=== PATIENT | male | born 1955 | race Caucasian/White ===

== ENCOUNTER 2021-09-26 14:22 | Emergency (ER) | payer OTHER, MEDICARE ==
[2021-09-26 15:21] VITALS: PULSE 70; RESP 18; TEMP 98
[2021-09-26] MEDS ORDERED: KETOROLAC 15 MG/ML 1 ML VIAL IM STA (16:38)
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
[2021-09-26] MEDS ORDERED: CYCLOBENZAPRINE 10MG STARTER 3 TAB BTL PO STA (18:39)
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
[2021-09-26 19:22] VITALS: BP 128/70
== END 2021-09-26 19:24 | disposition home or self-care (01) ==
LOC: EC 14:22
DX: S16.1XXA Strain of muscle, fascia and tendon at neck level, initial encounter (principal); E11.9 Type 2 diabetes mellitus without complications; I10 Essential (primary) hypertension; F17.200 Nicotine dependence, unspecified, uncomplicated; V49.49XA Driver injured in collision with other motor vehicles in traffic accident, initial encounter; Y92.410 Unspecified street and highway as the place of occurrence of the external cause
CPT/HCPCS: 99284; 96372; 72125; 70450; J1885

== ENCOUNTER 2021-11-07 07:42 | Inpatient (IN) | payer MEDICARE ==
--- NOTE | 2021-11-07 08:13 | ED ---
General Adult HPI - General Chief complaint: Shortness of Breath Stated complaint: JOE Time Seen by Provider: 11/07/21 07:45 Source: patient Mode of arrival: ambulatory Limitations: no limitations - History of Present Illness Initial comments: Dictation was produced using [employer] dictation software. please excuse any grammatical, word or spelling errors. Chief Complaint: 66-year-old male with past medical history of hypertension and diabetes presents to the emergency department for 2 days of shortness of breath. History of Present Illness: 66-year-old male presents to the emergency department for shortness of breath 2 days. Patient has history of hypertension and diabetes. Patient states that he is here today for evaluation of shortness of breath. He states he was sleeping but all of a sudden he felt dizzy. States that a short of breath. Denies any chest pain. He has been having nonproductive cough. Symptoms feel like it's worse when he is lying flat. No lower extremity swelling. Denies any constitutional symptoms. No obvious contacts with anybody with COVID-19 or URI symptoms. The ROS documented in this emergency department record has been reviewed and confirmed by me. Those systems with pertinent positive or negative responses have been documented in the HPI. All other systems are other negative and/or noncontributory. PHYSICAL EXAM: General Impression: Alert and oriented x3, not in acute distress HEENT: Normocephalic atraumatic, extra-ocular movements intact, pupils equal and reactive to light bilaterally, mucous membranes moist. Cardiovascular: Heart regular rate and rhythm Chest: Able to complete full sentences, no retractions, no tachypnea Abdomen: abdomen soft, non-tender, non-distended, no organomegaly, diffuse rhonchi to the posterior mariee Musculoskeletal: Pulses present and equal in all extremities, no peripheral edema Motor: no focal deficits noted Neurological: CN II-XII grossly intact, no focal motor or sensory deficits noted Skin: Intact with no visualized rashes Psych: Normal affect and mood ED course: 66-year-old male presents to the emergency department for shortness of breath. He also states that he has associated dizziness. Vital signs upon arrival are within acceptable limits. Laboratory evaluation obtained. CBC is unremarkable. Coag panel is negative. Metabolic panel is unremarkable. Troponin is elevated 0.047. Brain natruretic peptide is 5170. Color test is negative. X-ray shows findings of heart failure. Clinical presentation consistent with new onset heart failure. Patient is stable at the bedside upon reevaluation at 9:30 AM. Patient given 40 mg of IV Lasix. Patient be admitted to [facility] physician group with consultation to cardiology. Patient given an aspirin for elevated troponin. Is not having any active ACS-type symptoms at the moment. He is well-appearing at bedside and denies any chest pain or active shortness of breath. EKG interpretation: Ventricular rate 95, normal sinus rhythm,. Interval 84, QRS 108, QTc 500. No HI prolongation, no QTC prolongation, no ST or T-wave changes noted. No old EKG for comparison. Overall, this EKG is unremarkable - Related Data Previous Rx's Medication Instructions Recorded Cyclobenzaprine [Flexeril] 10 mg PO TID PRN #15 tab 09/26/21 Ibuprofen [Motrin] 600 mg PO Q8HR PRN #30 tab 09/26/21 Allergies Allergy/AdvReac Type Severity Reaction Status Date / Time No Known Allergies Allergy Verified 11/07/21 07:51 Review of Systems ROS Statement: Those systems with pertinent positive or pertinent negative responses have been documented in the HPI. ROS Other: All systems not noted in ROS Statement are negative. Past Medical History Past Medical History: Diabetes Mellitus, Hypertension History of Any Multi-Drug Resistant Organisms: None Reported Past Surgical History: No Surgical Hx Reported Past Psychological History: No Psychological Hx Reported Smoking Status: Current every day smoker Past Alcohol Use History: None Reported Past Drug Use History: None Reported General Exam Limitations: no limitations Course Vital Signs 11/07/21 11/07/21 11/07/21 07:46 08:14 08:20 Pulse Rate 103 H 97 Respiratory 18 24 24 Rate Blood Pressure 117/81 123/80 O2 Sat by Pulse 96 95 Oximetry 11/07/21 09:00 Pulse Rate 93 Respiratory 20 Rate Blood Pressure 103/82 O2 Sat by Pulse 96 Oximetry Medical Decision Making - Lab Data Result diagrams: 11/07/21 08:13 11/07/21 08:13 Lab Results 11/07/21 11/07/21 11/07/21 Range/Units 08:13 08:13 08:13 WBC 9.5 (3.8-10.6) k/uL RBC 4.41 (4.30-5.90) m/uL Hgb 14.5 (13.0-17.5) gm/dL Hct 45.1 (39.0-53.0) % MCV 102.2 H (80.0-100.0) fL MCH 32.9 (25.0-35.0) pg MCHC 32.2 (31.0-37.0) g/dL RDW 13.7 (11.5-15.5) % Plt Count 241 (150-450) k/uL MPV 8.7 Neutrophils % 69 % Lymphocytes % 19 % Monocytes % 7 % Eosinophils % 3 % Basophils % 1 % Neutrophils # 6.5 (1.3-7.7) k/uL Lymphocytes # 1.8 (1.0-4.8) k/uL Monocytes # 0.6 (0-1.0) k/uL Eosinophils # 0.3 (0-0.7) k/uL Basophils # 0.1 (0-0.2) k/uL Hypochromasia Slight Macrocytosis Slight PT 12.5 H (9.0-12.0) sec INR 1.2 H (<1.2) APTT 26.4 (22.0-30.0) sec Sodium (137-145) mmol/L Potassium (3.5-5.1) mmol/L Chloride (98-107) mmol/L Carbon Dioxide (22-30) mmol/L Anion Gap mmol/L BUN (9-20) mg/dL Creatinine (0.66-1.25) mg/dL Est GFR (CKD-EPI)AfAm (>60 ml/min/1.73 sqM) Est GFR (CKD-EPI)NonAf (>60 ml/min/1.73 sqM) Glucose (74-99) mg/dL Calcium (8.4-10.2) mg/dL Troponin I (0.000-0.034) ng/mL NT-Pro-B Natriuret Pep pg/mL Coronavirus (PCR) Not Detected (Not Detectd) 11/07/21 11/07/21 11/07/21 Range/Units 08:13 08:13 08:13 WBC (3.8-10.6) k/uL RBC (4.30-5.90) m/uL Hgb (13.0-17.5) gm/dL Hct (39.0-53.0) % MCV (80.0-100.0) fL MCH (25.0-35.0) pg MCHC (31.0-37.0) g/dL RDW (11.5-15.5) % Plt Count (150-450) k/uL MPV Neutrophils % % Lymphocytes % % Monocytes % % Eosinophils % % Basophils % % Neutrophils # (1.3-7.7) k/uL Lymphocytes # (1.0-4.8) k/uL Monocytes # (0-1.0) k/uL Eosinophils # (0-0.7) k/uL Basophils # (0-0.2) k/uL Hypochromasia Macrocytosis PT (9.0-12.0) sec INR (<1.2) APTT (22.0-30.0) sec Sodium 137 (137-145) mmol/L Potassium 4.6 (3.5-5.1) mmol/L Chloride 106 (98-107) mmol/L Carbon Dioxide 27 (22-30) mmol/L Anion Gap 4 mmol/L BUN 18 (9-20) mg/dL Creatinine 1.02 (0.66-1.25) mg/dL Est GFR (CKD-EPI)AfAm 90 (>60 ml/min/1.73 sqM) Est GFR (CKD-EPI)NonAf 78 (>60 ml/min/1.73 sqM) Glucose 123 H (74-99) mg/dL Calcium 9.1 (8.4-10.2) mg/dL Troponin I 0.047 H* (0.000-0.034) ng/mL NT-Pro-B Natriuret Pep 5170 pg/mL Coronavirus (PCR) (Not Detectd) Disposition Clinical Impression: Congestive heart failure Disposition: ADMITTED IP TO THIS HOSP Condition: Fair Referrals: None,Stated [Primary Care Provider] - 1-2 days
--- NOTE | 2021-11-07 08:34 | XR ---
EXAMINATION TYPE: XR chest 1V portable DATE OF EXAM: 11/07/2021 COMPARISON: None HISTORY: Shortness of breath TECHNIQUE: Single frontal view of the chest is obtained. FINDINGS: There is mild cardiomegaly and mild pulmonary vascular congestion and probable small bilat eral pleural effusions. There is no pneumothorax. The osseous structures are intact. IMPRESSION: Findings most consistent with mild to moderate CHF. Clinical correlation and short-term follow-up to resolution is recommended.
[2021-11-07 08:42] LABS: Calcium 9.1 mg/dL (8.4-10.2); Potassium 4.6 mmol/L (3.5-5.1)
[2021-11-07 08:46] LABS: Basophils # (A) 0.1 k/uL (0-0.2); Basophils % (A) 1 %; Eosinophils # (A) 0.3 k/uL (0-0.7); Eosinophils % (A) 3 %; HCT 45.1 % (39.0-53.0); HGB 14.5 gm/dL (13.0-17.5); Hypochromasia Slight; Lymphocytes # (A) 1.8 k/uL (1.0-4.8); Lymphocytes % (A) 19 %; MCH 32.9 pg (25.0-35.0); MCHC 32.2 g/dL (31.0-37.0); MCV 102.2 fL (80.0-100.0); Macrocytosis Slight; Mean Platelet Volume 8.7; Monocytes # (A) 0.6 k/uL (0-1.0); Monocytes % (A) 7 %; Neutrophils # (A) 6.5 k/uL (1.3-7.7); Neutrophils % (A) 69 %; Platelet Count 241 k/uL (150-450); RBC 4.41 m/uL (4.30-5.90); RDW 13.7 % (11.5-15.5); WBC 9.5 k/uL (3.8-10.6)
[2021-11-07 08:48] LABS: INR 1.2 (<1.2); Partial Thromboplastin Time 26.4 sec (22.0-30.0); Prothrombin Time 12.5 sec (9.0-12.0)
[2021-11-07] MEDS ORDERED: FUROSEMIDE 10 MG/ML 4 ML VIAL IV STA (09:00)
[2021-11-07] MEDS ORDERED: ASPIRIN 325 MG TAB PO STA (09:17)
[2021-11-07] MEDS ORDERED: IPRATROPIUM-ALBUTEROL 3 ML NEB INHALATION PRN (10:51)
--- NOTE | 2021-11-07 10:56 | P.HPIM ---
History of Present Illness H&P Date: 11/07/21 Chief Complaint: shortness of breath Patient is a 66-year-old male with a past medical history of diabetes mellitus, hypertension, hyperlipidemia, GERD and tobacco abuse who presents to the ED with shortness of breath 2 days. Patient states that he feels more short of breath when he sleeps. He states that last night he could not sleep at all because of the shortness of breath. Patient states that at baseline he can walk without any issues however now he can only walk short distances before he gets short of breath. Patient denies any swelling in his lower extremities. Patient states that he has an occasional cough with white frothy sputum. In the ED patient [facility] st x-ray findings were consistent with congestive heart failure. He was given 1 dose of IV Lasix after which the patient urinated and states that he is feeling slightly better. Patient denies any shortness of breath, fever chills nausea vomiting. Review of Systems 10 ROS reviewed and are negative except as noted in HPI Past Medical History Past Medical History: Diabetes Mellitus, Hypertension History of Any Multi-Drug Resistant Organisms: None Reported Past Surgical History: No Surgical Hx Reported Past Psychological History: No Psychological Hx Reported Smoking Status: Current every day smoker Past Alcohol Use History: None Reported Past Drug Use History: None Reported Medications and Allergies Home Medications Medication Instructions Recorded Confirmed Type Aspirin EC [Ecotrin Low Dose] 81 mg PO DAILY 11/07/21 11/07/21 History Atorvastatin [Lipitor] 10 mg PO DAILY 11/07/21 11/07/21 History Lisinopril [Prinivil] 10 mg PO DAILY 11/07/21 11/07/21 History Omeprazole 40 mg PO DAILY 11/07/21 11/07/21 History Pioglitazone [Actos] 30 mg PO DAILY 11/07/21 11/07/21 History metFORMIN HCL [Glucophage] 1,000 mg PO BID PRN 11/07/21 11/07/21 History Allergies Allergy/AdvReac Type Severity Reaction Status Date / Time No Known Allergies Allergy Verified 11/07/21 09:37 Physical Exam Osteopathic Statement: *. No significant issues noted on an osteopathic structural exam other than those noted in the History and Physical/Consult. Vitals: Vital Signs Temp Pulse Resp BP Pulse Ox 11/07/21 10:25 97.1 F L 92 20 117/80 95 11/07/21 09:00 93 20 103/82 96 11/07/21 08:20 97 24 123/80 95 11/07/21 08:14 24 11/07/21 07:46 103 H 18 117/81 96 Intake and Output 11/06/21 11/07/21 11/07/21 22:59 06:59 14:59 Output Total 1080 Balance -1080 Output: Urine 1080 Other: Weight 74.843 kg General: [Alert and oriented, well nourished, no acute distress]. Eye: [PERRL, EOMI, normal conjunctiva]. HENT: [Normocephalic, clear tympanic membranes, normal hearing, moist oral mucosa, no scleral icterus, no sinus tenderness]. Neck: [Supple, non-tender, no carotid bruits, no JVD, no lymphadenopathy]. Lungs: [Diffuse wheezing bilaterally and crackles in the bilateral lower lungs, non-labored respiration]. Heart: [Normal rate, regular rhythm, no murmur, gallop or edema]. Abdomen: [Soft, non-tender, non-distended, normal bowel sounds, no masses]. Musculoskeletal: [Normal range of motion and strength, no tenderness or swelling]. Skin: [Skin is warm, dry and pink, no rashes or lesions]. Neurologic: [Awake, alert, and oriented X3, CN II-XII intact]. Psychiatric: [Cooperative, appropriate mood and affect]. Results CBC & Chem 7: 11/07/21 08:13 11/07/21 08:13 Labs: Abnormal Lab Results - Last 24 Hours (Table) 11/07/21 11/07/21 11/07/21 Range/Units 08:13 08:13 08:13 MCV 102.2 H (80.0-100.0) fL PT 12.5 H (9.0-12.0) sec INR 1.2 H (<1.2) Glucose 123 H (74-99) mg/dL Troponin I (0.000-0.034) ng/mL 11/07/21 Range/Units 08:13 MCV (80.0-100.0) fL PT (9.0-12.0) sec INR (<1.2) Glucose (74-99) mg/dL Troponin I 0.047 H* (0.000-0.034) ng/mL Assessment and Plan Assessment: #Shortness of breath multifactorial secondary to COPD and likely acute heart cindy lure -Patient chest x-ray findings consistent with CHF and patient also complains of orthopnea and PND -BNP elevated -We'll start patient on IV Lasix 40 mg twice a day -Check echocardiogram -Consult cardiology -Daily weight, strict I's and O's #COPD exacerbation -Patient does not have an official diagnosis but due to his long-standing history of tobacco abuse he likely has underlying COPD -We'll start patient on IV steroids, breathing treatments and azithromycin -We'll need to discharge patient on inhalers #Non-SC elevated troponins likely due to heart failure -patient denies any chest pain and EKG without ischemic changes so unlikely ACS -trend troponins #Hypertension -Resume home meds #Diabetes mellitus -Hold metformin, resume actos -Sliding-scale insulin #Tobacco abuse -patient counseled on smoking cessation -nicotine patch #GERD: PPI CODE STATUS:full code DVT prophylaxis: Subcu heparin Discussed with: Patient, ER, rn Anticipated length of stay > than [address]: home A total of 50 minutes was spent on the care of this complex patient more than 50% of the time was spent in counseling and care coordination.
[2021-11-07 11:29] LABS: Glucose,Whole Blood 95 mg/dL (75-99)
[2021-11-07] MEDS: IPRATROPIUM-ALBUTEROL 3 ML NEB INHALATION SCH ×3 (12:02→20:41)
[2021-11-07] MEDS: methylPREDNISolone SOD SUCCI 40 MG/ML 1 ML VIAL IV SCH ×2 (12:41→21:18)
[2021-11-07] MEDS: AZITHROMYCIN 500 MG TAB PO SCH (12:41)
[2021-11-07] MEDS: NICOTINE 21MG/24HR PATCH TRANSDERM SCH (12:42)
[2021-11-07] MEDS: INSULIN ASPART (NovoLOG) 100 UNIT/ML VIAL SQ SCH ×3 (12:42→21:18)
[2021-11-07 16:21] LABS: Glucose,Whole Blood 155 mg/dL (75-99)
[2021-11-07 20:12] LABS: Glucose,Whole Blood 139 mg/dL (75-99)
[2021-11-08 05:57] LABS: Glucose,Whole Blood 164 mg/dL (75-99)
[2021-11-08] MEDS: INSULIN ASPART (NovoLOG) 100 UNIT/ML VIAL SQ SCH ×4 (06:25→21:16)
[2021-11-08] MEDS: PANTOPRAZOLE 40 MG TABLET PO SCH (06:28)
[2021-11-08] MEDS: IPRATROPIUM-ALBUTEROL 3 ML NEB INHALATION SCH ×4 (07:27→20:28)
--- NOTE | 2021-11-08 08:20 | P.CRDCN ---
History of Present Illness Consult date: 11/08/21 Requesting physician: Marnie Wayne Consult reason: congestive heart failure History of present illness: History of Presenting Illness: Patient is a very pleasant 66-year-old male with a past medical history of hypertension, hyperlipidemia, diabetes mellitus, previous cardiac valve repair, and nicotine dependence. He presented to the emergency department for chief complaint of shortness of breath 2 days. Patient reports he recently moved to [place] from [place] a couple months ago after the passing of his and has not established a primary care provider or appeals assistant in this area. He reports progressively worsening shortness of breath, cough, and chest pain with exertion over the past couple days accompanied by orthopnea. The emergency department, patient was seen and fully evaluated. He was found to have elevated troponins of 0.047, 0.041, and 0.038. ProBNP 5170. Chest x-ray consistent with mild to moderate CHF. EKG showing normal sinus rhythm at 95 bpm with a prolonged QT/QTC of 398/500 ms. Hemoglobin A1c elevated at 6.2% . Patient admitted under internal medicine team and we have been consulted to evaluate for congestive heart failure. Patient seen and evaluated at the bedside. He denies history of previously known congestive heart failure or cardiac complaints. He reports he did have a valve repaired years ago, but was unable to provide any fu rther information at this time. Patient reports he recently moved to [place] from [place] a couple months ago after the passing of his and has not established a primary care provider or appeals assistant in this area. He reports currently his chest pain and shortness of breath has resolved, but states increases with with exertion or with attempts at lying down. Patient denies any episodes of dizziness/lightheadedness, palpitations, swelling in his extremities, or experiencing any numbness/tingling/weakness of his extremities. Review of systems: Pertinent positives and negatives as discussed in HPI, a complete review of systems was perfo with suturesrmed and all other systems are negative. Physical exam: Vital signs reviewed and stable. General: Nontoxic, no distress and appears stated age. Derm: Skin warm and dry, normal coloration for ethnicity. Head: Atraumatic, normocephalic and symmetric. Eyes: EOMs intact, no lid lag, and anicteric sclera Mouth: no lip lesions, mucus membranes moist Cardiovascular: regular rate and rhythm with normal S1S2, significant systolic murmur right and left border, positive posterior tibial pulses bilaterally, and cap refill < 2 seconds. No lower extremity edema. Positive for JVD Lungs: Respirations even, regular, and unlabored on room air. Lungs diminished with no noted rhonchi, rales, or wheezing, and no accessory muscle usage. Abdominal: soft, nontender to palpation, no guarding, no appreciable organomegaly Ext: ROM intact. No gross muscle atrophy, no edema, no contractures Neuro: Speech clear, face symmetrical and CN II-XII grossly intact with no noted focal neuro deficits Psych: Alert and oriented to person, place, time, and situation. Appropriate and pleasant affect. Assessment and Plan of Care: Congestive heart failure, unclear etiology pending echocardiogram results Elevated troponin, flat likely type II NSTEMI secondary to CHF Hypertension Hyperlipidemia Telemetry monitoring Echocardiogram to be completed Lasix 40 mg IVP twice daily Close monitoring of I's and O's Daily weights Continue daily medication regimen with aspirin, atorvastatin, and lisinopril. Further recommendations pending patient's clinical course Thank you for allowing us to participate in the care of this pleasant patient. Do not hesitate to contact us with questions. Nurse practitioner note has been reviewed by physician. Signing provider agrees with the documented findings, assessment, and plan of care.. Past Medical History Past Medical History: Diabetes Mellitus, Hypertension History of Any Multi-Drug Resistant Organisms: None Reported Past Surgical History: Orthopedic Surgery Additional Past Surgical History / Comment(s): left knee replacement, removal of partial fingers 3rd and 5th digits on left hand Past Anesthesia/Blood Transfusion Reactions: No Reported Reaction Past Psychological History: No Psychological Hx Reported Smoking Status: Current every day smoker Past Alcohol Use History: None Reported Past Drug Use History: None Reported - Past Family History Mother Family Medical History: Cancer Father Family Medical History: Cancer Medications and Allergies Home Medications Medication Instructions Recorded Confirmed Type Aspirin EC [Ecotrin Low Dose] 81 mg PO DAILY 11/07/21 11/07/21 History Atorvastatin [Lipitor] 10 mg PO DAILY 11/07/21 11/07/21 History Lisinopril [Prinivil] 10 mg PO DAILY 11/07/21 11/07/21 History Omeprazole 40 mg PO DAILY 11/07/21 11/07/21 History Pioglitazone [Actos] 30 mg PO DAILY 11/07/21 11/07/21 History metFORMIN HCL [Glucophage] 1,000 mg PO BID PRN 11/07/21 11/07/21 History Allergies Allergy/AdvReac Type Severity Reaction Status Date / Time No Known Allergies Allergy Verified 11/07/21 09:37 Physical Exam Vitals: Vital Signs Temp Pulse Pulse Resp BP BP Pulse Ox 11/08/21 04:00 92 18 100/66 94 L 11/08/21 00:00 85 16 98/59 93 L 11/07/21 20:57 94 11/07/21 20:43 92 11/07/21 20:00 95 16 110/72 96 11/07/21 17:10 97.8 F 107 H 18 109/69 94 L 11/07/21 16:25 96 11/07/21 16:15 95 11/07/21 12:11 92 11/07/21 12:02 80 11/07/21 11:00 97.8 F 85 20 119/70 96 11/07/21 10:25 97.1 F L 92 20 117/80 95 11/07/21 09:00 93 20 103/82 96 11/07/21 08:20 97 24 123/80 95 Intake and Output 11/07/21 11/08/21 11/08/21 22:59 06:59 14:59 Intake Total 240 Output Total 1200 1600 Balance -960 -1600 Intake: Oral 240 Output: Urine 1200 1600 Other: Voiding Method Toilet Toilet # Voids 1 2 Weight 69.8 kg Results 11/08/21 08:30 11/08/21 08:30 Cardiac Enzymes 11/07/21 11/07/21 11/07/21 Range/Units 08:13 10:40 14:32 Troponin I 0.047 H* 0.041 H* 0.038 H* (0.000-0.034) ng/mL Coagulation 11/07/21 Range/Units 08:13 PT 12.5 H (9.0-12.0) sec APTT 26.4 (22.0-30.0) sec CBC 11/07/21 Range/Units 08:13 WBC 9.5 (3.8-10.6) k/uL RBC 4.41 (4.30-5.90) m/uL Hgb 14.5 (13.0-17.5) gm/dL Hct 45.1 (39.0-53.0) % Plt Count 241 (150-450) k/uL Comprehensive Metabolic Panel 11/07/21 Range/Units 08:13 Sodium 137 (137-145) mmol/L Potassium 4.6 (3.5-5.1) mmol/L Chloride 106 (98-107) mmol/L Carbon Dioxide 27 (22-30) mmol/L BUN 18 (9-20) mg/dL Creatinine 1.02 (0.66-1.25) mg/dL Glucose 123 H (74-99) mg/dL Calcium 9.1 (8.4-10.2) mg/dL Current Medications Generic Name Dose Route Start Last Admin Trade Name Freq PRN Reason Stop Dose Admin Albuterol/Ipratropium 3 ml 11/07/21 12:00 11/08/21 07:27 Ipratropium-Albuterol 3 Ml Neb INHALATION Not Given RT-QID TIFFANY Albuterol/Ipratropium 3 ml 11/07/21 10:51 Ipratropium-Albuterol 3 Ml Neb INHALATION RT-Q6H PRN Shortness Of Breath Or Wheezing Aspirin 81 mg 11/08/21 09:00 Aspirin 81 Mg PO DAILY [facility] Atorvastatin Calcium 10 mg 11/08/21 09:00 Atorvastatin 10 Mg Tab PO DAILY [facility] Azithromycin 500 mg 11/07/21 11:15 11/07/21 12:41 Azithromycin 500 Mg Tab PO 500 mg DAILY TIFFANY Administration Insulin Aspart 0 unit 11/07/21 12:30 11/08/21 06:25 Insulin Aspart (Novolog) 100 Unit/Ml Vial SQ 1 unit ACHS [facility] Administration Protocol Lisinopril 10 mg 11/08/21 09:00 Lisinopril 10 Mg Tab PO DAILY [facility] Methylprednisolone Sodium Succinate 40 mg 11/07/21 11:15 11/07/21 21:18 Methylprednisolone Sod Succi 40 Mg/Ml 1 Ml Vial IV 40 mg Q12HR TIFFANY Administration Nicotine 1 patch 11/07/21 11:15 11/07/21 12:42 Nicotine 21mg/24hr Patch TRANSDERM 1 patch DAILY [facility] Administration Pantoprazole Sodium 40 mg 11/08/21 07:30 11/08/21 06:28 Pantoprazole 40 Mg Tablet PO 40 mg [id number] [facility] Administration Pioglitazone HCl 30 mg 11/08/21 09:00 Pioglitazone 30 Mg Tab PO DAILY TIFFANY Intake and Output 11/07/21 11/08/21 11/08/21 22:59 06:59 14:59 Intake Total 240 Output Total 1200 1600 Balance -960 -1600 Intake: Oral 240 Output: Urine 1200 1600 Other: Voiding Method Toilet Toilet # Voids 1 2 Weight 69.8 kg 11/07/21 08:13 11/07/21 08:13
[2021-11-08] MEDS: AZITHROMYCIN 500 MG TAB PO SCH (08:54)
[2021-11-08] MEDS: ASPIRIN 81 MG PO SCH (08:55)
[2021-11-08] MEDS: NICOTINE 21MG/24HR PATCH TRANSDERM SCH (08:55)
[2021-11-08] MEDS: PIOGLITAZONE 30 MG TAB PO SCH (08:55)
[2021-11-08] MEDS: lisinopriL 10 MG TAB PO SCH (08:55)
[2021-11-08] MEDS: methylPREDNISolone SOD SUCCI 40 MG/ML 1 ML VIAL IV SCH ×2 (08:55→21:16)
[2021-11-08] MEDS ORDERED: ATORVASTATIN 10 MG TAB PO SCH (09:00)
[2021-11-08 09:11] LABS: Basophils % (A) 0 %; Eosinophils % (A) 0 %; HCT 45.5 % (39.0-53.0); HGB 14.3 gm/dL (13.0-17.5); Hypochromasia Slight; Lymphocytes # (A) 1.2 k/uL (1.0-4.8); Lymphocytes % (A) 14 %; MCH 32.1 pg (25.0-35.0); MCHC 31.4 g/dL (31.0-37.0); MCV 102.4 fL (80.0-100.0); Macrocytosis Slight; Mean Platelet Volume 8.8; Monocytes # (A) 0.7 k/uL (0-1.0); Monocytes % (A) 8 %; Neutrophils # (A) 6.5 k/uL (1.3-7.7); Neutrophils % (A) 77 %; Platelet Count 225 k/uL (150-450); RBC 4.45 m/uL (4.30-5.90); RDW 13.2 % (11.5-15.5); WBC 8.4 k/uL (3.8-10.6)
[2021-11-08 09:21] LABS: African American GFR (CKD) >90 (>60 ml/min/1.73 sqM); Anion Gap 8 mmol/L; Blood Urea Nitrogen 15 mg/dL (9-20); Calcium 9.2 mg/dL (8.4-10.2); Carbon Dioxide 27 mmol/L (22-30); Chloride 101 mmol/L (98-107); Glucose 174 mg/dL (74-99); Magnesium 1.9 mg/dL (1.6-2.3); Non-African American GFR(CKD) >90 (>60 ml/min/1.73 sqM); Potassium 4.5 mmol/L (3.5-5.1); Sodium 136 mmol/L (137-145)
--- NOTE | 2021-11-08 12:13 | P.PN ---
Subjective Progress Note Date: 11/08/20 Principal diagnosis: CC: SOB Patient states that he is feeling much better today. He states that her shortness of breath has significantly improved since admission. Patient was sitting in the chair when I went to see him and he was in no acute distress. 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 Psych - Calm and cooperative - Labs CBC & Chem 7: 11/08/21 08:30 11/08/21 08:30 Labs: Abnormal Lab Results - Last 24 Hours (Table) 11/07/21 11/07/21 11/07/21 Range/Units 14:32 14:32 16:17 MCV (80.0-100.0) fL Sodium (137-145) mmol/L Glucose (74-99) mg/dL POC Glucose (mg/dL) 155 H (75-99) mg/dL Hemoglobin A1c 6.2 H (0.0-6.0) % Troponin I 0.038 H* (0.000-0.034) ng/mL 11/07/21 11/08/21 11/08/21 Range/Units 20:08 05:28 08:30 MCV 102.4 H (80.0-100.0) fL Sodium (137-145) mmol/L Glucose (74-99) mg/dL POC Glucose (mg/dL) 139 H 164 H (75-99) mg/dL Hemoglobin A1c (0.0-6.0) % Troponin I (0.000-0.034) ng/mL 11/08/21 Range/Units 08:30 MCV (80.0-100.0) fL Sodium 136 L (137-145) mmol/L Glucose 174 H (74-99) mg/dL POC Glucose (mg/dL) (75-99) mg/dL Hemoglobin A1c (0.0-6.0) % Troponin I (0.000-0.034) ng/mL Assessment and Plan Assessment: #Shortness of breath multifactorial secondary to underlying COPD and likely acute heart failure -Patient chest x-ray findings consistent with CHF and patient also complains of orthopnea and PND -BNP elevated -We'll start patient on IV Lasix 40 mg twice a day -Echocardiogram pending -Consult cardiology -Daily weight, strict I's and O's #COPD exacerbation -Patient does not have an official diagnosis but due to his long-standing history of tobacco abuse he likely has underlying COPD -We'll start patient on IV steroids, breathing treatments and azithromycin -We'll need to discharge patient on inhalers #Non-NE elevated troponins likely due to heart failure -patient denies any chest pain and EKG without ischemic changes so unlikely ACS -Troponins are flat #Hypertension -Resume home meds #Diabetes mellitus -Hold metformin, resume actos -Sliding-scale insulin #Tobacco abuse -patient counseled on smoking cessation -nicotine patch #GERD: PPI CODE STATUS:full code DVT prophylaxis: Subcu heparin Discussed with: Patient, ER, rn Anticipated length of stay > than [address]: home A total of 50 minutes was spent on the care of this complex patient more than 50% of the time was spent in counseling and care coordination.
[2021-11-08 12:17] LABS: Glucose,Whole Blood 108 mg/dL (75-99)
--- NOTE | 2021-11-08 13:51 | ECHOF ---
Referral Reason:shortness of breath, elevated troponin MEASUREMENTS -------- HEIGHT: 172.7 cm WEIGHT: 74.8 kg BP: 119/70 RVIDd: 4.2 cm (< 3.3) IVSd: 1.1 cm (0.6 - 1.1) LVIDd: 6.1 cm (3.9 - 5.3) LVPWd: 1.2 cm (0.6 - 1.1) IVSs: 1.6 cm LVIDs: 5.5 cm LVPWs: 1.5 cm LAESV Index (A-L): 52.59 ml/m Ao Diam: 2.8 cm (2.0 - 3.7) AV Cusp: 1.4 cm (1.5 - 2.6) MV EXCURSION: 14.414 mm (> 18.000) MV EF SLOPE: 73 mm/s (70 - 150) EPSS: 2.2 cm AV maxP.43 mmHg AV meanP.65 mmHg AR PHT: 367 ms RAP: 5.00 mmHg RVSP: 50.61 mmHg FINDINGS -------- Sinus rhythm. This was a technically adequate study. The left ventricle is mildly dilated. There is borderline concentric left ventricular hypertrophy. There is severe global hypokinesis of LV . Overall left ventricular systolic function is severely impaired with, an EF between 20 - 25 %. The diastolic filling pattern indicates impaired relaxatio n {E/E'}. The right ventricle is moderately enlarged. LA is severely dilated >40 ml/m2 The right atrial size is normal. Interatrial and interventricular septum intact. There is mild aortic regurgitation. There is severe aortic stenosis present. The maximum velocity across the aortic valve is 4.01m/s. Peak/mean gradient across the Aortic Valve is 64.43mmHg / 39.6 5mmHg. Moderate mitral regurgitation is present. Moderate tricuspid regurgitation present. There is moderate to severe pulmonary hypertension. The right ventricular systolic pressure, as measured by Doppler, is 50.61mmHg. There is no pulmonic regurgitation present. The aortic root size is normal. IVC Not well visulized. There is no pericardial effusion. Large Pleural Effusion. CONCLUSIONS -------- 1. The left ventricle is mildly dilated. 2. There is borderline concentric left ventricular hypertrophy. 3. There is severe global hypokinesis of LV . 4. Overall left ventricular systolic function is severely impaired with, an EF between 20 - 25 %. 5. The diastolic filling pattern indicates impaired relaxation {E/E'}.. 6. The right ventricle is moderately enlarged. 7. LA is severely dilated >40 ml/m2 8. There is mild aortic regurgitation. 9. There is severe aortic stenosis present. 10. The maximum velocity across the aortic valve is 4.01m/s. 11. Peak/mean gradient across the Aortic Valve is 64.43mmHg / 39.65mmHg. 12. Moderate mitral regurgitation is present. 13. Moderate tricuspid regurgitation present. 14. There is moderate to severe pulmonary hypertension. 15. The right ventricular systolic pressure, as measured by Doppler, is 50.61mmHg. THEATRICAL AGENT: Wendi Lopez RDCS
[2021-11-08 16:45] LABS: Glucose,Whole Blood 112 mg/dL (75-99)
[2021-11-08 20:51] LABS: Glucose,Whole Blood 186 mg/dL (75-99)
[2021-11-08] MEDS: FUROSEMIDE 10 MG/ML 4 ML VIAL IV SCH (21:16)
[2021-11-09] MEDS: PANTOPRAZOLE 40 MG TABLET PO SCH (05:29)
[2021-11-09 06:28] LABS: Glucose,Whole Blood 153 mg/dL (75-99)
[2021-11-09] MEDS: INSULIN ASPART (NovoLOG) 100 UNIT/ML VIAL SQ SCH ×4 (06:35→21:19)
[2021-11-09 08:26] LABS: African American GFR (CKD) >90 (>60 ml/min/1.73 sqM); Anion Gap 6 mmol/L; Blood Urea Nitrogen 20 mg/dL (9-20); Calcium 9.4 mg/dL (8.4-10.2); Carbon Dioxide 31 mmol/L (22-30); Chloride 98 mmol/L (98-107); Glucose 178 mg/dL (74-99); Magnesium 2.1 mg/dL (1.6-2.3); Non-African American GFR(CKD) 84 (>60 ml/min/1.73 sqM); Potassium 4.8 mmol/L (3.5-5.1); Sodium 135 mmol/L (137-145)
[2021-11-09] MEDS: IPRATROPIUM-ALBUTEROL 3 ML NEB INHALATION SCH ×4 (08:36→19:55)
[2021-11-09] MEDS: METOPROLOL TARTRATE 12.5 MG TAB PO SCH ×2 (08:55→20:09)
[2021-11-09] MEDS: ATORVASTATIN 40 MG TAB PO SCH (08:55)
[2021-11-09] MEDS: FUROSEMIDE 10 MG/ML 4 ML VIAL IV SCH ×2 (08:56→20:09)
[2021-11-09] MEDS: PIOGLITAZONE 30 MG TAB PO SCH (08:56)
[2021-11-09] MEDS: methylPREDNISolone SOD SUCCI 40 MG/ML 1 ML VIAL IV SCH ×2 (08:56→20:08)
[2021-11-09] MEDS: AZITHROMYCIN 500 MG TAB PO SCH (08:56)
[2021-11-09] MEDS: ASPIRIN 81 MG PO SCH (08:56)
[2021-11-09] MEDS: NICOTINE 21MG/24HR PATCH TRANSDERM SCH (08:56)
--- NOTE | 2021-11-09 10:25 | P.PN ---
Subjective Progress Note Date: 11/09/21 Principal diagnosis: CC: SOB Patient is a 66-year-old male with a past medical history of diabetes, hyperlipidemia, hypertension and tobacco abuse who presented to the ED with cody rtness of breath, orthopnea and PND. Patient had an echocardiogram done that showed EF of 20-25% and severe aortic stenosis. Patient has been on IV Lasix and his symptoms have improved significantly since admission. Cardiology is following the patient. Today patient was sitting comfortably in his chair and denied any acute complaints. I discussed the echocardiogram findings with the patient. 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 Psych - Calm and cooperative - Labs CBC & Chem 7: 11/08/21 08:30 11/09/21 07:35 Labs: Abnormal Lab Results - Last 24 Hours (Table) 11/08/21 11/08/21 11/08/21 Range/Units 12:01 16:43 20:28 Sodium (137-145) mmol/L Carbon Dioxide (22-30) mmol/L Glucose (74-99) mg/dL POC Glucose (mg/dL) 108 H 112 H 186 H (75-99) mg/dL 11/09/21 11/09/21 Range/Units 05:50 07:35 Sodium 135 L (137-145) mmol/L Carbon Dioxide 31 H (22-30) mmol/L Glucose 178 H (74-99) mg/dL POC Glucose (mg/dL) 153 H (75-99) mg/dL Assessment and Plan Assessment: #Acute systolic heart failure #Severe aortic stenosis -Echocardiogram showed EF of 20-25% and severe aortic stenosis -Resume IV Lasix 40 mg twice a day -Patient already on lisinopril and metoprolol -Cardiology started the patient on spironolactone -Awaiting for further recommendations from cardiology regarding ischemic workup and lifeVest -Daily weight, strict I's and O's #COPD exacerbation -Patient does not have an official diagnosis but due to his long-standing history of tobacco abuse he likely has underlying COPD -We'll start patient on IV steroids, breathing treatments and azithromycin -We'll need to discharge patient on inhalers #Non-LA elevated troponins likely due to heart failure -patient denies any chest pain and EKG without ischemic changes so unlikely ACS -Troponins are flat #Hypertension -Resume home meds #Diabetes mellitus -Hold metformin, resume actos -Sliding-scale insulin #Tobacco abuse -patient counseled on smoking cessation -nicotine patch #GERD: PPI CODE STATUS:full code DVT prophylaxis: Subcu heparin Discussed with: Patient, ER, rn Anticipated length of stay > than 2 midnights, awaiting for cardiology to clear patient for discharge Anticipated discharge place: home A total of 50 minutes was spent on the care of this complex patient more than 50% of the time was spent in counseling and care coordination.
[2021-11-09 11:57] LABS: Glucose,Whole Blood 96 mg/dL (75-99)
[2021-11-09] MEDS: SPIRONOLACTONE 25 MG TAB PO SCH (12:15)
[2021-11-09 12:20] VITALS: BMI 22.5
[2021-11-09] MEDS: lisinopriL 10 MG TAB PO SCH (12:26)
--- NOTE | 2021-11-09 15:06 | P.PN ---
Subjective Progress Note Date: 11/09/21 HISTORY OF PRESENT ILLNESS: Patient is a very pleasant 66-year-old male with a past medical history of hypertension, hyperlipidemia, diabetes mellitus, previous cardiac valve repair, and nicotine dependence. He presented to the emergency department for chief complaint of shortness of breath 2 days. 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 He reports progressively worsening shortness of breath, cough, and chest pain with exertion over the past couple days accompanied by orthopnea. The emergency department, patient was seen and fully evaluated. He was found to have elevated troponins of 0.047, 0.041, and 0.038. ProBNP 5170. Chest x-ray consistent with mild to moderate CHF. EKG showing normal sinus rhythm at 95 bpm with a prolonged QT/QTC of 398/500 ms. Hemoglobin A1c elevated at 6.2% . Patient admitted under internal medicine team and we have been consulted to evaluate for congestive heart failure. Patient seen and evaluated at the bedside. He denies history of previously known congestive heart failure or cardiac complaints. He reports he did have a valve repaired years ago, but was unable to provide any further information at this time. 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 He reports currently his chest pain and shortness of breath has resolved, but states increases with with exertion or with attempts at lying down. Patient denies any episodes of dizziness/lightheadedness, palpitations, swelling in his extremities, or experiencing any numbness/tingling/weakness of his extremities. 11/09/2021 Patient examined at the bedside. Patient denies chest pain or pressure. Reports improvement in his SOB. He remains on IV Lasix. Fluid balance over the last 24 hours is -1980 mL. Creatinine stable at 0.96. Echocardiogram completed revealed ejection fraction 20-25%, mild aortic regurgitation, severe aortic stenosis, moderate mitral regurgitation, and moderate tricuspid regurgitation with moderate to severe pulmonary hypertension PHYSICAL EXAM: VITAL SIGNS: Reviewed. GENERAL: Well-developed in no acute distress. NECK: Supple. No JVD or thyromegaly LUNGS: Respirations even and unlabored. Lungs diminished with crackles and wheezing noted to right lung base. HEART: Regular rate and rhythm. S1 and S2 heard. Systolic murmur noted. EXTREMITIES: Normal range of motion. No clubbing or cyanosis. Peripheral pulses intact. No lower extremity edema ASSESSMENT: Acute systolic congestive heart failure Cardiomyopathy, unclear etiology Aortic stenosis Hypertension Hyperlipidemia History of valve repair, exact details unknown PLAN: Continue current cardiac medications Continue IV lasix Monitor kidney function NPO at midnight Patient likely needs aortic valve replacement. Patient will require CRISTIAN and left and right heart cath. Possibly tomorrow depending on patient condition. Further recommendations pending patient course Nurse practitioner note has been reviewed by physician. Signing provider agrees with the documented findings, assessment, and plan of care. Objective - Vital Signs Vital signs: Vital Signs Temp 97.5 F L 11/09/21 11:35 Pulse 88 11/09/21 12:01 Resp 16 11/09/21 11:35 BP 90/58 11/09/21 11:35 Pulse Ox 94 L 11/09/21 11:35 Intake & Output 11/08/21 11/09/21 11/09/21 18:59 06:59 18:59 Intake Total 1020 500 600 Output Total 1300 2200 Balance -280 -1700 600 Weight 67.3 kg 67.3 kg Intake: Oral 1020 500 600 Output: Urine 1300 2200 Other: Voiding Method Toilet Toilet Toilet - Labs CBC & Chem 7: 11/08/21 08:30 11/09/21 07:35 Labs: Abnormal Lab Results - Last 24 Hours (Table) 11/08/21 11/08/21 11/09/21 Range/Units 16:43 20:28 05:50 Sodium (137-145) mmol/L Carbon Dioxide (22-30) mmol/L Glucose (74-99) mg/dL POC Glucose (mg/dL) 112 H 186 H 153 H (75-99) mg/dL 11/09/21 Range/Units 07:35 Sodium 135 L (137-145) mmol/L Carbon Dioxide 31 H (22-30) mmol/L Glucose 178 H (74-99) mg/dL POC Glucose (mg/dL) (75-99) mg/dL
[2021-11-09 16:44] LABS: Glucose,Whole Blood 185 mg/dL (75-99)
[2021-11-09 20:43] LABS: Glucose,Whole Blood 120 mg/dL (75-99)
[2021-11-10 06:12] LABS: Glucose,Whole Blood 125 mg/dL (75-99)
[2021-11-10] MEDS: INSULIN ASPART (NovoLOG) 100 UNIT/ML VIAL SQ SCH ×4 (06:15→20:23)
[2021-11-10] MEDS: PANTOPRAZOLE 40 MG TABLET PO SCH (06:27)
[2021-11-10 08:15] LABS: HCT 48.8 % (39.0-53.0); HGB 15.3 gm/dL (13.0-17.5); MCHC 31.3 g/dL (31.0-37.0); MCV 102.1 fL (80.0-100.0); Macrocytosis Slight; Mean Platelet Volume 8.8; Platelet Count 247 k/uL (150-450); RBC 4.78 m/uL (4.30-5.90); RDW 13.3 % (11.5-15.5); WBC 8.9 k/uL (3.8-10.6)
[2021-11-10 08:23] LABS: African American GFR (CKD) >90 (>60 ml/min/1.73 sqM); Anion Gap 9 mmol/L; Blood Urea Nitrogen 25 mg/dL (9-20); Calcium 9.6 mg/dL (8.4-10.2); Carbon Dioxide 31 mmol/L (22-30); Chloride 95 mmol/L (98-107); Glucose 200 mg/dL (74-99); Magnesium 2.2 mg/dL (1.6-2.3); Non-African American GFR(CKD) 83 (>60 ml/min/1.73 sqM); Sodium 135 mmol/L (137-145)
[2021-11-10] MEDS: ASPIRIN 81 MG PO SCH (08:43)
[2021-11-10] MEDS: lisinopriL 10 MG TAB PO SCH (08:43)
[2021-11-10] MEDS: NICOTINE 21MG/24HR PATCH TRANSDERM SCH (08:43)
[2021-11-10] MEDS: SPIRONOLACTONE 25 MG TAB PO SCH (08:43)
[2021-11-10] MEDS: FUROSEMIDE 10 MG/ML 4 ML VIAL IV SCH (08:43)
[2021-11-10] MEDS: ATORVASTATIN 40 MG TAB PO SCH (08:43)
[2021-11-10] MEDS: methylPREDNISolone SOD SUCCI 40 MG/ML 1 ML VIAL IV SCH ×2 (08:43→20:35)
[2021-11-10] MEDS: METOPROLOL TARTRATE 12.5 MG TAB PO SCH ×2 (08:43→20:35)
[2021-11-10] MEDS: AZITHROMYCIN 500 MG TAB PO SCH (08:43)
[2021-11-10] MEDS ORDERED: FUROSEMIDE 40 MG TAB PO SCH (09:00)
[2021-11-10] MEDS: IPRATROPIUM-ALBUTEROL 3 ML NEB INHALATION SCH ×5 (09:03→20:12)
[2021-11-10] MEDS ORDERED: ALPRAZolam 0.5 MG TAB PO PRN (09:08)
[2021-11-10] MEDS ORDERED: NITROGLYCERIN SL TABS 0.4 MG TAB SUBLINGUAL PRN (09:08)
[2021-11-10] MEDS ORDERED: ALPRAZolam 0.25 MG TAB PO PRN (09:08)
--- NOTE | 2021-11-10 10:39 | P.PN ---
Subjective Progress Note Date: 11/10/21 HISTORY OF PRESENT ILLNESS: Patient is a very pleasant 66-year-old male with a past medical history of hypertension, hyperlipidemia, diabetes mellitus, previous cardiac valve repair, and nicotine dependence. He presented to the emergency department for chief complaint of shortness of breath 2 days. Patient reports he recently moved to [place] from [place] a couple months ago after the passing of his and has not established a primary care provider or retirement actuary in this area. He reports progressively worsening shortness of breath, cough, and chest pain with exertion over the past couple days accompanied by orthopnea. The emergency department, patient was seen and fully evaluated. He was found to have elevated troponins of 0.047, 0.041, and 0.038. ProBNP 5170. Chest x-ray consistent with mild to moderate CHF. EKG showing normal sinus rhythm at 95 bpm with a prolonged QT/QTC of 398/500 ms. Hemoglobin A1c elevated at 6.2% . Patient admitted under internal medicine team and we have been consulted to evaluate for congestive heart failure. Patient seen and evaluated at the bedside. He denies history of previously known congestive heart failure or cardiac complaints. He reports he did have a valve repaired years ago, but was unable to provide any further information at this time. Patient reports he recently moved to [place] from [place] a couple months ago after the passing of his and has not established a primary care provider or retirement actuary in this area. He reports currently his chest pain and shortness of breath has resolved, but states increases with with exertion or with attempts at lying down. Patient denies any episodes of dizziness/lightheadedness, palpitations, swelling in his extremities, or experiencing any numbness/tingling/weakness of his extremities. 11/09/2021 Patient examined at the bedside. Patient denies chest pain or pressure. Reports improvement in his SOB. He remains on IV Lasix. Fluid balance over the last 24 hours is -1980 mL. Creatinine stable at 0.96. Echocardiogram completed revealed ejection fraction 20-25%, mild aortic regurgitation, severe aortic stenosis, moderate mitral regurgitation, and moderate tricuspid regurgitation with moderate to severe pulmonary hypertension 11/10/2021 Patient examined this morning. He is sitting up in the chair. Patient denies leora st pain or pressure. He reports improvement in his SOB. He states he was able to lay flat in bed without SOB. He remains on IV lasix. Fluid balance over the last 24 hours is -1500 mL. Patient's kidney function remained stable. Creatinine 0.97. BUN 25. Potassium today 5.0. PHYSICAL EXAM: VITAL SIGNS: Reviewed. GENERAL: Well-developed in no acute distress. NECK: Supple. No JVD or thyromegaly LUNGS: Respirations even and unlabored. Lungs diminished bilaterally. HEART: Regular rate and rhythm. S1 and S2 heard. Systolic murmur noted. EXTREMITIES: Normal range of motion. No clubbing or cyanosis. Peripheral pulses intact. No lower extremity edema ASSESSMENT: Acute systolic congestive heart failure Cardiomyopathy, unclear etiology Aortic stenosis Hypertension Hyperlipidemia History of valve repair, exact details unknown PLAN: Continue current cardiac medications Discontinue IV Lasix Begin oral Lasix 40 mg daily Repeat potassium level tomorrow as patient's potassium is on the higher side today. If patient continues to have hyperkalemia, will discontinue Aldactone NPO at midnight Patient to undergo right and left heart cath tomorrow with Dr. Ayala Further recommendations pending patient course Nurse practitioner note has been reviewed by physician. Signing provider agrees with the documented findings, assessment, and plan of care. Objective - Vital Signs Vital signs: Vital Signs Temp 97.5 F L 11/10/21 08:05 Pulse 95 11/10/21 08:05 Resp 18 11/10/21 08:05 BP 102/57 11/10/21 08:05 Pulse Ox 96 11/10/21 08:05 Intake & Output 11/09/21 11/10/21 11/10/21 18:59 06:59 18:59 Intake Total 720 480 118 Output Total 2700 Balance 720 -2220 118 Weight 67.3 kg 67.8 kg Intake: Oral 720 480 118 Output: Urine 2700 Other: Voiding Method Toilet Toilet - Labs CBC & Chem 7: 11/10/21 07:36 11/10/21 07:36 Labs: Abnormal Lab Results - Last 24 Hours (Table) 11/09/21 11/09/21 11/10/21 Range/Units 16:43 20:42 06:10 MCV (80.0-100.0) fL Sodium (137-145) mmol/L Chloride (98-107) mmol/L Carbon Dioxide (22-30) mmol/L BUN (9-20) mg/dL Glucose (74-99) mg/dL POC Glucose (mg/dL) 185 H 120 H 125 H (75-99) mg/dL 11/10/21 11/10/21 Range/Units 07:36 07:36 MCV 102.1 H (80.0-100.0) fL Sodium 135 L (137-145) mmol/L Chloride 95 L (98-107) mmol/L Carbon Dioxide 31 H (22-30) mmol/L BUN 25 H (9-20) mg/dL Glucose 200 H (74-99) mg/dL POC Glucose (mg/dL) (75-99) mg/dL
[2021-11-10 11:20] LABS: Glucose,Whole Blood 136 mg/dL (75-99)
[2021-11-10 16:21] LABS: Glucose,Whole Blood 196 mg/dL (75-99)
[2021-11-10 20:06] LABS: Glucose,Whole Blood 139 mg/dL (75-99)
[2021-11-11 02:15] LABS: Glucose,Whole Blood 153 mg/dL (75-99)
[2021-11-11] MEDS: PANTOPRAZOLE 40 MG TABLET PO SCH (05:13)
[2021-11-11] MEDS: SODIUM CHLORIDE 0.9% 1,000 ML in EMPTY BAG 1 BAG IV SCH ×2 (05:30→15:35)
[2021-11-11 06:17] LABS: Glucose,Whole Blood 154 mg/dL (75-99)
[2021-11-11] MEDS: INSULIN ASPART (NovoLOG) 100 UNIT/ML VIAL SQ SCH ×4 (06:18→20:37)
[2021-11-11] MEDS ORDERED: ASPIRIN 325 MG TAB PO ONE (07:00)
[2021-11-11] MEDS ORDERED: HEPARIN SODIUM,PORCINE 10,000 UNIT in SODIUM CHLORIDE 0.9% 1,000 ML IRRIGATION PRN (07:00)
[2021-11-11] MEDS ORDERED: HEPARIN SODIUM,PORCINE 2,500 UNIT in SODIUM CHLORIDE 0.9% 250 ML IRRIGATION PRN (07:00)
[2021-11-11] MEDS ORDERED: ATORVASTATIN 80 MG TAB PO ONE (07:00)
[2021-11-11] MEDS: ATORVASTATIN 40 MG TAB PO SCH (07:10)
[2021-11-11] MEDS: METOPROLOL TARTRATE 12.5 MG TAB PO SCH ×2 (07:10→19:58)
[2021-11-11] MEDS: lisinopriL 10 MG TAB PO SCH (07:11)
[2021-11-11] MEDS: ASPIRIN 81 MG PO SCH (07:11)
[2021-11-11 07:13] LABS: African American GFR (CKD) 80 (>60 ml/min/1.73 sqM); Anion Gap 5 mmol/L; Blood Urea Nitrogen 35 mg/dL (9-20); Calcium 9.1 mg/dL (8.4-10.2); Carbon Dioxide 32 mmol/L (22-30); Chloride 96 mmol/L (98-107); Glucose 152 mg/dL (74-99); Magnesium 2.3 mg/dL (1.6-2.3); Non-African American GFR(CKD) 69 (>60 ml/min/1.73 sqM); Potassium 4.5 mmol/L (3.5-5.1); Sodium 133 mmol/L (137-145)
[2021-11-11] MEDS ORDERED: VERAPAMIL 2.5 MG/ML 2 ML AMP ONE (07:19)
[2021-11-11] MEDS ORDERED: LIDOCAINE 1% INJ 10MG/ML (20 ML MDV) ONE (07:19)
[2021-11-11] MEDS ORDERED: IV FLUID CONTINUATION 1,000 ML IV ONE (07:30)
[2021-11-11] MEDS ORDERED: LIDOCAINE 1% INJ 10MG/ML (20 ML MDV) SQ ONE (07:50)
[2021-11-11] MEDS ORDERED: MIDAZOLAM 2 MG/2 ML VIAL IV ONE (07:50)
[2021-11-11] MEDS ORDERED: FUROSEMIDE 10 MG/ML 4 ML VIAL ONE (08:12)
[2021-11-11] MEDS ORDERED: FUROSEMIDE 10 MG/ML 4 ML VIAL IV ONE (08:15)
[2021-11-11] MEDS ORDERED: IOPAMIDOL-370 125ML BTL INJ ONE (08:15)
[2021-11-11] MEDS ORDERED: RX INFO: IV CONTRAST WAS GIVEN 1 EACH MISC MISCELLANE PRN (08:18)
[2021-11-11] MEDS ORDERED: SODIUM CHLORIDE 0.9% 1,000 ML IV SCH (08:30)
[2021-11-11] MEDS: IPRATROPIUM-ALBUTEROL 3 ML NEB INHALATION SCH ×4 (08:41→20:00)
[2021-11-11] MEDS: AZITHROMYCIN 500 MG TAB PO SCH (09:39)
[2021-11-11] MEDS: SPIRONOLACTONE 25 MG TAB PO SCH (09:39)
[2021-11-11] MEDS: methylPREDNISolone SOD SUCCI 40 MG/ML 1 ML VIAL IV SCH (09:40)
[2021-11-11] MEDS: ENOXAPARIN 40 MG/0.4 ML SYRINGE SQ SCH (09:40)
[2021-11-11] MEDS: NICOTINE 21MG/24HR PATCH TRANSDERM SCH (09:41)
[2021-11-11] MEDS: FUROSEMIDE 40 MG TAB PO SCH (09:42)
[2021-11-11 11:17] LABS: Glucose,Whole Blood 131 mg/dL (75-99)
[2021-11-11 12:00] LABS: LDL Cholesterol,Calculated 55.1 mg/dL (0.0-131.0)
--- NOTE | 2021-11-11 13:49 | P.PN ---
Subjective Progress Note Date: 11/10/21 (seen on 11/10/21 at 1530) Patient is a 66-year-old male with a past medical history of hypertension, diabetes, dyslipidemia, GERD, and tobacco abuse who presented to the ER with shortness of breath for 2 days. In the ER he underwent an extensive evaluation. Rest x-ray showed findings consistent with CHF and he was found have an elevated BNP. He was started on Lasix, he was admitted for further monitoring. Cardiology was consulted and echocardiogram was ordered. There also was felt to be possible exacerbation of COPD and he was started on IV steroids, bronchodilators, and Zithromax. He was also found to have elevated troponins consistent with a non-ST segment elevated myocardial infarction type II due to his underlying CHF. Echocardiogram showed severe global hypokinesis of the left ventricle with an ejection fraction of 20-25%, severe aortic stenosis, moderate mitral regurgitation, moderate tricuspid regurgitation, and moderate to severe pulmonary hypertension with RVSP of 50.61. Radiology plans for CRISTIAN and possible left and right heart cath. Of note patient does have a history of a valve repair in the past. Patient seen and examined at bedside. Reports that he has been on Actos for several years and has controlled his blood sugars well. Denies any chest pain, shortness breath, nausea, vomiting. General: non toxic, no distress, appears at stated age Derm: warm, dry Head: atraumatic, normocephalic, symmetric Eyes: EOMI, no lid lag, anicteric sclera Mouth: no lip lesion, mucus membranes moist Cardiovascular: S1S2 reg, no murmur, positive posterior tibial pulse bilateral, Lungs: Coarse breath sounds, no rhonchi, no rales , no accessory muscle use Abdominal: soft, nontender to palpation, no guarding, no appreciable organomegaly Ext: no gross muscle atrophy, no edema, no contractures Neuro: CN II-XI grossly intact, no focal neuro deficits Psych: Alert, oriented, appropriate affect Acute exacerbation of systolic congestive heart failure with ejection fraction 20-25% Severe aortic stenosis Hypertension NSTEMI -Patient likely will need right and left heart cath in AM -Continue with metoprolol, lisinopril, Aldactone, and IV Lasix -Strict I's and O's, daily weights -Patient may need LifeVest on discharge and awaiting cardiology recommendations - ASA, lipitor Acute exacerbation of COPD -Suspected diagnosis due to his long-standing history of tobacco abuse. -Continue with IV steroids, bronchodilators, and Zithromax Diabetes mellitus - hold actos as can lead to fluid retention and warning against use with CHF - SSI - follow BS -A1C 6.2 - metformin on hold can be resumes as scheduled on discharge. Tobacco abuse -Cessation -Nicotine replacement GERD -PPI DVT prophylaxis: Lovenox Discussed with: Yumiko Watts Cardio DIRECTOR DERMATOLOGY Objective - Vital Signs Vital signs: Vital Signs Temp 97.9 F 11/10/21 00:00 Pulse 88 11/10/21 04:00 Resp 18 11/10/21 04:00 BP 97/64 11/10/21 04:00 Pulse Ox 96 11/10/21 04:00 Intake & Output 11/09/21 11/10/21 11/10/21 18:59 06:59 18:59 Intake Total 720 480 Output Total 2700 Balance 720 -2220 Weight 67.3 kg 67.8 kg Intake: Oral 720 480 Output: Urine 2700 Other: Voiding Method Toilet Toilet - Labs CBC & Chem 7: 11/10/21 07:36 11/11/21 06:19 Labs: Abnormal Lab Results - Last 24 Hours (Table) 11/09/21 11/09/21 11/09/21 Range/Units 07:35 16:43 20:42 Sodium 135 L (137-145) mmol/L Carbon Dioxide 31 H (22-30) mmol/L Glucose 178 H (74-99) mg/dL POC Glucose (mg/dL) 185 H 120 H (75-99) mg/dL 11/10/21 Range/Units 06:10 Sodium (137-145) mmol/L Carbon Dioxide (22-30) mmol/L Glucose (74-99) mg/dL POC Glucose (mg/dL) 125 H (75-99) mg/dL
--- NOTE | 2021-11-11 13:56 | P.PN ---
Subjective Progress Note Date: 11/11/21 (seen at 1130) Principal diagnosis: shortness of breath Patient is a 66-year-old male with a past medical history of hypertension, diabetes, dyslipidemia, GERD, and tobacco abuse who presented to the ER with shortness of breath for 2 days. In the ER he underwent an extensive evaluation. Rest x-ray showed findings consistent with CHF and he was found have an elevated BNP. He was started on Lasix, he was admitted for further monitoring. Cardiology was consulted and echocardiogram was ordered. There also was felt to be possible exacerbation of COPD and he was started on IV steroids, bronchodilators, and Zithromax. He was also found to have elevated troponins consistent with a non-ST segment elevated myocardial infarction type II due to his underlying CHF. Echocardiogram showed severe global hypokinesis of the left ventricle with an ejection fraction of 20-25%, severe aortic stenosis, moderate mitral regurgitation, moderate tricuspid regurgitation, and moderate to severe pulmonary hypertension with RVSP of 50.61. Of note patient does have a history of a valve repair in the past. He underwent left and right heart cath on 11/11/20 Patient seen and examined at bedside. He denies and chest pain or shortness of breath. He wants to be able to move I explained again that he needs to lay flat in bed after his cath. General: non toxic, no distress, appears at stated age Derm: warm, dry Head: atraumatic, normocephalic, symmetric Eyes: EOMI, no lid lag, anicteric sclera Mouth: no lip lesion, mucus membranes moist, poor dentition Cardiovascular: S1S2 reg, with murmur, positive posterior tibial pulse bilateral, Lungs: Decreased bs bilateral, no rhonchi, no rales , no accessory muscle use Abdominal: soft, nontender to palpation, no guarding, no appreciable organomegaly Ext: no gross muscle atrophy, no edema, no contractures Neuro: CN II-XI grossly intact, no focal neuro deficits Psych: Alert, oriented, appropriate affect Acute exacerbation of systolic congestive heart failure with ejection fraction 20-25% Severe aortic stenosis Hypertension NSTEMI -Await results of left and right heart cath -Continue with metoprolol, lisinopril, Aldactone, and Lasix PO -Strict I's and O's, daily weights - ASA, lipitor Acute exacerbation of COPD -Suspected diagnosis due to his long-standing history of tobacco abuse. -Continue with IV steroids transitioned to oral, bronchodilators, zithromax completed Diabetes mellitus - hold actos as can lead to fluid retention and warning against use with CHF - SSI - follow BS -A1C 6.2 - metformin on hold can be resumed as scheduled 48 hours after cath - will check coverage for jardiance Tobacco abuse -Cessation -Nicotine replacement GERD -PPI DVT prophylaxis: Lovenox Discussed with: patient, nursing Anticipated discharge: in AM Anticipated discharge place: home A total of 35 minutes was spent on the care of this complex patient more than 50% of the time was spent in counseling and care coordination. Objective - Vital Signs Vital signs: Vital Signs Temp 97.0 F L 11/11/21 09:30 Pulse 86 11/11/21 12:15 Resp 16 11/11/21 13:15 BP 101/53 11/11/21 13:15 Pulse Ox 96 11/11/21 12:15 Intake & Output 11/10/21 11/11/21 11/11/21 18:59 06:59 18:59 Intake Total 476 50 Output Total 1875 800 Balance -1399 -750 Intake: IV 50 Oral 476 Output: Urine 1875 800 Other: Voiding Method Toilet Toilet - Labs CBC & Chem 7: 11/10/21 07:36 11/11/21 06:19 Labs: Abnormal Lab Results - Last 24 Hours (Table) 11/10/21 11/10/21 11/11/21 Range/Units 16:20 20:03 02:11 Sodium (137-145) mmol/L Chloride (98-107) mmol/L Carbon Dioxide (22-30) mmol/L BUN (9-20) mg/dL Glucose (74-99) mg/dL POC Glucose (mg/dL) 196 H 139 H 153 H (75-99) mg/dL HDL Cholesterol (40.00-60.00) mg/dL 11/11/21 11/11/21 11/11/21 Range/Units 06:16 06:19 11:13 Sodium 133 L (137-145) mmol/L Chloride 96 L (98-107) mmol/L Carbon Dioxide 32 H (22-30) mmol/L BUN 35 H (9-20) mg/dL Glucose 152 H (74-99) mg/dL POC Glucose (mg/dL) 154 H 131 H (75-99) mg/dL HDL Cholesterol 62.40 H (40.00-60.00) mg/dL
--- NOTE | 2021-11-11 14:57 | P.PCN ---
Date of Procedure: 11/11/21 Operative Findings: CARDIAC CATHETERIZATION PERFORMING PHYSICIAN: Bogdan Ayala MD, RPVI PROCEDURE PERFORMED: 1. Right heart catheterization 2. Left heart catheterization 3. Selective right and left coronary angiogram 4. Selective right common femoral artery angiogram INDICATION: Severe aortic stenosis COMPLICATION: None APPROACH: Right common femoral vein Right common femoral artery LEVEL OF SEDATION: Moderate with a sedation duration of 30 minutes PROCEDURE DESCRIPTION: After obtaining an informed consent, the patient was brought to cardiac picket [employer]. Local anesthesia was performed using lidocaine subcutaneously. Subsequently the right common femoral vein was cannulated using micropuncture technique under ultrasound guidance, The micropuncture wire passed easily then I placed an 8-Portuguese sheath at the right common femoral vein. The right common femoral artery was cannulated using Seldinger technique, the guidewire passed easily, following that we advanced a 6 Portuguese sheath dilator assembly, the wire and dilator were removed and sheath was flushed. After that I did advance a [place] catheter under fluoroscopy guidance to the pulmonary capillary wedge position and subsequently the pulmonary artery then the right ventricle then the right atrium. I did cardiac output using thermodilution. The right heart catheterization was performed without any complication. The aortic valve gradient measurement was performed using JR4 catheter which across aortic valve then I did pullback across the valve. Selective right and left coronary angiogram using a 6-Portuguese JR4 and JL catheters. The procedure was completed there was no complication. SELECTIVE CORONARY ANGIOGRAM: The right coronary artery: Is a large caliber vessel ansa dominant vessel. Its angiographically normal. Distally bifurcates into PDA and PLV branches and both appeared to be angiographically normal. Left main: It is angiographically normal. Bifurcates into all CX and LAD The left circumflex: Is a large caliber vessel and nondominant vessel. The LCx is angiographically normal. Gives rises into the first and second obtuse marginal branches and both appeared to be angiographically normal. The left anterior descending artery: It is a large caliber vessel. The LAD has intermediate lesion in the midportion appears to be in the range of 40-50%. Otherwise LAD doesn't have any high-grade stenosis. The LAD gives rises into 3 diagonal branches and all appeared to be angiographically normal. HEMODYNAMICS: #1 the pulmonary capillary wedge position was 25 mmHg #2 PA pressures were as follow systolic 48 and diastolic of 28 and mean of 36 mmHg #3 the right ventricular systolic pressure of 47 and end-diastolic of 15 mmHg #4 the right atrial pressure was 12 mmHg #5 the LVEDP was about 25 mmHg #6 the cardiac output was 2.76 L/m with a cardiac index of 1.53 #7 the mean gradient 18.2 mmHg #8 the aortic valve area was calculated to be an 0.15 cm CONCLUSION: 1. Severe aortic stenosis 2. Pulmonary hypertension, WHO group 2 3. Elevated biventricular filling pressures 4. Intermediate nonobstructive coronary artery disease POSTPROCEDURE MANAGEMENT: Transesophageal echocardiogram for further clarification
[2021-11-11 16:18] LABS: Glucose,Whole Blood 207 mg/dL (75-99)
[2021-11-11 20:04] LABS: Glucose,Whole Blood 125 mg/dL (75-99)
[2021-11-12 06:02] LABS: Glucose,Whole Blood 108 mg/dL (75-99)
[2021-11-12] MEDS: SODIUM CHLORIDE 0.9% 1,000 ML in EMPTY BAG 1 BAG IV SCH (06:02)
[2021-11-12] MEDS: INSULIN ASPART (NovoLOG) 100 UNIT/ML VIAL SQ SCH ×3 (06:02→17:36)
[2021-11-12] MEDS: PANTOPRAZOLE 40 MG TABLET PO SCH ×2 (06:03→12:01)
[2021-11-12] MEDS: IPRATROPIUM-ALBUTEROL 3 ML NEB INHALATION SCH ×2 (07:24→11:03)
[2021-11-12] MEDS ORDERED: fentaNYL (PF) 50 MCG/ML 2 ML AMP ONE (07:58)
[2021-11-12] MEDS ORDERED: SODIUM CHLORIDE 0.9% 500 ML 500 ML IV ONE (08:14)
[2021-11-12 08:23] LABS: African American GFR (CKD) >90 (>60 ml/min/1.73 sqM); Anion Gap 4 mmol/L; Blood Urea Nitrogen 31 mg/dL (9-20); Carbon Dioxide 34 mmol/L (22-30); Chloride 97 mmol/L (98-107); Glucose 93 mg/dL (74-99); Non-African American GFR(CKD) 79 (>60 ml/min/1.73 sqM); Potassium 4.6 mmol/L (3.5-5.1); Sodium 135 mmol/L (137-145)
[2021-11-12] MEDS ORDERED: fentaNYL (PF) 50 MCG/ML 2 ML AMP IV ONE ×2 (08:24→08:32)
[2021-11-12] MEDS ORDERED: MIDAZOLAM 2 MG/2 ML VIAL IV ONE ×3 (08:24→08:36)
[2021-11-12] MEDS ORDERED: BENZOCAINE SPRAY 1 CAN MUCOUS MEM ONE (08:25)
[2021-11-12] MEDS ORDERED: predniSONE 20 MG TAB PO SCH (09:00)
[2021-11-12 11:35] LABS: Glucose,Whole Blood 83 mg/dL (75-99)
[2021-11-12] MEDS: ASPIRIN 81 MG PO SCH (12:00)
[2021-11-12] MEDS: NICOTINE 21MG/24HR PATCH TRANSDERM SCH (12:00)
[2021-11-12] MEDS: lisinopriL 10 MG TAB PO SCH (12:01)
[2021-11-12] MEDS: METOPROLOL TARTRATE 12.5 MG TAB PO SCH (12:01)
[2021-11-12] MEDS: SPIRONOLACTONE 25 MG TAB PO SCH (12:01)
[2021-11-12] MEDS: ATORVASTATIN 40 MG TAB PO SCH (12:01)
--- NOTE | 2021-11-12 12:01 | P.PN ---
Subjective Progress Note Date: 11/12/21 HISTORY OF PRESENT ILLNESS: Patient is a very pleasant 66-year-old male with a past medical history of hypertension, hyperlipidemia, diabetes mellitus, previous cardiac valve repair, and nicotine dependence. He presented to the emergency department for chief complaint of shortness of breath 2 days. Patient reports he recently moved to [place] from [place] a couple months ago after the passing of his and has not established a primary care provider or utilization review coordinator in this area. He reports progressively worsening shortness of breath, cough, and chest pain with exertion over the past couple days accompanied by orthopnea. The emergency department, patient was seen and fully evaluated. He was found to have elevated troponins of 0.047, 0.041, and 0.038. ProBNP 5170. Chest x-ray consistent with mild to moderate CHF. EKG showing normal sinus rhythm at 95 bpm with a prolonged QT/QTC of 398/500 ms. Hemoglobin A1c elevated at 6.2% . Patient admitted under internal medicine team and we have been consulted to evaluate for congestive heart failure. Patient seen and evaluated at the bedside. He denies history of previously known congestive heart failure or cardiac complaints. He reports he did have a valve repaired years ago, but was unable to provide any further information at this time. Patient reports he recently moved to [place] from [place] a couple months ago after the passing of his and has not established a primary care provider or utilization review coordinator in this area. He reports currently his chest pain and shortness of breath has resolved, but states increases with with exertion or with attempts at lying down. Patient denies any episodes of dizziness/lightheadedness, palpitations, swelling in his extremities, or experiencing any numbness/tingling/weakness of his extremities. 11/09/2021 Patient examined at the bedside. Patient denies chest pain or pressure. Reports improvement in his SOB. He remains on IV Lasix. Fluid balance over the last 24 hours is -1980 mL. Creatinine stable at 0.96. Echocardiogram completed revealed ejection fraction 20-25%, mild aortic regurgitation, severe aortic stenosis, moderate mitral regurgitation, and moderate tricuspid regurgitation with moderate to severe pulmonary hypertension 11/10/2021 Patient examined this morning. He is sitting up in the chair. Patient denies leora st pain or pressure. He reports improvement in his SOB. He states he was able to lay flat in bed without SOB. He remains on IV lasix. Fluid balance over the last 24 hours is -1500 mL. Patient's kidney function remained stable. Creatinine 0.97. BUN 25. Potassium today 5.0. 11/12/2021 Patient examined this morning at the bedside. He denies chest pain or pressure. Denies SOB. Patient underwent cardiac cath on 11-11-2021 revealing severe aortic stenosis, pulmonary hypertension, elevated biventricular filling pressures, and intermediate nonobstructive coronary artery disease. The patient also underwent CRISTIAN this morning revealing bicuspid aortic valve, reduced opening, and low gradient. PHYSICAL EXAM: VITAL SIGNS: Reviewed. GENERAL: Well-developed in no acute distress. NECK: Supple. No JVD or thyromegaly LUNGS: Respirations even and unlabored. Lungs diminished bilaterally. HEART: Regular rate and rhythm. S1 and S2 heard. Systolic murmur noted. EXTREMITIES: Normal range of motion. No clubbing or cyanosis. Peripheral pulses intact. No lower extremity edema ASSESSMENT: Acute systolic congestive heart failure, resolved, currently euvolemic Cardiomyopathy, s/p cardiac cath revealing intermediate nonobstructive coronary artery disease Aortic stenosis, bicuspid Hypertension Hyperlipidemia History of valve repair, exact details unknown PLAN: Continue current cardiac medications He will require dobutamine stress echo in the future. If patient is found to have elevated gradient, he may qualify for AVR Patient may be discharged home today from a cardiac standpoint Patient is to follow up outpatient with Dr. Ayala Nurse practitioner note has been reviewed by physician. Signing provider agrees with the documented findings, assessment, and plan of care. Objective - Vital Signs Vital signs: Vital Signs Temp 97.9 F 11/12/21 07:50 Pulse 74 11/12/21 11:15 Resp 15 11/12/21 08:47 BP 87/61 11/12/21 08:59 Pulse Ox 96 11/12/21 08:59 Intake & Output 11/11/21 11/12/21 11/12/21 18:59 06:59 18:59 Intake Total 170 200 Output Total 800 Balance -630 200 Intake: IV 50 200 Oral 120 Output: Urine 800 Other: Voiding Method Toilet Toilet Toilet - Labs CBC & Chem 7: 11/10/21 07:36 11/12/21 07:58 Labs: Abnormal Lab Results - Last 24 Hours (Table) 11/11/21 11/11/21 11/11/21 Range/Units 06:19 16:16 20:03 Sodium (137-145) mmol/L Chloride (98-107) mmol/L Carbon Dioxide (22-30) mmol/L BUN (9-20) mg/dL POC Glucose (mg/dL) 207 H 125 H (75-99) mg/dL HDL Cholesterol 62.40 H (40.00-60.00) mg/dL 11/12/21 11/12/21 Range/Units 05:57 07:58 Sodium 135 L (137-145) mmol/L Chloride 97 L (98-107) mmol/L Carbon Dioxide 34 H (22-30) mmol/L BUN 31 H (9-20) mg/dL POC Glucose (mg/dL) 108 H (75-99) mg/dL HDL Cholesterol (40.00-60.00) mg/dL
[2021-11-12] MEDS: FUROSEMIDE 40 MG TAB PO SCH (12:02)
[2021-11-12] MEDS: ENOXAPARIN 40 MG/0.4 ML SYRINGE SQ SCH (12:02)
[2021-11-12 12:12] VITALS: BP 94/67; PULSE 85; RESP 20; TEMP 97.5
--- NOTE | 2021-11-12 13:40 | P.DS ---
Providers Date of admission: 11/07/21 09:31 Expected date of discharge: 11/12/21 Attending physician: Marnie Wayne MD Consults: 11/07/21 09:17 Consult Physician Routine Consulting Provider: Bogdan Ayala Consult Reason/Comments: new onset heart failure Do you want consulting provider notified?: Yes Primary care physician: Stated None Hospital Course: Discharge Diagnosis: Acute exacerbation of systolic congestive heart failure with ejection fraction 20-25% Severe aortic stenosis Hypertension NSTEMI Acute exacerbation of COPD Diabetes mellitus Tobacco abuse GERD Pulmonary hypertension, who group to Intermediate nonobstructive coronary artery disease Hospital Course: Patient is a 66-year-old male with a past medical history of hypertension, diabetes, dyslipidemia, GERD, and tobacco abuse who presented to the ER with shortness of breath for 2 days. In the ER he underwent an extensive evaluation. Rest x-ray showed findings consistent with CHF and he was found have an elevated BNP. He was started on Lasix, he was admitted for further monitoring. Cardiology was consulted and echocardiogram was ordered. There also was felt to be possible exacerbation of COPD and he was started on IV steroids, bronchodilators, and Zithromax. He was also found to have elevated troponins consistent with a non-ST segment elevated myocardial infarction type II due to his underlying CHF. Echocardiogram showed severe global hypokinesis of the left ventricle with an ejection fraction of 20-25%, severe aortic stenosis, moderate mitral regurgitation, moderate tricuspid regurgitation, and moderate to severe pulmonary hypertension with RVSP of 50.61. Of note patient does have a history of a valve repair in the past. He underwent left and right heart cath on 11/11/20 she demonstrated severe aortic stenosis, pulmonary hypertension, and intermediate nonobstructive coronary artery disease. He underwent echocar diogram on the morning of 11/12 which confirmed severe aortic stenosis. He is determined stable for discharge home. Follow-up: We'll follow up with Dr. Ayala in the office for a dobutamine stress echo and then determination will be made about need for TAVR. He'll establish with Dr. Pascual for his primary care physician. He will stop his Actos and start on Jardiance. He will check his blood sugars twice daily and his blood pressures once daily. He is aware of the importance of taking his medications. This was also discussed with part of his family members over the phone in detail. Patient seen and examined at bedside. Feeling good. No chest pain or shortness of breath. No nausea or vomiting. We discussed at length the use of his medications and monitoring his blood sugars. He is in agreement. Vital signs reviewed and stable. General: non toxic, no distress, appears at stated age Derm: warm, dry Head: atraumatic, normocephalic, symmetric Eyes: EOMI, no lid lag, anicteric sclera Mouth: no lip lesion, mucus membranes moist Cardiovascular: S1S2 reg, no murmur, positive posterior tibial pulse bilateral, Lungs: CTA bilateral, no rhonchi, no rales , no accessory muscle use Abdominal: soft, nontender to palpation, no guarding, no appreciable organomegaly Ext: no gross muscle atrophy, no edema, no contractures Neuro: CN II-XI grossly intact, no focal neuro deficits Psych: Alert, oriented, appropriate affect A total of 42 minutes of time were spent preparing this complex discharge summary . Patient Condition at Discharge: Fair Plan - Discharge Summary Discharge Rx Participant: No New Discharge Prescriptions: New Furosemide [Lasix] 40 mg PO DAILY #90 tab Metoprolol Tartrate [Lopressor] 12.5 mg PO BID #180 tab Nitroglycerin Sl Tabs [Nitrostat] 0.4 mg SUBLINGUAL Q5M PRN #100 tab PRN Reason: Chest Pain predniSONE [Deltasone] 40 mg PO DAILY #6 tab Albuterol Inhaler [Ventolin Hfa Inhaler] 1 puff INHALATION Q4H PRN #8 gm PRN Reason: Shortness Of Breath Empagliflozin [Jardiance] 10 mg PO DAILY #30 tablet Spironolactone [Aldactone] 25 mg PO DAILY #90 tab Atorvastatin [Lipitor] 40 mg PO DAILY #90 tab Continue metFORMIN HCL [Glucophage] 1,000 mg PO BID PRN PRN Reason: HIGH BLOOD SUGAR Aspirin EC [Ecotrin Low Dose] 81 mg PO DAILY Lisinopril [Prinivil] 10 mg PO DAILY Omeprazole 40 mg PO DAILY #30 cap Discontinued Pioglitazone [Actos] 30 mg PO DAILY Atorvastatin [Lipitor] 10 mg PO DAILY Discharge Medication List Aspirin EC [Ecotrin Low Dose] 81 mg PO DAILY 11/07/21 [History] Lisinopril [Prinivil] 10 mg PO DAILY 11/07/21 [History] metFORMIN HCL [Glucophage] 1,000 mg PO BID PRN 11/07/21 [History] Empagliflozin [Jardiance] 10 mg PO DAILY #30 tablet 11/10/21 [Rx] Albuterol Inhaler [Ventolin Hfa Inhaler] 1 puff INHALATION Q4H PRN #8 gm 11/12/21 [Rx] Atorvastatin [Lipitor] 40 mg PO DAILY #90 tab 11/12/21 [Rx] Furosemide [Lasix] 40 mg PO DAILY #90 tab 11/12/21 [Rx] Metoprolol Tartrate [Lopressor] 12.5 mg PO BID #180 tab 11/12/21 [Rx] Nitroglycerin Sl Tabs [Nitrostat] 0.4 mg SUBLINGUAL Q5M PRN #100 tab 11/12/21 [Rx] Omeprazole 40 mg PO DAILY #30 cap 11/12/21 [Rx] Spironolactone [Aldactone] 25 mg PO DAILY #90 tab 11/12/21 [Rx] predniSONE [Deltasone] 40 mg PO DAILY #6 tab 11/12/21 [Rx] Follow up Appointment(s)/Referral(s): Bogdan Ayala MD [STAFF PHYSICIAN] - 1 Week Heath Kirkland MD [REFERRING] - 1 Week Patient Instructions/Handouts: Heart Failure (DC), Aortic Stenosis (DC) Activity/Diet/Wound Care/Special Instructions: Activity: as tolerated Diet: heart healthy, carb consistent Special Instructions: Monitor blood pressure once daily in the morning and create a log Discharge Disposition: HOME SELF-CARE
[2021-11-12 16:22] LABS: Glucose,Whole Blood 135 mg/dL (75-99)
--- NOTE | 2021-11-12 17:32 | P.PCN ---
Date of Procedure: 11/12/21 Operative Findings: TRANSESOPHAGEAL ECHOCARDIOGRAM APPLIANCE SALES ASSOCIATE: DAWN DANG MD, RPVI INDICATION: Aortic stenosis SEDATION: Conscious sedation with sedation duration of 10 minutes COMPLICATION: None PROCEDURE DESCRIPTION: After obtaining an informed consent, the patient was brought to transesophageal echocardiogram room. Pulse oximetry and heart monitors were attached to the patient. The patient throat was sprayed using lidocaine. The patient was turned into left lateral position. After that a bite guard was placed. After an appropriate conscious sedation was initiated, the transesophageal echocardiogram was advanced through a bite guard into the mid esophagus. A 2-D echocardiogram images, color Doppler images, continuous wave images, pulse-wave images, of various cardiac structure were performed. After that the transesophageal echocardiogram probe was advanced into the stomach and fixed to obtain transgastric view was. The probe was brought into the mid esophagus. Inter-atrial septum was interrogated using 2D images, color Doppler images, and then contrast study. After that transesophageal echocardiogram was withdrawn out and upon withdrawing the descending thoracic aorta all the way up to the arch was evaluated. FINDING: Left ventricle appeared to be dilated. The left ventricular systolic function appeared to be impaired with EF around 20% with global hypokinesia. The right ventricle appeared to be within normal limits for dimension and appears to be within normal limits of ejection fraction Left atrium appeared to be dilated. The right atrium appeared to be within normal. The left atrial appendage appeared to be intact. The septum appears to be intact as well. The aortic valve appeared to be bicuspid valve was effusion of the right and left coronary cusp and restricted opening with an aortic valve area by planimetry of 0.7 cm. There is mild aortic insufficiency identified. The mean gradient across aortic valve was only 15 mmHg. Mitral valve appeared to be thickened with evidence of moderate mitral regurgitation. There was moderate tricuspid regurgitation and mild pulmonic insufficiency identified. The aortic root appeared to be mildly dilated. There was no evidence of pericardial effusion identified. CONCLUSION: 1. Dilated left ventricle with severely impaired function and EF of 20% with global hypokinesia 2. Bicuspid aortic valve with fusion of the right and left coronary cusps. The aortic valve area was 0.7 cm. Mean gradient was only 18 mmHg 3. Moderate mitral regurgitation. The mitral valve. This appears to be thickened. 4. Moderate tricuspid regurgitation identified 5. Mildly dilated aortic root 6. No evidence of pericardial effusion
== END 2021-11-12 19:19 | disposition home or self-care (01) | DRG 280 ==
LOC: EC 07:42 → 3SCARD 09:31
PROVIDERS: ADMIT Internal Medicine; ATTEND Internal Medicine
PROC: B2111ZZ Fluoroscopy of Multiple Coronary Arteries using Low Osmolar Contrast (ICD-10-PCS; principal; 2021-11-11 07:31)
PROC: 4A023N7 Measurement of Cardiac Sampling and Pressure, Left Heart, Percutaneous Approach (ICD-10-PCS; principal; 2021-11-11 07:31)
PROC: B24BZZ4 Ultrasonography of Heart with Aorta, Transesophageal (ICD-10-PCS; 2021-11-12)
DX: I11.0 Hypertensive heart disease with heart failure (principal); I21.A1 Myocardial infarction type 2; I50.23 Acute on chronic systolic (congestive) heart failure; J44.1 Chronic obstructive pulmonary disease with (acute) exacerbation; Q23.1 Congenital insufficiency of aortic valve; I08.3 Combined rheumatic disorders of mitral, aortic and tricuspid valves; I25.10 Atherosclerotic heart disease of native coronary artery without angina pectoris; I27.20 Pulmonary hypertension, unspecified; Z71.6 Tobacco abuse counseling; F17.210 Nicotine dependence, cigarettes, uncomplicated; E11.9 Type 2 diabetes mellitus without complications; E78.5 Hyperlipidemia, unspecified; I42.9 Cardiomyopathy, unspecified; K21.9 Gastro-esophageal reflux disease without esophagitis; Z20.822 Contact with and (suspected) exposure to COVID-19; Z79.82 Long term (current) use of aspirin; Z79.84 Long term (current) use of oral hypoglycemic drugs; Z96.652 Presence of left artificial knee joint; Z79.899 Other long term (current) drug therapy; Z89.022 Acquired absence of left finger(s); Z79.52 Long term (current) use of systemic steroids; Z98.890 Other specified postprocedural states
CPT/HCPCS: 36415; 71045; 80048; 80061; 83036; 83735; 83880; 84484; 85025; 85027; 85610; 85730; 87635; 93005; 93306; 93312; 93320; 93325; 93460; 94640; 96374; 99285

== ENCOUNTER 2021-12-23 17:43 | Emergency (ER) | payer MEDICARE ==
[2021-12-23] MEDS ORDERED: SODIUM CHLORIDE 0.9% 1,000 ML IV STA (17:47)
--- NOTE | 2021-12-23 17:51 | ED ---
General Adult HPI - General Stated complaint: hypotension Time Seen by Provider: 12/23/21 17:47 Source: patient, EMS, RN notes reviewed Mode of arrival: EMS Limitations: no limitations - History of Present Illness Initial comments: Patient is a pleasant 66-year-old male presenting to the emergency department with concerns for low blood pressure. Patient is on blood pressure medication however no recent changes. Patient has felt lightheaded for the past week. Patient did have an incident a week ago or so when he was grabbing for generator. This pulled his arm. Patient has had right shoulder discomfort since that time. This was the reason that he went to his primary care physician's. They did find low blood pressure and recommended he come to the hospital. Systolic was 72 at the office. EMS had blood pressure once in the 70s and once in the 80s. No chest pain or dyspnea. No isolated area of weakness. - Related Data Home Medications Medication Instructions Recorded Confirmed Aspirin EC [Ecotrin Low Dose] 81 mg PO DAILY 11/07/21 12/23/21 Lisinopril [Prinivil] 10 mg PO DAILY 11/07/21 12/23/21 metFORMIN HCL [Glucophage] 1,000 mg PO BID PRN 11/07/21 12/23/21 Metoprolol Tartrate [Lopressor] 12.5 mg PO BID 12/23/21 12/23/21 Previous Rx's Medication Instructions Recorded Empagliflozin [Jardiance] 10 mg PO DAILY #30 tablet 11/10/21 Albuterol Inhaler [Ventolin Hfa 1 puff INHALATION Q4H PRN #8 gm 11/12/21 Inhaler] Furosemide [Lasix] 40 mg PO DAILY #90 tab 11/12/21 Nitroglycerin Sl Tabs [Nitrostat] 0.4 mg SUBLINGUAL Q5M PRN #100 tab 11/12/21 Omeprazole 40 mg PO DAILY #30 cap 11/12/21 Spironolactone [Aldactone] 25 mg PO DAILY #90 tab 11/12/21 Allergies Allergy/AdvReac Type Severity Reaction Status Date / Time No Known Allergies Allergy Verified 12/23/21 18:29 Review of Systems ROS Statement: Those systems with pertinent positive or pertinent negative responses have been documented in the HPI. ROS Other: All systems not noted in ROS Statement are negative. Constitutional: Denies: fever Eyes: Denies: eye pain ENT: Denies: ear pain Respiratory: Denies: cough Cardiovascular: Denies: chest pain Endocrine: Denies: fatigue Gastrointestinal: Denies: abdominal pain Genitourinary: Denies: dysuria Musculoskeletal: Denies: back pain Skin: Denies: rash Neurological: Denies: headache, weakness, confusion Past Medical History Past Medical History: Diabetes Mellitus, Hypertension History of Any Multi-Drug Resistant Organisms: None Reported Past Surgical History: Orthopedic Surgery Additional Past Surgical History / Comment(s): left knee replacement, removal of partial fingers 3rd and 5th digits on left hand Past Anesthesia/Blood Transfusion Reactions: No Reported Reaction Past Psychological History: No Psychological Hx Reported Smoking Status: Current every day smoker Past Alcohol Use History: None Reported Past Drug Use History: None Reported - Past Family History Mother Family Medical History: Cancer Father Family Medical History: Cancer General Exam Limitations: no limitations General appearance: alert, in no apparent distress Head exam: Present: normocephalic Eye exam: Present: normal appearance, PERRL Neck exam: Present: normal inspection Respiratory exam: Present: normal lung sounds bilaterally Cardiovascular Exam: Present: regular rate, normal rhythm Expanded Peripheral pulses: 2+: Radial (R), Radial (L), Posterior Tibialis (R), Posterior Tibialis (L) GI/Abdominal exam: Present: soft. Absent: distended, tenderness, pulsatile mass Extremities exam: Present: tenderness (Minimal tenderness right shoulder. Discomfort with resistance against range of motion) Neurological exam: Present: alert, CN II-XII intact. Absent: motor sensory d eficit Psychiatric exam: Present: normal affect, normal mood Skin exam: Present: normal color Course Vital Signs 12/23/21 12/23/21 12/23/21 17:45 18:00 18:30 Pulse Rate 82 76 74 Respiratory 18 15 16 Rate Blood Pressure 90/62 94/59 91/62 O2 Sat by Pulse 100 96 96 Oximetry 12/23/21 12/23/21 12/23/21 19:00 19:30 20:00 Pulse Rate 75 73 74 Respiratory 16 16 16 Rate Blood Pressure 92/62 88/60 104/68 O2 Sat by Pulse 96 98 97 Oximetry EKG Findings - EKG Comments: EKG Findings:: Sinus rhythm 73. [place] 191. Tourette's 114. QT 422. QTC 440. Normal axis. Inferior lateral T wave inversion. Moderate intraventricular conduction delay. Medical Decision Making - Medical Decision Making Patient reevaluated and resting complain bed. Patient was able to get up using restroom, walking down the [place] without any difficulty. Case was discussed with Dr. jett covering for Dr. Naranjo. He also feels comfortable with discharge of patient. Patient also feels comfortable however does request a few pain pills in a sling. Patient advised to decrease his Lasix dose. - Lab Data Result diagrams: 12/23/21 17:59 12/23/21 17:59 Lab Results 12/23/21 12/23/21 12/23/21 Range/Units 17:59 17:59 17:59 WBC 6.7 (3.8-10.6) k/uL RBC 4.01 L (4.30-5.90) m/uL Hgb 13.2 (13.0-17.5) gm/dL Hct 39.1 (39.0-53.0) % MCV 97.6 (80.0-100.0) fL MCH 32.9 (25.0-35.0) pg MCHC 33.7 (31.0-37.0) g/dL RDW 14.1 (11.5-15.5) % Plt Count 225 (150-450) k/uL MPV 8.4 Neutrophils % 52 % Lymphocytes % 31 % Monocytes % 9 % Eosinophils % 5 % Basophils % 1 % Neutrophils # 3.4 (1.3-7.7) k/uL Lymphocytes # 2.1 (1.0-4.8) k/uL Monocytes # 0.6 (0-1.0) k/uL Eosinophils # 0.3 (0-0.7) k/uL Basophils # 0.0 (0-0.2) k/uL PT 11.6 (9.0-12.0) sec INR 1.1 (<1.2) APTT 24.3 (22.0-30.0) sec D-Dimer 0.32 (<0.60) mg/L FEU Sodium 138 (137-145) mmol/L Potassium 5.0 (3.5-5.1) mmol/L Chloride 110 H (98-107) mmol/L Carbon Dioxide 21 L (22-30) mmol/L Anion Gap 7 mmol/L BUN 21 H (9-20) mg/dL Creatinine 0.86 (0.66-1.25) mg/dL Est GFR (CKD-EPI)AfAm >90 (>60 ml/min/1.73 sqM) Est GFR (CKD-EPI)NonAf >90 (>60 ml/min/1.73 sqM) Glucose 94 (74-99) mg/dL Plasma Lactic Acid Segundo (0.7-2.0) mmol/L Calcium 7.6 L (8.4-10.2) mg/dL Magnesium 1.9 (1.6-2.3) mg/dL Total Bilirubin 1.0 (0.2-1.3) mg/dL AST 36 (17-59) U/L ALT 18 (4-49) U/L Alkaline Phosphatase 50 (38-126) U/L Troponin I (0.000-0.034) ng/mL Total Protein 6.0 L (6.3-8.2) g/dL Albumin 3.0 L (3.5-5.0) g/dL TSH 0.277 L (0.465-4.680) mIU/L Free T4 1.19 (0.78-2.19) ng/dL Free T3 pg/mL 3.6 (2.8-5.3) pg/ml Urine Color Urine Appearance (Clear) Urine pH (5.0-8.0) Ur Specific [place] (1.001-1.035) Urine Protein (Negative) Urine Glucose (UA) (Negative) Urine Ketones (Negative) Urine Blood (Negative) Urine Nitrite (Negative) Urine Bilirubin (Negative) Urine Urobilinogen (<2.0) mg/dL Ur Leukocyte Esterase (Negative) 12/23/21 12/23/21 12/23/21 Range/Units 17:59 18:47 21:40 WBC (3.8-10.6) k/uL RBC (4.30-5.90) m/uL Hgb (13.0-17.5) gm/dL Hct (39.0-53.0) % MCV (80.0-100.0) fL MCH (25.0-35.0) pg MCHC (31.0-37.0) g/dL RDW (11.5-15.5) % Plt Count (150-450) k/uL MPV Neutrophils % % Lymphocytes % % Monocytes % % Eosinophils % % Basophils % % Neutrophils # (1.3-7.7) k/uL Lymphocytes # (1.0-4.8) k/uL Monocytes # (0-1.0) k/uL Eosinophils # (0-0.7) k/uL Basophils # (0-0.2) k/uL PT (9.0-12.0) sec INR (<1.2) APTT (22.0-30.0) sec D-Dimer (<0.60) mg/L FEU Sodium (137-145) mmol/L Potassium (3.5-5.1) mmol/L Chloride (98-107) mmol/L Carbon Dioxide (22-30) mmol/L Anion Gap mmol/L BUN (9-20) mg/dL Creatinine (0.66-1.25) mg/dL Est GFR (CKD-EPI)AfAm (>60 ml/min/1.73 sqM) Est GFR (CKD-EPI)NonAf (>60 ml/min/1.73 sqM) Glucose (74-99) mg/dL Plasma Lactic Acid Seg[place] 1.6 (0.7-2.0) mmol/L Calcium (8.4-10.2) mg/dL Magnesium (1.6-2.3) mg/dL Total Bilirubin (0.2-1.3) mg/dL AST (17-59) U/L ALT (4-49) U/L Alkaline Phosphatase (38-126) U/L Troponin I 0.016 (0.000-0.034) ng/mL Total Protein (6.3-8.2) g/dL Albumin (3.5-5.0) g/dL TSH (0.465-4.680) mIU/L Free T4 (0.78-2.19) ng/dL Free T3 pg/mL (2.8-5.3) pg/ml Urine Color Yellow Urine Appearance Clear (Clear) Urine pH 5.5 (5.0-8.0) Ur Specific [place] 1.031 (1.001-1.035) Urine Protein Negative (Negative) Urine Glucose (UA) 4+ H (Negative) Urine Ketones Negative (Negative) Urine Blood Negative (Negative) Urine Nitrite Negative (Negative) Urine Bilirubin Negative (Negative) Urine Urobilinogen <2.0 (<2.0) mg/dL Ur Leukocyte Esterase Negative (Negative) - Radiology Data Radiology results: image reviewed (Chest x-ray shows significant clearing of pulmonary congestion. X-ray right shoulder shows spurring. No fracture.) Disposition Clinical Impression: Hypotensive episode Disposition: HOME SELF-CARE Condition: Stable Instructions (If sedation given, give patient instructions): Hypotension (ED) Additional Instructions: Please do follow-up with primary care physician in the next one to 2 days for recheck. Please decrease her Lasix dose to one half the current dose. Have primary care physician further provide recommendation upon follow-up. Return for lightheadedness, weakness, worsening or changing symptoms or other concerns. Is patient prescribed a controlled substance at d/c from ED?: No Referrals: Heath Kirkland MD [Primary Care Provider] - 1-2 days Time of Disposition: 22:36
[2021-12-23 18:11] LABS: Basophils % (A) 1 %; Eosinophils # (A) 0.3 k/uL (0-0.7); Eosinophils % (A) 5 %; HCT 39.1 % (39.0-53.0); HGB 13.2 gm/dL (13.0-17.5); Lymphocytes # (A) 2.1 k/uL (1.0-4.8); Lymphocytes % (A) 31 %; MCH 32.9 pg (25.0-35.0); MCHC 33.7 g/dL (31.0-37.0); MCV 97.6 fL (80.0-100.0); Mean Platelet Volume 8.4; Monocytes # (A) 0.6 k/uL (0-1.0); Monocytes % (A) 9 %; Neutrophils # (A) 3.4 k/uL (1.3-7.7); Neutrophils % (A) 52 %; Platelet Count 225 k/uL (150-450); RBC 4.01 m/uL (4.30-5.90); RDW 14.1 % (11.5-15.5); WBC 6.7 k/uL (3.8-10.6)
[2021-12-23 18:20] LABS: ALT 18 U/L (4-49); AST 36 U/L (17-59); African American GFR (CKD) >90 (>60 ml/min/1.73 sqM); Alkaline Phosphatase 50 U/L (38-126); Anion Gap 7 mmol/L; Blood Urea Nitrogen 21 mg/dL (9-20); Calcium 7.6 mg/dL (8.4-10.2); Carbon Dioxide 21 mmol/L (22-30); Chloride 110 mmol/L (98-107); Glucose 94 mg/dL (74-99); Magnesium 1.9 mg/dL (1.6-2.3); Non-African American GFR(CKD) >90 (>60 ml/min/1.73 sqM); Sodium 138 mmol/L (137-145)
[2021-12-23 18:37] LABS: T4, Free (Free Thyroxine) 1.19 ng/dL (0.78-2.19)
[2021-12-23 18:39] LABS: INR 1.1 (<1.2); Partial Thromboplastin Time 24.3 sec (22.0-30.0); Prothrombin Time 11.6 sec (9.0-12.0)
--- NOTE | 2021-12-23 18:50 | XR ---
EXAMINATION TYPE: XR chest 2V DATE OF EXAM: 12/23/2021 COMPARISON: 11/07/2021 HISTORY: Weakness TECHNIQUE: FINDINGS: There is slight coarsening of interstitial markings. Heart is borderline enlarged. There ar e no hilar masses. No obvious heart failure. There is no pleural effusion. IMPRESSION: There is significant clearing of the pulmonary congestion and pleural fluid compared to o ld exam. No obvious heart failure.
--- NOTE | 2021-12-23 18:54 | XR ---
EXAMINATION TYPE: XR shoulder complete RT DATE OF EXAM: 12/23/2021 COMPARISON: NONE HISTORY: Shoulder pain TECHNIQUE: 3 views FINDINGS: There is minor spurring at the glenohumeral joint. AC joint is intact. I see no fracture no r dislocation. Scapula is intact. IMPRESSION: Minor degenerative spurring. No fracture seen.
[2021-12-23 20:26] VITALS: RESP 16
[2021-12-23 22:04] LABS: Appearance,Urine Clear (Clear); Bilirubin,Urine Negative (Negative); Blood,Urine Negative (Negative); Color,Urine Yellow; Glucose,Urine (UA) 4+ (Negative); Ketones,Urine Negative (Negative); Leukocyte Esterase,Urine Negative (Negative); Nitrite,Urine Negative (Negative); PH, Urine 5.5 (5.0-8.0); Protein,Urine Negative (Negative); Specific Gravity,Urine 1.031 (1.001-1.035); Urobilinogen,Urine <2.0 mg/dL (<2.0)
[2021-12-23] MEDS ORDERED: traMADol 50 MG STARTER PACK 3 TAB BTL PO STA (22:36)
[2021-12-23 23:39] VITALS: BP 97/61; PULSE 78
== END 2021-12-23 23:38 | disposition home or self-care (01) ==
LOC: EC 17:43
DX: I95.89 Other hypotension (principal); E11.9 Type 2 diabetes mellitus without complications; I10 Essential (primary) hypertension; F17.200 Nicotine dependence, unspecified, uncomplicated; Z79.82 Long term (current) use of aspirin; Z79.84 Long term (current) use of oral hypoglycemic drugs; Z96.652 Presence of left artificial knee joint
CPT/HCPCS: 36415; 71046; 80053; 81003; 83605; 83735; 84439; 84443; 84481; 84484; 85025; 85379; 85610; 85730; 93005; 96360; 99285

== ENCOUNTER 2022-05-21 06:05 | Inpatient (IN) | payer MEDICARE ==
--- NOTE | 2022-05-21 06:31 | ED ---
Chest Pain HPI - General Stated Complaint: Chest Pain Time Seen by Provider: 05/21/22 06:08 Source: patient, EMS, RN notes reviewed Mode of arrival: EMS Limitations: no limitations - History of Present Illness Initial Comments: This a 67-year-old male presents emergency Department chief plan of chest pain. He states his started on off last night states centralized chest pain no nradiating. Patient does have known cardiac disease in which she takes medications for hyperlipidemia hypertension states that he does have underlying congestive heart failure with an EF less than 20. Patient states his been told he needs a valve replacement. Patient states she has mild shortness of breath no leg pain or leg swelling. Denies any history due to PE. No abdominal pain denies any diaphoretic episodes. Denies nausea vomiting. No cough or cold symptoms. - Related Data Home Medications Medication Instructions Recorded Confirmed Aspirin EC [Ecotrin Low Dose] 81 mg PO DAILY 11/07/21 12/23/21 metFORMIN HCL [Glucophage] 1,000 mg PO BID PRN 11/07/21 12/23/21 Metoprolol Tartrate [Lopressor] 12.5 mg PO BID 12/23/21 12/23/21 Atorvastatin [Lipitor] 40 mg PO DAILY 05/21/22 05/21/22 Spironolactone [Aldactone] 12.5 mg PO DAILY 05/21/22 lisinopriL [Zestril] 5 mg PO DAILY 05/21/22 05/21/22 Previous Rx's Medication Instructions Recorded Empagliflozin [Jardiance] 10 mg PO DAILY #30 tablet 11/10/21 Furosemide [Lasix] 40 mg PO DAILY #90 tab 11/12/21 Nitroglycerin Sl Tabs [Nitrostat] 0.4 mg SUBLINGUAL Q5M PRN #100 tab 11/12/21 Omeprazole 40 mg PO DAILY #30 cap 11/12/21 Allergies Allergy/AdvReac Type Severity Reaction Status Date / Time No Known Allergies Allergy Verified 05/21/22 07:34 Review of Systems ROS Statement: Those systems with pertinent positive or pertinent negative responses have been documented in the HPI. ROS Other: All systems not noted in ROS Statement are negative. EKG Findings - EKG Comments: EKG Findings:: EKG performed at 6:07 sinus rhythm rate 61 IA 199 QRS 117 QT/QTC 478/481 there is no significant ST elevation or depression noted Past Medical History Past Medical History: Diabetes Mellitus, Hypertension History of Any Multi-Drug Resistant Organisms: None Reported Past Surgical History: Orthopedic Surgery Additional Past Surgical History / Comment(s): left knee replacement, removal of partial fingers 3rd and 5th digits on left hand Past Anesthesia/Blood Transfusion Reactions: No Reported Reaction Past Psychological History: No Psychological Hx Reported Smoking Status: Current every day smoker Past Alcohol Use History: None Reported Past Drug Use History: None Reported - Past Family History Mother Family Medical History: Cancer Father Family Medical History: Cancer General Exam Limitations: no limitations General appearance: alert, in no apparent distress Head exam: Present: atraumatic, normocephalic, normal inspection Eye exam: Present: normal appearance, PERRL, EOMI. Absent: scleral icterus, conjunctival injection, periorbital swelling ENT exam: Present: mucous membranes moist. Absent: normal exam, normal oropharynx (Poor dentition) Neck exam: Present: normal inspection, full ROM. Absent: tenderness, meningismus, lymphadenopathy Respiratory exam: Present: normal lung sounds bilaterally. Absent: respiratory distress, wheezes, rales, rhonchi, stridor Cardiovascular Exam: Present: regular rate, normal rhythm, systolic murmur. Absent: normal heart sounds, diastolic murmur, rubs, gallop, clicks GI/Abdominal exam: Present: soft, normal bowel sounds. Absent: distended, tenderness, guarding, rebound, rigid Neurological exam: Present: alert Skin exam: Present: warm, dry, intact, normal color. 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 Patient has L his troponin 0.036, BNP is mildly elevated and some pulmonary congestion on chest x-ray. Patient does heavy of 20 or less. Patient was given dose Lasix patient started on heparin and elevated troponin. Patiently admitted to [facility] physician with consult to cardiology. Critical Care Time Critical Care Time: Yes Total Critical Care Time: 35 Disposition Clinical Impression: Congestive heart failure, Chest pain Disposition: ADMITTED IP TO THIS HOSP Condition: Fair Referrals: Heath Kirkland MD [Primary Care Provider] - 1-2 days Time of Disposition: 07:41
--- NOTE | 2022-05-21 06:53 | XR ---
EXAMINATION TYPE: XR chest 2V DATE OF EXAM: 05/21/2022 COMPARISON: 12/23/2021 HISTORY: Chest pain TECHNIQUE: FINDINGS: Heart is enlarged. There is mild pulmonary congestion. Versed testes. There are no hilar ma sses. There is mild blunting of the costophrenic angles. Bony thorax is intact. IMPRESSION: There is some mild congestive heart failure with pleural effusions. This appears new comp ared to old exam.
[2022-05-21 06:57] LABS: Basophils # (A) 0.1 k/uL (0-0.2); Basophils % (A) 1 %; Eosinophils # (A) 0.2 k/uL (0-0.7); Eosinophils % (A) 2 %; HGB 14.9 gm/dL (13.0-17.5); Hypochromasia Slight; INR 1.2 (<1.2); Lymphocytes # (A) 2.5 k/uL (1.0-4.8); Lymphocytes % (A) 30 %; MCH 31.4 pg (25.0-35.0); MCHC 31.8 g/dL (31.0-37.0); MCV 98.9 fL (80.0-100.0); Mean Platelet Volume 8.9; Monocytes # (A) 0.7 k/uL (0-1.0); Monocytes % (A) 9 %; Neutrophils # (A) 4.6 k/uL (1.3-7.7); Neutrophils % (A) 57 %; Partial Thromboplastin Time 25.5 sec (22.0-30.0); Platelet Count 263 k/uL (150-450); RBC 4.75 m/uL (4.30-5.90); RDW 13.8 % (11.5-15.5); WBC 8.1 k/uL (3.8-10.6)
[2022-05-21 07:14] LABS: ALT 25 U/L (4-49); AST 45 U/L (17-59); African American GFR (CKD) >90 (>60 ml/min/1.73 sqM); Albumin 3.8 g/dL (3.5-5.0); Alkaline Phosphatase 94 U/L (38-126); Anion Gap 11 mmol/L; Blood Urea Nitrogen 22 mg/dL (9-20); Calcium 8.2 mg/dL (8.4-10.2); Carbon Dioxide 23 mmol/L (22-30); Chloride 101 mmol/L (98-107); Glucose 113 mg/dL (74-99); Magnesium 1.6 mg/dL (1.6-2.3); Non-African American GFR(CKD) 86 (>60 ml/min/1.73 sqM); Sodium 135 mmol/L (137-145); Total Bilirubin 1.1 mg/dL (0.2-1.3); Total Protein 6.8 g/dL (6.3-8.2)
[2022-05-21 07:15] LABS: Potassium 5.3 mmol/L (3.5-5.1)
[2022-05-21] MEDS ORDERED: FUROSEMIDE 10 MG/ML 4 ML VIAL IV STA (07:33)
[2022-05-21] MEDS ORDERED: HEPARIN SODIUM 1,000 UN/ML (10ML VL) IV ONE (07:34)
[2022-05-21] MEDS ORDERED: HEPARIN SOD,PORK IN 0.45% NACL 25,000 UNIT in 0.45% NACL 1 250ML.BAG IV SCH (07:45)
--- NOTE | 2022-05-21 12:33 | P.CRDCN ---
History of Present Illness Consult date: 05/21/22 History of present illness: HISTORY OF PRESENT ILLNESS: This is a 67-year-old male with a past medical history significant for severe nonischemic cardiomyopathy, valvular heart disease with known bicuspid aortic valve and aortic stenosis, hypertension, hyperlipidemia, diabetes, and nicotine dependence. Patient follows in the office with Dr. Brooks. We have been asked to see the patient in consultation for chest pain. Patient examined at the bedside. Patient states over the past couple days he has been experiencing chest pain and shortness of breath when he tries to lay down at night. He states he usually is able to reposition himself in bed and his symptoms resolved however yesterday he was unable to get relief with position changes and decided to come to the emergency room for further evaluation. The patient states the discomfort was right in the middle of his chest. He denied any radiation of the pain. The patient currently denies any chest pain or pressure at the time of my examination. Patient was up walking to the bathroom and does not appear to be in any distress at this time. The patient also follows at the [facility]. The patient is in the process of scheduling to be seen at [facility] for an aortic valve replacement. The patient states he has not yet scheduled this as he is homeless and states he needs to get his housing situation taken care of first of he will have placed to recover after surgery. * EKG reveals sinus mechanism with no signs of acute ischemia * Chest xray there is some mild congestive heart failure with pleural effusions. * Laboratory data: WBC 8.1. Hemoglobin 14.9. Platelet count 263. Sodium 135. Potassium 5.3. BUN 22. Creatinine 0.93. ProBNP 6580. Troponin 0.036. 0.0 25. * Current home cardiac medications include Jardiance 10mg daily, aspirin 81 mg daily, Lasix 40 mg daily, metoprolol titrate 25 mg daily, Aldactone 12.5 mg daily, and lisinopril 5 mg daily * Most recent echocardiogram obtained in October 2021 revealed ejection fraction 20-25%, mild aortic regurgitation, severe aortic stenosis, moderate MR, moderate TR, moderate to severe pulmonary hypertension * Patient underwent CRISTIAN in November 2021 revealing dilated left ventricle with severely impaired function and EF of 20% with global hypokinesis. Bicuspid aortic valve with fusion of the right and left coronary cusps. Moderate MR, mitral valve appears to be thickened. Moderate TR. No evidence of per icardial effusion. * Cardiac catheterization history: November 2021 revealing severe aortic stenosis, pulmonary hypertension, elevated biventricular filling pressures, and intermediate nonobstructive coronary artery disease REVIEW OF SYSTEMS: At the time of my exam: CONSTITUTIONAL: Denies fever or chills. HEENT: Denies blurred vision, vision changes, or eye pain. Denies hemoptysis CARDIOVASCULAR: Denies chest pain. Denies orthopnea. Denies PND. Denies palpitations RESPIRATORY: Denies shortness of breath. GASTROINTESTINAL: Denies abdominal pain. Denies nausea or vomiting. HEMATOLOGIC: Denies bleeding disorders. GENITOURINARY: Denies any blood in urine. SKIN: Denies pruitis. Denies rash. PHYSICAL EXAM: VITAL SIGNS: Reviewed. GENERAL: Well-developed in no acute distress. HEENT: Head is normocephalic. Pupils are equal, round. Sclerae anicteric. Mucous membranes of the mouth are moist. Neck supple. No JVD or thyromegaly LUNGS: Respirations even and unlabored. Lungs diminished with a few bibasilar crackles. HEART: Regular rate and rhythm. S1 and S2 heard. Systolic murmur noted ABDOMEN: Soft. Nondistended. Nontender. EXTREMITIES: Normal range of motion. No clubbing or cyanosis. Peripheral pulses intact. No lower extremity edema NEUROLOGIC: Awake and alert. Oriented x 3. ASSESSMENT: Chest pain, acute coronary syndrome ruled out Shortness of breath Acute mild exacerbation of heart failure with reduced ejection fraction Intermediate nonobstructive coronary artery disease Severe aortic stenosis Bicuspid aortic valve Valvular heart disease Nonischemic cardiomyopathy Hypertension Hyperlipidemia Diabetes Nicotine dependence PLAN: An acute coronary event has been ruled out No need to repeat echocardiogram at this time Resume home cardiac medications Begin Lasix 40 mg IV every 12 hours for 24 hours Patient to follow-up at [facility] for aortic valve replacement after he finds stable housing Further recommendations pending patient's course Nurse practitioner note has been reviewed by physician. Signing provider agrees with the documented findings, assessment, and plan of care. Past Medical History Past Medical History: Coronary Artery Disease (CAD), Heart Failure, Diabetes Mellitus, GERD/Reflux, Hyperlipidemia, Hypertension Additional Past Medical History / Comment(s): Pt denies [place] documented in his 11/07/21 medical record, severe aortic stenosis, NIDDM type II, pulmonary HTN History of Any Multi-Drug Resistant Organisms: None Reported Past Surgical History: Joint Replacement, Orthopedic Surgery, Tonsillectomy Additional Past Surgical History / Comment(s): Previous cardiac valve surgery done percutaneously to "clean up my valve"/sone at [facility], left knee replacement, removal of partial fingers 3rd and 5th digits on left hand, colonoscopy, cyst removed behind L ear Past Anesthesia/Blood Transfusion Reactions: No Reported Reaction Smoking Status: Current every day smoker - Past Family History Mother Family Medical History: Hyperlipidemia, Hypertension Father Family Medical History: Hypertension Medications and Allergies Home Medications Medication Instructions Recorded Confirmed Type Aspirin EC [Ecotrin Low Dose] 81 mg PO DAILY 11/07/21 05/21/22 History metFORMIN HCL [Glucophage] 1,000 mg PO BID 11/07/21 05/21/22 History Empagliflozin [Jardiance] 10 mg PO DAILY #30 tablet 11/10/21 05/21/22 Rx Furosemide [Lasix] 40 mg PO DAILY #90 tab 11/12/21 05/21/22 Rx Nitroglycerin Sl Tabs [Nitrostat] 0.4 mg SUBLINGUAL Q5M PRN #100 tab 11/12/21 05/21/22 Rx Omeprazole 40 mg PO DAILY #30 cap 11/12/21 05/21/22 Rx Metoprolol Tartrate [Lopressor] 25 mg PO DAILY 12/23/21 05/21/22 History Atorvastatin [Lipitor] 40 mg PO DAILY 05/21/22 05/21/22 History Spironolactone [Aldactone] 12.5 mg PO DAILY 05/21/22 05/21/22 History lisinopriL [Zestril] 5 mg PO DAILY 05/21/22 05/21/22 History Allergies Allergy/AdvReac Type Severity Reaction Status Date / Time No Known Allergies Allergy Verified 05/21/22 07:34 Physical Exam Vitals: Vital Signs Temp Pulse Pulse Resp BP Pulse Ox 05/21/22 08:36 96.8 F L 68 18 94/67 99 05/21/22 06:19 60 05/21/22 06:17 63 16 101/69 92 L 05/21/22 06:06 97.7 F 61 16 101/69 97 Intake and Output 05/20/22 05/21/22 05/21/22 22:59 06:59 14:59 Other: Weight 63.503 kg 63.503 kg Results 05/21/22 06:28 05/21/22 06:53 Cardiac Enzymes 05/21/22 05/21/22 Range/Units 06:53 06:53 AST 45 (17-59) U/L Troponin I 0.036 H* (0.000-0.034) ng/mL Coagulation 05/21/22 Range/Units 06:28 PT 13.0 H (9.0-12.0) sec APTT 25.5 (22.0-30.0) sec CBC 05/21/22 Range/Units 06:28 WBC 8.1 (3.8-10.6) k/uL RBC 4.75 (4.30-5.90) m/uL Hgb 14.9 (13.0-17.5) gm/dL Hct 47.0 (39.0-53.0) % Plt Count 263 (150-450) k/uL Comprehensive Metabolic Panel 05/21/22 Range/Units 06:53 Sodium 135 L (137-145) mmol/L Potassium 5.3 H (3.5-5.1) mmol/L Chloride 101 (98-107) mmol/L Carbon Dioxide 23 (22-30) mmol/L BUN 22 H (9-20) mg/dL Creatinine 0.93 (0.66-1.25) mg/dL Glucose 113 H (74-99) mg/dL Calcium 8.2 L (8.4-10.2) mg/dL AST 45 (17-59) U/L ALT 25 (4-49) U/L Alkaline Phosphatase 94 (38-126) U/L Total Protein 6.8 (6.3-8.2) g/dL Albumin 3.8 (3.5-5.0) g/dL Current Medications Generic Name Dose Route Start Last Admin Trade Name Freq PRN Reason Stop Dose Admin Aspirin 325 mg 05/22/22 09:00 Aspirin 325 Mg Tab PO DAILY TIFFANY Heparin Sodium/Sodium Chloride 250 mls @ 7.62 mls/hr 05/21/22 07:45 05/21/22 08:55 25,000 unit/ Sodium Chloride IV 12 units/kg/hr .Q24H TIFFANY 7.62 mls/hr Administration Protocol 12 UNITS/KG/HR Intake and Output 08/11/22 08/12/22 08/12/22 22:59 06:59 14:59 Other: Weight 63.503 kg 63.503 kg Patient Weight 05/22/22 06:59 Weight 63.503 kg 05/21/22 06:28 05/21/22 06:53
--- NOTE | 2022-05-21 13:41 | P.HPIM ---
History of Present Illness H&P Date: 05/21/22 Patient is a 67-year-old male with PMH of nonischemic cardiomyopathy with EF of 20%, severe aortic stenosis, hypertension, dyslipidemia, diabetes mellitus and nicotine dependence presents the ED for chest pain. Patient reports chest pain that has been ongoing for many weeks. His chest pain is exertional, left-sided, described as pressure-like in nature. There is no radiation of pain. He also r eports exertional dyspnea. He denies any lower extremity swelling. Patient denies any headache, nausea or vomiting, fever or chills, cough, palpitations, changes in urination or bowel habits. No changes in appetite or weight. He denies any dizziness, numbness/weakness/tingling of the extremities. Most recent echocardiogram obtained in October 2021 revealed ejection fraction 20-25%, mild aortic regurgitation, severe aortic stenosis, moderate MR, moderate TR, moderate to severe pulmonary hypertension. Patient underwent CRISTIAN in November 2021 revealing dilated left ventricle with severely impaired function and EF of 20% with global hypokinesis. Bicuspid aortic valve with fusion of the right and left coronary cusps. Moderate MR, mitral valve appears to be thickened. Moderate TR. No evidence of pericardial effusion. Cardiac catheterization done in November 2021 revealing severe aortic stenosis, pulmonary hypertension, elevated biventricular filling pressures, and intermediate nonobstructive coronary artery disease. The ED, his vital signs are stable. CBC was unremarkable. INR was 1.2. CMP showed sodium of 135, potassium of 5.3, B1 of 22, glucose 113 calcium of 8.2. BNP was 6580. Troponin was 0.036, 0.05 with EKG showing sinus rhythm and ST depression. Chest xray showed findings of CHF. Patient is admitted for CHF exacerbation and cardiology consultation. Review of systems is performed and is negative except above. General: [non toxic], [no distress], [appears at stated age] Derm: [warm], [dry] Head: [atraumatic], [normocephalic], [symmetric] Eyes: [EOMI], [no lid lag], [anicteric sclera] Mouth: [no lip lesion], [mucus membranes moist] Cardiovascular: [S1S2 reg], [systolic murmur], [positive posterior tibial pulse bilateral], Lungs: [Decreased breath sounds bilateral], [no rhonchi, no rales] , [no accessory muscle use] Abdominal: [soft], [ nontender to palpation], [no guarding], [no appreciable organomegaly] Ext: [no gross muscle atrophy], [no edema], [no contractures] Neuro: [ CN II-XI grossly intact], [no focal neuro deficits] Psych: [Alert], [oriented], [appropriate affect] #Systolic CHF exacerbation #Severe aortic stenosis #Troponin elevation #Hyperkalemia #Diabetes mellitus #Hypertension #Dyslipidemia #Smoker Patient be diuresed with Lasix 40 mg IV twice a day. Strict intake and outtake is ordered. Daily weights as ordered. Maintain K > 4 and Mg > 2. Continue VICKIE inhibitor, Aldactone and beta kelly. Echocardiogram ordered. Cardiology consulted for further management. Case was discussed with Dr. Valdez who recommends that the patient follow-up and [facility] for possible valve replacement. Initial troponin 0.036, 0.025. Recent cardiac cath in November 2021 showed intermediate nonobstructive CAD. Continue aspirin and Lipitor. Continue beta kelly. Trend troponin/EKG to rule out ACS. Telemetry monitoring. Hemolyzed sample. Repeat BMP tomorrow morning. Start low-dose insulin sliding scale along with Accu-Cheks 4 times a day and hyperglycemia precautions. Antihypertensive medication as above. Monitor vitals, adjust medication if necessary. Continue Lipitor as above. Patient has been offered a nicotine patch. DVT prophylaxis: [Heparin] Discussed with: [Patient, ED physician, Dr. Valdez] Anticipated discharge: [1-2 days] Anticipated discharge place: [Home] A total of [45] minutes was spent on the care of this complex patient more than 50% of the time was spent in counseling and care coordination. Patient names his friend Ernestina decision maker if he can't make decisions for himself. Patient would like to be full code. Past Medical History Past Medical History: Coronary Artery Disease (CAD), Heart Failure, Diabetes Mellitus, GERD/Reflux, Hyperlipidemia, Hypertension Additional Past Medical History / Comment(s): Pt denies [place] documented in his 11/07/21 medical record, severe aortic stenosis, NIDDM type II, pulmonary HTN History of Any Multi-Drug Resistant Organisms: None Reported Past Surgical History: Joint Replacement, Orthopedic Surgery, Tonsillectomy Additional Past Surgical History / Comment(s): Previous cardiac valve surgery done percutaneously to "clean up my valve"/[facility]one at [facility], left knee replacement, removal of partial fingers 3rd and 5th digits on left hand, colonoscopy, cyst removed behind L ear Past Anesthesia/Blood Transfusion Reactions: No Reported Reaction Smoking Status: Current every day smoker - Past Family History Mother Family Medical History: Hyperlipidemia, Hypertension Father Family Medical History: Hypertension Medications and Allergies Home Medications Medication Instructions Recorded Confirmed Type Aspirin EC [Ecotrin Low Dose] 81 mg PO DAILY 11/07/21 05/21/22 History metFORMIN HCL [Glucophage] 1,000 mg PO BID 11/07/21 05/21/22 History Empagliflozin [Jardiance] 10 mg PO DAILY #30 tablet 11/10/21 05/21/22 Rx Furosemide [Lasix] 40 mg PO DAILY #90 tab 11/12/21 05/21/22 Rx Nitroglycerin Sl Tabs [Nitrostat] 0.4 mg SUBLINGUAL Q5M PRN #100 tab 11/12/21 05/21/22 Rx Omeprazole 40 mg PO DAILY #30 cap 11/12/21 05/21/22 Rx Metoprolol Tartrate [Lopressor] 25 mg PO DAILY 12/23/21 05/21/22 History Atorvastatin [Lipitor] 40 mg PO DAILY 05/21/22 05/21/22 History Spironolactone [Aldactone] 12.5 mg PO DAILY 05/21/22 05/21/22 History lisinopriL [Zestril] 5 mg PO DAILY 05/21/22 05/21/22 History Allergies Allergy/AdvReac Type Severity Reaction Status Date / Time No Known Allergies Allergy Verified 05/21/22 07:34 Physical Exam Vitals: Vital Signs Temp Pulse Pulse Resp BP Pulse Ox 05/21/22 11:05 63 18 92/68 96 05/21/22 08:36 96.8 F L 68 18 94/67 99 05/21/22 06:19 60 05/21/22 06:17 63 16 101/69 92 L 05/21/22 06:06 97.7 F 61 16 101/69 97 Intake and Output 05/20/22 05/21/22 05/21/22 22:59 06:59 14:59 Other: Weight 63.503 kg 63.503 kg Results CBC & Chem 7: 05/21/22 06:28 05/21/22 06:53 Labs: Abnormal Lab Results - Last 24 Hours (Table) 05/21/22 05/21/22 05/21/22 Range/Units 06:28 06:53 06:53 PT 13.0 H (9.0-12.0) sec INR 1.2 H (<1.2) Sodium 135 L (137-145) mmol/L Potassium 5.3 H (3.5-5.1) mmol/L BUN 22 H (9-20) mg/dL Glucose 113 H (74-99) mg/dL Calcium 8.2 L (8.4-10.2) mg/dL Troponin I 0.036 H* (0.000-0.034) ng/mL Thrombosis Risk Factor Assmnt - Choose All That Apply Any of the Below Risk Factors Present?: Yes Each Factor Represents 1 point: Heart failure (<1month) Other Risk Factors: Yes Each Risk Factor Represents 2 Points: Age 61-74 years Other congenital or acquired thrombophilia - If yes, enter type in comment: No Thrombosis Risk Factor Assessment Total Risk Factor Score: 3 Thrombosis Risk Factor Assessment Level: Moderate Risk
[2022-05-21 15:20] LABS: Glucose,Whole Blood 132 mg/dL (70-110)
[2022-05-21] MEDS: INSULIN ASPART (NovoLOG) 100 UNIT/ML VIAL SQ SCH ×3 (15:23→20:18)
--- NOTE | 2022-05-21 17:39 | CA ---
Transthoracic Echo Report Name: Mj Villalobos Age: 67 Gender: M : 1955 Exam Date: 05/21/2022 13:11 Exam Location: [facility] Ht (in): 68 Wt (lb): 140 Ordering Physician: Pooja Nino MD Attending/Referring Phys: Upholstery Instructor Lori Pederson RDCS Procedure CPT: Indications: chf Cardiac Hx: Hx of severe Aortic Stenosis with bicuspid Aortic Valve Technical Quality: Good Contrast 1: Total Dose (mL): Contrast 2: Total Dose (mL): MEASUREMENTS (Male / Female) Normal Values 2D ECHO LV Diastolic Diameter PLAX 5.2 cm 4.2 - 5.9 / 3.9 - 5.3 cm LV Systolic Diameter PLAX 4.6 cm IVS Diastolic Thickness 0.9 cm 0.6 - 1.0 / 0.6 - 0.9 cm LVPW Diastolic Thickness 1.2 cm 0.6 - 1.0 / 0.6 - 0.9 cm LV Relative Wall Thickness 0.4 RV Internal Dim ED PLAX 3.4 cm LVOT Diameter 1.5 cm LA Volume 51.4 cm??? 18 - 58 / 22 - 52 cm??? M-MODE Aortic Root Diameter MM 3.0 cm LA Systolic Diameter MM 3.4 cm LA Ao Ratio MM 1.2 MV E Point Septal Separation 2.1 cm AV Cusp Separation MM 0.7 cm DOPPLER AV Peak Velocity 257.9 cm/s AV Peak Gradient 26.6 mmHg AV Mean Velocity 195.5 cm/s AV Mean Gradient 16.8 mmHg AV Velocity Time Integral 47.8 cm AI Peak Velocity 303.1 cm/s AI Peak Gradient 36.7 mmHg AI Pressure Half Time 450.7 ms LVOT Peak Velocity 42.0 cm/s LVOT Peak Gradient 0.7 mmHg LVOT Velocity Time Integral 8.3 cm LVOT Stroke Volume 15.2 cm??? LVOT Stroke Volume Index 8.7 ml/m??? AV Area Cont Eq vti 0.3 cm??? AV Area Cont Eq pk 0.3 cm??? MV Area PHT 4.3 cm??? MR Peak Velocity 200.9 cm/s MR Peak Gradient 16.1 mmHg Mitral E Point Velocity 80.4 cm/s Mitral A Point Velocity 40.5 cm/s Mitral E to A Ratio 2.0 MV Deceleration Time 176.9 ms MV E' Velocity 3.1 cm/s Mitral E to MV E' Ratio 25.7 TR Peak Velocity 283.0 cm/s TR Peak Gradient 32.0 mmHg Right Ventricular Systolic Press 34.9 mmHg FINDINGS Left Ventricle Left ventricular ejection fraction is estimated at less then 15%. Severe Global Hypokinesis. Grade 3 diastolic dysfunction. Right Ventricle Moderate pulmonary hypertension. Right ventricular dilatation. Right Atrium Normal right atrial size. Left Atrium Normal left atrial size. Mitral Valve Moderate mitral regurgitation. Aortic Valve Severe low-flow low-gradient aortic stenosis with a peak gradient 27 mmHg, mean gradient 17 mmHg, and estimated aortic valve area of 0.3 cm2.diffuse thickening of the aortic valve cusps with reduced excursion. Bicuspid aortic valve. Tricuspid Valve [id number] tricuspid regurgitation. Pulmonic Valve Mild pulmonic regurgitation. Pericardium No pericardial effusion. Aorta Normal size aortic root and proximal ascending aorta. CONCLUSIONS Dilated left ventricle with diffuse global hypokinesis and severe LV systolic dysfunction with an ejection fraction of 15-20% Aortic sclerosis with severe restriction in leaflet mobility with a peak gradient of 27 mm and the mean gradient of 17 mm. 2-D appearance is suggestive of severe aortic stenosis. Gradient circumflex low because of LV systolic dysfunction Moderate to severe tricuspid regurgitation. Moderate mitral regurgitation Moderate pulmonary hypertension Consider transesophageal echo Previewed by: Dr. Juan Fields MD (Electronically Signed) Final Date: 21 May 2022 17:38
[2022-05-21] MEDS: HEPARIN SODIUM,PORCINE/PF 5,000 UNIT/0.5 ML SYRINGE SQ SCH (20:14)
[2022-05-21 20:41] LABS: Glucose,Whole Blood 112 mg/dL (70-110)
[2022-05-21] MEDS: FUROSEMIDE 10 MG/ML 4 ML VIAL IV SCH (22:28)
[2022-05-22 06:08] LABS: Glucose,Whole Blood 112 mg/dL (70-110)
[2022-05-22] MEDS: INSULIN ASPART (NovoLOG) 100 UNIT/ML VIAL SQ SCH ×4 (06:45→19:52)
[2022-05-22] MEDS: PATIENT'S OWN (Empagliflozin [Jardiance] 10 MG Tablet) PO SCH (08:40)
[2022-05-22 08:52] LABS: African American GFR (CKD) >90 (>60 ml/min/1.73 sqM); Anion Gap 8 mmol/L; Blood Urea Nitrogen 20 mg/dL (9-20); Calcium 8.4 mg/dL (8.4-10.2); Carbon Dioxide 31 mmol/L (22-30); Chloride 97 mmol/L (98-107); Glucose 238 mg/dL (74-99); Non-African American GFR(CKD) 82 (>60 ml/min/1.73 sqM); Potassium 4.3 mmol/L (3.5-5.1); Sodium 136 mmol/L (137-145)
[2022-05-22] MEDS: FUROSEMIDE 10 MG/ML 4 ML VIAL IV SCH (08:56)
[2022-05-22] MEDS: ASPIRIN 81 MG PO SCH (08:56)
[2022-05-22] MEDS: HEPARIN SODIUM,PORCINE/PF 5,000 UNIT/0.5 ML SYRINGE SQ SCH ×2 (08:56→20:09)
[2022-05-22] MEDS: SPIRONOLACTONE 25 MG TAB PO SCH (08:57)
[2022-05-22] MEDS: METOPROLOL TARTRATE 25 MG TAB PO SCH (08:57)
[2022-05-22] MEDS: ATORVASTATIN 40 MG TAB PO SCH (08:57)
[2022-05-22] MEDS: lisinopriL 5 MG TAB PO SCH (08:57)
[2022-05-22] MEDS ORDERED: ASPIRIN 325 MG TAB PO SCH (09:00)
[2022-05-22] MEDS ORDERED: FUROSEMIDE 40 MG TAB PO SCH (09:00)
[2022-05-22 11:41] LABS: Glucose,Whole Blood 85 mg/dL (70-110)
--- NOTE | 2022-05-22 11:47 | P.PN ---
Subjective Progress Note Date: 05/22/22 Patient was seen and examined. No acute events overnight. Patient continues to report exertional chest pain and dyspnea. He reports lightheadedness with exertion at times when he is at home. All of his symptoms resolve with rest. General: [non toxic], [no distress], [appears at stated age] Derm: [warm], [dry] Head: [atraumatic], [normocephalic], [symmetric] Eyes: [EOMI], [no lid lag], [anicteric sclera] Mouth: [no lip lesion], [mucus membranes moist] Cardiovascular: [S1S2 reg], [systolic murmur], [positive posterior tibial pulse bilateral] Lungs: [Decreased breath sounds bilateral], [no rhonchi, no rales] , [no accessory muscle use] Ext: [no gross muscle atrophy], [no edema], [no contractures] Neuro: [no focal neuro deficits] Psych: [Alert], [oriented], [appropriate affect] #Systolic CHF exacerbation #Severe aortic stenosis #Troponin elevation #Hyperkalemia #Diabetes mellitus #Hypertension #Dyslipidemia #Smoker #Systolic CHF exacerbation #Severe aortic stenosis #Troponin elevation #Hypomagnesemia #Diabetes mellitus #Hypertension #Dyslipidemia #Smoker DC Lasix 40 mg IV BID and switch to Lasix 20 mg PO QD. Strict intake and outtake is ordered. Daily weights as ordered. Maintain K > 4 and Mg > 2. Continue VICKIE inhibitor, Aldactone and beta kelly. Echocardiogram shows EF 15% with G3DD and severe aortic stenosis. Cardiology on board. Case was discussed with Dr. Valdez. We will consult cardiothoracic surgery for further management. Initial troponin 0.036, 0.025. Recent cardiac cath in November 2021 showed intermediate nonobstructive CAD. Continue aspirin and Lipitor. Continue beta kelly. ACS ruled out, likely troponin leak from CHF. Telemetry monitoring. Replace with magnesium sulfate 4g IV today. Repeat tomorrow. Start low-dose insulin sliding scale along with Accu-Cheks 4 times a day and hyperglycemia precautions. Antihypertensive medication as above. Monitor vitals, adjust medication if necessary. Continue Lipitor as above. Patient has been offered a nicotine patch. DVT prophylaxis: [Heparin] Discussed with: [Patient, Dr. Valdez] Anticipated discharge: [Depending on clinical course] Anticipated discharge place: [Home] Objective - Vital Signs Vital signs: Vital Signs Temp 98.0 F 05/22/22 08:53 Pulse 72 05/22/22 11:20 Resp 20 05/22/22 11:20 BP 91/62 05/22/22 11:20 Pulse Ox 96 05/22/22 11:20 FiO2 Intake & Output 05/21/22 05/22/22 05/22/22 18:59 06:59 18:59 Intake Total 118 Balance 118 Weight 63.503 kg 65.1 kg Intake: Oral 118 Other: Voiding Method Toilet Toilet - Labs CBC & Chem 7: 05/21/22 06:28 05/22/22 07:59 Labs: Abnormal Lab Results - Last 24 Hours (Table) 05/21/22 05/21/22 05/21/22 Range/Units 15:17 17:17 20:17 APTT 40.5 H (22.0-30.0) sec Sodium (137-145) mmol/L Chloride (98-107) mmol/L Carbon Dioxide (22-30) mmol/L Glucose (74-99) mg/dL POC Glucose (mg/dL) 132 H 112 H (70-110) mg/dL 05/22/22 05/22/22 Range/Units 05:44 07:59 APTT (22.0-30.0) sec Sodium 136 L (137-145) mmol/L Chloride 97 L (98-107) mmol/L Carbon Dioxide 31 H (22-30) mmol/L Glucose 238 H (74-99) mg/dL POC Glucose (mg/dL) 112 H (70-110) mg/dL
[2022-05-22] MEDS: MAGNESIUM SULFATE-D5W PMX 1 GM in DEXTROSE/WATER 1 100ML.BAG IVPB SCH ×4 (11:50→15:24)
[2022-05-22 12:38] LABS: Chol/HDL Ratio 2.55 Ratio; LDL Cholesterol,Calculated 46.9 mg/dL (0.0-131.0); VLDL Calculation 18.74 mg/dL (5.00-40.00)
--- NOTE | 2022-05-22 13:35 | P.PN ---
Subjective Progress Note Date: 05/22/22 PROGRESS NOTE The patient is a 67-year-old male with known history of hypertension, diabetes, hyperlipidemia, mild CAD with severely impaired systolic function and severe aortic stenosis. He has been seen by Dr. Ayala and was supposed to be seen at [facility] for aortic valve management. He presented was progressive dyspnea. He's feeling better today. He has some fullness in the chest and ti ghtness, no dizziness or palpitations. He denies any PND or orthopnea. He had an echocardiogram yesterday that showed an ejection fraction of 15% with bicuspid aortic valve and critical aortic stenosis with moderate to severe tricuspid regurgitation and moderate mitral regurgitation Medications: Aspirin once a day, Lipitor 40 mg daily, Lasix 20 mg daily, subcu heparin, lisinopril 5 mg daily, metoprolol 25 mg twice a day, spironolactone 12-1/2 mg daily PHYSICAL EXAMINATION: Blood pressure 91/60 heart rate 70 LUNGS: Clear to auscultation HEART: Regular rate and rhythm, S1, S2. No S3. systolic ejection murmur, mid peaking ABDOMEN: Soft, nontender, no organomegaly EXTREMETIES: No edema LAB: Potassium 4.3, BUN 20, creatinine 0.97 IMPRESSION: 1. Severe nonischemic cardiomyopathy 2. Bicuspid aortic valve with severe aortic stenosis with low flow low gradient 3. Hypotension 4. Diabetes PLAN: 1. Continue present treatment 2. Obtain cardiovascular consultation 3. The patient is higher risk, I discussed with him and his fiance the importance of follow-up as scheduled in the prognosis 4. Depending on his progress further recommendations will be made Objective - Vital Signs Vital signs: Vital Signs Temp 98.0 F 05/22/22 08:53 Pulse 72 05/22/22 13:03 Resp 20 05/22/22 11:20 BP 91/62 05/22/22 11:20 Pulse Ox 96 05/22/22 11:20 FiO2 Intake & Output 05/21/22 05/22/22 05/22/22 18:59 06:59 18:59 Intake Total 118 Balance 118 Weight 63.503 kg 65.1 kg Intake: Oral 118 Other: Voiding Method Toilet Toilet - Labs CBC & Chem 7: 05/21/22 06:28 05/22/22 07:59 Labs: Abnormal Lab Results - Last 24 Hours (Table) 05/21/22 05/21/22 05/21/22 Range/Units 15:17 17:17 20:17 APTT 40.5 H (22.0-30.0) sec Sodium (137-145) mmol/L Chloride (98-107) mmol/L Carbon Dioxide (22-30) mmol/L Glucose (74-99) mg/dL POC Glucose (mg/dL) 132 H 112 H (70-110) mg/dL 05/22/22 05/22/22 Range/Units 05:44 07:59 APTT (22.0-30.0) sec Sodium 136 L (137-145) mmol/L Chloride 97 L (98-107) mmol/L Carbon Dioxide 31 H (22-30) mmol/L Glucose 238 H (74-99) mg/dL POC Glucose (mg/dL) 112 H (70-110) mg/dL
[2022-05-22 16:48] LABS: Glucose,Whole Blood 132 mg/dL (70-110)
[2022-05-22 19:36] LABS: Glucose,Whole Blood 135 mg/dL (70-110)
[2022-05-23] MEDS: INSULIN ASPART (NovoLOG) 100 UNIT/ML VIAL SQ SCH ×4 (06:01→20:07)
[2022-05-23 06:26] LABS: Glucose,Whole Blood 105 mg/dL (70-110)
--- NOTE | 2022-05-23 08:21 | P.GSCN ---
History of Present Illness Consult date: 05/23/22 Reason for Consult: Symptomatic severe aortic stenosis Requesting physician: Pooja Nino History of present illness: This is a 67-year-old homeless gentleman who recently established primary care with Dr. Kirkland. He has a previous medical history of known bicuspid severe aortic valve stenosis, nonischemic cardiomyopathy, hypertension, hyperlipidemia, xvt-dlehffu-jukswrfqe diabetes, current tobacco dependence, syncopal episode prior to October admission, and questionable atrial fibrillation as the patient states he's been told he has A. fib in the past but there is no documentation in the chart nor any EKGs capturing atrial fibrillation and he is not currently on anticoagulation, the patient is not the best historian. This gentleman was hospitalized earlier this year with new onset heart failure. He underwent heart catheterization and transesophageal echocardiogram at that time, heart catheterization revealed nonobstructive coronary artery disease in the mid LAD, aortic valve area 0.15 cm with a mean gradient 18.2 mmHg. Transesophageal echocardiogram demonstrated impaired systolic function with EF 20%, bicuspid aortic valve with aortic valve area 0.7 cm, mean gradient 18 mmHg, mild aortic insufficiency, moderate mitral regurgitation, moderate tricuspid regurgitation, and mildly dilated aortic root. His heart failure was managed and he was determined stable for discharge with plans to follow-up with Dr. Ayala in the office for dobutamine stress echo to determine further workup for his aortic valve stenosis. He was supposed to be following at [facility] for aortic valve replacement consideration, however patient states he has not made an appointment yet as he is homeless and the [place] system is working on finding placement for him. He presented back to [facility] emergency room a couple days ago with complaints of severe chest pain and shortness of breath. States at that time he was unable to do anything exertional without getting short of breath and chest discomfort. His troponins were mildly elevated, BNP was 6580. He was admitted for evaluation and treatment, acute coronary syndrome was ruled out as his troponin elevation was felt to be due to acute on chronic systolic heart failure. Transthoracic echocardiogram was completed again demonstrating diffuse global hypokinesis with severe left ventricular systolic dysfunction, EF 15-20%. Bicuspid aortic valve with aortic valve area 0.3 cm, peak/mean gradient 27/17 mmHg felt to be severe aortic stenosis with a low flow low gradient, moderate to severe tricuspid regurgitation, moderate mitral regurgitation, moderate pulmonary hypertension, and normal aortic root. Due to echocardiogram findings of severe aortic stenosis along with patient's continued symptomatology consultations placed to cardiothoracic surgery for valve replacement recommendations. Review of Systems Review of systems was completed and was negative except as noted - Cardiovascular Reports as per HPI, Reports chest pain, Reports dyspnea on exertion, Reports shortness of breath Past Medical History Past Medical History: Coronary Artery Disease (CAD), Heart Failure, Diabetes Mellitus, GERD/Reflux, Hyperlipidemia, Hypertension, Syncope Additional Past Medical History / Comment(s): Pt denies AR documented in his 11/07/21 medical record, severe aortic stenosis, NIDDM type II, pulmonary HTN; patient states he was told he is had A. fib in the past, no documentation in the chart and patient is not currently on anticoagulation History of Any Multi-Drug Resistant Organisms: None Reported Past Surgical History: Joint Replacement, Orthopedic Surgery, Tonsillectomy Additional Past Surgical History / Comment(s): Previous cardiac valve surgery done percutaneously to "clean up my valve"/done at [facility], left knee replacement, removal of partial fingers 3rd and 5th digits on left hand, colonoscopy, cyst removed behind L ear Past Anesthesia/Blood Transfusion Reactions: No Reported Reaction Past Psychological History: No Psychological Hx Reported Smoking Status: Current every day smoker Past Alcohol Use History: None Reported Past Drug Use History: None Reported Additional History: States he smokes a couple of cigars daily, denies cigarette or vaping use - Past Family History Mother Family Medical History: Hyperlipidemia, Hypertension Father Family Medical History: Cancer, Hypertension Medications and Allergies Home Medications Medication Instructions Recorded Confirmed Type Aspirin EC [Ecotrin Low Dose] 81 mg PO DAILY 11/07/21 05/21/22 History metFORMIN HCL [Glucophage] 1,000 mg PO BID 11/07/21 05/21/22 History Empagliflozin [Jardiance] 10 mg PO DAILY #30 tablet 11/10/21 05/21/22 Rx Furosemide [Lasix] 40 mg PO DAILY #90 tab 11/12/21 05/21/22 Rx Nitroglycerin Sl Tabs [Nitrostat] 0.4 mg SUBLINGUAL Q5M PRN #100 tab 11/12/21 05/21/22 Rx Omeprazole 40 mg PO DAILY #30 cap 11/12/21 05/21/22 Rx Metoprolol Tartrate [Lopressor] 25 mg PO DAILY 12/23/21 05/21/22 History Atorvastatin [Lipitor] 40 mg PO DAILY 05/21/22 05/21/22 History Spironolactone [Aldactone] 12.5 mg PO DAILY 05/21/22 05/21/22 History lisinopriL [Zestril] 5 mg PO DAILY 05/21/22 05/21/22 History Allergies Allergy/AdvReac Type Severity Reaction Status Date / Time No Known Allergies Allergy Verified 05/21/22 07:34 Surgical - Exam Vital Signs Temp Pulse Resp BP Pulse Ox 97.7 F 61 16 101/69 97 05/21/22 06:06 05/21/22 06:06 05/21/22 06:06 05/21/22 06:06 05/21/22 06:06 CONSTITUTIONAL: Awake and alert, appears comfortable, cooperative, well- developed, well-nourished, no pain, no acute distress EYES: Pupils equal, round, reactive to light, normal ocular movement ENT: Moist mucous membranes, missing all but 2 teeth NECK: No masses, no bruits, trachea midline RESPIRATORY: Lungs sounds diminished bilaterally. Respirations even, nonlabored. Currently on room air with oxygen saturation 98%. Strong cough. No chest wall deformities. CARDIOVASCULAR: S1, S2 present. Regular rate and rhythm, sinus rhythm on telemetry. Palpable peripheral pulses bilaterally. No edema present. No calf pain or tenderness noted. No significant lower extremity varicosities noted. GASTROINTESTINAL: Abdomen soft, nontender, nondistended without masses or organomegaly noted. There is no rebound or guarding present. Active bowel sounds present 4 quadrants. GENITOURINARY: Deferred INTEGUMENTARY: Skin is warm and dry with evidence of good perfusion, partial amputation to third and fifth finger left hand NEUROLOGIC: Cranial nerves II through XII intact, normal coordination, no obvious motor or sensory deficits, speech is normal MUSKULOSKELETAL: Able to move all extremities, strength equal bilaterally, normal posture PSYCHIATRIC: Alert and oriented to person place and time, appropriate affect Results - Labs 05/21/22 06:28 05/23/22 07:56 Abnormal Lab Results - Last 24 Hours (Table) 05/22/22 05/22/22 05/22/22 Range/Units 07:59 16:45 19:34 Sodium 136 L (137-145) mmol/L Chloride 97 L (98-107) mmol/L Carbon Dioxide 31 H (22-30) mmol/L Glucose 238 H (74-99) mg/dL POC Glucose (mg/dL) 132 H 135 H (70-110) mg/dL Diabetes panel 05/22/22 05/22/22 Range/Units 07:59 07:59 Sodium 136 L (137-145) mmol/L Potassium 4.3 (3.5-5.1) mmol/L Chloride 97 L (98-107) mmol/L Carbon Dioxide 31 H (22-30) mmol/L BUN 20 (9-20) mg/dL Creatinine 0.97 (0.66-1.25) mg/dL Glucose 238 H (74-99) mg/dL Calcium 8.4 (8.4-10.2) mg/dL Triglycerides 93.70 (0.00-149.00) mg/dL HDL Cholesterol 42.40 (40.00-60.00) mg/dL Calcium panel 05/22/22 Range/Units 07:59 Calcium 8.4 (8.4-10.2) mg/dL Pituitary panel 05/22/22 Range/Units 07:59 Sodium 136 L (137-145) mmol/L Potassium 4.3 (3.5-5.1) mmol/L Chloride 97 L (98-107) mmol/L Carbon Dioxide 31 H (22-30) mmol/L BUN 20 (9-20) mg/dL Creatinine 0.97 (0.66-1.25) mg/dL Glucose 238 H (74-99) mg/dL Calcium 8.4 (8.4-10.2) mg/dL Adrenal panel 05/22/22 Range/Units 07:59 Sodium 136 L (137-145) mmol/L Potassium 4.3 (3.5-5.1) mmol/L Chloride 97 L (98-107) mmol/L Carbon Dioxide 31 H (22-30) mmol/L BUN 20 (9-20) mg/dL Creatinine 0.97 (0.66-1.25) mg/dL Glucose 238 H (74-99) mg/dL Calcium 8.4 (8.4-10.2) mg/dL - Imaging Chest x-ray: report reviewed, image reviewed EKG: image reviewed Assessment and Plan Assessment: 1. Known bicuspid symptomatic severe aortic valve stenosis, low-flow low- gradient 2. Acute on chronic systolic heart failure, EF 15-20% 3. Shortness of breath, chest discomfort, secondary to above 4. History of severe nonischemic cardiomyopathy 5. Hypertension 6. Hyperlipidemia, treated, cholesterol 108, LDL 47 7. Dol-rwahlkf-mhlznpihy diabetes 8. Current tobacco dependence 9. Syncopal episode prior to October admission 10. Questionable history of atrial fibrillation (per patient account, no documentation of otherwise) Plan: The patient was seen and examined sitting up in a recliner on the cardiac stepdown unit eating breakfast in no acute distress. Chart/diagnostics reviewed. The case will be discussed in detail with Dr. Mcghee. Patient states he feels better than when he came in, at that time he states he would not have been able to walk very far without shortness of breath and chest discomfort, currently feels he can do laps around the hallway without difficulty. Remains on room air with oxygen saturation in the high 90s, currently in sinus rhythm and hemodynamically stable. We will order presurgical testing. Patient will need dental clearance as he does still have a couple of his own teeth and hasn't seen a dentist in quite some time. Will get CTA of chest to rule out aortic aneurysm, and panorex for dental clearence. Continue current medical therapy. Medical management of other comorbidities per internal medicine. Thank you Dr. Nino for this consult. More recommendations to follow. I have personally seen and examined the patient, performed the documentation and the assessment and plan as written. Number of minutes spent on the visit: 30. JESUS Erickson The patient was seen and examined at the bedside. I agree with the assessment and plan as documented by the nurse practitioner. We will get work up completed for surgical aortic valve replacement then decide on timing of surgery. Discussed with Dr. Valdez. Number of minutes spent on visit: 40. Dr. Skyler Mcghee
[2022-05-23] MEDS: PATIENT'S OWN (Empagliflozin [Jardiance] 10 MG Tablet) PO SCH (09:12)
[2022-05-23] MEDS: SPIRONOLACTONE 25 MG TAB PO SCH (09:17)
[2022-05-23] MEDS: HEPARIN SODIUM,PORCINE/PF 5,000 UNIT/0.5 ML SYRINGE SQ SCH ×2 (09:17→20:12)
[2022-05-23] MEDS: lisinopriL 5 MG TAB PO SCH (09:18)
[2022-05-23] MEDS: FUROSEMIDE 20 MG TAB PO SCH (09:18)
[2022-05-23] MEDS: ASPIRIN 81 MG PO SCH (09:18)
[2022-05-23] MEDS: METOPROLOL TARTRATE 25 MG TAB PO SCH (09:18)
[2022-05-23] MEDS: ATORVASTATIN 40 MG TAB PO SCH (09:18)
[2022-05-23 10:04] LABS: African American GFR (CKD) >90 (>60 ml/min/1.73 sqM); Anion Gap 9 mmol/L; Blood Urea Nitrogen 20 mg/dL (9-20); Calcium 8.4 mg/dL (8.4-10.2); Carbon Dioxide 30 mmol/L (22-30); Chloride 95 mmol/L (98-107); Glucose 157 mg/dL (74-99); Magnesium 2.3 mg/dL (1.6-2.3); Non-African American GFR(CKD) 87 (>60 ml/min/1.73 sqM); Potassium 4.1 mmol/L (3.5-5.1); Sodium 134 mmol/L (137-145)
--- NOTE | 2022-05-23 10:57 | P.PN ---
Subjective Progress Note Date: 05/23/22 PROGRESS NOTE The patient is a 67-year-old male with known history of hypertension, diabetes, hyperlipidemia, mild CAD with severely impaired systolic function and severe aortic stenosis. He has been seen by Dr. Ayala and was supposed to be seen at [facility] for aortic valve management. He presented was progressive dyspnea. He's feeling better today. He has some fullness in the chest and ti ghtness, no dizziness or palpitations. He denies any PND or orthopnea. He had an echocardiogram yesterday that showed an ejection fraction of 15% with bicuspid aortic valve and critical aortic stenosis with moderate to severe tricuspid regurgitation and moderate mitral regurgitation May 23: The patient continues to have dyspnea on exertion and occasional chest discomfort. He continues to be in sinus mechanism. He denies any dizziness or palpitation. He has no nausea. Hemodynamically he is stable. He was evaluated by the cardiovascular team for aortic valve, mitral valve and tricuspid valve surgery. Medications: Aspirin once a day, Lipitor 40 mg daily, Lasix 20 mg daily, subcu heparin, lisinopril 5 mg daily, metoprolol 25 mg twice a day, spironolactone 12-1/2 mg daily,Jardiance 1o mg qd PHYSICAL EXAMINATION: Blood pressure 104/70 heart rate 82 LUNGS: Clear to auscultation HEART: Regular rate and rhythm, S1, S2. No S3. systolic ejection murmur, mid peaking, holosystolic murmur at the apex ABDOMEN: Soft, nontender, no organomegaly EXTREMETIES: No edema LAB: Potassium 4.1, BUN 20, creatinine 0.92 IMPRESSION: 1. Severe nonischemic cardiomyopathy 2. Bicuspid aortic valve with severe aortic stenosis with low flow low gradient was significant mitral and tricuspid regurgitation 3. Hypotension 4. Diabetes PLAN: 1. Continue present treatment 2. Proceed with workup for multi-valvular surgery. I discussed with the patient the findings and recommendations 3. Depending on his progress further recommendation will be made. 4. Prognosis is guarded. Objective - Vital Signs Vital signs: Vital Signs Temp 98.0 F 05/23/22 09:16 Pulse 82 05/23/22 09:16 Resp 20 05/23/22 09:16 BP 93/54 05/23/22 09:16 Pulse Ox 96 05/23/22 09:16 FiO2 Intake & Output 08/05/23/22 05/23/22 18:59 06:59 18:59 Intake Total 354 10 118 Balance 354 10 118 Intake: IV 10 Invasive Line 1 10 Oral 354 118 Other: Voiding Method Toilet Toilet Toilet - Labs CBC & Chem 7: 05/21/22 06:28 05/23/22 07:56 Labs: Abnormal Lab Results - Last 24 Hours (Table) 05/22/22 05/22/22 05/23/22 Range/Units 16:45 19:34 07:56 Sodium 134 L (137-145) mmol/L Chloride 95 L (98-107) mmol/L Glucose 157 H (74-99) mg/dL POC Glucose (mg/dL) 132 H 135 H (70-110) mg/dL
--- NOTE | 2022-05-23 11:06 | CT ---
EXAMINATION TYPE: CT facial bones wo con DATE OF EXAM: 05/23/2022 COMPARISON: None HISTORY: 57-year-old male preop valve surgery. TECHNIQUE: Contiguous axial scanning of the facial bones without IV contrast. Coronal reconstructions performed. Additional orthopantomogram image performed. CT DLP: 550.3 mGycm Automated exposure control for dose reduction was used. FINDINGS: The patient has retained both mandibular canines. Otherwise, the patient is pendulous. There may be a tiny 2 mm periapical lucency on the left, axial image 24 series 2023. Leftward nasal septal deviation. Trace mucosal thickening ethmoid air cells. Osteomeatal complexes a re patent. Visualized intracranial structures show some patchy periventricular white matter hypodensity suggesti ng changes of chronic small vessel ischemic disease. Orbits and globes are intact. TMJs are intact. Mastoid air cells are pneumatized. Images are available for review. IMPRESSION: THE PATIENT HAS RETAINS THERE IS BILATERAL MAXILLARY CANINES. THERE IS A TINY 2 MM PERIAPICAL LUCENCY ON THE LEFT. PATIENT OTHERWISE EDENTULOUS. LEFTWARD NASAL SEPTAL DEVIATION. MILD CHRONIC ETHMOID SIN US DISEASE.
--- NOTE | 2022-05-23 11:15 | CT ---
EXAMINATION TYPE: CT angio chest DATE OF EXAM: 05/23/2022 COMPARISON: Radiograph chest 05/21/2022 HISTORY: 67-year-old male evaluate for ascending aortic aneurysm, Pre-cardiac surgery. TECHNIQUE: Contiguous axial scanning of the chest performed without and with IV Contrast, patient inj ected with 100ml mL of Isovue 370. Coronal/sagittal MIP reconstructions performed. 3-D reconstruction s generated on a dedicated workstation. CT DLP: 990.9 mGycm Automated exposure control for dose reduction was used. FINDINGS: Moderate to large effusion. Central interstitial thickening. Scattered interlobular septal thickening and mild groundglass densities. Strandy atelectasis both lung bases. Heart mildly enlarged. No evidence for pulmonary embolus. Moderate calcification at the aortic valve . Aortic root normal caliber at 3.1 cm. Ectatic ascending aorta at 3.8 cm. Conventional arch was a bran chela anatomy. Mild upper abdominal ascites fluid. Mild anasarca change. Small calcified granulomas within the splee n. Bones: Mild degenerative disc disease lower thoracic spine. IMPRESSION: 1. CHF WITH EARLY INTERSTITIAL PULMONARY EDEMA. MODERATE TO LARGE BILATERAL PLEURAL EFFUSIONS. ANASAR CA CHANGES AND MILD UPPER ABDOMINAL ASCITES. 2. ASCENDING AORTIC ECTATIC AT 3.8 CM. MODERATE AORTIC VALVE CALCIFICATIONS.
[2022-05-23 11:32] LABS: Appearance,Urine Clear (Clear); Bilirubin,Urine Negative (Negative); Blood,Urine Negative (Negative); Color,Urine Light Yellow; Glucose,Urine (UA) 2+ (Negative); Ketones,Urine Negative (Negative); Leukocyte Esterase,Urine Negative (Negative); Nitrite,Urine Negative (Negative); PH, Urine 6.5 (5.0-8.0); Protein,Urine Negative (Negative); Specific Gravity,Urine 1.008 (1.001-1.035)
[2022-05-23 11:36] LABS: Glucose,Whole Blood 111 mg/dL (70-110)
[2022-05-23] MEDS ORDERED: FUROSEMIDE 10 MG/ML 4 ML VIAL IV STA (11:58)
--- NOTE | 2022-05-23 12:01 | P.PN ---
Progress Note - Text Progress Note Date: 05/23/22 Patient was seen and examined. No acute events overnight. Patient reports no chest pain today. He reports exertional shortness of breath. General: [non toxic], [no distress], [appears at stated age] Derm: [warm], [dry] Head: [atraumatic], [normocephalic], [symmetric] Eyes: [EOMI], [no lid lag], [anicteric sclera] Mouth: [no lip lesion], [mucus membranes moist] Cardiovascular: [S1S2 reg], [systolic murmur], [positive posterior tibial pulse bilateral] Lungs: [Decreased breath sounds bilateral], [no rhonchi, no rales] , [no accessory muscle use] Ext: [no gross muscle atrophy], [no edema], [no contractures] Neuro: [no focal neuro deficits] Psych: [Alert], [oriented], [appropriate affect] #Systolic CHF exacerbation #Severe aortic stenosis #Troponin elevation #Diabetes mellitus #Hypertension #Dyslipidemia #Smoker Resolved: HypoMg Continue Lasix 20 mg PO QD. One dose of Lasix 40 mg IV given today. Strict intake and outtake is ordered. Daily weights as ordered. Maintain K > 4 and Mg > 2. Continue VICKIE inhibitor, Aldactone and beta kelly. Echocardiogram shows EF 15% with G3DD and severe aortic stenosis. Cardiology on board. Case was discussed with Dr. Valdez. Cardiothoracic surgery consulted - preoperative clearance workup underway. Initial troponin 0.036, 0.025. Recent cardiac cath in November 2021 showed intermediate nonobstructive CAD. Continue aspirin and Lipitor. Continue beta kelly. ACS ruled out, likely troponin leak from CHF. Telemetry monitoring. Continue low-dose insulin sliding scale along with Accu-Cheks 4 times a day and hyperglycemia precautions. Antihypertensive medication as above. Monitor vitals, adjust medication if necessary. Continue Lipitor as above. Patient has been offered a nicotine patch. DVT prophylaxis: [Heparin] Discussed with: [Patient, Dr. Valdez] Anticipated discharge: [Depending on clinical course] Anticipated discharge place: [Home]
--- NOTE | 2022-05-23 13:57 | US ---
EXAMINATION TYPE: US carotid duplex BILAT DATE OF EXAM: 05/23/2022 COMPARISON: NONE CLINICAL HISTORY: 67-year-old male preop AVR. TECHNIQUE: Carotid duplex ultrasound examination. Indirect Doppler criteria was utilized. Exam done portable FINDINGS: EXAM MEASUREMENTS: RIGHT: Peak Systolic Velocity (PSV) cm/sec ----- Right CCA: 46.7 ----- Right ICA: 52.6 ----- Right ECA: 40.2 ICA/CCA ratio: 1.1 RIGHT: End Diastole cm/sec ----- Right CCA: 8.3 ----- Right ICA: 13.7 ----- Right ECA: 0.0 LEFT: Peak Systolic Velocity (PSV) cm/sec ----- Left CCA: 41.7 ----- Left ICA: 63.8 ----- Left ECA: 32.5 ICA/CCA ratio: 1.5 LEFT: End Diastole cm/sec ----- Left CCA: 6.1 ----- Left ICA: 23.2 ----- Left ECA: 0.0 VERTEBRALS (direction of flow): Right Vertebral: Antegrade Left Vertebral: Antegrade Rhythm: Normal Fitter Helper notes: No significant stenosis IMPRESSION: No hemodynamically significant internal carotid artery stenosis on either side. Criteria for Assigning % of Stenosis / Diameter reduction (Estimation based on the indirect measurements of the internal carotid artery velocities (ICA PSV). 1. Normal (no stenosis)=ICA PSV < 125 cm/s: ratio < 2.0: ICA EDV<40 cm/s. 2. Less than 50% stenosis=ICA PSV < 125 cm/s: ratio < 2.0: ICA EDV<40 cm/s. 3. 50 to 69% stenosis=ICA PSV of 125 to 230 cm/s: ration 2.0 ? 4.0: ICA EDV 40-100 cm/s. 4. Greater than 70% stenosis to near occlusion= ICA PSV > 230 cm/s: ratio > 4.0: ICA EDV > 100 cm/s. 5. Near occlusion= ICA PSV velocities may be low or undetectable: variable ratio and ICA EDV. 6. Total occlusion=unable to detect flow.
[2022-05-23 16:44] LABS: Glucose,Whole Blood 130 mg/dL (70-110)
[2022-05-23 17:22] LABS: Hepatitis A Antibody IgM Nonreactive (Nonreactive); Hepatitis B Core IgM Nonreactive (Nonreactive); Hepatitis B Surface Antigen Nonreactive (Nonreactive); Hepatitis C IgG Antibody Nonreactive (Nonreactive)
[2022-05-23 20:07] LABS: Glucose,Whole Blood 145 mg/dL (70-110)
[2022-05-24 06:08] LABS: Glucose,Whole Blood 95 mg/dL (70-110)
[2022-05-24] MEDS: INSULIN ASPART (NovoLOG) 100 UNIT/ML VIAL SQ SCH ×4 (06:13→19:52)
[2022-05-24 07:05] LABS: HCT 41.6 % (39.0-53.0); HGB 13.3 gm/dL (13.0-17.5); Hypochromasia Slight; MCH 31.5 pg (25.0-35.0); MCV 98.5 fL (80.0-100.0); Mean Platelet Volume 8.5; Platelet Count 207 k/uL (150-450); RBC 4.23 m/uL (4.30-5.90); RDW 13.7 % (11.5-15.5); WBC 7.8 k/uL (3.8-10.6)
[2022-05-24 07:17] LABS: ALT 19 U/L (4-49); AST 23 U/L (17-59); African American GFR (CKD) >90 (>60 ml/min/1.73 sqM); Albumin 3.7 g/dL (3.5-5.0); Alkaline Phosphatase 112 U/L (38-126); Anion Gap 8 mmol/L; Blood Urea Nitrogen 20 mg/dL (9-20); Calcium 8.4 mg/dL (8.4-10.2); Carbon Dioxide 29 mmol/L (22-30); Chloride 97 mmol/L (98-107); Glucose 144 mg/dL (74-99); Non-African American GFR(CKD) 81 (>60 ml/min/1.73 sqM); Potassium 4.3 mmol/L (3.5-5.1); Sodium 134 mmol/L (137-145); Total Bilirubin 1.2 mg/dL (0.2-1.3); Total Protein 6.5 g/dL (6.3-8.2)
--- NOTE | 2022-05-24 08:08 | P.PN ---
Subjective Progress Note Date: 05/24/22 Principal diagnosis: Known bicuspid symptomatic severe aortic valve stenosis, low-flow low-gradient, acute on chronic systolic heart failure. Previous medical history of severe no nischemic cardiomyopathy, hypertension, hyperlipidemia, bpe-tegkatx-mdukraket diabetes, current tobacco dependence, moderate COPD, syncopal episode prior to October admission, questionable history of atrial fibrillation (per patient account, no documentation of otherwise) The patient was seen and examined this morning sitting up in a recliner eating breakfast in no acute distress. Denies any chest pain or shortness of breath currently. Currently on room air with oxygen saturation in the mid 90s. Patient has been ambulatory without difficulty. He was seen by Dr. Mcghee yesterday, discussed aortic valve replacement, surgical vs. transcatheter. As the patient is homeless there needs to be a plan in place for discharge as he would be high risk for infection, readmission, medication compliance without a clear discharge plan. Preoperative testing was initiated, dental clearance to be obtained. Objective - Vital Signs Vital signs: Vital Signs Temp 98.0 F 05/24/22 04:00 Pulse 77 05/24/22 04:00 Resp 16 05/24/22 04:00 BP 105/70 05/24/22 04:00 Pulse Ox 96 05/24/22 04:00 FiO2 Intake & Output 05/23/22 05/24/22 05/24/22 18:59 06:59 18:59 Intake Total 354 10 Output Total 1100 2600 Balance -746 -9150 Weight 66.2 kg Intake: IV 10 Invasive Line 1 10 Oral 354 Output: Urine 1100 2600 Other: Voiding Method Toilet Toilet - Exam CONSTITUTIONAL: Appears comfortable, cooperative, no acute distress RESPIRATORY: Lungs sounds diminished bilaterally. Respirations even, nonlabored. Currently on room air with oxygen saturation 96%. Able to achieve 1750 mL on incentive spirometry. Strong cough. CARDIOVASCULAR: S1, soft S2 present, systolic murmur present. Regular rate and rhythm, sinus rhythm on telemetry. Palpable peripheral pulses bilaterally. No edema present. No calf pain or tenderness noted. GASTROINTESTINAL: Abdomen soft, nontender, nondistended. Active bowel sounds present 4 quadrants. Tolerating diet. GENITOURINARY: Continues to void INTEGUMENTARY: Skin is warm and dry with evidence of good perfusion. NEUROLOGIC: Cranial nerves II through XII intact MUSKULOSKELETAL: Able to move all extremities, strength equal bilaterally, gait normal PSYCHIATRIC: Alert and oriented to person place and time, appropriate affect - Allied health notes Allied health notes reviewed: nursing - Labs CBC & Chem 7: 05/24/22 06:49 05/24/22 06:49 Labs: Abnormal Lab Results - Last 24 Hours (Table) 05/23/22 05/23/22 05/23/22 Range/Units 07:56 07:56 10:33 RBC (4.30-5.90) m/uL Sodium 134 L (137-145) mmol/L Chloride 95 L (98-107) mmol/L Glucose 157 H (74-99) mg/dL POC Glucose (mg/dL) (70-110) mg/dL Hemoglobin A1c 6.3 H (0.0-6.0) % Urine Glucose (UA) 2+ H (Negative) 05/23/22 05/23/22 05/23/22 Range/Units 11:35 16:42 20:06 RBC (4.30-5.90) m/uL Sodium (137-145) mmol/L Chloride (98-107) mmol/L Glucose (74-99) mg/dL POC Glucose (mg/dL) 111 H 130 H 145 H (70-110) mg/dL Hemoglobin A1c (0.0-6.0) % Urine Glucose (UA) (Negative) 05/24/22 05/24/22 Range/Units 06:49 06:49 RBC 4.23 L (4.30-5.90) m/uL Sodium 134 L (137-145) mmol/L Chloride 97 L (98-107) mmol/L Glucose 144 H (74-99) mg/dL POC Glucose (mg/dL) (70-110) mg/dL Hemoglobin A1c (0.0-6.0) % Urine Glucose (UA) (Negative) Microbiology - Last 24 Hours (Table) 05/23/22 11:15 Nasal Screen MRSA/MSSA - Preliminary Nasal Swab - Imaging and Cardiology CT scan - chest: report reviewed, image reviewed All films, preoperative testing reviewed with Dr. Mcghee Assessment and Plan Assessment: 1. Known bicuspid symptomatic severe aortic valve stenosis, low-flow low- gradient 2. Acute on chronic systolic heart failure, EF 15-20% 3. Shortness of breath, chest discomfort, secondary to above 4. History of severe nonischemic cardiomyopathy 5. Hypertension 6. Hyperlipidemia, treated, cholesterol 108, LDL 47 7. Hix-yxslgza-eewmxiusz diabetes, hemoglobin A1c 6.3% 8. Current tobacco dependence 9. Moderate COPD with preoperative FEV1 54% of predicted 10. Syncopal episode prior to October admission 11. Questionable history of atrial fibrillation (per patient account, no documentation of otherwise) Plan: 1. Continue current medication regimen with aspirin, statin, beta kelly, Reymundo, diuretics 2. Panorex completed, consult placed for dental clearance 3. Encourage incentive spirometry use 4. Social work consulted due to patient's homelessness, will need discharge p gary in place 5. Smoking cessation education and counseling provided, patient encouraged to quit smoking completely 6. Increase activity as tolerated 7. Medical management of other comorbidities per internal medicine 8. More recommendations to follow
--- NOTE | 2022-05-24 09:51 | P.PN ---
Subjective PROGRESS NOTE The patient is a 67-year-old male with known history of hypertension, diabetes, hyperlipidemia, mild CAD with severely impaired systolic function and severe aortic stenosis. He has been seen by Dr. Ayala and was supposed to be seen at [facility] for aortic valve management. He presented was progressive dyspnea. He's feeling better today. He has some fullness in the chest and tightness, no dizziness or palpitations. He denies any PND or orthopnea. He had an echocardiogram yesterday that showed an ejection fraction of 15% with bicuspid aortic valve and critical aortic stenosis with moderate to severe tricuspid regurgitation and moderate mitral regurgitation May 23: The patient continues to have dyspnea on exertion and occasional chest discomfort. He continues to be in sinus mechanism. He denies any dizziness or palpitation. He has no nausea. Hemodynamically he is stable. He was evaluated by the cardiovascular team for aortic valve, mitral valve and tricuspid valve surgery. 05/24 Patient seen and examined. Admits to some minimal chest pain this morning however improved from yesterday. Denies any lightheadedness or dizziness. Admits to mild dyspnea. Is awaiting dental clearance today Medications: Aspirin once a day, Lipitor 40 mg daily, Lasix 20 mg daily, subcu heparin, lisinopril 5 mg daily, metoprolol 25 mg twice a day, spironolactone 12-1/2 mg daily,Jardiance 1o mg qd PHYSICAL EXAMINATION: Vitals reviewed LUNGS: Clear to auscultation HEART: Regular rate and rhythm, S1, S2. No S3. systolic ejection murmur, mid peaking, holosystolic murmur at the apex ABDOMEN: Soft, nontender, no organomegaly EXTREMETIES: No edema IMPRESSION: 1. Severe nonischemic cardiomyopathy, biventricular 2. Bicuspid aortic valve with severe aortic stenosis with low flow low gradient with significant mitral and tricuspid regurgitation 3. Hypotension 4. Diabetes 5. Social issues with homelessness PLAN: Continue with current therapy. Currently maximized on heart failure regimen with spironolactone, metoprolol, lisinopril and still having significant dyspnea and angina symptoms. Further recommendations to follow. Objective - Vital Signs Vital signs: Vital Signs Temp 98.0 F 05/24/22 04:00 Pulse 77 05/24/22 04:00 Resp 16 05/24/22 04:00 BP 105/70 05/24/22 04:00 Pulse Ox 96 08/15/22 04:00 FiO2 Intake & Output 05/23/22 05/24/22 05/24/22 18:59 06:59 18:59 Intake Total 354 10 Output Total 1100 2600 Balance -746 -2590 Weight 66.2 kg Intake: IV 10 Invasive Line 1 10 Oral 354 Output: Urine 1100 2600 Other: Voiding Method Toilet Toilet - Labs CBC & Chem 7: 05/24/22 06:49 05/24/22 06:49 Labs: Abnormal Lab Results - Last 24 Hours (Table) 05/23/22 05/23/22 05/23/22 Range/Units 07:56 07:56 10:33 RBC (4.30-5.90) m/uL Sodium 134 L (137-145) mmol/L Chloride 95 L (98-107) mmol/L Glucose 157 H (74-99) mg/dL POC Glucose (mg/dL) (70-110) mg/dL Hemoglobin A1c 6.3 H (0.0-6.0) % Urine Glucose (UA) 2+ H (Negative) 05/23/22 05/23/22 05/23/22 Range/Units 11:35 16:42 20:06 RBC (4.30-5.90) m/uL Sodium (137-145) mmol/L Chloride (98-107) mmol/L Glucose (74-99) mg/dL POC Glucose (mg/dL) 111 H 130 H 145 H (70-110) mg/dL Hemoglobin A1c (0.0-6.0) % Urine Glucose (UA) (Negative) 05/24/22 05/24/22 Range/Units 06:49 06:49 RBC 4.23 L (4.30-5.90) m/uL Sodium 134 L (137-145) mmol/L Chloride 97 L (98-107) mmol/L Glucose 144 H (74-99) mg/dL POC Glucose (mg/dL) (70-110) mg/dL Hemoglobin A1c (0.0-6.0) % Urine Glucose (UA) (Negative) Microbiology - Last 24 Hours (Table) 05/23/22 11:15 Nasal Screen MRSA/MSSA - Preliminary Nasal Swab
[2022-05-24] MEDS: PATIENT'S OWN (Empagliflozin [Jardiance] 10 MG Tablet) PO SCH (10:02)
[2022-05-24] MEDS: FUROSEMIDE 20 MG TAB PO SCH (10:15)
[2022-05-24] MEDS: SPIRONOLACTONE 25 MG TAB PO SCH (10:15)
[2022-05-24] MEDS: METOPROLOL TARTRATE 25 MG TAB PO SCH (10:16)
[2022-05-24] MEDS: ATORVASTATIN 40 MG TAB PO SCH (10:16)
[2022-05-24] MEDS: HEPARIN SODIUM,PORCINE/PF 5,000 UNIT/0.5 ML SYRINGE SQ SCH ×2 (10:16→20:03)
[2022-05-24 11:33] LABS: Glucose,Whole Blood 98 mg/dL (70-110)
[2022-05-24] MEDS: ASPIRIN 81 MG PO SCH (12:49)
[2022-05-24] MEDS: lisinopriL 5 MG TAB PO SCH (12:49)
--- NOTE | 2022-05-24 13:07 | P.PN ---
Subjective Progress Note Date: 05/24/22 Hospital course: Patient is a very pleasant 67-year-old male with a past medical history of nonischemic cardiomyopathy with previously known EF of 20%, severe aortic stenosis, moderate to severe pulmonary hypertension, hypertension, hyperlipidemia, diabetes mellitus, and nicotine dependence. He presented to the emergency department on 05/21/22 with a chief complaint of chest pain. Patient reports this chest pain had been ongoing for many weeks and described as a left- sided pressure-like sensation accompanied by exertional dyspnea. Patient was admitted under our services with consultation to cardiology and cardiothoracic surgery. Echocardiogram was completed revealing an EF of less than 15% with severe global hypokinesis, moderate pulmonary hypertension, bicuspid aortic va lve with severe aortic stenosis, and moderate to severe tricuspid regurgitation. Patient undergoing evaluation in presurgical clearance for aortic valve replacement. Physical exam: Patient seen and fully evaluated at bedside. Patient sitting up in chair. Currently reports free from chest pain/discomfort but reports continued exertional dyspnea and chest pressure with any ambulation. Patient denies having any dizziness, lightheadedness, palpitations, or experiencing any numbness/tingling/weakness/swelling in his extremities. Morning labs reviewed and stable. Vital signs reviewed and stable. General: Nontoxic, no distress and appears stated age. Derm: Skin warm and dry, normal coloration for ethnicity. Head: Atraumatic, normocephalic and symmetric. Eyes: EOMs intact, no lid lag, and anicteric sclera Mouth: no lip lesions, mucus membranes moist Cardiovascular: regular rate and rhythm with normal S1S2, systolic murmur, positive posterior tibial pulses bilaterally, and cap refill < 2 seconds. Lungs: Respirations even, regular, and unlabored on room air. Lungs CTA bilatera lly, no rhonchi, no rales, no wheezing, and no accessory muscle usage. Abdominal: soft, nontender to palpation, no guarding, no appreciable organomegaly Ext: ROM intact. No gross muscle atrophy, no edema, no contractures Neuro: Speech clear, face symmetrical and CN II-XII grossly intact with no noted focal neuro deficits Psych: Alert and oriented to person, place, time, and situation. Appropriate and pleasant affect. Assessment and Plan of Care: Symptomatic severe aortic valve stenosis Severe nonischemic cardiomyopathy Moderate pulmonary hypertension Bicuspid aortic valve with severe aortic stenosis Mitral and tricuspid regurgitation Hypertension Hyperlipidemia -Echocardiogram was completed revealing an EF of less than 15% with severe global hypokinesis, moderate pulmonary hypertension, bicuspid aortic valve with severe aortic stenosis, and moderate to severe tricuspid regurgitation. -Cardiology following -Cardiothoracic surgery following -Continue telemetry monitoring -Continue cardiac medication regimen with aspirin, atorvastatin, furosemide, Aldactone, lisinopril, and metoprolol. -Telemetry monitoring Adt-kybqvie-ifpnxyjsh diabetes mellitus -Hemoglobin A1c 6.3% -Hold Glucophage and place patient on Jardiance along with glycemic protocol with NovoLog sliding scale. COPD with continued nicotine dependence -Recommend smoking cessation Homelessness -Social work/case management consulted for assistance with obtaining safe discharge plan. CODE STATUS: Full code DVT prophylaxis: Heparin Discussed with: Patient and RN Anticipated discharge date: Clinical course to determine Anticipated discharge place: Home A total of 38 minutes was spent on the care of this complex patient more than 50% of the time was spent in counseling and care coordination. I reviewed the documentation as provided by the LETICIA above, who is the original author of this note. I agree with the documented assessment and plan, with the following changes: none Objective - Vital Signs Vital signs: Vital Signs Temp 98.0 F 05/24/22 04:00 Pulse 77 05/24/22 04:00 Resp 16 05/24/22 04:00 BP 105/70 05/24/22 04:00 Pulse Ox 96 05/24/22 04:00 FiO2 Intake & Output 05/23/22 05/24/22 05/24/22 18:59 06:59 18:59 Intake Total 354 10 Output Total 1100 2600 Balance -746 -2590 Weight 66.2 kg Intake: IV 10 Invasive Line 1 10 Oral 354 Output: Urine 1100 2600 Other: Voiding Method Toilet Toilet - Labs CBC & Chem 7: 05/24/22 06:49 05/24/22 06:49 Labs: Abnormal Lab Results - Last 24 Hours (Table) 05/23/22 05/23/22 05/23/22 Range/Units 07:56 07:56 10:33 RBC (4.30-5.90) m/uL Sodium 134 L (137-145) mmol/L Chloride 95 L (98-107) mmol/L Glucose 157 H (74-99) mg/dL POC Glucose (mg/dL) (70-110) mg/dL Hemoglobin A1c 6.3 H (0.0-6.0) % Urine Glucose (UA) 2+ H (Negative) 05/23/22 05/23/22 05/23/22 Range/Units 11:35 16:42 20:06 RBC (4.30-5.90) m/uL Sodium (137-145) mmol/L Chloride (98-107) mmol/L Glucose (74-99) mg/dL POC Glucose (mg/dL) 111 H 130 H 145 H (70-110) mg/dL Hemoglobin A1c (0.0-6.0) % Urine Glucose (UA) (Negative) 05/24/22 05/24/22 Range/Units 06:49 06:49 RBC 4.23 L (4.30-5.90) m/uL Sodium 134 L (137-145) mmol/L Chloride 97 L (98-107) mmol/L Glucose 144 H (74-99) mg/dL POC Glucose (mg/dL) (70-110) mg/dL Hemoglobin A1c (0.0-6.0) % Urine Glucose (UA) (Negative) Microbiology - Last 24 Hours (Table) 05/23/22 11:15 Nasal Screen MRSA/MSSA - Preliminary Nasal Swab
[2022-05-24 16:29] LABS: Glucose,Whole Blood 132 mg/dL (70-110)
--- NOTE | 2022-05-24 17:52 | P.GSCN ---
History of Present Illness Consult date: 05/24/22 Reason for Consult: Dental Clearance Past Medical History Past Medical History: Coronary Artery Disease (CAD), Heart Failure, Diabetes Mellitus, GERD/Reflux, Hyperlipidemia, Hypertension, Syncope Additional Past Medical History / Comment(s): Pt denies IL documented in his 11/07/21 medical record, severe aortic stenosis, NIDDM type II, pulmonary HTN; patient states he was told he is had A. fib in the past, no documentation in the chart and patient is not currently on anticoagulation History of Any Multi-Drug Resistant Organisms: None Reported Past Surgical History: Joint Replacement, Orthopedic Surgery, Tonsillectomy Additional Past Surgical History / Comment(s): Previous cardiac valve surgery done percutaneously to "clean up my valve"/done at [facility], left knee replacement, removal of partial fingers 3rd and 5th digits on left hand, colonoscopy, cyst removed behind L ear Past Anesthesia/Blood Transfusion Reactions: No Reported Reaction Past Psychological History: No Psychological Hx Reported Smoking Status: Current every day smoker Past Alcohol Use History: None Reported Past Drug Use History: None Reported - Past Family History Mother Family Medical History: Hyperlipidemia, Hypertension Father Family Medical History: Cancer, Hypertension Medications and Allergies Home Medications Medication Instructions Recorded Confirmed Type Aspirin EC [Ecotrin Low Dose] 81 mg PO DAILY 11/07/21 05/21/22 History metFORMIN HCL [Glucophage] 1,000 mg PO BID 11/07/21 05/21/22 History Empagliflozin [Jardiance] 10 mg PO DAILY #30 tablet 11/10/21 05/21/22 Rx Furosemide [Lasix] 40 mg PO DAILY #90 tab 11/12/21 05/21/22 Rx Nitroglycerin Sl Tabs [Nitrostat] 0.4 mg SUBLINGUAL Q5M PRN #100 tab 11/12/21 05/21/22 Rx Omeprazole 40 mg PO DAILY #30 cap 11/12/21 05/21/22 Rx Metoprolol Tartrate [Lopressor] 25 mg PO DAILY 12/23/21 05/21/22 History Atorvastatin [Lipitor] 40 mg PO DAILY 05/21/22 05/21/22 History Spironolactone [Aldactone] 12.5 mg PO DAILY 05/21/22 05/21/22 History lisinopriL [Zestril] 5 mg PO DAILY 05/21/22 05/21/22 History Allergies Allergy/AdvReac Type Severity Reaction Status Date / Time No Known Allergies Allergy Verified 05/21/22 07:34 Surgical - Exam Vital Signs Temp Pulse Resp BP Pulse Ox 97.7 F 61 16 101/69 97 05/21/22 06:06 05/21/22 06:06 05/21/22 06:06 05/21/22 06:06 05/21/22 06:06 Results No clinical examination completed. Radiographic examination reveals retained lower canines #22 and #27, otherwise, patient is edentulous. Panoramic image does not indicate infection present at this time. 3D imaging may indicate a small 2mm perioapical radiolucency; however; this does not seem to appear on panoramic image indicating good bone surrounding #22. Pt should follow up with dentist following any cardiac surgery. Pt is cleared dentally for surgery based on radiograph appearance. - Labs 05/24/22 06:49 05/24/22 06:49 Abnormal Lab Results - Last 24 Hours (Table) 05/23/22 05/24/22 05/24/22 Range/Units 20:06 06:49 06:49 RBC 4.23 L (4.30-5.90) m/uL Sodium 134 L (137-145) mmol/L Chloride 97 L (98-107) mmol/L Glucose 144 H (74-99) mg/dL POC Glucose (mg/dL) 145 H (70-110) mg/dL 05/24/22 Range/Units 16:27 RBC (4.30-5.90) m/uL Sodium (137-145) mmol/L Chloride (98-107) mmol/L Glucose (74-99) mg/dL POC Glucose (mg/dL) 132 H (70-110) mg/dL Microbiology - Last 24 Hours (Table) 05/23/22 11:15 Nasal Screen MRSA/MSSA - Preliminary Nasal Swab Diabetes panel 05/24/22 Range/Units 06:49 Sodium 134 L (137-145) mmol/L Potassium 4.3 (3.5-5.1) mmol/L Chloride 97 L (98-107) mmol/L Carbon Dioxide 29 (22-30) mmol/L BUN 20 (9-20) mg/dL Creatinine 0.98 (0.66-1.25) mg/dL Glucose 144 H (74-99) mg/dL Calcium 8.4 (8.4-10.2) mg/dL AST 23 (17-59) U/L ALT 19 (4-49) U/L Alkaline Phosphatase 112 (38-126) U/L Total Protein 6.5 (6.3-8.2) g/dL Albumin 3.7 (3.5-5.0) g/dL Calcium panel 05/24/22 Range/Units 06:49 Calcium 8.4 (8.4-10.2) mg/dL Albumin 3.7 (3.5-5.0) g/dL Pituitary panel 05/24/22 Range/Units 06:49 Sodium 134 L (137-145) mmol/L Potassium 4.3 (3.5-5.1) mmol/L Chloride 97 L (98-107) mmol/L Carbon Dioxide 29 (22-30) mmol/L BUN 20 (9-20) mg/dL Creatinine 0.98 (0.66-1.25) mg/dL Glucose 144 H (74-99) mg/dL Calcium 8.4 (8.4-10.2) mg/dL Adrenal panel 05/24/22 Range/Units 06:49 Sodium 134 L (137-145) mmol/L Potassium 4.3 (3.5-5.1) mmol/L Chloride 97 L (98-107) mmol/L Carbon Dioxide 29 (22-30) mmol/L BUN 20 (9-20) mg/dL Creatinine 0.98 (0.66-1.25) mg/dL Glucose 144 H (74-99) mg/dL Calcium 8.4 (8.4-10.2) mg/dL Total Bilirubin 1.2 (0.2-1.3) mg/dL AST 23 (17-59) U/L ALT 19 (4-49) U/L Alkaline Phosphatase 112 (38-126) U/L Total Protein 6.5 (6.3-8.2) g/dL Albumin 3.7 (3.5-5.0) g/dL
[2022-05-24 19:48] LABS: Glucose,Whole Blood 103 mg/dL (70-110)
[2022-05-25 06:02] LABS: Glucose,Whole Blood 94 mg/dL (70-110)
[2022-05-25] MEDS: INSULIN ASPART (NovoLOG) 100 UNIT/ML VIAL SQ SCH ×4 (06:03→20:45)
[2022-05-25 07:15] LABS: HGB 13.6 gm/dL (13.0-17.5); Hypochromasia Slight; MCH 30.7 pg (25.0-35.0); MCHC 31.5 g/dL (31.0-37.0); MCV 97.5 fL (80.0-100.0); Mean Platelet Volume 8.6; Platelet Count 224 k/uL (150-450); RBC 4.41 m/uL (4.30-5.90); RDW 13.2 % (11.5-15.5); WBC 8.2 k/uL (3.8-10.6)
[2022-05-25 07:33] LABS: ALT 20 U/L (4-49); AST 27 U/L (17-59); African American GFR (CKD) >90 (>60 ml/min/1.73 sqM); Albumin 3.7 g/dL (3.5-5.0); Alkaline Phosphatase 111 U/L (38-126); Anion Gap 8 mmol/L; Blood Urea Nitrogen 17 mg/dL (9-20); Calcium 8.7 mg/dL (8.4-10.2); Carbon Dioxide 29 mmol/L (22-30); Chloride 100 mmol/L (98-107); Glucose 85 mg/dL (74-99); Magnesium 2.1 mg/dL (1.6-2.3); Non-African American GFR(CKD) >90 (>60 ml/min/1.73 sqM); Potassium 5.1 mmol/L (3.5-5.1); Sodium 137 mmol/L (137-145); Total Bilirubin 1.1 mg/dL (0.2-1.3); Total Protein 6.5 g/dL (6.3-8.2)
[2022-05-25] MEDS: FUROSEMIDE 20 MG TAB PO SCH (08:48)
[2022-05-25] MEDS: METOPROLOL TARTRATE 25 MG TAB PO SCH (08:48)
[2022-05-25] MEDS: lisinopriL 5 MG TAB PO SCH (08:48)
[2022-05-25] MEDS: SPIRONOLACTONE 25 MG TAB PO SCH (08:48)
[2022-05-25] MEDS: ASPIRIN 81 MG PO SCH (08:48)
[2022-05-25] MEDS: ATORVASTATIN 40 MG TAB PO SCH (08:48)
[2022-05-25] MEDS: HEPARIN SODIUM,PORCINE/PF 5,000 UNIT/0.5 ML SYRINGE SQ SCH ×2 (08:48→20:47)
[2022-05-25] MEDS: PATIENT'S OWN (Empagliflozin [Jardiance] 10 MG Tablet) PO SCH (08:49)
[2022-05-25 11:22] LABS: Glucose,Whole Blood 110 mg/dL (70-110)
--- NOTE | 2022-05-25 12:50 | P.PN ---
Subjective Progress Note Date: 05/25/22 ISTORY OF PRESENT ILLNESS: This is a 67-year-old male with a past medical history significant for severe nonischemic cardiomyopathy, valvular heart disease with known bicuspid aortic valve and aortic stenosis, hypertension, hyperlipidemia, diabetes, and nicotine dependence. Patient follows in the office with Dr. Brooks. We have been asked to see the patient in consultation for chest pain. Patient examined at the bedside. Patient states over the past couple days he has been experiencing chest pain and shortness of breath when he tries to lay down at night. He states he usuall y is able to reposition himself in bed and his symptoms resolved however yesterday he was unable to get relief with position changes and decided to come to the emergency room for further evaluation. The patient states the discomfort was right in the middle of his chest. He denied any radiation of the pain. The patient currently denies any chest pain or pressure at the time of my examination. Patient was up walking to the bathroom and does not appear to be in any distress at this time. The patient also follows at the [facility]. The patient is in the process of scheduling to be seen at [facility] for an aortic valve replacement. The patient states he has not yet scheduled this as he is homeless and states he needs to get his housing situation taken care of first of he will have placed to recover after surgery. * EKG reveals sinus mechanism with no signs of acute ischemia * Chest xray there is some mild congestive heart failure with pleural effusions. * Laboratory data: WBC 8.1. Hemoglobin 14.9. Platelet count 263. Sodium 135. Potassium 5.3. BUN 22. Creatinine 0.93. ProBNP 6580. Troponin 0.036. 0.025. * Current home cardiac medications include Jardiance 10mg daily, aspirin 81 mg daily, Lasix 40 mg daily, metoprolol titrate 25 mg daily, Aldactone 12.5 mg daily, and lisinopril 5 mg daily * Most recent echocardiogram obtained in October 2021 revealed ejection fraction 20-25%, mild aortic regurgitation, severe aortic stenosis, moderate MR, moderate TR, moderate to severe pulmonary hypertension * Patient underwent CRISTIAN in November 2021 revealing dilated left ventricle with severely impaired function and EF of 20% with global hypokinesis. Bicuspid aortic valve with fusion of the right and left coronary cusps. Moderate MR, mitral valve appears to be thickened. Moderate TR. No evidence of pericardial effusion. * Cardiac catheterization history: November 2021 revealing severe aortic stenosis, pulmonary hypertension, elevated biventricular filling pressures, and intermediate nonobstructive coronary artery disease 05/25/2022 Patient examined this morning. He is sitting up in the chair. He denies chest pain or pressure. Denies SOB. He has been evaluated by Dr. Estevez and cleared for surgery from a dental standpoint. Vital signs are stable. PHYSICAL EXAM: VITAL SIGNS: Reviewed. GENERAL: Well-developed in no acute distress. HEENT: Head is normocephalic. Pupils are equal, round. Sclerae anicteric. Mucous membranes of the mouth are moist. Neck supple. No JVD or thyromegaly LUNGS: Respirations even and unlabored. Lungs diminished. HEART: Regular rate and rhythm. S1 and S2 heard. Systolic murmur noted ABDOMEN: Soft. Nondistended. Nontender. EXTREMITIES: Normal range of motion. No clubbing or cyanosis. Peripheral pulses intact. No lower extremity edema NEUROLOGIC: Awake and alert. Oriented x 3. ASSESSMENT: Chest pain, acute coronary syndrome ruled out Shortness of breath Acute mild exacerbation of heart failure with reduced ejection fraction Intermediate nonobstructive coronary artery disease Severe aortic stenosis Bicuspid aortic valve Valvular heart disease Nonischemic cardiomyopathy Hypertension Hyperlipidemia Diabetes Nicotine dependence PLAN: Continue current cardiac medications Social work following for homelessness Patient has been cleared from a dental standpoint to proceed with surgery Patient at high risk for surgical intervention given severe cardiomyopathy and biventricular failure. Discussed with patient possible evaluation at tertiary center where right ventricular support could be given if needed. Discussed regarding likely discharge home in the next 1-2 days if stable with follow-up with tertiary care center for further evaluation of valve replacement, possible TAVR. Patient interested in following up with [facility]. Further recommendations pending patient's course Nurse practitioner note has been reviewed by physician. Signing provider agrees with the documented findings, assessment, and plan of care. Objective - Vital Signs Vital signs: Vital Signs Temp 97.8 F 05/25/22 08:00 Pulse 76 05/25/22 08:00 Resp 16 05/25/22 08:00 BP 92/60 05/25/22 08:00 Pulse Ox 97 05/25/22 08:00 FiO2 Intake & Output 05/24/22 05/25/22 05/25/22 18:59 06:59 18:59 Intake Total 10 240 Output Total 1974 -1964 240 Weight 66.6 kg 66 kg Intake: IV 10 Invasive Line 1 10 Oral 240 Output: Urine 1974 Other: Voiding Method Toilet Urinal Urinal - Labs CBC & Chem 7: 05/25/22 06:32 05/25/22 06:32 Labs: Abnormal Lab Results - Last 24 Hours (Table) 05/24/22 Range/Units 16:27 POC Glucose (mg/dL) 132 H (70-110) mg/dL
--- NOTE | 2022-05-25 13:32 | P.PN ---
Subjective Progress Note Date: 05/25/22 Principal diagnosis: Known bicuspid symptomatic severe aortic valve stenosis, low-flow low-gradient, acute on chronic end stage systolic heart failure. Previous medical history of severe nonischemic cardiomyopathy, hypertension, hyperlipidemia, yly-vfvesex-[id number] diabetes, current tobacco dependence, moderate COPD, syncopal episode prior to October admission, questionable history of atrial fibrillation (per patient account, no documentation of otherwise) The patient was seen and examined sitting up in a recliner in no acute distress. Denies any chest pain or shortness of breath currently. Remains on room air with oxygen saturation in the high 90s. Patient has been ambulatory without difficulty. His case was discussed in detail with his primary fire extinguisher charger Dr. Ayala as well as Dr. Garcia by Dr. Rushing. He is felt to be in end-stage heart failure and surgery would be too high risk for mortality and likely would not provide much benefit. TAVR could be considered, but this would also be extremely high risk, we will defer to cardiology. In any event, he needs a plan in place residency at discharge. Social work consulted. Objective - Vital Signs Vital signs: Vital Signs Temp 97.8 F 05/25/22 08:00 Pulse 69 05/25/22 12:00 Resp 16 05/25/22 08:00 BP 84/51 05/25/22 12:00 Pulse Ox 98 05/25/22 12:00 FiO2 Intake & Output 05/24/22 05/25/22 05/25/22 18:59 06:59 18:59 Intake Total 10 240 Output Total 1974 875 Balance -1964 -63 Weight 66.6 kg 66 kg Intake: IV 10 Invasive Line 1 10 Oral 240 Output: Urine [id number] Other: Voiding Method Toilet Urinal Urinal - Exam CONSTITUTIONAL: Appears comfortable, cooperative, no acute distress RESPIRATORY: Lungs sounds diminished bilaterally. Respirations even, nonlabored. Currently on room air with oxygen saturation 98%. Able to achieve 1750 mL on incentive spirometry. Strong cough. CARDIOVASCULAR: S1, soft S2 present, systolic murmur present. Regular rate and rhythm, sinus rhythm on telemetry. Palpable peripheral pulses bilaterally. No edema present. No calf pain or tenderness noted. GASTROINTESTINAL: Abdomen soft, nontender, nondistended. Active bowel sounds present 4 quadrants. Tolerating diet. GENITOURINARY: Continues to void INTEGUMENTARY: Skin is warm and dry with evidence of good perfusion. NEUROLOGIC: Cranial nerves II through XII intact MUSKULOSKELETAL: Able to move all extremities, strength equal bilaterally, gait normal PSYCHIATRIC: Alert and oriented to person place and time, appropriate affect - Labs CBC & Chem 7: 05/25/22 06:32 05/25/22 06:32 Labs: Abnormal Lab Results - Last 24 Hours (Table) 05/24/22 Range/Units 16:27 POC Glucose (mg/dL) 132 H (70-110) mg/dL Assessment and Plan Assessment: 1. Known bicuspid symptomatic severe aortic valve stenosis, low-flow low- gradient 2. Acute on chronic end-stage systolic heart failure, EF 15-20% 3. Shortness of breath, chest discomfort, secondary to above 4. History of severe nonischemic cardiomyopathy 5. Hypertension 6. Hyperlipidemia, treated, cholesterol 108, LDL 47 7. Nca-hmuaagr-nbpguclcy diabetes, hemoglobin A1c 6.3% 8. Current tobacco dependence 9. Moderate COPD with preoperative FEV1 54% of predicted 10. Syncopal episode prior to October admission 11. Questionable history of atrial fibrillation (per patient account, no documentation of otherwise) Plan: 1. Continue current medication regimen with aspirin, statin, beta kelly, Reymundo, diuretics 2. Encourage incentive spirometry use 3. Social work consulted due to patient's homelessness, will need discharge plan in place 4. Will defer management of end-stage heart failure/aortic stenosis to cardiology 5. Smoking cessation education and counseling provided, patient encouraged to quit smoking completely 6. Increase activity as tolerated 7. Medical management of other comorbidities per internal medicine
--- NOTE | 2022-05-25 13:53 | P.PN ---
Subjective Progress Note Date: 05/25/22 Hospital course: Patient is a very pleasant 67-year-old male with a past medical history of nonischemic cardiomyopathy with previously known EF of 20%, severe aortic stenosis, moderate to severe pulmonary hypertension, hypertension, hyperlipidemia, diabetes mellitus, and nicotine dependence. He presented to the emergency department on 05/21/22 with a chief complaint of chest pain. Patient reports this chest pain had been ongoing for many weeks and described as a left- sided pressure-like sensation accompanied by exertional dyspnea. Patient was admitted under our services with consultation to cardiology and cardiothoracic surgery. Echocardiogram was completed revealing an EF of less than 15% with severe global hypokinesis, moderate pulmonary hypertension, bicuspid aortic va lve with severe aortic stenosis, and moderate to severe tricuspid regurgitation. Carotid Dopplers showing no hemodynamically significant internal carotid artery stenosis bilaterally. CTA chest completed revealing CHF with early interstitial pulmonary edema, moderate to large bilateral pleural effusions and ascending aortic and cachectic Patient undergoing evaluation for presurgical clearance for aortic valve replacement. Patient has been cleared dentally for surgery based on radiographic appearance and dentist recommending patient should follow up outpatient for dental evaluation and needed work post cardiac surgery. Physical exam: Patient seen and fully evaluated this morning. Patient was sitting up in chair at bedside. Patient appeared to be doing well and denied having any complaints or concerns at this time including chest pain, palpitations, or shortness of breath. Patient has been ambulating to and from bathroom without any reported difficulties. Morning labs unremarkable. Patient has received dental clearance for cardiac surgery. Awaiting cardiothoracic recommendations regarding going forth with surgical versus transcatheter aortic valve replacement. Vital signs reviewed and stable. General: Nontoxic, no distress and appears stated age. Derm: Skin warm and dry, normal coloration for ethnicity. Head: Atraumatic, normocephalic and symmetric. Eyes: EOMs intact, no lid lag, and anicteric sclera Mouth: no lip lesions, mucus membranes moist Cardiovascular: regular rate and rhythm with normal S1S2, systolic murmur, positive posterior tibial pulses bilaterally, and cap refill < 2 seconds. Lungs: Respirations even, regular, and unlabored on room air. Lungs CTA bilaterally, no rhonchi, no rales, no wheezing, and no accessory muscle usage. Abdominal: soft, nontender to palpation, no guarding, no appreciable organomegaly Ext: ROM intact. No gross muscle atrophy, no edema, no contractures Neuro: Speech clear, face symmetrical and CN II-XII grossly intact with no noted focal neuro deficits Psych: Alert and oriented to person, place, time, and situation. Appropriate and pleasant affect. Assessment and Plan of Care: Symptomatic severe aortic valve stenosis Severe nonischemic cardiomyopathy Moderate pulmonary hypertension Bicuspid aortic valve with severe aortic stenosis Mitral and tricuspid regurgitation Hypertension Hyperlipidemia -Echocardiogram was completed revealing an EF of less than 15% with severe global hypokinesis, moderate pulmonary hypertension, bicuspid aortic valve with severe aortic stenosis, and moderate to severe tricuspid regurgitation. -Cardiology following -Cardiothoracic surgery following -Continue telemetry monitoring -Continue cardiac medication regimen with aspirin, atorvastatin, furosemide, Aldactone, lisinopril, and metoprolol. -Telemetry monitoring Pzw-ewrtefr-udhbfmpiv diabetes mellitus -Hemoglobin A1c 6.3% -Hold Glucophage and place patient on Jardiance along with glycemic protocol with NovoLog sliding scale. COPD with continued nicotine dependence -Recommend smoking cessation Homelessness -Social work/case management consulted for assistance with obtaining safe discharge plan. CODE STATUS: Full code DVT prophylaxis: Heparin Discussed with: Patient and RN Anticipated discharge date: Clinical course to determine Anticipated discharge place: Clinical course to determine, case management as sisting with homelessness. A total of 35 minutes was spent on the care of this complex patient more than 50% of the time was spent in counseling and care coordination. I reviewed the documentation as provided by the LETICIA above, who is the original author of this note. I agree with the documented assessment and plan, with the following changes: none Objective - Vital Signs Vital signs: Vital Signs Temp 97.7 F 05/25/22 04:00 Pulse 97 05/25/22 04:00 Resp 16 05/25/22 04:00 BP 102/66 05/25/22 04:00 Pulse Ox 95 05/25/22 04:00 FiO2 Intake & Output 05/24/22 05/25/22 05/25/22 18:59 06:59 18:59 Intake Total 10 Output Total 1974 Balance -1964 Weight 66.6 kg 66 kg Intake: IV 10 Invasive Line 1 10 Output: Urine 1974 Other: Voiding Method Toilet Urinal - Labs CBC & Chem 7: 05/25/22 06:32 05/25/22 06:32 Labs: Abnormal Lab Results - Last 24 Hours (Table) 05/24/22 Range/Units 16:27 POC Glucose (mg/dL) 132 H (70-110) mg/dL
[2022-05-25 16:16] LABS: Glucose,Whole Blood 95 mg/dL (70-110)
[2022-05-25 20:25] LABS: Glucose,Whole Blood 109 mg/dL (70-110)
[2022-05-26 06:09] LABS: Glucose,Whole Blood 95 mg/dL (70-110)
[2022-05-26] MEDS: INSULIN ASPART (NovoLOG) 100 UNIT/ML VIAL SQ SCH ×4 (06:28→20:29)
[2022-05-26] MEDS: PATIENT'S OWN (Empagliflozin [Jardiance] 10 MG Tablet) PO SCH (08:34)
[2022-05-26] MEDS: ASPIRIN 81 MG PO SCH (08:40)
[2022-05-26] MEDS: METOPROLOL TARTRATE 25 MG TAB PO SCH (08:41)
[2022-05-26] MEDS: FUROSEMIDE 20 MG TAB PO SCH (08:41)
[2022-05-26] MEDS: lisinopriL 5 MG TAB PO SCH (08:41)
[2022-05-26] MEDS: HEPARIN SODIUM,PORCINE/PF 5,000 UNIT/0.5 ML SYRINGE SQ SCH ×2 (08:41→19:58)
[2022-05-26] MEDS: SPIRONOLACTONE 25 MG TAB PO SCH (08:41)
[2022-05-26] MEDS: ATORVASTATIN 40 MG TAB PO SCH (08:41)
[2022-05-26 11:31] LABS: Glucose,Whole Blood 106 mg/dL (70-110)
--- NOTE | 2022-05-26 11:57 | P.PN ---
Subjective Progress Note Date: 05/26/22 ISTORY OF PRESENT ILLNESS: This is a 67-year-old male with a past medical history significant for severe nonischemic cardiomyopathy, valvular heart disease with known bicuspid aortic valve and aortic stenosis, hypertension, hyperlipidemia, diabetes, and nicotine dependence. Patient follows in the office with Dr. Brooks. We have been asked to see the patient in consultation for chest pain. Patient examined at the bedside. Patient states over the past couple days he has been experiencing chest pain and shortness of breath when he tries to lay down at night. He states he usuall y is able to reposition himself in bed and his symptoms resolved however yesterday he was unable to get relief with position changes and decided to come to the emergency room for further evaluation. The patient states the discomfort was right in the middle of his chest. He denied any radiation of the pain. The patient currently denies any chest pain or pressure at the time of my examination. Patient was up walking to the bathroom and does not appear to be in any distress at this time. The patient also follows at the [facility]. The patient is in the process of scheduling to be seen at [facility] for an aortic valve replacement. The patient states he has not yet scheduled this as he is homeless and states he needs to get his housing situation taken care of first of he will have placed to recover after surgery. * EKG reveals sinus mechanism with no signs of acute ischemia * Chest xray there is some mild congestive heart failure with pleural effusions. * Laboratory data: WBC 8.1. Hemoglobin 14.9. Platelet count 263. Sodium 135. Potassium 5.3. BUN 22. Creatinine 0.93. ProBNP 6580. Troponin 0.036. 0.025. * Current home cardiac medications include Jardiance 10mg daily, aspirin 81 mg daily, Lasix 40 mg daily, metoprolol titrate 25 mg daily, Aldactone 12.5 mg daily, and lisinopril 5 mg daily * Most recent echocardiogram obtained in October 2021 revealed ejection fraction 20-25%, mild aortic regurgitation, severe aortic stenosis, moderate MR, moderate TR, moderate to severe pulmonary hypertension * Patient underwent CRISTIAN in November 2021 revealing dilated left ventricle with severely impaired function and EF of 20% with global hypokinesis. Bicuspid aortic valve with fusion of the right and left coronary cusps. Moderate MR, mitral valve appears to be thickened. Moderate TR. No evidence of pericardial effusion. * Cardiac catheterization history: November 2021 revealing severe aortic stenosis, pulmonary hypertension, elevated biventricular filling pressures, and intermediate nonobstructive coronary artery disease 05/25/2022 Patient examined this morning. He is sitting up in the chair. He denies chest pain or pressure. Denies SOB. He has been evaluated by Dr. Estevez and cleared for surgery from a dental standpoint. Vital signs are stable. 05/26/2022 Patient examined this morning. He is sitting up in the chair. Denies chest pain or pressure. Denies SOB. CTS feels the patient is to high risk for AVR at this facility. PHYSICAL EXAM: VITAL SIGNS: Reviewed. GENERAL: Well-developed in no acute distress. HEENT: Head is normocephalic. Pupils are equal, round. Sclerae anicteric. Mucous membranes of the mouth are moist. Neck supple. No JVD or thyromegaly LUNGS: Respirations even and unlabored. Lungs diminished. HEART: Regular rate and rhythm. S1 and S2 heard. Systolic murmur noted ABDOMEN: Soft. Nondistended. Nontender. EXTREMITIES: Normal range of motion. No clubbing or cyanosis. Peripheral pulses intact. No lower extremity edema NEUROLOGIC: Awake and alert. Oriented x 3. ASSESSMENT: Chest pain, acute coronary syndrome ruled out Shortness of breath Acute mild exacerbation of heart failure with reduced ejection fraction Intermediate nonobstructive coronary artery disease Severe aortic stenosis Bicuspid aortic valve Valvular heart disease Nonischemic cardiomyopathy Hypertension Hyperlipidemia Diabetes Nicotine dependence PLAN: Continue current cardiac medications Social work on consult for assistance with house CTS deemed patient too high risk Recommend patient follow up with surgeon at [facility] for valve replacement as this was his initial plan. Further recommendations pending patient's course Nurse practitioner note has been reviewed by physician. Signing provider agrees with the documented findings, assessment, and plan of care. Objective - Vital Signs Vital signs: Vital Signs Temp 98.1 F 05/26/22 08:15 Pulse 80 05/26/22 08:15 Resp 17 05/26/22 08:15 BP 96/57 05/26/22 08:15 Pulse Ox 98 05/26/22 08:15 FiO2 Intake & Output 05/25/22 05/26/22 05/26/22 18:59 06:59 18:59 Intake Total 720 180 Output Total 875 Balance -155 180 Weight 65.5 kg Intake: Oral 720 180 Output: Urine 875 Other: Voiding Method Urinal Urinal Urinal - Labs CBC & Chem 7: 05/25/22 06:32 05/25/22 06:32
--- NOTE | 2022-05-26 15:32 | P.PN ---
Subjective Progress Note Date: 05/26/22 Hospital course: Patient is a very pleasant 67-year-old male with a past medical history of nonischemic cardiomyopathy with previously known EF of 20%, severe aortic stenosis, moderate to severe pulmonary hypertension, hypertension, hyperlipidemia, diabetes mellitus, and nicotine dependence. He presented to the emergency department on 05/21/22 with a chief complaint of chest pain. Patient reports this chest pain had been ongoing for many weeks and described as a left- sided pressure-like sensation accompanied by exertional dyspnea. Patient was admitted under our services with consultation to cardiology and cardiothoracic surgery. Echocardiogram was completed revealing an EF of less than 15% with severe global hypokinesis, moderate pulmonary hypertension, bicuspid aortic va lve with severe aortic stenosis, and moderate to severe tricuspid regurgitation. Carotid Dopplers showing no hemodynamically significant internal carotid artery stenosis bilaterally. CTA chest completed revealing CHF with early interstitial pulmonary edema, moderate to large bilateral pleural effusions and ascending aortic and cachectic Patient underwent evaluation for presurgical clearance for aortic valve replacement. Patient was been cleared dentally for surgery based on radiographic appearance and dentist recommending patient should follow up outpatient for dental evaluation and needed work post cardiac surgery. Cardiothoracic surgery determined patient is too high risk to have aortic valve replacement completed at our facility. It is recommended patient follow up outpatient with [facility] surgeon for further evaluation. Plan is for discharge tomorrow, arrangements have been made for [place] assistance with housing and plan is for patient to be discharged home with home care tomorrow once cleared by cardiology. Physical exam: Patient seen and fully evaluated this morning. Patient was sitting up in the chair continues to deny having any complaints of chest pain, palpitations, or shortness of breath. He was updated on high risk for aortic valve replacement and that he is recommended to be evaluated by a high risk cardiothoracic surgeon specialist about it [facility]. Patient verbalized understanding and denied having any questions at this time. Patient has obtained assistance from [place] for housing and plan is for discharge home tomorrow morning with home care. Vital signs reviewed and stable. General: Nontoxic, no distress and appears stated age. Derm: Skin warm and dry, normal coloration for ethnicity. Head: Atraumatic, normocephalic and symmetric. Eyes: EOMs intact, no lid lag, and anicteric sclera Mouth: no lip lesions, mucus membranes moist Cardiovascular: regular rate and rhythm with normal S1S2, systolic murmur, positive posterior tibial pulses bilaterally, and cap refill < 2 seconds. Lungs: Respirations even, regular, and unlabored on room air. Lungs CTA bilaterally, no rhonchi, no rales, no wheezing, and no accessory muscle usage. Abdominal: soft, nontender to palpation, no guarding, no appreciable organomegaly Ext: ROM intact. No gross muscle atrophy, no edema, no contractures Neuro: Speech clear, face symmetrical and CN II-XII grossly intact with no noted focal neuro deficits Psych: Alert and oriented to person, place, time, and situation. Appropriate and pleasant affect. Assessment and Plan of Care: Symptomatic severe aortic valve stenosis Severe nonischemic cardiomyopathy Moderate pulmonary hypertension Bicuspid aortic valve with severe aortic stenosis Mitral and tricuspid regurgitation Hypertension Hyperlipidemia -Echocardiogram was completed revealing an EF of less than 15% with severe global hypokinesis, moderate pulmonary hypertension, bicuspid aortic valve with severe aortic stenosis, and moderate to severe tricuspid regurgitation. -Cardiology following -Cardiothoracic surgery following, stated patient is too high risk to have aortic valve replacement completed at this facility. Recommending patient follow-up outpatient with [facility] surgeon for further evaluation. -Continue telemetry monitoring -Continue cardiac medication regimen with aspirin, atorvastatin, furosemide, Aldactone, lisinopril, and metoprolol. -Telemetry monitoring [id number] diabetes mellitus -Hemoglobin A1c 6.3% -Hold Glucophage and place patient on Jardiance along with glycemic protocol with NovoLog sliding scale. COPD with continued nicotine dependence -Recommend smoking cessation Homelessness -Social work/case management consulted for assistance with obtaining safe discharge plan. CODE STATUS: Full code DVT prophylaxis: Heparin Discussed with: Patient and RN Anticipated discharge date: Tomorrow Anticipated discharge place: Home with home care A total of 35 minutes was spent on the care of this complex patient more than 50% of the time was spent in counseling and care coordination. I reviewed the documentation as provided by the LETICIA above, who is the original author of this note. I agree with the documented assessment and plan, with the following changes: none Objective - Vital Signs Vital signs: Vital Signs Temp 98.1 F 05/26/22 08:15 Pulse 80 05/26/22 08:15 Resp 17 05/26/22 08:15 BP 96/57 05/26/22 08:15 Pulse Ox 98 05/26/22 08:15 FiO2 Intake & Output 05/25/22 05/26/22 05/26/22 18:59 06:59 18:59 Intake Total 720 180 Output Total 875 Balance -155 180 Weight 65.5 kg Intake: Oral 720 180 Output: Urine 875 Other: Voiding Method Urinal Urinal Urinal - Labs CBC & Chem 7: 05/25/22 06:32 05/25/22 06:32
[2022-05-26 16:49] LABS: Glucose,Whole Blood 141 mg/dL (70-110)
[2022-05-26 20:20] LABS: Glucose,Whole Blood 177 mg/dL (70-110)
[2022-05-26 20:43] VITALS: RESP 18
[2022-05-27 06:19] LABS: Glucose,Whole Blood 92 mg/dL (70-110)
[2022-05-27] MEDS: INSULIN ASPART (NovoLOG) 100 UNIT/ML VIAL SQ SCH ×2 (09:20→11:40)
[2022-05-27] MEDS: PATIENT'S OWN (Empagliflozin [Jardiance] 10 MG Tablet) PO SCH (09:21)
[2022-05-27] MEDS: FUROSEMIDE 20 MG TAB PO SCH (09:30)
[2022-05-27] MEDS: lisinopriL 5 MG TAB PO SCH (09:30)
[2022-05-27] MEDS: SPIRONOLACTONE 25 MG TAB PO SCH (09:30)
[2022-05-27] MEDS: ASPIRIN 81 MG PO SCH (09:31)
[2022-05-27] MEDS: HEPARIN SODIUM,PORCINE/PF 5,000 UNIT/0.5 ML SYRINGE SQ SCH (09:31)
[2022-05-27] MEDS: METOPROLOL TARTRATE 25 MG TAB PO SCH (09:31)
[2022-05-27] MEDS: ATORVASTATIN 40 MG TAB PO SCH (09:31)
--- NOTE | 2022-05-27 10:27 | P.DS ---
Providers Date of admission: 05/24/22 07:56 Expected date of discharge: 05/27/22 Attending physician: Pooja Nino MD Consults: 05/21/22 07:34 Consult Physician Urgent Consulting Provider: Bogdan Ayala Consult Reason/Comments: chest pain Do you want consulting provider notified?: Yes 05/22/22 11:43 Consult Physician Stat Consulting Provider: Vincent Rushing Consult Reason/Comments: Severe Do you want consulting provider notified?: Yes 05/23/22 10:00 Consult Physician Routine Consulting Provider: Cathleen Munguia Consult Reason/Comments: dental clearence; valve surgery Do you want consulting provider notified?: Yes, Notify in am Primary care physician: Heath Kirkland MD Hospital Course: Discharge Diagnosis: Symptomatic severe aortic valve stenosis. Continue cardiac medication regimen with aspirin, atorvastatin, furosemide, Aldactone, lisinopril, and metoprolol. Cardiothoracic surgery evaluated patient and determined patient is too high risk to have aortic valve replacement completed at our facility. It is recommended patient follow up outpatient with [facility] for further evaluation. Patient also to follow up with hand embroiderer Dr. Ayala as scheduled on 06/01/22 and forms for release of medical records was completed and sent to [facility] at [facility] by SUYAPA Naidu upon pt's discharge. Severe nonischemic cardiomyopathy with EF less than 15% . Continue cardiac medication regimen with aspirin, atorvastatin, furosemide, Aldactone, lisinopril, and metoprolol. Moderate pulmonary hypertension. Bicuspid aortic valve with severe aortic stenosis Mitral and tricuspid regurgitation Hypertension Hyperlipidemia Emb-[id number] diabetes mellitus. Hemoglobin A1c 6.3%. Resume home Glucophage and Jardiance. COPD with continued nicotine dependence. Strongly recommend smoking cessation. Homelessness. Social work/case management in contact with [place] and arrangements were made with the [place] for temporary housing assistance. Hospital Course: Patient is a very pleasant 67-year-old male with a past medical history of nonischemic cardiomyopathy with previously known EF of 20%, severe aortic stenosis, moderate to severe pulmonary hypertension, hypertension, hyperlipidemia, diabetes mellitus, and nicotine dependence. He presented to the emergency department on 05/21/22 with a chief complaint of chest pain. Patient reports this chest pain had been ongoing for many weeks and described as a left- sided pressure-like sensation accompanied by exertional dyspnea. Patient was admitted under our services with consultation to cardiology and cardiothoracic surgery. Echocardiogram was completed revealing an EF of less than 15% with severe global hypokinesis, moderate pulmonary hypertension, bicuspid aortic valve with severe aortic stenosis, and moderate to severe tricuspid regurgitation. Carotid Dopplers showing no hemodynamically significant internal carotid artery stenosis bilaterally. CTA chest completed revealing CHF with early interstitial pulmonary edema, moderate to large bilateral pleural effusions and ascending aortic and cachectic Patient underwent evaluation for presurgical clearance for aortic valve replacement. Patient was been cleared dentally for surgery based on radiographic appearance and dentist recommending patient should follow up outpatient for dental evaluation and needed work post cardiac surgery. Cardiothoracic surgery determined patient is too high risk to have aortic valve replacement completed at our facility. It is recommended patient follow up outpatient with [facility] surgeon for further evaluation. Case management working with patient and arrangements have been made for [facility] assistance with [facility] and patient being discharged home with home care. Patient will need to follow up outpatient with PCP in 1-2 days, cardiology as scheduled in 5 days, and cardiothoracic surgery at [facility]. Discharge instructions discussed with patient, all questions answered at this time and patient continued to deny experiencing any chest pain or any other complaints at this time and further denied having any additional questions, concerns, or needs. Patient medically stable for discharge. Physical exam: Vital signs reviewed and stable. General: Nontoxic, no distress and appears stated age. Derm: Skin warm and dry, normal coloration for ethnicity. Head: Atraumatic, normocephalic and symmetric. Eyes: EOMs intact, no lid lag, and anicteric sclera Mouth: no lip lesions, mucus membranes moist Cardiovascular: regular rate and rhythm with normal S1S2, systolic murmur, pos itive posterior tibial pulses bilaterally, and cap refill < 2 seconds. Lungs: Respirations even, regular, and unlabored on room air. Lungs CTA bilaterally, no rhonchi, no rales, no wheezing, and no accessory muscle usage. Abdominal: soft, nontender to palpation, no guarding, no appreciable organomegaly Ext: ROM intact. No gross muscle atrophy, no edema, no contractures Neuro: Speech clear, face symmetrical and CN II-XII grossly intact with no noted focal neuro deficits Psych: Alert and oriented to person, place, time, and situation. Appropriate and pleasant affect. A total of 41 minutes of time were spent preparing this complex discharge summary. Pt was discharged on 05/27/22 at 10:26 AM. I reviewed the documentation as provided by the LETICIA above, who is the original author of this note. I agree with the documented assessment and plan, with the following changes: none Patient Condition at Discharge: Stable Plan - Discharge Summary Discharge Rx Participant: No New Discharge Prescriptions: Continue metFORMIN HCL [Glucophage] 1,000 mg PO BID Nitroglycerin Sl Tabs [Nitrostat] 0.4 mg SUBLINGUAL Q5M PRN #100 tab PRN Reason: Chest Pain Metoprolol Tartrate [Lopressor] 25 mg PO DAILY lisinopriL [Zestril] 5 mg PO DAILY Aspirin EC [Ecotrin Low Dose] 81 mg PO DAILY Empagliflozin [Jardiance] 10 mg PO DAILY #30 tablet Omeprazole 40 mg PO DAILY #30 cap Atorvastatin [Lipitor] 40 mg PO DAILY Spironolactone [Aldactone] 12.5 mg PO DAILY Changed Furosemide [Lasix] 20 mg PO DAILY #90 tab Discharge Medication List Aspirin EC [Ecotrin Low Dose] 81 mg PO DAILY 11/07/21 [History] metFORMIN HCL [Glucophage] 1,000 mg PO BID 11/07/21 [History] Empagliflozin [Jardiance] 10 mg PO DAILY #30 tablet 11/10/21 [Rx] Nitroglycerin Sl Tabs [Nitrostat] 0.4 mg SUBLINGUAL Q5M PRN #100 tab 11/12/21 [Rx] Omeprazole 40 mg PO DAILY #30 cap 11/12/21 [Rx] Metoprolol Tartrate [Lopressor] 25 mg PO DAILY 12/23/21 [History] Atorvastatin [Lipitor] 40 mg PO DAILY 05/21/22 [History] Spironolactone [Aldactone] 12.5 mg PO DAILY 05/21/22 [History] lisinopriL [Zestril] 5 mg PO DAILY 05/21/22 [History] Furosemide [Lasix] 20 mg PO DAILY #90 tab 05/27/22 [Rx] Follow up Appointment(s)/Referral(s): Bogdan Ayala MD [STAFF PHYSICIAN] - 06/01/22 1:15 pm (Your appointment is at [address] [place] [address].) Heath Kirkland MD [Primary Care Provider] - 1-2 days (Unable to reach the Dr. Kirkland. Please schedule follow-up appointment. ) [facility] Visiting Nurse, [NON-STAFF] - Patient Instructions/Handouts: Heart Failure (DC), Aortic Stenosis (DC), Low- Sodium Diet (DC) Activity/Diet/Wound Care/Special Instructions: Activity: As tolerated. Take breaks as needed. Diet: Heart healthy and carb consistent diet. Avoid salts, or foods with hidden salts such as canned or boxed foods and frozen dinners. Extra salt makes your heart work harder and traps the fluid in your body for longer. Special Instructions: Weigh yourself every morning after you urinate. If you gain 3 pounds overnight or more than 5 pounds in one week, call your primary physician and hand embroiderer for guidance on your medications or they may want to see you in their office. Keep a daily log of your weights and be sure to bring with you at follow up visits with your PCP and hand embroiderer. Take all of your medications as directed, NEVER skip a dose. And remember to keep all of your doctor's appointments and follow-up as needed. Elevate your legs when you are not up moving around to help with circulation and prevent swelling. Compression stockings are also a great way to also improve lower extremity circulation and prevent/improve lower extremity edema. Call your primary care provider and hand embroiderer if you notice any extra swelling in your legs, ankles, feet or abdomen, if you have a new or worsened dry cough, if your shortness of breath worsens with activity or at rest, or if you feel more fatigued. Thank you for allowing us to participate in your care, it was truly a pleasure having you for our patient!!! Please call and schedule an appointment with Card[facility] Surgery [facility] at [facility] for further evaluation on recommended aortic valve replacement [address] [place] [address] [address], [place] [address]. [phone]. Discharge/Stand Alone Forms: Who Do I Call?, Community Resources Discharge Disposition: HOME WITH HOME HEALTH SERVICES
--- NOTE | 2022-05-27 11:03 | P.PN ---
Subjective Progress Note Date: 05/27/22 ISTORY OF PRESENT ILLNESS: This is a 67-year-old male with a past medical history significant for severe nonischemic cardiomyopathy, valvular heart disease with known bicuspid aortic valve and aortic stenosis, hypertension, hyperlipidemia, diabetes, and nicotine dependence. Patient follows in the office with Dr. Brooks. We have been asked to see the patient in consultation for chest pain. Patient examined at the bedside. Patient states over the past couple days he has been experiencing chest pain and shortness of breath when he tries to lay down at night. He states he usuall y is able to reposition himself in bed and his symptoms resolved however yesterday he was unable to get relief with position changes and decided to come to the emergency room for further evaluation. The patient states the discomfort was right in the middle of his chest. He denied any radiation of the pain. The patient currently denies any chest pain or pressure at the time of my examination. Patient was up walking to the bathroom and does not appear to be in any distress at this time. The patient also follows at the [facility]. The patient is in the process of scheduling to be seen at [facility] for an aortic valve replacement. The patient states he has not yet scheduled this as he is homeless and states he needs to get his housing situation taken care of first of he will have placed to recover after surgery. * EKG reveals sinus mechanism with no signs of acute ischemia * Chest xray there is some mild congestive heart failure with pleural effusions. * Laboratory data: WBC 8.1. Hemoglobin 14.9. Platelet count 263. Sodium 135. Potassium 5.3. BUN 22. Creatinine 0.93. ProBNP 6580. Troponin 0.036. 0.025. * Current home cardiac medications include Jardiance 10mg daily, aspirin 81 mg daily, Lasix 40 mg daily, metoprolol titrate 25 mg daily, Aldactone 12.5 mg daily, and lisinopril 5 mg daily * Most recent echocardiogram obtained in October 2021 revealed ejection fraction 20-25%, mild aortic regurgitation, severe aortic stenosis, moderate MR, moderate TR, moderate to severe pulmonary hypertension * Patient underwent CRISTIAN in November 2021 revealing dilated left ventricle with severely impaired function and EF of 20% with global hypokinesis. Bicuspid aortic valve with fusion of the right and left coronary cusps. Moderate MR, mitral valve appears to be thickened. Moderate TR. No evidence of pericardial effusion. * Cardiac catheterization history: November 2021 revealing severe aortic stenosis, pulmonary hypertension, elevated biventricular filling pressures, and intermediate nonobstructive coronary artery disease 05/25/2022 Patient examined this morning. He is sitting up in the chair. He denies chest pain or pressure. Denies SOB. He has been evaluated by Dr. Estevez and cleared for surgery from a dental standpoint. Vital signs are stable. 05/26/2022 Patient examined this morning. He is sitting up in the chair. Denies chest pain or pressure. Denies SOB. CTS feels the patient is to high risk for AVR at this facility. 05/26/2022 Patient examined this morning. He is sitting up in the chair. Denies chest pain or pressure. Denies SOB. Vital signs are stable. PHYSICAL EXAM: VITAL SIGNS: Reviewed. GENERAL: Well-developed in no acute distress. HEENT: Head is normocephalic. Pupils are equal, round. Sclerae anicteric. Mucous membranes of the mouth are moist. Neck supple. No JVD or thyromegaly LUNGS: Respirations even and unlabored. Lungs diminished. HEART: Regular rate and rhythm. S1 and S2 heard. Systolic murmur noted ABDOMEN: Soft. Nondistended. Nontender. EXTREMITIES: Normal range of motion. No clubbing or cyanosis. Peripheral pulses intact. No lower extremity edema NEUROLOGIC: Awake and alert. Oriented x 3. ASSESSMENT: Chest pain, acute coronary syndrome ruled out Shortness of breath Acute mild exacerbation of heart failure with reduced ejection fraction Intermediate nonobstructive coronary artery disease Severe aortic stenosis Bicuspid aortic valve Valvular heart disease Nonischemic cardiomyopathy Hypertension Hyperlipidemia Diabetes Nicotine dependence PLAN: Continue current cardiac medications Social work on consult for assistance with housing CTS deemed patient too high risk Recommend patient follow up with surgeon at [facility] for valve replacement as this was his initial plan. Further recommendations pending patient's course Nurse practitioner note has been reviewed by physician. Signing provider agrees with the documented findings, assessment, and plan of care. Objective - Vital Signs Vital signs: Vital Signs Temp 98.2 F 05/27/22 07:16 Pulse 83 05/27/22 07:17 Resp 18 05/27/22 07:17 BP 97/63 05/27/22 07:16 Pulse Ox 96 05/27/22 07:16 FiO2 Intake & Output 05/26/22 05/27/22 05/27/22 18:59 06:59 18:59 Intake Total 900 480 118 Output Total 1100 750 Balance 868 -585 -678 Weight 65.5 kg 65.8 kg Intake: Oral 900 480 118 Output: Urine 1100 750 Other: Voiding Method Urinal Urinal Urinal - Labs CBC & Chem 7: 05/25/22 06:32 05/25/22 06:32 Labs: Abnormal Lab Results - Last 24 Hours (Table) 05/26/22 05/26/22 Range/Units 16:47 20:17 POC Glucose (mg/dL) 141 H 177 H (70-110) mg/dL Microbiology - Last 24 Hours (Table) 05/23/22 11:15 Nasal Screen MRSA/MSSA - Final Nasal Swab
[2022-05-27 11:14] LABS: Glucose,Whole Blood 102 mg/dL (70-110)
[2022-05-27 11:49] VITALS: BP 100/67; PULSE 67; TEMP 97.7
== END 2022-05-27 15:09 | disposition home health service (06) | DRG 306 ==
LOC: EC 06:05 → 3SCARD 08:35 → OBSVTOIN 05-24 07:56 → 3SCARD 05-25 23:12
PROVIDERS: ADMIT Family Medicine; ATTEND Family Medicine
DX: Q23.1 Congenital insufficiency of aortic valve (principal); I50.23 Acute on chronic systolic (congestive) heart failure; I42.8 Other cardiomyopathies; R64 Cachexia; I27.20 Pulmonary hypertension, unspecified; I50.84 End stage heart failure; I11.0 Hypertensive heart disease with heart failure; I08.1 Rheumatic disorders of both mitral and tricuspid valves; I77.810 Thoracic aortic ectasia; J44.9 Chronic obstructive pulmonary disease, unspecified; E11.9 Type 2 diabetes mellitus without complications; I95.9 Hypotension, unspecified; E78.5 Hyperlipidemia, unspecified; E87.5 Hyperkalemia; I25.119 Atherosclerotic heart disease of native coronary artery with unspecified angina pectoris; E83.42 Hypomagnesemia; I48.91 Unspecified atrial fibrillation; R77.8 Other specified abnormalities of plasma proteins; F17.290 Nicotine dependence, other tobacco product, uncomplicated; Z96.652 Presence of left artificial knee joint; Z79.899 Other long term (current) drug therapy; Z79.84 Long term (current) use of oral hypoglycemic drugs; Z79.82 Long term (current) use of aspirin; Z89.022 Acquired absence of left finger(s); Z80.9 Family history of malignant neoplasm, unspecified; Z98.890 Other specified postprocedural states; Z59.00 Homelessness unspecified; Z82.49 Family history of ischemic heart disease and other diseases of the circulatory system; Z90.89 Acquired absence of other organs; Z68.22 Body mass index [BMI] 22.0-22.9, adult
CPT/HCPCS: 36415; 70486; 71046; 71275; 80048; 80053; 80061; 80074; 81003; 83036; 83735; 83880; 84443; 84484; 85025; 85027; 85610; 85730; 87070; 93005; 93306; 93880; 94150; 96365; 96366; 96375; 99291

== ENCOUNTER 2022-07-20 17:50 | Inpatient (IN) | payer MEDICARE ==
[2022-07-20] MEDS ORDERED: MECLIZINE 25 MG TAB PO STA (19:23)
--- NOTE | 2022-07-20 19:34 | ED ---
General Adult HPI - General Chief complaint: Dizziness Stated complaint: sob Time Seen by Provider: 07/20/22 18:47 Source: patient, RN notes reviewed, old records reviewed Mode of arrival: wheelchair Limitations: no limitations - History of Present Illness Initial comments: This is a 67-year-old male who presents emergency Department with a three-day hi story of dizziness. Patient states anytime he seems to move around he feels as though the room was moving around. Patient states he sits still it seems to improve considerably. Patient denies any headache patient denies numbness weakness per patient denies any syncopal or near syncopal episode. Patient denies any chest pain difficult breathing shortness of breath per patient any palpitations. Patient denies any recent fever chills or cough per patient denies any deafness or new ringing in the ears. Patient denies any similar symptoms in the past. Patient denies any abdominal pain patient denies any nausea or vomiting. - Related Data Home Medications Medication Instructions Recorded Confirmed Aspirin EC [Ecotrin Low Dose] 81 mg PO DAILY 11/07/21 05/21/22 metFORMIN HCL [Glucophage] 1,000 mg PO BID 11/07/21 05/21/22 Metoprolol Tartrate [Lopressor] 25 mg PO DAILY 12/23/21 05/21/22 Atorvastatin [Lipitor] 40 mg PO DAILY 05/21/22 05/21/22 Spironolactone [Aldactone] 12.5 mg PO DAILY 05/21/22 05/21/22 lisinopriL [Zestril] 5 mg PO DAILY 05/21/22 05/21/22 Previous Rx's Medication Instructions Recorded Empagliflozin [Jardiance] 10 mg PO DAILY #30 tablet 11/10/21 Nitroglycerin Sl Tabs [Nitrostat] 0.4 mg SUBLINGUAL Q5M PRN #100 tab 11/12/21 Omeprazole 40 mg PO DAILY #30 cap 11/12/21 Furosemide [Lasix] 20 mg PO DAILY #90 tab 05/27/22 Allergies Allergy/AdvReac Type Severity Reaction Status Date / Time No Known Allergies Allergy Verified 05/21/22 07:34 Review of Systems ROS Statement: Those systems with pertinent positive or pertinent negative responses have been documented in the HPI. ROS Other: All systems not noted in ROS Statement are negative. Past Medical History Past Medical History: Coronary Artery Disease (CAD), Heart Failure, Diabetes M ellitus, GERD/Reflux, Hyperlipidemia, Hypertension, Syncope Additional Past Medical History / Comment(s): Pt denies GA documented in his 11/07/21 medical record, severe aortic stenosis, NIDDM type II, pulmonary HTN; patient states he was told he is had A. fib in the past, no documentation in the chart and patient is not currently on anticoagulation History of Any Multi-Drug Resistant Organisms: None Reported Past Surgical History: Joint Replacement, Orthopedic Surgery, Tonsillectomy Additional Past Surgical History / Comment(s): Previous cardiac valve surgery done percutaneously to "clean up my valve"/done at [facility], left knee replacement, removal of partial fingers 3rd and 5th digits on left hand, colonoscopy, cyst removed behind L ear Past Anesthesia/Blood Transfusion Reactions: No Reported Reaction Past Psychological History: No Psychological Hx Reported Smoking Status: Current every day smoker Past Alcohol Use History: None Reported Past Drug Use History: None Reported - Past Family History Mother Family Medical History: Hyperlipidemia, Hypertension Father Family Medical History: Cancer, Hypertension General Exam - General Exam Comments Initial Comments: GENERAL: Patient is well-developed and well-nourished. Patient is nontoxic and well- hydrated and is in no acute distress. ENT: Neck is soft and supple. No significant lymphadenopathy is noted. Oropharynx is clear. Moist mucous membranes. Neck has full range of motion without eliciting any pain. EYES: The sclera were anicteric and conjunctiva were pink and moist. Extraocular movements were intact and pupils were equal round and reactive to light. Eyelids were unremarkable. PULMONARY: Unlabored respirations. Good breath sounds bilaterally. No audible rales rhonchi or wheezing was noted. CARDIOVASCULAR: There is a regular rate and rhythm without any murmurs gallops or rubs. ABDOMEN: Soft and nontender with normal bowel sounds. SKIN: Skin is clear with no lesions or rashes and otherwise unremarkable. NEUROLOGIC: Patient is alert and oriented x3. Cranial nerves II through XII are grossly intact. Motor and sensory are also intact. Normal speech, volume and content. Symmetrical smile. Finger to nose testing is normal bilaterally and the patient left to right and a quick fashion stated that caused him to be dizzy just like he was parted coming in. MUSCULOSKELETAL: Normal extremities with adequate strength and full range of motion. No lower extremity swelling or edema. No calf tenderness. LYMPHATICS: No significant lymphadenopathy is noted PSYCHIATRIC: Normal psychiatric evaluation. Limitations: no limitations Course Vital Signs 07/20/22 17:52 Temperature 98 F Pulse Rate 73 Respiratory 16 Rate Blood Pressure 90/60 O2 Sat by Pulse 98 Oximetry Medical Decision Making - Medical Decision Making EKG shows sinus bradycardia 57 bpm NV interval is 226 QRS is 121 Q-T intervals is 508 QTC is 502 per patient's EKG shows some T-wave inversions V5 V6 as well as inferiorly CT of the brain shows no acute abnormality. Chest x-ray shows no acute abnormality. Patient had elevated potassiums I started the patient Kayexalate gave the patient doesn't chloride as well as sodium bicarb. I was found physicians agreed to admit the patient admitted the patient wrote admitting orders. Patient also received a liter of normal saline. - Lab Data Result diagrams: 07/20/22 20:16 07/20/22 20:16 Lab Results 07/20/22 07/20/22 07/20/22 Range/Units 20:16 20:16 20:16 WBC 8.9 (3.8-10.6) k/uL RBC 5.27 (4.30-5.90) m/uL Hgb 16.1 (13.0-17.5) gm/dL Hct 50.0 (39.0-53.0) % MCV 94.9 (80.0-100.0) fL MCH 30.4 (25.0-35.0) pg MCHC 32.1 (31.0-37.0) g/dL RDW 15.2 (11.5-15.5) % Plt Count 255 (150-450) k/uL MPV 8.8 Neutrophils % 57 % Lymphocytes % 30 % Monocytes % 9 % Eosinophils % 1 % Basophils % 1 % Neutrophils # 5.0 (1.3-7.7) k/uL Lymphocytes # 2.7 (1.0-4.8) k/uL Monocytes # 0.8 (0-1.0) k/uL Eosinophils # 0.1 (0-0.7) k/uL Basophils # 0.1 (0-0.2) k/uL Hypochromasia Moderate PT 15.7 H (9.0-12.0) sec INR 1.5 H (<1.2) APTT 27.2 (22.0-30.0) sec Sodium 126 L (137-145) mmol/L Potassium 6.0 H (3.5-5.1) mmol/L Chloride 90 L (98-107) mmol/L Carbon Dioxide 14 L (22-30) mmol/L Anion Gap 22 mmol/L BUN 36 H (9-20) mg/dL Creatinine 1.62 H (0.66-1.25) mg/dL Est GFR (CKD-EPI)AfAm 51 (>60 ml/min/1.73 sqM) Est GFR (CKD-EPI)NonAf 44 (>60 ml/min/1.73 sqM) Glucose 103 H (74-99) mg/dL Calcium 9.4 (8.4-10.2) mg/dL Magnesium 2.0 (1.6-2.3) mg/dL Total Bilirubin 2.9 H (0.2-1.3) mg/dL AST 62 H (17-59) U/L ALT 55 H (4-49) U/L Alkaline Phosphatase 137 H (38-126) U/L Troponin I (0.000-0.034) ng/mL Total Protein 7.5 (6.3-8.2) g/dL Albumin 4.7 (3.5-5.0) g/dL 07/20/22 Range/Units 20:16 WBC (3.8-10.6) k/uL RBC (4.30-5.90) m/uL Hgb (13.0-17.5) gm/dL Hct (39.0-53.0) % MCV (80.0-100.0) fL MCH (25.0-35.0) pg MCHC (31.0-37.0) g/dL RDW (11.5-15.5) % Plt Count (150-450) k/uL MPV Neutrophils % % Lymphocytes % % Monocytes % % Eosinophils % % Basophils % % Neutrophils # (1.3-7.7) k/uL Lymphocytes # (1.0-4.8) k/uL Monocytes # (0-1.0) k/uL Eosinophils # (0-0.7) k/uL Basophils # (0-0.2) k/uL Hypochromasia PT (9.0-12.0) sec INR (<1.2) APTT (22.0-30.0) sec Sodium (137-145) mmol/L Potassium (3.5-5.1) mmol/L Chloride (98-107) mmol/L Carbon Dioxide (22-30) mmol/L Anion Gap mmol/L BUN (9-20) mg/dL Creatinine (0.66-1.25) mg/dL Est GFR (CKD-EPI)AfAm (>60 ml/min/1.73 sqM) Est GFR (CKD-EPI)NonAf (>60 ml/min/1.73 sqM) Glucose (74-99) mg/dL Calcium (8.4-10.2) mg/dL Magnesium (1.6-2.3) mg/dL Total Bilirubin (0.2-1.3) mg/dL AST (17-59) U/L ALT (4-49) U/L Alkaline Phosphatase (38-126) U/L Troponin I 0.017 (0.000-0.034) ng/mL Total Protein (6.3-8.2) g/dL Albumin (3.5-5.0) g/dL Disposition Clinical Impression: Vertigo, Hyperkalemia, Acute renal failure, Hyponatremia, Hyperbilirubinemia Disposition: ADMITTED IP TO THIS [facility] Referrals: Heath Kirkland MD [Primary Care Provider] - 1-2 days Time of Disposition: 21:34
[2022-07-20] MEDS ORDERED: SODIUM CHLORIDE 0.9% 1,000 ML IV ONE ×2 (19:37→21:39)
[2022-07-20 20:21] LABS: Basophils # (A) 0.1 k/uL (0-0.2); Basophils % (A) 1 %; Eosinophils # (A) 0.1 k/uL (0-0.7); Eosinophils % (A) 1 %; HGB 16.1 gm/dL (13.0-17.5); Hypochromasia Moderate; Lymphocytes # (A) 2.7 k/uL (1.0-4.8); Lymphocytes % (A) 30 %; MCH 30.4 pg (25.0-35.0); MCHC 32.1 g/dL (31.0-37.0); MCV 94.9 fL (80.0-100.0); Mean Platelet Volume 8.8; Monocytes # (A) 0.8 k/uL (0-1.0); Monocytes % (A) 9 %; Neutrophils % (A) 57 %; Platelet Count 255 k/uL (150-450); RBC 5.27 m/uL (4.30-5.90); RDW 15.2 % (11.5-15.5); WBC 8.9 k/uL (3.8-10.6)
[2022-07-20 20:29] LABS: Albumin 4.7 g/dL (3.5-5.0); Calcium 9.4 mg/dL (8.4-10.2); INR 1.5 (<1.2); Partial Thromboplastin Time 27.2 sec (22.0-30.0); Prothrombin Time 15.7 sec (9.0-12.0); Total Bilirubin 2.9 mg/dL (0.2-1.3); Total Protein 7.5 g/dL (6.3-8.2)
[2022-07-20] MEDS ORDERED: CALCIUM CHLORIDE 100 MG/ML 10 ML SYRINGE IVP STA (20:54)
[2022-07-20] MEDS ORDERED: SODIUM POLYSTYRENE SULFONATE 15 GM/60 ML BOTTLE PO STA (20:54)
[2022-07-20] MEDS ORDERED: SODIUM BICARB 8.4% 50 ML SYR (1 MEQ/ML) IV STA (20:55)
--- NOTE | 2022-07-20 21:22 | CT ---
EXAMINATION TYPE: CT brain wo con DATE OF EXAM: 07/20/2022 COMPARISON: 09/26/2021 HISTORY: dizziness CT DLP: 1107.4 mGycm Automated exposure control for dose reduction was used. Images of the brain obtained without contrast. Ventricles of normal size. There is no mass effect or midline shift. No sign of intracranial hemorrha ge. Calvarium is intact. There is normal aeration of the mastoid sinuses. IMPRESSION: Negative unenhanced head CT scan. No change.
--- NOTE | 2022-07-20 21:24 | XR ---
EXAMINATION TYPE: XR chest 2V DATE OF EXAM: 07/20/2022 COMPARISON: 05/21/2022 HISTORY: Chest pain TECHNIQUE: 2 views FINDINGS: Heart is enlarged. There is some mild blunting of the posterior costophrenic angles. No hea rt failure. Bony thorax is intact. There are no hilar masses. IMPRESSION: Cardiomegaly. Small pleural effusions. There is clearing of the mild heart failure compar ed to the old exam.
--- NOTE | 2022-07-21 00:15 | US ---
EXAMINATION TYPE: US gallbladder DATE OF EXAM: 07/21/2022 COMPARISON: NONE CLINICAL HISTORY: Elevated liver enzymes. elevated liver enzymes. Pt states he has been NPO at least 5 hours. TECHNIQUE: Multiple sonographic images of the right upper quadrant are obtained. FINDINGS: EXAM MEASUREMENTS: Liver Length: 15.5 cm Gallbladder Wall: 0.75 cm CBD: 0.23 cm Right Kidney: 11.5 x 4.9 x 5.3 cm PIERCER OPERATOR NOTES: Pancreas: Not well visualized Liver: wnl Gallbladder: Thickened GB wall, contracted GB Evidence for sonographic Dinh's sign: No CBD: wnl Right Kidney: Small cyst seen at mid pole measuring 1.3 x 1.4 x 1.1 cm Free fluid seen in RUQ, RLQ, and LUQ. IMPRESSION: There is moderate abdominal ascites fluid. Mild gallbladder wall thickening. This is probably due to contracted gallbladder. No gallstones. No evidence of pancreatic mass.
[2022-07-21] MEDS ORDERED: MELATONIN 5 MG TABLET PO PRN (01:39)
[2022-07-21] MEDS ORDERED: CALCIUM GLUCONATE IN NACL 1 GM in SALINE 1 100ML.BAG IVPB ONE (03:26)
--- NOTE | 2022-07-21 03:27 | P.HPIM ---
History of Present Illness H&P Date: 07/20/22 The patient is a 67-year-old male with a PMH of nonischemic cardiomyopathy EF 20%, severe aortic stenosis, type II DM, hypertension, hyperlipidemia presents to the emergency room with complaints of dizziness. The patient reports that over the past 3-4 days, he has been experiencing intermittent and gradually worsening lightheadedness. He reports that he has been experiencing lightheade dness whenever he attempts to stand up or with minimal exertion. The patient had previously been evaluated for his severe stenosis but was advised to follow- up with [facility] as he was previously following that and had also been deemed too high a risk. The patient denied experiencing chest discomfort or shortness of breath. Also denied fever, chills, cough, nausea, vomiting, abdominal pain, diarrhea. In the emergency room, the patient had borderline blood pressure at presentation with BP 90/60. EKG reveals sinus bradycardia with first-degree AV block with a prolonged QT interval with T-wave inversion in leads V5 and V6 as well as in inferior leads 2, 3, and aVF. CT brain was unremarkable. Chest x- ray revealed cardiomegaly with no evidence of heart failure. Gallbladder ultrasound revealed moderate abdominal ascitic fluid with mild gallbladder wall thickening. Laboratory evaluation was remarkable for INR 1.5, sodium 126, potassium 6.0, chloride 90, CO2 14, BUN 36, creatinine 1.6 (up from 0.8 baseline), total bilirubin 2.9, AST 62, ALT 55, and alk phos 137 with troponin 0.017. Review of systems: Pertinent positives and negatives as discussed in HPI, a complete review of systems was performed and all other systems are negative. Physical examination: General: non toxic, no distress, appears at stated age, normal weight Derm: no unusual rashes/lesions, warm Head: atraumatic, normocephalic, symmetric Eyes: EOMI, no lid lag, anicteric sclera, pupils equal round reactive to light ENT: Nose and ears atraumatic Neck: No cervical lymphadenopathy, trachea midline, supple Mouth: no lip lesion, mucus membranes moist Cardiovascular: S1S2 reg, systolic murmur grade 4 appreciated, positive dorsalis pedis pulse bilateral, no edema Lungs: CTA bilateral, no rhonchi, no rales, no accessory muscle use Abdominal: soft, nontender to palpation, no guarding Ext: muscle strength 5 out of 5 in all 4 extremities grossly, no gross muscle atrophy, no contractures, Neuro: CN II-XI grossly intact, no gross focal neuro deficits Psych: Alert, oriented, appropriate affect Assessment/plan Hypotension with lightheadedness, may be secondary to severe aortic stenosis -Cardiology consult -Supplement preload judiciously with IV fluids in setting of severe CHF history -Cardiac monitoring -Fall precautions -Echocardiogram -Hold patient's oral diuretics at this time Abnormal liver function tests -May also be secondary to low output liver injury -Patient denied history of hepatitis or alcohol abuse -Send hepatitis serologies -Right upper quadrant ultrasound reviewed -Monitor for now Acute kidney injury, suspect cardiorenal syndrome -Continue with preload increased with IV fluids and monitor for now Hyperkalemia -Hold patient's lisinopril -Continue IV hydration -Monitor for now DVT prophylaxis -Heparin subcu The patient is admitted with an anticipated greater than 2 midnight stay for evaluation of lightheadedness CODE STATUS: Full Code Discussed with: Patient Anticipated discharge date: 07/[address]: Home Past Medical History Past Medical History: Coronary Artery Disease (CAD), Heart Failure, Diabetes Mellitus, GERD/Reflux, Hyperlipidemia, Hypertension, Syncope Additional Past Medical History / Comment(s): Pt denies [place] documented in his 11/07/21 medical record, severe aortic stenosis, NIDDM type II, pulmonary HTN; patient states he was told he is had A. fib in the past, no documentation in the chart and patient is not currently on anticoagulation History of Any Multi-Drug Resistant Organisms: None Reported Past Surgical History: Joint Replacement, Orthopedic Surgery, Tonsillectomy Additional Past Surgical History / Comment(s): Previous cardiac valve surgery done percutaneously to "clean up my valve"/done at [facility], left knee replacement, removal of partial fingers 3rd and 5th digits on left hand, colonoscopy, cyst removed behind L ear Past Anesthesia/Blood Transfusion Reactions: No Reported Reaction Past Psychological History: No Psychological Hx Reported Smoking Status: Current every day smoker Past Alcohol Use History: None Reported Past Drug Use History: None Reported - Past Family History Mother Family Medical History: Hyperlipidemia, Hypertension Father Family Medical History: Cancer, Hypertension Medications and Allergies Home Medications Medication Instructions Recorded Confirmed Type Aspirin EC [Ecotrin Low Dose] 81 mg PO DAILY 11/07/21 07/20/22 History metFORMIN HCL [Glucophage] 1,000 mg PO BID 11/07/21 07/20/22 History Empagliflozin [Jardiance] 10 mg PO DAILY #30 tablet 11/10/21 07/20/22 Rx Nitroglycerin Sl Tabs [Nitrostat] 0.4 mg SUBLINGUAL Q5M PRN #100 tab 11/12/21 07/20/22 Rx Omeprazole 40 mg PO DAILY #30 cap 11/12/21 07/20/22 Rx Metoprolol Tartrate [Lopressor] 12.5 mg PO BID 12/23/21 07/21/22 History Atorvastatin [Lipitor] 40 mg PO DAILY 05/21/22 07/20/22 History Spironolactone [Aldactone] 12.5 mg PO DAILY 05/21/22 07/20/22 History lisinopriL [Zestril] 5 mg PO DAILY 05/21/22 07/20/22 History Furosemide [Lasix] 40 mg PO DAILY 07/20/22 07/20/22 History Allergies Allergy/AdvReac Type Severity Reaction Status Date / Time No Known Allergies Allergy Verified 07/20/22 22:17 Physical Exam Vitals: Vital Signs Temp Pulse Resp BP Pulse Ox 07/20/22 17:52 98 F 73 16 90/60 98 Intake and Output 07/20/22 07/20/22 07/21/22 14:59 22:59 06:59 Other: Weight 61.235 kg Results CBC & Chem 7: 07/20/22 20:16 07/20/22 20:16 Labs: Abnormal Lab Results - Last 24 Hours (Table) 07/20/22 07/20/22 Range/Units 20:16 20:16 PT 15.7 H (9.0-12.0) sec INR 1.5 H (<1.2) Sodium 126 L (137-145) mmol/L Potassium 6.0 H (3.5-5.1) mmol/L Chloride 90 L (98-107) mmol/L Carbon Dioxide 14 L (22-30) mmol/L BUN 36 H (9-20) mg/dL Creatinine 1.62 H (0.66-1.25) mg/dL Glucose 103 H (74-99) mg/dL Total Bilirubin 2.9 H (0.2-1.3) mg/dL AST 62 H (17-59) U/L ALT 55 H (4-49) U/L Alkaline Phosphatase 137 H (38-126) U/L
[2022-07-21] MEDS ORDERED: DEXTROSE 50% SYRINGE 50 ML IVP PRN ×2 (07:09)
[2022-07-21 08:02] LABS: Glucose,Whole Blood 86 mg/dL (70-110)
[2022-07-21 08:16] LABS: HCT 37.2 % (39.0-53.0); MCH 29.6 pg (25.0-35.0); MCHC 32.5 g/dL (31.0-37.0); MCV 91.1 fL (80.0-100.0); Mean Platelet Volume 9.5; Platelet Count 211 k/uL (150-450); RBC 4.08 m/uL (4.30-5.90); RDW 15.6 % (11.5-15.5); WBC 6.5 k/uL (3.8-10.6)
[2022-07-21 08:18] LABS: HGB 12.1 gm/dL (13.0-17.5)
[2022-07-21 08:22] LABS: ALT 197 U/L (4-49); AST 273 U/L (17-59); African American GFR (CKD) 68 (>60 ml/min/1.73 sqM); Albumin 3.3 g/dL (3.5-5.0); Albumin/Globulin Ratio 1.4; Alkaline Phosphatase 103 U/L (38-126); Anion Gap 11 mmol/L; Blood Urea Nitrogen 35 mg/dL (9-20); Carbon Dioxide 23 mmol/L (22-30); Chloride 98 mmol/L (98-107); Globulin 2.3 g/dL; Glucose 79 mg/dL (74-99); Magnesium 1.8 mg/dL (1.6-2.3); Non-African American GFR(CKD) 59 (>60 ml/min/1.73 sqM); Phosphorus 5.3 mg/dL (2.5-4.5); Potassium 3.9 mmol/L (3.5-5.1); Salicylate <1.0 mg/dL; Sodium 132 mmol/L (137-145); Total Bilirubin 1.7 mg/dL (0.2-1.3); Total Protein 5.6 g/dL (6.3-8.2)
[2022-07-21] MEDS: METOPROLOL TARTRATE 12.5 MG TAB PO SCH ×2 (08:24→21:19)
[2022-07-21] MEDS: ATORVASTATIN 40 MG TAB PO SCH (08:25)
[2022-07-21] MEDS: ASPIRIN 81 MG PO SCH (08:25)
[2022-07-21] MEDS: HEPARIN SODIUM,PORCINE/PF 5,000 UNIT/0.5 ML SYRINGE SQ SCH ×3 (08:25→23:47)
[2022-07-21] MEDS: INSULIN ASPART (NovoLOG) 100 UNIT/ML VIAL SQ SCH ×4 (08:26→21:16)
--- NOTE | 2022-07-21 10:03 | P.CRDCN ---
History of Present Illness History of present illness: HISTORY OF PRESENT ILLNESS: This is a 67-year-old male with a past medical history significant for severe nonischemic cardiomyopathy, valvular heart disease with known bicuspid aortic valve and aortic stenosis, hypertension, hyperlipidemia, diabetes, and nicotine dependence. Patient follows in the office with Dr. Brooks. Patient states that over the last 3 days he has been having increased episodes of dizziness and lightheadedness occurring with standing as well as continued episodes of chest pain. He was evaluated in May 2022 with findings of severe aortic stenosis, low-flow low gradient and recommended to have surgical aortic valve replacement. He has desired to perform this workup at [facility]. He has been awaiting changes in his insurance however and therefore has not been to see [facility]. He does still get short of breath with exertion. Denies any lower extremity edema. States he has been eating and drinking okay however was found to have acute kidney injury as well as elevated bilirubin and AST and ALP and therefore was given IV fluids. Blood pressure mainly in the 90s over 60s which given his cardiomyopathy has been the case in the past. Denies any recent fevers, chills, cough. Denies any epigastric pain. * Echocardiogram obtained in October 2021 revealed ejection fraction 20-25%, mild aortic regurgitation, severe aortic stenosis, moderate MR, moderate TR, moderate to severe pulmonary hypertension * Patient underwent CRISTIAN in November 2021 revealing dilated left ventricle with severely impaired function and EF of 20% with global hypokinesis. Bicuspid aortic valve with fusion of the right and left coronary cusps. Moderate MR, mitral valve appears to be thickened. Moderate TR. No evidence of pericardial effusion. * Cardiac catheterization history: November 2021 revealing severe aortic stenosis, pulmonary hypertension, elevated biventricular filling pressures, and intermediate nonobstructive coronary artery disease REVIEW OF SYSTEMS: At the time of my exam: CONSTITUTIONAL: Denies fever or chills. HEENT: Denies blurred vision, vision changes, or eye pain. Denies hemoptysis +Lightheadedness CARDIOVASCULAR: +chest pain. Denies orthopnea. Denies PND. Denies palpitations RESPIRATORY: Denies shortness of breath. GASTROINTESTINAL: Denies abdominal pain. Denies nausea or vomiting. HEMATOLOGIC: Denies bleeding disorders. GENITOURINARY: Denies any blood in urine. SKIN: Denies pruitis. Denies rash. PHYSICAL EXAM: VITAL SIGNS: Reviewed. GENERAL: Well-developed in no acute distress. HEENT: Head is normocephalic. Pupils are equal, round. Sclerae anicteric. Mucous membranes of the mouth are moist. Neck supple. No JVD or thyromegaly LUNGS: Respirations even and unlabored. Lungs diminished with a few bibasilar crackles. HEART: Regular rate and rhythm. S1 and S2 heard. Systolic murmur noted ABDOMEN: Soft. Nondistended. Nontender. EXTREMITIES: Normal range of motion. No clubbing or cyanosis. Peripheral pulses intact. No lower extremity edema NEUROLOGIC: Awake and alert. Oriented x 3. ASSESSMENT: Lightheadedness, likely related to severe aortic stenosis however additionally NARA, elevated AST/ALT and bilirubin. Rule out infectious etiology. Possible component of dehydration Chest pain intermittently, acute coronary syndrome ruled out. Likely related to severe Hyponatremia, appears related to dehydration improved with IV fluids Elevated AST/ALT, bilirubins. Rule out gallbladder disease versus other NARA Chronic heart failure with reduced ejection fraction Intermediate nonobstructive coronary artery disease Severe aortic stenosis Bicuspid aortic valve Valvular heart disease Nonischemic cardiomyopathy Hypertension Hyperlipidemia Diabetes Nicotine dependence Noncompliance with follow-up PLAN: Hold Lasix with much of his symptoms possibly related to his aortic stenosis how ever additionally may be dehydrated with acute kidney injury and elevated liver enzymes. Continue gentle IV fluids. Continue with the remainder of heart failure regimen as tolerated. Maintain map above 60. Discussed importance of follow-up and patient has been delaying follow-up with [facility] surgeons secondary to insurance issues. Discussed with case picker and will attempt to facilitate follow-up with [facility]. Continue supportive care and monitor blood pressure. Rule out any infectious etiology. Past Medical History Past Medical History: Coronary Artery Disease (CAD), Heart Failure, Diabetes Mellitus, GERD/Reflux, Hyperlipidemia, Hypertension, Syncope Additional Past Medical History / Comment(s): Pt denies [place] documented in his 11/07/21 medical record, severe aortic stenosis, NIDDM type II, pulmonary HTN; patient states he was told he is had A. fib in the past, no documentation in the chart and patient is not currently on anticoagulation History of Any Multi-Drug Resistant Organisms: None Reported Past Surgical History: Joint Replacement, Orthopedic Surgery, Tonsillectomy Additional Past Surgical History / Comment(s): Previous cardiac valve surgery done percutaneously to "clean up my valve"/done at [facility], left knee replacement, removal of partial fingers 3rd and 5th digits on left hand, colonoscopy, cyst removed behind L ear Past Anesthesia/Blood Transfusion Reactions: No Reported Reaction Past Psychological History: No Psychological Hx Reported Smoking Status: Current every day smoker Past Alcohol Use History: None Reported Past Drug Use History: None Reported - Past Family History Mother Family Medical History: Hyperlipidemia, Hypertension Father Family Medical History: Cancer, Hypertension Medications and Allergies Home Medications Medication Instructions Recorded Confirmed Type Aspirin EC [Ecotrin Low Dose] 81 mg PO DAILY 11/07/21 07/20/22 History metFORMIN HCL [Glucophage] 1,000 mg PO BID 11/07/21 07/20/22 History Empagliflozin [Jardiance] 10 mg PO DAILY #30 tablet 11/10/21 07/20/22 Rx Nitroglycerin Sl Tabs [Nitrostat] 0.4 mg SUBLINGUAL Q5M PRN #100 tab 11/12/21 07/20/22 Rx Omeprazole 40 mg PO DAILY #30 cap 11/12/21 07/20/22 Rx Metoprolol Tartrate [Lopressor] 12.5 mg PO BID 12/23/21 07/21/22 History Atorvastatin [Lipitor] 40 mg PO DAILY 05/21/22 07/20/22 History Spironolactone [Aldactone] 12.5 mg PO DAILY 05/21/22 07/20/22 History lisinopriL [Zestril] 5 mg PO DAILY 05/21/22 07/20/22 History Furosemide [Lasix] 40 mg PO DAILY 07/20/22 07/20/22 History Allergies Allergy/AdvReac Type Severity Reaction Status Date / Time No Known Allergies Allergy Verified 07/20/22 22:17 Physical Exam Vitals: Vital Signs Temp Pulse Pulse Resp BP BP Pulse Ox 07/21/22 07:47 97.7 F 83 17 92/60 97 07/21/22 01:10 98.0 F 83 16 94/64 98 07/21/22 00:20 97.7 F 78 18 103/72 100 07/20/22 17:52 98 F 73 16 90/60 98 Intake and Output 07/20/22 07/21/22 07/21/22 22:59 06:59 14:59 Other: # Voids 2 Weight 61.235 kg 61.235 kg Results 07/21/22 07:33 07/21/22 07:33 Cardiac Enzymes 07/20/22 07/20/22 07/21/22 Range/Units 20:16 20:16 07:33 AST 62 H 273 H (17-59) U/L Troponin I 0.017 (0.000-0.034) ng/mL Coagulation 07/20/22 Range/Units 20:16 PT 15.7 H (9.0-12.0) sec APTT 27.2 (22.0-30.0) sec CBC 07/20/22 07/21/22 Range/Units 20:16 07:33 WBC 8.9 6.5 (3.8-10.6) k/uL RBC 5.27 4.08 L (4.30-5.90) m/uL Hgb 16.1 12.1 L D (13.0-17.5) gm/dL Hct 50.0 37.2 L (39.0-53.0) % Plt Count 255 211 (150-450) k/uL Comprehensive Metabolic Panel 07/20/22 07/21/22 Range/Units 20:16 07:33 Sodium 126 L 132 L (137-145) mmol/L Potassium 6.0 H 3.9 (3.5-5.1) mmol/L Chloride 90 L 98 (98-107) mmol/L Carbon Dioxide 14 L 23 (22-30) mmol/L BUN 36 H 35 H (9-20) mg/dL Creatinine 1.62 H 1.27 H (0.66-1.25) mg/dL Glucose 103 H 79 (74-99) mg/dL Calcium 9.4 9.0 (8.4-10.2) mg/dL AST 62 H 273 H (17-59) U/L ALT 55 H 197 H (4-49) U/L Alkaline Phosphatase 137 H 103 (38-126) U/L Total Protein 7.5 5.6 L (6.3-8.2) g/dL Albumin 4.7 3.3 L (3.5-5.0) g/dL Current Medications Generic Name Dose Route Start Last Admin Trade Name Freq PRN Reason Stop Dose Admin Aspirin 81 mg 07/21/22 09:00 07/21/22 08:25 Aspirin 81 Mg PO 81 mg DAILY TIFFANY Administration Atorvastatin Calcium 40 mg 07/21/22 09:00 07/21/22 08:25 Atorvastatin 40 Mg Tab PO 40 mg DAILY TIFFANY Administration Dextrose/Water 25 ml 07/21/22 07:09 Dextrose 50% Syringe 50 Ml IVP PER PROTOCOL PRN Hypoglycemia Protocol Dextrose/Water 50 ml 07/21/22 07:09 Dextrose 50% Syringe 50 Ml IVP PER PROTOCOL PRN Hypoglycemia Protocol Heparin Sodium (Porcine) 5,000 unit 07/21/22 08:00 07/21/22 08:25 Heparin Sodium,Porcine/Pf 5,000 Unit/0.5 Ml Syringe SQ 5,000 unit Q8HR TIFFANY Administration Sodium Chloride 1,000 mls @ 75 mls/hr 07/20/22 21:39 07/21/22 00:05 Saline 0.9% IV 07/21/22 10:58 75 mls/hr .[id number] ONE Administration Insulin Aspart 0 unit 07/21/22 07:30 07/21/22 08:26 Insulin Aspart (Novolog) 100 Unit/Ml Vial SQ Not Given ACHS TIFFANY Protocol Melatonin 5 mg 07/21/22 01:39 Melatonin 5 Mg Tablet PO HS PRN Insomnia Metoprolol Tartrate 12.5 mg 07/21/22 09:00 07/21/22 08:24 Metoprolol Tartrate 12.5 Mg Tab PO Not Given BID TIFFANY Intake and Output 07/20/22 07/21/22 07/21/22 22:59 06:59 14:59 Other: # Voids 2 Weight 61.235 kg 61.235 kg 07/21/22 07:33 07/21/22 07:33
[2022-07-21 11:24] LABS: Glucose,Whole Blood 132 mg/dL (70-110)
[2022-07-21 11:25] LABS: Hepatitis B Surface AB- Quant 3.5 mIU/mL; Hepatitis B Surface Antibody Nonreactive (Nonreactive)
[2022-07-21 11:27] LABS: Hepatitis A Antibody IgM Nonreactive (Nonreactive)
[2022-07-21 11:28] LABS: Hepatitis B Core IgM Nonreactive (Nonreactive); Hepatitis B Surface Antigen Nonreactive (Nonreactive); Hepatitis C IgG Antibody Nonreactive (Nonreactive)
[2022-07-21 11:33] LABS: Hepatitis A Ab, Total Nonreactive (Nonreactive); Hepatitis B Surface Antigen Nonreactive (Nonreactive); Hepatitis C IgG Antibody Nonreactive (Nonreactive)
[2022-07-21 16:56] LABS: Glucose,Whole Blood 79 mg/dL (70-110)
--- NOTE | 2022-07-21 18:04 | P.PN ---
Subjective Progress Note Date: 07/21/22 (delayed charting seen at 1030) Patient is a 67-year-old male with nonischemic cardiomyopathy EF <20%, severe aortic stenosis, type II DM, hypertension, and hyperlipidemia presents to the emergency room with complaints of dizziness. In the emergency room, the patient had borderline blood pressure at presentation with BP 90/60. EKG reveals sinus bradycardia with first-degree AV block with a prolonged QT interval with T-wave inversion in leads V5 and V6 as well as in inferior leads 2, 3, and aVF. CT brain was unremarkable. Chest x-ray revealed cardiomegaly with no evidence of heart failure. Gallbladder ultrasound revealed moderate abdominal ascitic fluid with mild gallbladder wall thickening. Laboratory evaluation was remarkable for INR 1.5, sodium 126, potassium 6.0, chloride 90, CO2 14, BUN 36, creatinine 1.6 (up from 0.8 baseline), total bilirubin 2.9, AST 62, ALT 55, and alk phos 137 with troponin 0.017. He was admitted for symptomatic hypotension which was thought to be secondary to severe aortic stenosis. He was started on gentle IV fluids. Cardiology was consulted. Patient seen and examined at bedside. He is feeling better than yesterday. He has not had any additional dizziness. Denies any nausea, vomiting, or abdominal pain. General: nontoxic, no distress, appears at stated age Derm: warm, dry Head: atraumatic, normocephalic, symmetric Eyes: EOMI, no lid lag, anicteric sclera Mouth: no lip lesion, mucus membranes moist Cardiovascular: S1S2 reg, grade 4 systolic ejection murmur, positive posterior tibial pulse bilateral, Lungs: Decreased breath sounds bilateral, no rhonchi, no rales , no accessory muscle use Abdominal: soft, nontender to palpation, no guarding, no appreciable organomegaly Ext: no gross muscle atrophy, no edema, no contractures Neuro: CN II-XI grossly intact, no focal neuro deficits Psych: Alert, oriented, appropriate affect Assessment/plan Hypotension with lightheadedness, may be secondary to severe aortic stenosis -Cardiology recommendations appreciated - Gentle IV fluids -Cardiac monitoring -Fall precautions -Echocardiogram -Hold patient's oral diuretics at this time, Lisinopril held due to NARA Abnormal liver function tests -May also be secondary to low output liver injury -Patient denied history of hepatitis or alcohol abuse -Hepatitis serologies negative -Right upper quadrant ultrasound with ascities without sholecystitis -Monitor for now Acute kidney injury, suspect cardiorenal syndrome -IV fluids - Avoid nephrotoxic agets - Follow renal function - Lisinopril and diuretics held due to NARA Diabetes mellitus type 2 -A1c 6.6 -hold metformin, resume jardiance -SSI - follow Bs - outpatient follow-up Hyperkalemia, resolved Hyponatremia, resolved Anion gap metabolic acidosis, resolved DVT prophylaxis: Heparin Discussed with: Patient Anticipated discharge date: 07/[address]: Home Objective - Vital Signs Vital signs: Vital Signs Temp 97.8 F 07/21/22 14:00 Pulse 83 07/21/22 14:00 Resp 16 07/21/22 14:00 BP 97/62 07/21/22 16:03 Pulse Ox 98 07/21/22 14:00 FiO2 Intake & Output 07/20/22 07/21/22 07/21/22 18:59 06:59 18:59 Intake Total 250 Balance 250 Weight 61.235 kg 61.235 kg Intake: Intake, IV Titration 250 Amount Calcium Gluconate in NaCl 100 1 gm In Saline 1 100ml. bag @ 100 mls/hr IVPB ONCE ONE Rx#:[id number] Sodium Chloride 0.9% 1, 150 000 ml @ 75 mls/hr IV . [id number] ONE Rx#:[id number] Other: # Voids 2 - Labs CBC & Chem 7: 07/21/22 07:33 07/21/22 07:33 Labs: Abnormal Lab Results - Last 24 Hours (Table) 07/20/22 07/20/22 07/21/22 Range/Units 20:16 20:16 07:33 RBC (4.30-5.90) m/uL Hgb (13.0-17.5) gm/dL Hct (39.0-53.0) % RDW (11.5-15.5) % PT 15.7 H (9.0-12.0) sec INR 1.5 H (<1.2) Sodium 126 L 132 L (137-145) mmol/L Potassium 6.0 H (3.5-5.1) mmol/L Chloride 90 L (98-107) mmol/L Carbon Dioxide 14 L (22-30) mmol/L BUN 36 H 35 H (9-20) mg/dL Creatinine 1.62 H 1.27 H (0.66-1.25) mg/dL Glucose 103 H (74-99) mg/dL POC Glucose (mg/dL) (70-110) mg/dL Hemoglobin A1c (0.0-6.0) % Phosphorus 5.3 H (2.5-4.5) mg/dL Total Bilirubin 2.9 H 1.7 H (0.2-1.3) mg/dL AST 62 H 273 H (17-59) U/L ALT 55 H 197 H (4-49) U/L Alkaline Phosphatase 137 H (38-126) U/L Total Protein 5.6 L (6.3-8.2) g/dL Albumin 3.3 L (3.5-5.0) g/dL 07/21/22 07/21/22 07/21/22 Range/Units 07:33 07:33 11:23 RBC 4.08 L (4.30-5.90) m/uL Hgb 12.1 L D (13.0-17.5) gm/dL Hct 37.2 L (39.0-53.0) % RDW 15.6 H (11.5-15.5) % PT (9.0-12.0) sec INR (<1.2) Sodium (137-145) mmol/L Potassium (3.5-5.1) mmol/L Chloride (98-107) mmol/L Carbon Dioxide (22-30) mmol/L BUN (9-20) mg/dL Creatinine (0.66-1.25) mg/dL Glucose (74-99) mg/dL POC Glucose (mg/dL) 132 H (70-110) mg/dL Hemoglobin A1c 6.6 H (0.0-6.0) % Phosphorus (2.5-4.5) mg/dL Total Bilirubin (0.2-1.3) mg/dL AST (17-59) U/L ALT (4-49) U/L Alkaline Phosphatase (38-126) U/L Total Protein (6.3-8.2) g/dL Albumin (3.5-5.0) g/dL
[2022-07-21 20:47] LABS: Glucose,Whole Blood 132 mg/dL (70-110)
[2022-07-22 07:34] LABS: Glucose,Whole Blood 111 mg/dL (70-110)
[2022-07-22 07:50] VITALS: PULSE 73; RESP 16; TEMP 98.1
[2022-07-22] MEDS: INSULIN ASPART (NovoLOG) 100 UNIT/ML VIAL SQ SCH ×2 (08:18→11:44)
[2022-07-22 08:27] LABS: ALT 214 U/L (4-49); AST 202 U/L (17-59); African American GFR (CKD) >90 (>60 ml/min/1.73 sqM); Albumin 3.3 g/dL (3.5-5.0); Albumin/Globulin Ratio 1.3; Alkaline Phosphatase 98 U/L (38-126); Blood Urea Nitrogen 27 mg/dL (9-20); Calcium 8.3 mg/dL (8.4-10.2); Carbon Dioxide 27 mmol/L (22-30); Globulin 2.5 g/dL; Glucose 119 mg/dL (74-99); Magnesium 1.8 mg/dL (1.6-2.3); Non-African American GFR(CKD) 89 (>60 ml/min/1.73 sqM); Potassium 3.5 mmol/L (3.5-5.1); Sodium 133 mmol/L (137-145); Total Bilirubin 1.8 mg/dL (0.2-1.3); Total Protein 5.8 g/dL (6.3-8.2)
[2022-07-22 08:37] LABS: Anion Gap 9 mmol/L; Chloride 97 mmol/L (98-107)
[2022-07-22 08:45] LABS: HCT 39.9 % (39.0-53.0); HGB 13.1 gm/dL (13.0-17.5); Hypochromasia Slight; MCH 30.6 pg (25.0-35.0); MCHC 32.8 g/dL (31.0-37.0); MCV 93.2 fL (80.0-100.0); Mean Platelet Volume 9.3; Platelet Count 176 k/uL (150-450); RBC 4.28 m/uL (4.30-5.90); RDW 15.9 % (11.5-15.5); WBC 7.1 k/uL (3.8-10.6)
[2022-07-22] MEDS ORDERED: DAPAGLIFLOZIN PROPANEDIOL 5 MG TABLET PO SCH (09:00)
[2022-07-22] MEDS: METOPROLOL TARTRATE 12.5 MG TAB PO SCH (09:11)
[2022-07-22] MEDS: ASPIRIN 81 MG PO SCH (09:11)
[2022-07-22] MEDS: ATORVASTATIN 40 MG TAB PO SCH (09:11)
[2022-07-22] MEDS: HEPARIN SODIUM,PORCINE/PF 5,000 UNIT/0.5 ML SYRINGE SQ SCH (09:11)
[2022-07-22] MEDS ORDERED: HYDROcodone/APAP 5-325MG 1 EACH TAB PO PRN (09:28)
[2022-07-22 09:41] VITALS: BP 91/68
--- NOTE | 2022-07-22 09:53 | P.PN ---
Subjective Progress Note Date: 07/22/22 HISTORY OF PRESENT ILLNESS: This is a 67-year-old male with a past medical history significant for severe nonischemic cardiomyopathy, valvular heart disease with known bicuspid aortic valve and aortic stenosis, hypertension, hyperlipidemia, diabetes, and nicotine dependence. Patient follows in the office with Dr. Brooks. Patient states that over the last 3 days he has been having increased episodes of dizziness and lightheadedness occurring with standing as well as continued episodes of chest pain. He was evaluated in May 2022 with findings of severe aortic stenosis, low-flow low gradient and recommended to have surgical aortic valve replacement. He has desired to perform this workup at [facility]. He has been awaiting changes in his insurance however and therefore has not been to see [facility]. He does still get short of breath with exertion. Denies any lower extremity edema. States he has been eating and drinking okay however was found to have acute kidney injury as well as elevated bilirubin and AST and ALP and therefore was given IV fluids. Blood pressure mainly in the 90s over 60s which given his cardiomyopathy has been the case in the past. Denies any recent fevers, chills, cough. Denies any epigastric pain. * Echocardiogram obtained in October 2021 revealed ejection fraction 20-25%, mild aortic regurgitation, severe aortic stenosis, moderate MR, moderate TR, moderate to severe pulmonary hypertension * Patient underwent CRISTIAN in November 2021 revealing dilated left ventricle with severely impaired function and EF of 20% with global hypokinesis. Bicuspid aortic valve with fusion of the right and left coronary cusps. Moderate MR, mitral valve appears to be thickened. Moderate TR. No evidence of pericardial effusion. * Cardiac catheterization history: November 2021 revealing severe aortic stenosis, pulmonary hypertension, elevated biventricular filling pressures, and intermediate nonobstructive coronary artery disease 07/22/2022 Patient examined this morning at the bedside. Patient denied chest pain or pressure. He denied SOB. He states he has been able to walk to the bathroom wi thout difficulty. He denies dizziness or lightheadedness. Vital signs are stable. Blood pressure remains in the 90-100s systolic. Telemetry reveals sinus mechanism. Patient did have a run of nonsustained VT yesterday evening. PHYSICAL EXAM: VITAL SIGNS: Reviewed. GENERAL: Well-developed in no acute distress. NECK: Supple. No JVD or thyromegaly LUNGS: Respirations even and unlabored. Lungs essentially clear to auscultation bilaterally. HEART: Regular rate and rhythm. S1 and S2 heard. Systolic murmur noted. EXTREMITIES: Normal range of motion. No clubbing or cyanosis. Peripheral pulses intact. No lower extremity edema ASSESSMENT: Lightheadedness, likely related to severe aortic stenosis however additionally NARA, elevated AST/ALT and bilirubin. Rule out infectious etiology. Possible component of dehydration Chest pain intermittently, acute coronary syndrome ruled out. Likely related to severe Hyponatremia, appears related to dehydration improved with IV fluids Elevated AST/ALT, bilirubins. Rule out gallbladder disease versus other NARA Chronic heart failure with reduced ejection fraction Intermediate nonobstructive coronary artery disease Severe aortic stenosis Bicuspid aortic valve Valvular heart disease Nonischemic cardiomyopathy Hypertension Hyperlipidemia Diabetes Nicotine dependence Noncompliance with follow-up Nonsustained ventricular tachycardia PLAN: Continue current cardiac medications Continue to hold lisinopril at discharge due to soft blood pressures Hold Lasix and Aldactone at discharge as well Continue telemetry monitoring. Patient unlikely to tolerate increasing dose of beta kelly due to soft blood pressures so will continue with current dose for now. Continue to monitor blood pressure Further recommendations pending patient course Nurse practitioner note has been reviewed by physician. Signing provider agrees with the documented findings, assessment, and plan of care. Objective - Vital Signs Vital signs: Vital Signs Temp 98.1 F 07/22/22 08:00 Pulse 73 07/22/22 08:00 Resp 16 07/22/22 08:00 BP 91/68 07/22/22 09:38 Pulse Ox 99 07/22/22 08:00 FiO2 Intake & Output 07/21/22 07/22/22 07/22/22 18:59 06:59 18:59 Intake Total 250 1260 Output Total 400 2225 Balance -150 -965 Weight 68.4 kg Intake: Intake, IV Titration 250 Amount Calcium Gluconate in NaCl 100 1 gm In Saline 1 100ml. bag @ 100 mls/hr IVPB ONCE ONE Rx#:[id number] Sodium Chloride 0.9% 1, 150 000 ml @ 75 mls/hr IV . [id number] ONE Rx#:[id number] Oral 1260 Output: Urine 400 2225 Other: # Voids 425 - Labs CBC & Chem 7: 07/22/22 07:58 07/22/22 07:58 Labs: Abnormal Lab Results - Last 24 Hours (Table) 07/21/22 07/21/22 07/21/22 Range/Units 07:33 11:23 20:45 RBC (4.30-5.90) m/uL RDW (11.5-15.5) % Sodium (137-145) mmol/L Chloride (98-107) mmol/L BUN (9-20) mg/dL Glucose (74-99) mg/dL POC Glucose (mg/dL) 132 H 132 H (70-110) mg/dL Hemoglobin A1c 6.6 H (0.0-6.0) % Calcium (8.4-10.2) mg/dL Total Bilirubin (0.2-1.3) mg/dL AST (17-59) U/L ALT (4-49) U/L Total Protein (6.3-8.2) g/dL Albumin (3.5-5.0) g/dL 07/22/22 07/22/22 07/22/22 Range/Units 07:32 07:58 07:58 RBC 4.28 L (4.30-5.90) m/uL RDW 15.9 H (11.5-15.5) % Sodium 133 L (137-145) mmol/L Chloride 97 L (98-107) mmol/L BUN 27 H (9-20) mg/dL Glucose 119 H (74-99) mg/dL POC Glucose (mg/dL) 111 H (70-110) mg/dL Hemoglobin A1c (0.0-6.0) % Calcium 8.3 L (8.4-10.2) mg/dL Total Bilirubin 1.8 H (0.2-1.3) mg/dL AST 202 H (17-59) U/L ALT 214 H (4-49) U/L Total Protein 5.8 L (6.3-8.2) g/dL Albumin 3.3 L (3.5-5.0) g/dL
[2022-07-22 11:38] LABS: Glucose,Whole Blood 115 mg/dL (70-110)
--- NOTE | 2022-07-22 15:10 | P.DS ---
Providers Date of admission: 07/20/22 21:40 Attending physician: Melonie Penaloza MD Consults: 07/21/22 03:24 Consult Physician Urgent Consulting Provider: Bogdan Ayala Consult Reason/Comments: Severe , lightheadedness Do you want consulting provider notified?: Yes Primary care physician: Heath Kirkland MD Hospital Course: Discharge Diagnosis: Hypotension with lightheadedness, may be secondary to severe aortic stenosis Transaminitis, suspect due to hypotension NARA Hyperkalemia, resolved Hyponatremia, resolved Anion gap metabolic acidosis, resolved Chronic heart failure with reduced ejection fraction, EF <20%, Nonischemic cardiomyopathy Intermediate nonobstructive coronary artery disease Severe aortic stenosis Bicuspid aortic valve Hypertension Hyperlipidemia Diabetes mellitus type 2 Nicotine dependence Nonsustained ventricular tachycardia Hospital Course: Patient is a 67-year-old male with nonischemic cardiomyopathy EF <20%, severe aortic stenosis, type II DM, hypertension, and hyperlipidemia presented to the emergency room with complaints of dizziness. In the emergency room, the patient had borderline blood pressure at presentation with BP 90/60. EKG reveals sinus bradycardia with first-degree AV block with a prolonged QT interval with T-wave inversion in leads V5 and V6 as well as in inferior leads 2, 3, and aVF. CT brain was unremarkable. Chest x-ray revealed cardiomegaly with no evidence of heart failure. Gallbladder ultrasound revealed moderate abdominal ascitic fluid with mild gallbladder wall thickening. Laboratory evaluation was remarkable for INR 1.5, sodium 126, potassium 6.0, chloride 90, CO2 14, BUN 36, creatinine 1.6 (up from 0.8 baseline), total bilirubin 2.9, AST 62, ALT 55, and alk phos 137 with troponin 0.017. He was admitted for symptomatic hypotension which was thought to be secondary to severe aortic stenosis. He was started on gentle IV fluids. Cardiology was consulted. He had improvement with IV fluids. He had negative orthostatic vital signs. Cardiology recommended staying off of diuretics and lisinopril secondary to severe aortic stenosis. He did have a 15 beat run of nonsustained V. tach. Cardiology did not recommend a LifeVest at this time. Patient was determined stable for discharge home. Follow-up: Discontinued medications: Lisinopril, Lasix, Aldactone Dr. Ayala in 1 week. Patient to make appointment with [facility]. Again encouraged the patient is reluctant Follow-up with Dr. Kirkland in 2 days Patient seen and examined at bedside. Having some right arm pain after the IV infiltrated yesterday. Denies any chest pain or shortness of breath at this time. Dizziness is resolved. We again talked about the importance of following up a few of them and taking medications as prescribed. Vital signs reviewed and stable. General: nontoxic, no distress, appears at stated age Derm: warm, dry Head: atraumatic, normocephalic, symmetric Eyes: EOMI, no lid lag, anicteric sclera Mouth: no lip lesion, mucus membranes moist Cardiovascular: S1S2 reg, with grade 3 systolic ejection murmur, positive posterior tibial pulse bilateral, Lungs: CTA bilateral, no rhonchi, no rales , no accessory muscle use Abdominal: soft, nontender to palpation, no guarding, no appreciable organomegaly Ext: no gross muscle atrophy, no edema, no contractures Neuro: CN II-XI grossly intact, no focal neuro deficits Psych: Alert, oriented, appropriate affect A total of 37 minutes of time were spent preparing this complex discharge summary. Patient was discharged on 07/22/22. Plan - Discharge Summary New Discharge Prescriptions: Continue metFORMIN HCL [Glucophage] 1,000 mg PO BID Nitroglycerin Sl Tabs [Nitrostat] 0.4 mg SUBLINGUAL Q5M PRN #100 tab PRN Reason: Chest Pain Metoprolol Tartrate [Lopressor] 12.5 mg PO BID Aspirin EC [Ecotrin Low Dose] 81 mg PO DAILY Empagliflozin [Jardiance] 10 mg PO DAILY #30 tablet Omeprazole 40 mg PO DAILY #30 cap Atorvastatin [Lipitor] 40 mg PO DAILY Discontinued lisinopriL [Zestril] 5 mg PO DAILY Furosemide [Lasix] 40 mg PO DAILY Spironolactone [Aldactone] 12.5 mg PO DAILY Discharge Medication List Aspirin EC [Ecotrin Low Dose] 81 mg PO DAILY 11/07/21 [History] metFORMIN HCL [Glucophage] 1,000 mg PO BID 11/07/21 [History] Empagliflozin [Jardiance] 10 mg PO DAILY #30 tablet 11/10/21 [Rx] Nitroglycerin Sl Tabs [Nitrostat] 0.4 mg SUBLINGUAL Q5M PRN #100 tab 11/12/21 [Rx] Omeprazole 40 mg PO DAILY #30 cap 11/12/21 [Rx] Metoprolol Tartrate [Lopressor] 12.5 mg PO BID 12/23/21 [History] Atorvastatin [Lipitor] 40 mg PO DAILY 05/21/22 [History] Follow up Appointment(s)/Referral(s): Bogdan Ayala MD [Family Provider] - 07/30/22 1:30 pm (At ,ain ) Heath Kirkland MD [Primary Care Provider] - 08/02/22 1:40 pm () Patient Instructions/Handouts: Vertigo (DC) Activity/Diet/Wound Care/Special Instructions: Activity: as tolerated Diet: heart healthy Special Instructions: Please establish with [facility] for your valve replacement Keep track of your daily weights as you are off diuretics Discharge Disposition: HOME SELF-CARE
== END 2022-07-22 13:33 | disposition home or self-care (01) | DRG 307 ==
LOC: EC 17:50 → 4SSUR 21:40
PROVIDERS: ADMIT Internal Medicine; ATTEND Internal Medicine
DX: I08.3 Combined rheumatic disorders of mitral, aortic and tricuspid valves (principal); I47.20 Ventricular tachycardia, unspecified; N17.9 Acute kidney failure, unspecified; E87.20 Acidosis, unspecified; I42.8 Other cardiomyopathies; R18.8 Other ascites; E87.1 Hypo-osmolality and hyponatremia; Q23.1 Congenital insufficiency of aortic valve; R17 Unspecified jaundice; I50.22 Chronic systolic (congestive) heart failure; I27.20 Pulmonary hypertension, unspecified; I11.0 Hypertensive heart disease with heart failure; E11.9 Type 2 diabetes mellitus without complications; I95.89 Other hypotension; I25.10 Atherosclerotic heart disease of native coronary artery without angina pectoris; E78.5 Hyperlipidemia, unspecified; F17.210 Nicotine dependence, cigarettes, uncomplicated; R00.1 Bradycardia, unspecified; E86.0 Dehydration; E87.5 Hyperkalemia; R74.01 Elevation of levels of liver transaminase levels; I44.0 Atrioventricular block, first degree; Z91.199 Patient's noncompliance with other medical treatment and regimen due to unspecified reason; R79.89 Other specified abnormal findings of blood chemistry; Z79.899 Other long term (current) drug therapy; Z79.84 Long term (current) use of oral hypoglycemic drugs; Z79.82 Long term (current) use of aspirin
CPT/HCPCS: 36415; 70450; 71046; 76705; 80053; 80074; 80179; 83036; 83735; 83880; 84100; 84484; 85025; 85027; 85610; 85730; 86704; 86706; 86708; 86803; 87340; 93005; 96360; 96361; 99285

== ENCOUNTER 2022-07-23 15:38 | Observation (INO) | payer MEDICARE ==
--- NOTE | 2022-07-23 17:04 | XR ---
EXAMINATION TYPE: XR chest 2V DATE OF EXAM: 07/23/2022 COMPARISON: 07/20/2022 HISTORY: Chest pain TECHNIQUE: FINDINGS: Heart appears slightly enlarged. There is blunting of the costophrenic angles. There is min imal pulmonary congestion. There are no hilar masses. Bony thorax is intact IMPRESSION: Mild congestive heart failure with slight increased pulmonary congestion compared to old exam. Small pleural effusions are increased.
[2022-07-23 17:45] LABS: Basophils % (A) 1 %; Eosinophils # (A) 0.1 k/uL (0-0.7); Eosinophils % (A) 1 %; HCT 42.4 % (39.0-53.0); HGB 13.9 gm/dL (13.0-17.5); Hypochromasia Slight; Lymphocytes # (A) 1.8 k/uL (1.0-4.8); Lymphocytes % (A) 22 %; MCH 30.3 pg (25.0-35.0); MCHC 32.9 g/dL (31.0-37.0); Mean Platelet Volume 8.7; Monocytes # (A) 0.7 k/uL (0-1.0); Monocytes % (A) 9 %; Neutrophils # (A) 5.3 k/uL (1.3-7.7); Neutrophils % (A) 65 %; Platelet Count 201 k/uL (150-450); RDW 15.9 % (11.5-15.5); WBC 8.2 k/uL (3.8-10.6)
[2022-07-23 17:54] LABS: INR 1.2 (<1.2); Partial Thromboplastin Time 25.9 sec (22.0-30.0); Prothrombin Time 13.1 sec (9.0-12.0)
[2022-07-23 17:55] LABS: ALT 183 U/L (4-49); AST 128 U/L (17-59); African American GFR (CKD) >90 (>60 ml/min/1.73 sqM); Alkaline Phosphatase 131 U/L (38-126); Anion Gap 12 mmol/L; Blood Urea Nitrogen 26 mg/dL (9-20); Calcium 9.1 mg/dL (8.4-10.2); Carbon Dioxide 24 mmol/L (22-30); Chloride 97 mmol/L (98-107); Glucose 101 mg/dL (74-99); Non-African American GFR(CKD) 87 (>60 ml/min/1.73 sqM); Potassium 4.5 mmol/L (3.5-5.1); Sodium 133 mmol/L (137-145); Total Bilirubin 1.9 mg/dL (0.2-1.3); Total Protein 6.7 g/dL (6.3-8.2)
[2022-07-23] MEDS ORDERED: NITROGLYCERIN SL TABS 0.4 MG TAB SUBLINGUAL PRN (21:13)
[2022-07-23] MEDS ORDERED: ASPIRIN 81 MG PO STA (21:13)
--- NOTE | 2022-07-23 21:19 | ED ---
General Adult HPI - General Chief complaint: Chest Pain Stated complaint: Dizzy Time Seen by Provider: 07/23/22 21:02 Source: patient Mode of arrival: ambulatory Limitations: no limitations - History of Present Illness Initial comments: Dictation was produced using [email or web address] dictation software. please excuse any grammatical, word or spelling errors. Chief Complaint: 67-year-old male extensive cardiac history presents to the ER for chest pain, exertional dyspnea and dizziness History of Present Illness: Is a 67-year-old male he is known to our hospital. Patient is discharged yesterday. Patient has severe cardiomyopathy with 20% e jection fraction. Patient also has severe aortic stenosis. He states that he is here today for chest pain, exertional dyspnea and exertional dizziness. Patient was just discharged from the hospital 2 days ago for similar issues. Patient allegedly is going to have aortic valve replacement performed at the [facility] in [place]. He reports that he is not a candidate for aortic valve replacement in [facility] because he is high risk which was why he is referred to [facility]. Patient states that he has left anterior chest pain. He states that it's dull and sharp at the same time. Not worse with deep inspiration. Does complain of dyspnea and dizziness with exertion. No assoc iated diaphoresis. Pain is nonradiating. The ROS documented in this emergency department record has been reviewed and confirmed by me. Those systems with pertinent positive or negative responses h ave been documented in the HPI. All other systems are other negative and/or noncontributory. PHYSICAL EXAM: General Impression: Alert and oriented x3, not in acute distress HEENT: Normocephalic atraumatic, extra-ocular movements intact, pupils equal and reactive to light bilaterally, mucous membranes moist. Cardiovascular: Heart regular rate and rhythm Chest: Able to complete full sentences, no retractions, no tachypnea Abdomen: abdomen soft, non-tender, non-distended, no organomegaly Musculoskeletal: Pulses present and equal in all extremities, no peripheral edema Motor: no focal deficits noted Neurological: CN II-XII grossly intact, no focal motor or sensory deficits noted Skin: Intact with no visualized rashes Psych: Normal affect and mood ED course: 67-year-old male with severe cardiomyopathy and other cardiac disease presents to the ER for chest pain. Vital signs upon arrival are within acceptable limits. EKG does not show any acute changes in comparison to his old EKGs. Patient had labs and imaging an EKG drawn from triage nurse per HPI protocol. CBC unremarkable. Coag panel is negative. Metabolic panel is within acceptable limits. There is slight elevation in his liver markers which appear to be similar to recent admission. Troponin was 0.023. At the time of my evaluation at approximately 8:50 PM patient is well-appearing. He states does complain of active pain however he does not appear to be in acute distress. Given patient's history of cardiac disease he will be admitted observation. Patient given aspirin. Admitted to [facility]. EKG interpretation: Ventricular rate 101, sinus tachycardia, UT interval 92, care is 125, QTC 419. No UT prolongation, no QTC prolongation, no ST or T-wave changes noted. EKG compared to 07/20/2022 showing no changes. Overall, this EKG is unremarkable - Related Data Home Medications Medication Instructions Recorded Confirmed Aspirin EC [Ecotrin Low Dose] 81 mg PO DAILY 11/07/21 07/20/22 metFORMIN HCL [Glucophage] 1,000 mg PO BID 11/07/21 07/20/22 Metoprolol Tartrate [Lopressor] 12.5 mg PO BID 12/23/21 07/21/22 Atorvastatin [Lipitor] 40 mg PO DAILY 05/21/22 07/20/22 Previous Rx's Medication Instructions Recorded Empagliflozin [Jardiance] 10 mg PO DAILY #30 tablet 11/10/21 Nitroglycerin Sl Tabs [Nitrostat] 0.4 mg SUBLINGUAL Q5M PRN #100 tab 11/12/21 Omeprazole 40 mg PO DAILY #30 cap 11/12/21 Allergies Allergy/AdvReac Type Severity Reaction Status Date / Time No Known Allergies Allergy Verified 07/23/22 16:39 Review of Systems ROS Statement: Those systems with pertinent positive or pertinent negative responses have been documented in the HPI. ROS Other: All systems not noted in ROS Statement are negative. Past Medical History Past Medical History: Coronary Artery Disease (CAD), Heart Failure, Diabetes Mellitus, GERD/Reflux, Hyperlipidemia, Hypertension, Syncope Additional Past Medical History / Comment(s): Pt denies OR documented in his 11/07/21 medical record, severe aortic stenosis, NIDDM type II, pulmonary HTN; patient states he was told he is had A. fib in the past, no documentation in the chart and patient is not currently on anticoagulation History of Any Multi-Drug Resistant Organisms: None Reported Past Surgical History: Joint Replacement, Orthopedic Surgery, Tonsillectomy Additional Past Surgical History / Comment(s): Previous cardiac valve surgery done percutaneously to "clean up my valve"/done at [facility], left knee replacement, removal of partial fingers 3rd and 5th digits on left hand, colonoscopy, cyst removed behind L ear Past Anesthesia/Blood Transfusion Reactions: No Reported Reaction Past Psychological History: No Psychological Hx Reported Smoking Status: Current every day smoker Past Alcohol Use History: None Reported Past Drug Use History: None Reported - Past Family History Mother Family Medical History: Hyperlipidemia, Hypertension Father Family Medical History: Cancer, Hypertension General Exam Limitations: no limitations Course Vital Signs 07/23/22 16:37 Temperature 98.2 F Pulse Rate 105 H Respiratory 20 Rate Blood Pressure 115/68 O2 Sat by Pulse 99 Oximetry Medical Decision Making - Lab Data Result diagrams: 07/23/22 17:27 07/23/22 17:27 Lab Results 07/23/22 07/23/22 07/23/22 Range/Units 17:27 17:27 17:27 WBC 8.2 (3.8-10.6) k/uL RBC 4.60 (4.30-5.90) m/uL Hgb 13.9 (13.0-17.5) gm/dL Hct 42.4 (39.0-53.0) % MCV 92.0 (80.0-100.0) fL MCH 30.3 (25.0-35.0) pg MCHC 32.9 (31.0-37.0) g/dL RDW 15.9 H (11.5-15.5) % Plt Count 201 (150-450) k/uL MPV 8.7 Neutrophils % 65 % Lymphocytes % 22 % Monocytes % 9 % Eosinophils % 1 % Basophils % 1 % Neutrophils # 5.3 (1.3-7.7) k/uL Lymphocytes # 1.8 (1.0-4.8) k/uL Monocytes # 0.7 (0-1.0) k/uL Eosinophils # 0.1 (0-0.7) k/uL Basophils # 0.0 (0-0.2) k/uL Hypochromasia Slight PT 13.1 H (9.0-12.0) sec INR 1.2 H (<1.2) APTT 25.9 (22.0-30.0) sec Sodium 133 L (137-145) mmol/L Potassium 4.5 (3.5-5.1) mmol/L Chloride 97 L (98-107) mmol/L Carbon Dioxide 24 (22-30) mmol/L Anion Gap 12 mmol/L BUN 26 H (9-20) mg/dL Creatinine 0.92 (0.66-1.25) mg/dL Est GFR (CKD-EPI)AfAm >90 (>60 ml/min/1.73 sqM) Est GFR (CKD-EPI)NonAf 87 (>60 ml/min/1.73 sqM) Glucose 101 H (74-99) mg/dL Calcium 9.1 (8.4-10.2) mg/dL Magnesium 2.0 (1.6-2.3) mg/dL Total Bilirubin 1.9 H (0.2-1.3) mg/dL AST 128 H (17-59) U/L ALT 183 H (4-49) U/L Alkaline Phosphatase 131 H (38-126) U/L Troponin I (0.000-0.034) ng/mL Total Protein 6.7 (6.3-8.2) g/dL Albumin 4.0 (3.5-5.0) g/dL 07/23/22 Range/Units 17:27 WBC (3.8-10.6) k/uL RBC (4.30-5.90) m/uL Hgb (13.0-17.5) gm/dL Hct (39.0-53.0) % MCV (80.0-100.0) fL MCH (25.0-35.0) pg MCHC (31.0-37.0) g/dL RDW (11.5-15.5) % Plt Count (150-450) k/uL MPV Neutrophils % % Lymphocytes % % Monocytes % % Eosinophils % % Basophils % % Neutrophils # (1.3-7.7) k/uL Lymphocytes # (1.0-4.8) k/uL Monocytes # (0-1.0) k/uL Eosinophils # (0-0.7) k/uL Basophils # (0-0.2) k/uL Hypochromasia PT (9.0-12.0) sec INR (<1.2) APTT (22.0-30.0) sec Sodium (137-145) mmol/L Potassium (3.5-5.1) mmol/L Chloride (98-107) mmol/L Carbon Dioxide (22-30) mmol/L Anion Gap mmol/L BUN (9-20) mg/dL Creatinine (0.66-1.25) mg/dL Est GFR (CKD-EPI)AfAm (>60 ml/min/1.73 sqM) Est GFR (CKD-EPI)NonAf (>60 ml/min/1.73 sqM) Glucose (74-99) mg/dL Calcium (8.4-10.2) mg/dL Magnesium (1.6-2.3) mg/dL Total Bilirubin (0.2-1.3) mg/dL AST (17-59) U/L ALT (4-49) U/L Alkaline Phosphatase (38-126) U/L Troponin I 0.023 (0.000-0.034) ng/mL Total Protein (6.3-8.2) g/dL Albumin (3.5-5.0) g/dL Disposition Clinical Impression: Chest pain Disposition: ADMITTED IP TO THIS [facility] Condition: Fair Referrals: Heath Kirkland MD [Primary Care Provider] - 1-2 days Decision Time: 21:19
[2022-07-24 02:06] LABS: Chol/HDL Ratio 2.27 Ratio; LDL Cholesterol,Calculated 39.1 mg/dL (0.0-131.0); VLDL Calculation 16.86 mg/dL (5.00-40.00)
--- NOTE | 2022-07-24 03:13 | P.HPIM ---
History of Present Illness H&P Date: 07/23/22 The patient is a 67-year-old male with a PMH of nonischemic cardiomyopathy EF 20%, severe aortic stenosis, type II DM, hypertension, and hyperlipidemia who presents to the emergency room with complaints of chest pain and right arm pain. Patient reports that his right arm pain had started while he was hospitalized, which she believes was at the site of his IV access. He reports that the pain gradually worsened to a 10 out of 10 earlier today. He also reports a substernal pressure-like discomfort, nonpleuritic, with associated shortness of breath, 5 out of 10 on maximal intensity, occurring intermittently, nonexertional. Of note, the patient was recently admitted to the hospital on 07/20 for hypotension suspected secondary to severe aortic stenosis, at which time the patient's antihypertensives and diuretics were discontinued. The patient was encouraged to make an appointment with [facility] for his evaluation for aortic valve replacement/repair. During this interview, the patient denied fever, nausea, vomiting, abdominal pain, diarrhea. EKG in the emergency room revealed sinus tachycardia at 101 bpm with T-wave inversion noted in inferior leads 2, 3, aVF, unchanged from prior. Laboratory evaluation revealed troponin 0.023, BUN 26, creatinine 0.92 (at baseline), AST 128, ALT 183, and alk phos 131. Review of systems: Pertinent positives and negatives as discussed in HPI, a complete review of systems was performed and all other systems are negative. Physical examination: General: non toxic, no distress, appears at stated age, normal weight Derm: no unusual rashes/lesions, warm, no abnormal skin findings noted on right upper extremity Head: atraumatic, normocephalic, symmetric Eyes: EOMI, no lid lag, anicteric sclera, pupils equal round reactive to light ENT: Nose and ears atraumatic Neck: No cervical lymphadenopathy, trachea midline, supple Mouth: no lip lesion, mucus membranes moist Cardiovascular: S1S2 reg, systolic murmur appreciated, positive dorsalis pedis pulse bilateral, no edema Lungs: CTA bilateral, no rhonchi, no rales, no accessory muscle use Abdominal: soft, nontender to palpation, no guarding Ext: muscle strength 5 out of 5 in all 4 extremities grossly, no gross muscle atrophy, no contractures, Neuro: CN II-XI grossly intact, no gross focal neuro deficits Psych: Alert, oriented, appropriate affect Assessment/plan Chest pain and right arm pain, rule out ACS -Cardiology consult -Trend troponin -Suspect related to severe aortic stenosis -Advised patient again that he should make an appointment as soon as possible to follow-up with [facility] -Cardiac monitoring Chronic conditions: Hypertension, HLD, type II DM -Continue with home meds DVT prophylaxis -Heparin subcu The patient is admitted with an anticipated less than 2 midnight stay for evaluation of chest pain CODE STATUS: Full Code Discussed with: Patient Anticipated discharge date: in am Anticipated discharge place: Home Hyperlipidemia, Past Medical History Past Medical History: Coronary Artery Disease (CAD), Heart Failure, Diabetes Mellitus, GERD/Reflux, Hyperlipidemia, Hypertension, Syncope Additional Past Medical History / Comment(s): Pt denies NC documented in his 11/07/21 medical record, severe aortic stenosis, NIDDM type II, pulmonary HTN; patient states he was told he is had A. fib in the past, no documentation in the chart and patient is not currently on anticoagulation History of Any Multi-Drug Resistant Organisms: None Reported Past Surgical History: Joint Replacement, Orthopedic Surgery, Tonsillectomy Additional Past Surgical History / Comment(s): Previous cardiac valve surgery done percutaneously to "clean up my valve"/done at [facility], left knee replacement, removal of partial fingers 3rd and 5th digits on left hand, colonoscopy, cyst removed behind L ear Past Anesthesia/Blood Transfusion Reactions: No Reported Reaction Past Psychological History: No Psychological Hx Reported Smoking Status: Current every day smoker Past Alcohol Use History: None Reported Past Drug Use History: None Reported - Past Family History Mother Family Medical History: Hyperlipidemia, Hypertension Father Family Medical History: Cancer, Hypertension Medications and Allergies Home Medications Medication Instructions Recorded Confirmed Type Aspirin EC [Ecotrin Low Dose] 81 mg PO DAILY 11/07/21 07/23/22 History metFORMIN HCL [Glucophage] 1,000 mg PO BID 11/07/21 07/23/22 History Empagliflozin [Jardiance] 10 mg PO DAILY #30 tablet 11/10/21 07/23/22 Rx Nitroglycerin Sl Tabs [Nitrostat] 0.4 mg SUBLINGUAL Q5M PRN #100 tab 11/12/21 07/23/22 Rx Omeprazole 40 mg PO DAILY #30 cap 11/12/21 07/23/22 Rx Metoprolol Tartrate [Lopressor] 12.5 mg PO BID 12/23/21 07/23/22 History Atorvastatin [Lipitor] 40 mg PO DAILY 05/21/22 07/23/22 History Allergies Allergy/AdvReac Type Severity Reaction Status Date / Time No Known Allergies Allergy Verified 07/23/22 16:39 Physical Exam Vitals: Vital Signs Temp Pulse Resp BP Pulse Ox 07/23/22 16:37 98.2 F 105 H 20 115/68 99 Intake and Output 07/23/22 07/23/22 07/23/22 06:59 14:59 22:59 Other: Weight 68.039 kg Results CBC & Chem 7: 07/23/22 17:27 07/23/22 17:27 Labs: Abnormal Lab Results - Last 24 Hours (Table) 07/23/22 07/23/22 07/23/22 Range/Units 17:27 17:27 17:27 RDW 15.9 H (11.5-15.5) % PT 13.1 H (9.0-12.0) sec INR 1.2 H (<1.2) Sodium 133 L (137-145) mmol/L Chloride 97 L (98-107) mmol/L BUN 26 H (9-20) mg/dL Glucose 101 H (74-99) mg/dL Total Bilirubin 1.9 H (0.2-1.3) mg/dL AST 128 H (17-59) U/L ALT 183 H (4-49) U/L Alkaline Phosphatase 131 H (38-126) U/L
[2022-07-24] MEDS ORDERED: ASPIRIN 325 MG TAB PO SCH (09:00)
[2022-07-24] MEDS: INSULIN ASPART (NovoLOG) 100 UNIT/ML VIAL SQ SCH ×4 (09:16→20:57)
[2022-07-24] MEDS: CEPHALEXIN 500 MG CAP PO SCH ×4 (09:17→20:57)
[2022-07-24] MEDS: METOPROLOL TARTRATE 12.5 MG TAB PO SCH ×2 (09:17→20:57)
[2022-07-24] MEDS: HEPARIN SODIUM,PORCINE/PF 5,000 UNIT/0.5 ML SYRINGE SQ SCH ×3 (09:17→23:30)
[2022-07-24] MEDS ORDERED: MORPHINE SULFATE 2 MG/ML SYRINGE IVP STA (11:27)
[2022-07-24 11:35] LABS: HCT 40.4 % (39.6-50.0); HGB 13.4 g/dL (13.0-17.0); MCH 29.9 pg (27.0-32.0); MCHC 33.2 g/dL (32.0-37.0); MCV 90.2 fL (80.0-97.0); Mean Platelet Volume 11.2 fL (9.5-12.2); NRBC Per 100 WBC 0 /100 WBCS (0.0-0.0); Platelet Count 207 X 10*3/uL (140-440); RBC 4.48 X 10*6/uL (4.40-5.60); RDW 17.8 % (11.5-14.5); WBC 9.09 X 10*3/uL (4.50-10.00)
[2022-07-24 11:53] LABS: African American GFR (CKD) 103.5 (60.0-200.0); Albumin 4.1 g/dL (3.8-4.9); Albumin/Globulin Ratio 1.64 (1.60-3.17); Anion Gap 13.7 mmol/L (10.00-18.00); BUN/Creat Ratio 27.89 Ratio (12.00-20.00); Blood Urea Nitrogen 25.1 mg/dL (9.0-27.0); Calcium 9.2 mg/dL (8.7-10.3); Carbon Dioxide 23.3 mmol/L (20.0-27.5); Globulin 2.5 g/dL (1.6-3.3); Non-African American GFR(CKD) 89.3 (60.0-200.0); Total Bilirubin 2.3 mg/dL (0.30-1.20); Total Protein 6.6 g/dL (6.2-8.2)
--- NOTE | 2022-07-24 12:03 | P.CRDCN ---
History of Present Illness Consult date: 07/24/22 History of present illness: The patient is a 67-year-old male who follows in the office with Dr. Ayala, presented to the emergency room with right arm discomfort. The patient was recently admitted to the hospital with congestive heart failure and severe aortic stenosis. The patient states that he's had tenderness around his previous IV site and he was unable to sleep, therefore he presented to the emergency room. He states he does have shortness of breath, which is unchanged from his previous admission. DIAGNOSTICS: Lab data: CBC 9.09, hemoglobin 13.4, hematocrit 40.4, platelet 207 and a sodium 134, potassium 5.0, BUN 25, creatinine 0.9, magnesium 2.0 him a AST 100, ALT 185, ALP 138, troponins negative 3, LDL 39, triglyceride 84, HDL 44 Chest x-ray shows small pleural effusions PAST MEDICAL HISTORY: CHF, nonischemic cardiomyopathy, coronary artery disease, aortic stenosis, bicuspid aortic valve, current smoker with diabetes REVIEW OF SYSTEMS: No fever or chills. No cough or expectoration. No diaphoresis. Patient denies headache, dizziness, blurred vision, double vision. Patient denies any stomach discomfort. No nausea, vomiting. No hematochezia. No hematemesis. Denies any black stools or blood in his stools. Denies dysuria or hematuria. No muscle weakness or numbness. Positive for shortness of breath. Negative for dizziness or lightheadedness. Denies chest pain. PHYSICAL EXAMINATION: This is a 67-year-old female in no apparent distress at the time of my examination. HEENT: Positive jugular venous distention. No carotid bruit is heard. CHEST EXAMINATION: Lungs are clear to auscultation. No chest wall tenderness is noted on palpation or with deep breathing. HEART EXAMINATION: Heart regular rate and rhythm. S1, S2 heard. Systolic ejection murmur. No gallops or rub. ABDOMEN: Soft, nontender. Bowel sounds are heard. No organomegaly noted. EXTREMITIES: 2+ peripheral pulses with no evidence of peripheral edema and no calf tenderness noted. NEUROLOGIC EXAMINATION: Patient is awake, alert and oriented x3. FINAL ASSESSMENT AND PLAN: Thrombophlebitis, start antibiotics Severe aortic stenosis, awaiting follow-up at the [facility] Acute on chronic congestive heart failure Nonischemic cardiomyopathy, EF less than 20% History of intermediate coronary artery disease PLAN: Resume home medication regimen Start Keflex for thrombophlebitis Further recommendations based on clinical course I am dictating on behalf of Dr Alvin So's history/physical and assessment/plan. Past Medical History Past Medical History: Coronary Artery Disease (CAD), Heart Failure, Diabetes Mellitus, GERD/Reflux, Hyperlipidemia, Hypertension, Syncope Additional Past Medical History / Comment(s): Pt denies PR documented in his 11/07/21 medical record, severe aortic stenosis, NIDDM type II, pulmonary HTN; patient states he was told he is had A. fib in the past, no documentation in the chart and patient is not currently on anticoagulation History of Any Multi-Drug Resistant Organisms: None Reported Past Surgical History: Joint Replacement, Orthopedic Surgery, Tonsillectomy Additional Past Surgical History / Comment(s): Previous cardiac valve surgery done percutaneously to "clean up my valve"/done at [facility], left knee replacement, removal of partial fingers 3rd and 5th digits on left hand, colonoscopy, cyst removed behind L ear Past Anesthesia/Blood Transfusion Reactions: No Reported Reaction Past Psychological History: No Psychological Hx Reported Smoking Status: Current every day smoker Past Alcohol Use History: None Reported Past Drug Use History: None Reported - Past Family History Mother Family Medical History: Hyperlipidemia, Hypertension Father Family Medical History: Cancer, Hypertension Medications and Allergies Home Medications Medication Instructions Recorded Confirmed Type Aspirin EC [Ecotrin Low Dose] 81 mg PO DAILY 11/07/21 07/23/22 History metFORMIN HCL [Glucophage] 1,000 mg PO BID 11/07/21 07/23/22 History Empagliflozin [Jardiance] 10 mg PO DAILY #30 tablet 11/10/21 07/23/22 Rx Nitroglycerin Sl Tabs [Nitrostat] 0.4 mg SUBLINGUAL Q5M PRN #100 tab 11/12/21 07/23/22 Rx Omeprazole 40 mg PO DAILY #30 cap 11/12/21 07/23/22 Rx Metoprolol Tartrate [Lopressor] 12.5 mg PO BID 12/23/21 07/23/22 History Atorvastatin [Lipitor] 40 mg PO DAILY 05/21/22 07/23/22 History Allergies Allergy/AdvReac Type Severity Reaction Status Date / Time No Known Allergies Allergy Verified 07/23/22 16:39 Physical Exam Vitals: Vital Signs Temp Pulse Resp BP Pulse Ox 07/24/22 04:50 69 15 127/76 99 07/24/22 03:00 71 15 117/59 98 07/23/22 23:50 81 15 130/66 99 07/23/22 21:50 88 15 123/71 99 07/23/22 16:37 98.2 F 105 H 20 115/68 99 Intake and Output 07/23/22 07/24/22 07/24/22 22:59 06:59 14:59 Other: Weight 68.039 kg Results 07/24/22 08:09 07/24/22 08:09 Cardiac Enzymes 07/23/22 07/23/22 07/23/22 Range/Units 17:27 17:27 21:56 AST 128 H (17-59) U/L Troponin I 0.023 0.024 (0.000-0.034) ng/mL 07/23/22 Range/Units 23:38 AST (17-59) U/L Troponin I 0.026 (0.000-0.034) ng/mL Coagulation 07/23/22 Range/Units 17:27 PT 13.1 H (9.0-12.0) sec APTT 25.9 (22.0-30.0) sec Lipids 07/23/22 Range/Units 17:27 Triglycerides 84.30 (0.00-149.00) mg/dL Cholesterol 100.00 (0.00-200.00) mg/dL HDL Cholesterol 44.00 (40.00-60.00) mg/dL Cholesterol/HDL Ratio 2.27 Ratio CBC 07/23/22 Range/Units 17:27 WBC 8.2 (3.8-10.6) k/uL RBC 4.60 (4.30-5.90) m/uL Hgb 13.9 (13.0-17.5) gm/dL Hct 42.4 (39.0-53.0) % Plt Count 201 (150-450) k/uL Comprehensive Metabolic Panel 07/23/22 Range/Units 17:27 Sodium 133 L (137-145) mmol/L Potassium 4.5 (3.5-5.1) mmol/L Chloride 97 L (98-107) mmol/L Carbon Dioxide 24 (22-30) mmol/L BUN 26 H (9-20) mg/dL Creatinine 0.92 (0.66-1.25) mg/dL Glucose 101 H (74-99) mg/dL Calcium 9.1 (8.4-10.2) mg/dL AST 128 H (17-59) U/L ALT 183 H (4-49) U/L Alkaline Phosphatase 131 H (38-126) U/L Total Protein 6.7 (6.3-8.2) g/dL Albumin 4.0 (3.5-5.0) g/dL Current Medications Generic Name Dose Route Start Last Admin Trade Name Freq PRN Reason Stop Dose Admin Aspirin 325 mg 07/24/22 09:00 Aspirin 325 Mg Tab PO DAILY [facility] Heparin Sodium (Porcine) 5,000 unit 07/24/22 08:00 Heparin Sodium,Porcine/Pf 5,000 Unit/0.5 Ml Syringe SQ Q8HR [facility] Insulin Aspart 0 unit 07/24/22 07:30 Insulin Aspart (Novolog) 100 Unit/Ml Vial SQ ACHS [facility] Protocol Metoprolol Tartrate 12.5 mg 07/24/22 09:00 Metoprolol Tartrate 12.5 Mg Tab PO BID [facility] Nitroglycerin 0.4 mg 07/23/22 21:13 Nitroglycerin Sl Tabs 0.4 Mg Tab SUBLINGUAL Q5M PRN Chest Pain Intake and Output 07/23/22 07/24/22 07/24/22 22:59 06:59 14:59 Other: Weight 68.039 kg 07/23/22 17:27 07/23/22 17:27
[2022-07-24 12:19] LABS: Glucose,Whole Blood 161 mg/dL (70-110)
--- NOTE | 2022-07-24 14:00 | P.PN ---
Subjective Progress Note Date: 07/24/22 The patient was seen at bedside, he was extremely upset and complaining of his right arm pain which started after they tried IV access on him 4 days ago, he stated that he was unable to sleep because of the pain in its 8 out of 10. Objective - Vital Signs Vital signs: Vital Signs Temp 96 F L 07/24/22 13:19 Pulse 71 07/24/22 13:19 Resp 16 07/24/22 13:19 BP 98/66 07/24/22 13:19 Pulse Ox 99 07/24/22 13:19 FiO2 Intake & Output 07/23/22 07/24/22 07/24/22 18:59 06:59 18:59 Intake Total 118 Balance 118 Weight 68.039 kg 68.039 kg Intake: Oral 118 Other: Voiding Method Toilet - Exam General: [non toxic], [mild distress], [appears at stated age] Derm: [warm], [dry] that is an old martha for IV on his medial aspect of right arm, no swelling or erythema with slight tenderness Head: [atraumatic], [normocephalic], [symmetric] Eyes: [EOMI], [no lid lag], [anicteric sclera] Mouth: [no lip lesion], [mucus membranes moist] Cardiovascular: [S1S2 reg], [no murmur], [positive posterior tibial pulse bilateral], Lungs: [CTA bilateral], [no rhonchi, no rales] , [no accessory muscle use] Abdominal: [soft], [ nontender to palpation], [no guarding], [no appreciable organomegaly] Ext: [no gross muscle atrophy], [no edema], [no contractures] Neuro: [ CN II-XI grossly intact], [no focal neuro deficits] Psych: [Alert], [oriented], [appropriate affect] - Labs CBC & Chem 7: 07/24/22 08:09 07/24/22 08:09 Labs: Abnormal Lab Results - Last 24 Hours (Table) 07/23/22 07/23/22 07/23/22 Range/Units 17:27 17:27 17:27 RDW 15.9 H (11.5-15.5) % PT 13.1 H (9.0-12.0) sec INR 1.2 H (<1.2) Sodium 133 L (137-145) mmol/L Chloride 97 L (98-107) mmol/L BUN 26 H (9-20) mg/dL BUN/Creatinine Ratio (12.00-20.00) Ratio Glucose 101 H (74-99) mg/dL POC Glucose (mg/dL) (70-110) mg/dL Total Bilirubin 1.9 H (0.2-1.3) mg/dL AST 128 H (17-59) U/L ALT 183 H (4-49) U/L Alkaline Phosphatase 131 H (38-126) U/L 07/24/22 07/24/22 07/24/22 Range/Units 08:09 08:09 12:17 RDW 17.8 H (11.5-15.5) % PT (9.0-12.0) sec INR (<1.2) Sodium 134 L (137-145) mmol/L Chloride (98-107) mmol/L BUN (9-20) mg/dL BUN/Creatinine Ratio 27.89 H (12.00-20.00) Ratio Glucose (74-99) mg/dL POC Glucose (mg/dL) 161 H (70-110) mg/dL Total Bilirubin 2.30 H (0.2-1.3) mg/dL AST 100 H (17-59) U/L ALT 185 H (4-49) U/L Alkaline Phosphatase 138 H (38-126) U/L Assessment and Plan Assessment: Chest pain and right arm pain, rule out ACS Nonischemic cardiomyopathy EF less than 20% History of CAD Severe aortic stenosis pending follow-up with [facility] -Cardiology consult -Trend troponin -Suspect related to severe aortic stenosis -Advised patient again that he should make an appointment as soon as possible to follow-up with [facility] -Cardiac monitoring Suspected thrombophlebitis - Started on antibiotics by cardiology team Chronic conditions: Hypertension, HLD, type II DM -Continue with home meds DVT prophylaxis -Heparin subcu The patient is admitted with an anticipated less than 2 midnight stay for evaluation of chest pain CODE STATUS: Full Code Discussed with: Patient Anticipated discharge date: in am Anticipated discharge place: Home
[2022-07-24 16:57] LABS: Glucose,Whole Blood 132 mg/dL (70-110)
[2022-07-24 20:45] LABS: Glucose,Whole Blood 184 mg/dL (70-110)
[2022-07-25 06:58] LABS: Glucose,Whole Blood 87 mg/dL (70-110)
[2022-07-25] MEDS: INSULIN ASPART (NovoLOG) 100 UNIT/ML VIAL SQ SCH ×4 (07:14→21:37)
[2022-07-25] MEDS: CEPHALEXIN 500 MG CAP PO SCH ×4 (07:29→19:50)
[2022-07-25] MEDS: METOPROLOL TARTRATE 12.5 MG TAB PO SCH ×2 (07:29→19:50)
[2022-07-25] MEDS: HEPARIN SODIUM,PORCINE/PF 5,000 UNIT/0.5 ML SYRINGE SQ SCH ×3 (07:29→21:37)
[2022-07-25 08:58] LABS: Basophils # (A) 0.03 X 10*3/uL (0.00-0.10); Basophils % (A) 0.3 %; Eosinophils # (A) 0.01 X 10*3/uL (0.04-0.35); Eosinophils % (A) 0.1 %; HCT 44.7 % (39.6-50.0); HGB 14.4 g/dL (13.0-17.0); Immature Grans, Automated 0.3 %; Lymphocytes # (A) 2.06 X 10*3/uL (0.90-5.00); Lymphocytes % (A) 19.3 %; MCH 29.6 pg (27.0-32.0); MCHC 32.2 g/dL (32.0-37.0); MCV 91.8 fL (80.0-97.0); Mean Platelet Volume 11.7 fL (9.5-12.2); Monocytes # (A) 1.47 X 10*3/uL (0.20-1.00); Monocytes % (A) 13.8 %; NRBC Per 100 WBC 0 /100 WBCS (0.0-0.0); Neutrophils # (A) 7.09 X 10*3/uL (1.80-7.70); Neutrophils % (A) 66.2 %; Platelet Count 209 X 10*3/uL (140-440); RBC 4.87 X 10*6/uL (4.40-5.60); WBC 10.69 X 10*3/uL (4.50-10.00)
[2022-07-25 09:15] LABS: Magnesium 2.4 mg/dL (1.5-2.4)
[2022-07-25 09:18] LABS: African American GFR (CKD) 82.1 (60.0-200.0); Anion Gap 19.7 mmol/L (10.00-18.00); BUN/Creat Ratio 30.55 Ratio (12.00-20.00); Blood Urea Nitrogen 33.3 mg/dL (9.0-27.0); Calcium 9.4 mg/dL (8.7-10.3); Carbon Dioxide 20.4 mmol/L (20.0-27.5); Non-African American GFR(CKD) 70.9 (60.0-200.0); Potassium 5.3 mmol/L (3.5-5.5)
--- NOTE | 2022-07-25 10:19 | P.PN ---
Subjective Progress Note Date: 07/25/22 The patient was seen at bedside, he continues to complain of his right arm pain. The patient was hypoxic satting below 90% on room air and he stated this is not the first time he was told he is being hypoxic. Objective - Vital Signs Vital signs: Vital Signs Temp 96.5 F L 07/25/22 07:00 Pulse 90 07/25/22 07:00 Resp 18 07/25/22 07:29 BP 109/77 07/25/22 07:00 Pulse Ox 98 07/25/22 07:00 FiO2 Intake & Output 07/24/22 07/25/22 07/25/22 18:59 06:59 18:59 Intake Total 478 480 Balance 478 480 Weight 68.039 kg Intake: Oral 478 480 Other: Voiding Method Toilet Toilet Toilet # Voids 3 - Exam General: [non toxic], [mild distress], [appears at stated age] Derm: [warm], [dry] that is an old martha for IV on his medial aspect of right arm, no swelling or erythema with slight tenderness Head: [atraumatic], [normocephalic], [symmetric] Eyes: [EOMI], [no lid lag], [anicteric sclera] Mouth: [no lip lesion], [mucus membranes moist] Cardiovascular: [S1S2 reg], [no murmur], [positive posterior tibial pulse bilateral], Lungs: [CTA bilateral], [no rhonchi, no rales] , [no accessory muscle use] Abdominal: [soft], [ nontender to palpation], [no guarding], [no appreciable organomegaly] Ext: [no gross muscle atrophy], [no edema], [no contractures] Neuro: [ CN II-XI grossly intact], [no focal neuro deficits] Psych: [Alert], [oriented], [appropriate affect] - Labs CBC & Chem 7: 07/25/22 05:56 07/25/22 05:56 Labs: Abnormal Lab Results - Last 24 Hours (Table) 07/24/22 07/24/22 07/24/22 Range/Units 08:09 08:09 12:17 WBC (4.50-10.00) X 10*3/uL RDW 17.8 H (11.5-14.5) % Monocytes # (0.20-1.00) X 10*3/uL Eosinophils # (0.04-0.35) X 10*3/uL Sodium 134 L (135-145) mmol/L Anion Gap (10.00-18.00) mmol/L BUN (9.0-27.0) mg/dL BUN/Creatinine Ratio 27.89 H (12.00-20.00) Ratio POC Glucose (mg/dL) 161 H (70-110) mg/dL Total Bilirubin 2.30 H (0.30-1.20) mg/dL AST 100 H (14-35) U/L ALT 185 H (10-49) U/L Alkaline Phosphatase 138 H (41-126) U/L 07/24/22 07/24/22 07/25/22 Range/Units 16:54 20:44 05:56 WBC 10.69 H (4.50-10.00) X 10*3/uL RDW 18.0 H (11.5-14.5) % Monocytes # 1.47 H (0.20-1.00) X 10*3/uL Eosinophils # 0.01 L (0.04-0.35) X 10*3/uL Sodium (135-145) mmol/L Anion Gap (10.00-18.00) mmol/L BUN (9.0-27.0) mg/dL BUN/Creatinine Ratio (12.00-20.00) Ratio POC Glucose (mg/dL) 132 H 184 H (70-110) mg/dL Total Bilirubin (0.30-1.20) mg/dL AST (14-35) U/L ALT (10-49) U/L Alkaline Phosphatase (41-126) U/L 07/25/22 Range/Units 05:56 WBC (4.50-10.00) X 10*3/uL RDW (11.5-14.5) % Monocytes # (0.20-1.00) X 10*3/uL Eosinophils # (0.04-0.35) X 10*3/uL Sodium (135-145) mmol/L Anion Gap 19.70 H (10.00-18.00) mmol/L BUN 33.3 H (9.0-27.0) mg/dL BUN/Creatinine Ratio 30.55 H (12.00-20.00) Ratio POC Glucose (mg/dL) (70-110) mg/dL Total Bilirubin (0.30-1.20) mg/dL AST (14-35) U/L ALT (10-49) U/L Alkaline Phosphatase (41-126) U/L Assessment and Plan Assessment: Hypoxemic respiratory failure likely secondary to COPD unclear if it's acute or chronic Patient's stated that he has long history of smoking Patient was satting below 90% on room air Clear chest no wheezes heard Consult pulmonology Home oxygen evaluation Chest pain and right arm pain, rule out ACS Nonischemic cardiomyopathy EF less than 20% History of CAD Severe aortic stenosis pending follow-up with [facility] -Cardiology consult -Troponin negative -Suspect related to severe aortic stenosis -Advised patient again that he should make an appointment as soon as possible to follow-up with [facility] -Cardiac monitoring Suspected thrombophlebitis - Started on antibiotics by cardiology team Chronic conditions: Hypertension, HLD, type II DM -Continue with home meds DVT prophylaxis -Heparin subcu The patient is admitted with an anticipated less than 2 midnight stay for evaluation of chest pain CODE STATUS: Full Code Discussed with: Patient Anticipated discharge date: in am Anticipated discharge place: Home
[2022-07-25 12:20] LABS: Glucose,Whole Blood 113 mg/dL (70-110)
--- NOTE | 2022-07-25 12:37 | P.CNPUL ---
History of Present Illness Consult date: 07/25/22 Reason for consult: dyspnea History of present illness: I was asked to evaluate this patient's pulmonary status. This is a 67-year-old male patient. He is known to have nonischemic cardiomyopathy severe with impaired LV function of 20% and the patient is also known to have severe bicuspid aortic valve with secondary stenosis. The patient has hypertension, hyperlipidemia and diabetes mellitus. The patient is admitted to the hospital because of worsening condition and some chest pain with limited shortness of breath. He also had a cellulitis of the right upper extremity at the site of a previous line insertion. Currently is being treated with oral antibiotics. He has no fever. No cough. No sputum production. He has smoked on and off in the past mainly cigars. His cardiac catheterization from November 2021 had shown severe aortic stenosis, pulmonary hypertension, elevated biventricular filling pressures and nonocclusive CAD. He has undergone previous CT angiogram of the chest that showed no evidence of pulmonary embolism. There was bilateral pleural effusion and interstitial edema consistent with CHF. He is not using any form of inhalers for now. No asthma. No emphysema. No previous history of pulmonary embolism. No renal insufficiency. No recent or previous infections with COVID 19. His chest x-ray showing cardiomegaly with mild interstitial edema. The patient is still on oxygen at 4 L. No aspiration. Review of Systems CONSTITUTIONAL: Denies fever or chills. HEENT: Denies blurred vision, vision changes, or eye pain. Denies hemoptysis +Lightheadedness CARDIOVASCULAR: +chest pain. Denies orthopnea. Denies PND. Denies palpitations RESPIRATORY: Denies shortness of breath. GASTROINTESTINAL: Denies abdominal pain. Denies nausea or vomiting. HEMATOLOGIC: Denies bleeding disorders. GENITOURINARY: Denies any blood in urine. SKIN: Denies pruitis. Denies rash. Past Medical History Past Medical History: Coronary Artery Disease (CAD), Heart Failure, Diabetes Mellitus, GERD/Reflux, Hyperlipidemia, Hypertension, Syncope Additional Past Medical History / Comment(s): Pt denies ID documented in his 11/07/21 medical record, severe aortic stenosis, NIDDM type II, pulmonary HTN; patient states he was told he is had A. fib in the past, no documentation in the chart and patient is not currently on anticoagulation History of Any Multi-Drug Resistant Organisms: None Reported Past Surgical History: Joint Replacement, Orthopedic Surgery, Tonsillectomy Additional Past Surgical History / Comment(s): Previous cardiac valve surgery done percutaneously to "clean up my valve"/done at [facility], left knee replacement, removal of partial fingers 3rd and 5th digits on left hand, colonoscopy, cyst removed behind L ear Past Anesthesia/Blood Transfusion Reactions: No Reported Reaction Past Psychological History: No Psychological Hx Reported Smoking Status: Current every day smoker Past Alcohol Use History: None Reported Past Drug Use History: None Reported - Past Family History Mother Family Medical History: Hyperlipidemia, Hypertension Father Family Medical History: Cancer, Hypertension Medications and Allergies Home Medications Medication Instructions Recorded Confirmed Type Aspirin EC [Ecotrin Low Dose] 81 mg PO DAILY 11/07/21 07/23/22 History metFORMIN HCL [Glucophage] 1,000 mg PO BID 11/07/21 07/23/22 History Empagliflozin [Jardiance] 10 mg PO DAILY #30 tablet 11/10/21 07/23/22 Rx Nitroglycerin Sl Tabs [Nitrostat] 0.4 mg SUBLINGUAL Q5M PRN #100 tab 11/12/21 07/23/22 Rx Omeprazole 40 mg PO DAILY #30 cap 11/12/21 07/23/22 Rx Metoprolol Tartrate [Lopressor] 12.5 mg PO BID 12/23/21 07/23/22 History Atorvastatin [Lipitor] 40 mg PO DAILY 05/21/22 07/23/22 History Allergies Allergy/AdvReac Type Severity Reaction Status Date / Time No Known Allergies Allergy Verified 07/23/22 16:39 Physical Exam Vitals: Vital Signs Temp Pulse Resp BP BP Pulse Ox 07/25/22 07:29 18 07/25/22 07:00 96.5 F L 90 18 109/77 98 07/25/22 02:00 97.8 F 88 17 102/76 97 07/24/22 19:00 97.4 F L 94 17 106/79 98 07/24/22 13:19 96 F L 71 16 98/66 99 Intake and Output 07/24/22 07/25/22 07/25/22 22:59 06:59 14:59 Intake Total 480 Balance 480 Intake: Oral 480 Other: Voiding Method Toilet Toilet # Voids 1 3 GENERAL: Well-developed in no acute distress. Currently on 4 L O2 nasal cannula Head exam was generally normal. There was no scleral icterus or corneal arcus. Mucous membranes were moist. HEENT: Head is normocephalic. Pupils are equal, round. Sclerae anicteric. Mucous membranes of the mouth are moist. Neck supple. Positive JVD or thyromegaly LUNGS: Respirations even and unlabored. Lungs diminished with a few bibasilar crackles. HEART: Regular rate and rhythm. S1 and S2 heard. Systolic murmur noted consistent with severe aortic stenosis ABDOMEN: Soft. Abdominal exam revealed normal bowel sounds. The abdomen was soft, non-tender, and without masses, organomegaly, or appreciable enlargement of the abdominal aorta. EXTREMITIES: Normal range of motion. No clubbing or cyanosis. Peripheral pulses intact. No lower extremity edema NEUROLOGIC:Neurologically, the patient is awake and alert and the patient does not have any focal neurological deficit. Cranial nerves are essentially intact. Examination of the skin revealed no evidence of significant rashes, suspicious appearing nevi or other concerning lesions. Results - Laboratory Findings CBC and BMP: 07/25/22 05:56 07/25/22 05:56 PT/INR, D-dimer PT 13.1 sec (9.0-12.0) H 07/23/22 17:27 INR 1.2 (<1.2) H 07/23/22 17:27 Abnormal lab findings: Abnormal Labs 07/23/22 07/23/22 07/23/22 17:27 17:27 17:27 WBC RDW 15.9 H Monocytes # Eosinophils # PT 13.1 H INR 1.2 H Sodium 133 L Chloride 97 L Anion Gap BUN 26 H BUN/Creatinine Ratio Glucose 101 H POC Glucose (mg/dL) Total Bilirubin 1.9 H AST 128 H ALT 183 H Alkaline Phosphatase 131 H 07/24/22 07/24/22 07/24/22 08:09 08:09 12:17 WBC RDW 17.8 H Monocytes # Eosinophils # PT INR Sodium 134 L Chloride Anion Gap BUN BUN/Creatinine Ratio 27.89 H Glucose POC Glucose (mg/dL) 161 H Total Bilirubin 2.30 H AST 100 H ALT 185 H Alkaline Phosphatase 138 H 07/24/22 07/24/22 07/25/22 16:54 20:44 05:56 WBC 10.69 H RDW 18.0 H Monocytes # 1.47 H Eosinophils # 0.01 L PT INR Sodium Chloride Anion Gap BUN BUN/Creatinine Ratio Glucose POC Glucose (mg/dL) 132 H 184 H Total Bilirubin AST ALT Alkaline Phosphatase 07/25/22 07/25/22 05:56 12:18 WBC RDW Monocytes # Eosinophils # PT INR Sodium Chloride Anion Gap 19.70 H BUN 33.3 H BUN/Creatinine Ratio 30.55 H Glucose POC Glucose (mg/dL) 113 H Total Bilirubin AST ALT Alkaline Phosphatase - Diagnostic Findings Chest x-ray: image reviewed Assessment and Plan Plan: Acute/chronic hypoxic respiratory failure mainly due to heart failure. The patient is scheduled on 4 L O2 nasal cannula. Chest x-ray showing interstitial edema with small bilateral pleural effusions probably relating to this patient's hypoxemia. I doubt underlying chronic lung disease/obstructive lung disease or any form of interstitial lung disease. No previous history of DVT or pulmonary embolism. Non-occlusive coronary artery disease Severe nonischemic myopathy with an EF of around 20% Bicuspid aortic valve with secondary severe stenosis, awaiting evaluation placement/TAVR and a follow-up is being done by Dr. Santoro [facility] Diabetes mellitus Hypertension Hyperlipidemia History of smoking, especially cigars Plan No clear indication for any lung disease Review of the previous CAT scan of the chest that shows interstitial edema and bilateral pleural effusions consistent with CHF The patient will need home O2 and concentrater and oxygen tanks No need for pulmonary follow-up at this point in time. The management of CHF/valvular heart disease per cardiology.
[2022-07-25 16:43] LABS: Glucose,Whole Blood 133 mg/dL (70-110)
[2022-07-25] MEDS: LIDOCAINE 5% PATCH TOPICAL SCH (19:49)
[2022-07-25 20:43] LABS: Glucose,Whole Blood 171 mg/dL (70-110)
[2022-07-25] MEDS: IBUPROFEN 400 MG TAB PO PRN (22:22)
[2022-07-26] MEDS: IBUPROFEN 400 MG TAB PO PRN (04:55)
[2022-07-26 07:14] LABS: Glucose,Whole Blood 231 mg/dL (70-110)
[2022-07-26 08:19] VITALS: BP 95/68; PULSE 87; RESP 20; TEMP 97
[2022-07-26] MEDS: HEPARIN SODIUM,PORCINE/PF 5,000 UNIT/0.5 ML SYRINGE SQ SCH (08:52)
[2022-07-26] MEDS: CEPHALEXIN 500 MG CAP PO SCH ×2 (08:53→13:22)
[2022-07-26] MEDS: METOPROLOL TARTRATE 12.5 MG TAB PO SCH (08:53)
[2022-07-26] MEDS: INSULIN ASPART (NovoLOG) 100 UNIT/ML VIAL SQ SCH ×2 (08:58→13:11)
[2022-07-26 11:40] LABS: African American GFR (CKD) 60.7 (60.0-200.0); Anion Gap 19.2 mmol/L (10.00-18.00); BUN/Creat Ratio 34.07 Ratio (12.00-20.00); Blood Urea Nitrogen 47.7 mg/dL (9.0-27.0); Carbon Dioxide 18.8 mmol/L (20.0-27.5); Magnesium 2.4 mg/dL (1.5-2.4); Non-African American GFR(CKD) 52.4 (60.0-200.0); Phosphorus 5.4 mg/dL (2.4-5.1); Potassium 5.3 mmol/L (3.5-5.5)
[2022-07-26] MEDS: LIDOCAINE 5% PATCH TOPICAL SCH (11:50)
[2022-07-26 12:18] LABS: Glucose,Whole Blood 121 mg/dL (70-110)
[2022-07-26 12:37] LABS: Acanthocytes 2+; Basophils # (A) 0.01 X 10*3/uL (0.00-0.10); Basophils % (A) 0.1 %; Eosinophils # (A) 0.01 X 10*3/uL (0.04-0.35); Eosinophils % (A) 0.1 %; HCT 42.6 % (39.6-50.0); HGB 13.8 g/dL (13.0-17.0); Immature Grans, Automated 0.2 %; Lymphocytes # (A) 1.67 X 10*3/uL (0.90-5.00); Lymphocytes % (A) 17.1 %; MCH 29.6 pg (27.0-32.0); MCHC 32.4 g/dL (32.0-37.0); MCV 91.2 fL (80.0-97.0); Mean Platelet Volume 12.6 fL (9.5-12.2); Monocytes # (A) 1.35 X 10*3/uL (0.20-1.00); Monocytes % (A) 13.8 %; NRBC Per 100 WBC 0 /100 WBCS (0.0-0.0); Neutrophils # (A) 6.73 X 10*3/uL (1.80-7.70); Neutrophils % (A) 68.7 %; Platelet Count 143 X 10*3/uL (140-440); RBC 4.67 X 10*6/uL (4.40-5.60); RDW 17.7 % (11.5-14.5); WBC 9.79 X 10*3/uL (4.50-10.00)
--- NOTE | 2022-07-26 12:43 | PN ---
PROGRESS NOTE SUBJECTIVE: Mr. Villalobos has severe aortic stenosis. No significant obstructive CAD. He was sent to [facility], referred by Dr. Ayala, but the patient has not made the contact yet. He came into the hospital with shortness of breath. His breathing is better and easier. Resting comfortably. OBJECTIVE: VITAL SIGNS: Stable. NECK: No JVD. HEART: S1, S2 heard normally. Ejection systolic murmur at the base is audible. Diminished second heart sound. LUNGS: Reveal bilateral decent air entry. ABDOMEN: Unchanged. LOWER EXTREMITIES: Unchanged. PLAN: Plan is to increase activity and discharge him, and he will see Dr. Ayala in 2 weeks, and we will also make the phone call as advised by Dr. Ayala to [facility]. Prognosis remains guarded. MMODL / IJN: [id number] /
--- NOTE | 2022-07-26 13:02 | P.DS ---
Providers Date of admission: 07/23/22 21:13 Expected date of discharge: 07/26/22 Attending physician: Melonie Penaloza MD Consults: 07/23/22 21:13 Consult Physician Urgent Consulting Provider: Karri Garcia Consult Reason/Comments: chest pain Do you want consulting provider notified?: Yes 07/25/22 09:36 Consult Physician Routine Consulting Provider: Yee Rodas Consult Reason/Comments: Hypoxia, Concern for COPD Do you want consulting provider notified?: Yes 07/26/22 12:43 Consult to Palliative Care Routine Consulting Provider: Sena Roberts Consult Reason/Comments: home palliative care Do you want consulting provider notified?: Yes Primary care physician: Heath Kirkland MD Hospital Course: Discharge Diagnosis: Chest pain, acute coronary event has been ruled out. Severe aortic stenosis, patient to follow-up with [facility] for further discussion/evaluation for aortic valve replacement. Nonischemic cardiomyopathy with EF of less than 20%, patient to continue daily aspirin, metoprolol, and atorvastatin. It is recommended patient follow-up with [facility], care transitions manager. Superficial thrombophlebitis, discharged home on Keflex to complete 7 day course of antibiotics. Recommend heating pad/warm packs for therapeutic treatment. Transaminitis, repeat CMP in 3 days. Suspect secondary to hypotension and moderate abdominal ascites. BPs remains soft at this time. Lisinopril, Lasix, and Aldactone was discontinued on 07/22/22. Moderate pulmonary hypertension Mitral and tricuspid regurgitation Hypertension, blood pressures have been running soft. Lisinopril recently discontinued secondary to hypotension, patient to continue metoprolol 12.5 mg twice daily at this time. Hyperlipidemia, continue daily medication regimen with atorvastatin. [id number] diabetes mellitus. Continue daily medication regimen with metformin and Juardiance. COPD with continued nicotine dependence. Recommend smoking cessation. Hospital Course: Patient is a very pleasant 67-year-old male with a past medical history of nonischemic cardiomyopathy with an EF of less than 20%, severe aortic stenosis, type 2 diabetes mellitus, hypertension, and hyperlipidemia. He presented to the emergency department with a chief complaint of chest pain and right arm pain. Patient underwent full evaluation in the emergency department. EKG completed revealing sinus tachycardia at 101 bpm with T-wave inversion in leads II, III, aVF, V5, and V6. Chest x-ray completed revealing mild congestive heart failure with slightly increased pulmonary congestion when compared to previous examination completed 07/20/22. CBC and coags were unremarkable. CMP revealed mild hyponatremia with sodium of 133 and transaminitis with total bili 1.9, AST 128, ALT of 183, an alkaline phosphatase of 131. Patient was admitted under our services with consultation to cardiology and pulmonary. Troponins were trended all negative at 0.023, 0.024, and 0.026. Patient was started on Keflex for treatment of superficial thrombophlebitis of right forearm. An acute coronary event was ruled out. Patient is medically stable for discharge at this time. Patient has called to schedule appointment at [facility] for further discussion/evaluation of aortic valve replacement secondary to his severe aortic stenosis. Patient was educated on the importance of monitoring blood pressure twice daily and documenting findings in a daily log/sternal to bring with him to his next doctor's appointment. In addition patient recommended to follow up in 3 days for a repeat CMP secondary to persistent transaminitis status post discharge from hospital on 07/22/22. Patient being discharged home on Keflex to complete a seven-day course of antibiotics for treatment of superficial thrombophlebitis and it was recommended that he continue using heating pad/warm packs along with NSAID such as Motrin for therapeutic treatment/pain management. Patient is free from any chest pain or other complaints at this time. He is qualified for use of home oxygen and being discharged home on oxygen. Patient called and reported that he scheduled appointment with [facility] care transitions manager as he is considered high risk and will require specialist evaluation to discuss and be evaluated for aortic valve replacement. Patient medically stable for discharge home with home care/palliative care at this time. Physical Exam: Patient seen and examined at bedside. Vital signs reviewed and stable. General: Nontoxic, no distress and appears stated age. Derm: Skin warm and dry, normal coloration for ethnicity. Head: Atraumatic, normocephalic and symmetric. Eyes: EOMs intact, no lid lag, and anicteric sclera Mouth: no lip lesions, mucus membranes moist Cardiovascular: regular rate and rhythm with normal S1S2, systolic murmur, positive posterior tibial pulses bilaterally, and cap refill < 2 seconds. Lungs: Respirations even, regular, and unlabored on room air. Lungs CTA bilaterally, no rhonchi, no rales, no wheezing, and no accessory muscle usage. Abdominal: soft distended, nontender to palpation, no guarding, no appreciable organomegaly Ext: ROM intact. No gross muscle atrophy, no edema, no contractures Neuro: Speech clear, face symmetrical and CN II-XII grossly intact with no noted focal neuro deficits Psych: Alert and oriented to person, place, time, and situation. Appropriate and pleasant affect. A total of 35 minutes of time were spent preparing this complex discharge summary. Pt was discharged on 07/26/22 at 12:52 PM Patient Condition at Discharge: Stable Plan - Discharge Summary New Discharge Prescriptions: New Cephalexin [Keflex] 500 mg PO QID 5 Days #20 cap Continue metFORMIN HCL [Glucophage] 1,000 mg PO BID Nitroglycerin Sl Tabs [Nitrostat] 0.4 mg SUBLINGUAL Q5M PRN #100 tab PRN Reason: Chest Pain Metoprolol Tartrate [Lopressor] 12.5 mg PO BID Aspirin EC [Ecotrin Low Dose] 81 mg PO DAILY Empagliflozin [Jardiance] 10 mg PO DAILY #30 tablet Omeprazole 40 mg PO DAILY #30 cap Atorvastatin [Lipitor] 40 mg PO DAILY Discharge Medication List Aspirin EC [Ecotrin Low Dose] 81 mg PO DAILY 11/07/21 [History] metFORMIN HCL [Glucophage] 1,000 mg PO BID 11/07/21 [History] Empagliflozin [Jardiance] 10 mg PO DAILY #30 tablet 11/10/21 [Rx] Nitroglycerin Sl Tabs [Nitrostat] 0.4 mg SUBLINGUAL Q5M PRN #100 tab 11/12/21 [Rx] Omeprazole 40 mg PO DAILY #30 cap 11/12/21 [Rx] Metoprolol Tartrate [Lopressor] 12.5 mg PO BID 12/23/21 [History] Atorvastatin [Lipitor] 40 mg PO DAILY 05/21/22 [History] Cephalexin [Keflex] 500 mg PO QID 5 Days #20 cap 07/26/22 [Rx] Follow up Appointment(s)/Referral(s): Alvin So MD [STAFF PHYSICIAN] - 07/30/22 1:30 pm [facility],Equipment [NON-STAFF] - (Call [facility] when you get home and they will deliver you Oxygen concentrator) Heath Kirkland MD [Primary Care Provider] - 1-2 days (PLEASE CALL AND SCHEDULE APPOINTMENT.) [facility], [NON-STAFF] - ([facility] will call you to arrange a visit) Ambulatory/Diagnostic Orders: Complete Blood Count w/diff [LAB.AMB] Location: None Selected Comprehensive Metabolic Panel [LAB.AMB] Time Frame: 3 Days, Location: None Selected Patient Instructions/Handouts: Cephalexin (By mouth), Heart Failure (DC), Aortic Stenosis (DC), Using Oxygen at Home (DC) Activity/Diet/Wound Care/Special Instructions: Activity: As tolerated. Take breaks as needed. Diet: Heart healthy and carb consistent diet. Avoid salts, or foods with hidden salts such as canned or boxed foods and frozen dinners. Extra salt makes your heart work harder and traps the fluid in your body for longer. Special Instructions: Weigh yourself every morning after you urinate. If you gain 3 pounds overnight or more than 5 pounds in one week, call your primary physician and care transitions manager for guidance on your medications or they may want to see you in their office. Keep a daily log of your weights and be sure to bring with you at follow up visits with your PCP and care transitions manager. Take all of your medications as directed, NEVER skip a dose. And remember to keep all of your doctor's appointments and follow-up as needed. Elevate your legs when you are not up moving around to help with circulation and prevent swelling. Compression stockings are also a great way to improve lower extremity circulation and prevent/improve lower extremity edema. Call your primary care provider and care transitions manager if you notice any extra swelling in your legs, ankles, feet or abdomen, if you have a new or worsened dry cough, if your shortness of breath worsens with activity or at rest, or if you feel more fatigued. As discussed, you will need to follow up outpatient with your care transitions manager at the [facility] for further discussion of aortic valve replacement. Recommend use of NSAIDs, such as Motrin as needed and application of heating pad/warm packs for symptomatic treatment/pain management of superficial thrombophlebitis of right forearm. Thank you for allowing us to participate in your care, it was truly a pleasure having you for our patient!!! Discharge Disposition: HOME WITH HOME HEALTH SERVICES
--- NOTE | 2022-07-27 09:22 | P.CONS ---
History of Present Illness - Reason for Consult Consult date: 07/26/22 [facility] Requesting physician: Shan Santacruz - Chief Complaint Shortness of breath - History of Present Illness Patient is a very pleasant 67-year-old male with a past medical history of nonischemic cardiomyopathy with an EF of less than 20%, severe aortic stenosis, type 2 diabetes mellitus, hypertension, and hyperlipidemia. He presented to the emergency department with a chief complaint of chest pain and right arm pain. Patient underwent full evaluation in the emergency department. EKG completed revealing sinus tachycardia at 101 bpm with T-wave inversion in leads II, III, aVF, V5, and V6. Chest x-ray completed revealing mild congestive heart failure with slightly increased pulmonary congestion when compared to previous examination completed 07/20/22. CBC and coags were unremarkable. CMP revealed mild hyponatremia with sodium of 133 and transaminitis with total bili 1.9, AST 128, ALT of 183, an alkaline phosphatase of 131. Cardiology and pulmonary foll owing. Troponins were trended all negative at 0.023, 0.024, and 0.026. Patient was started on Keflex for treatment of superficial thrombophlebitis of right forearm. An acute coronary event was ruled out. Patient is medically stable for discharge at this time. Patient has called to schedule appointment at [facility] for further discussion/evaluation of aortic valve replacement secondary to his severe aortic stenosis. In addition patient recommended to follow up in 3 days for a repeat CMP secondary to persistent transaminitis status post discharge from hospital on 07/22/22. Patient being discharged home on Keflex to complete a seven-day course of antibiotics for treatment of superficial thrombophlebitis and it was recommended that he continue using heating pad/warm packs along with NSAID such as Motrin for therapeutic treatment/pain management. He is qualified for use of home oxygen and being discharged home on oxygen. Patient reported that he scheduled appointment with [facility] looper operator as he is considered high risk and will require specialist evaluation to discuss and be evaluated for aortic valve replacement. Review of Systems Constitutional: Reports as per HPI Past Medical History Past Medical History: Coronary Artery Disease (CAD), Heart Failure, Diabetes Mellitus, GERD/Reflux, Hyperlipidemia, Hypertension, Syncope Additional Past Medical History / Comment(s): Pt denies [place] documented in his 11/07/21 medical record, severe aortic stenosis, NIDDM type II, pulmonary HTN; patient states he was told he is had A. fib in the past, no documentation in the chart and patient is not currently on anticoagulation History of Any Multi-Drug Resistant Organisms: None Reported Past Surgical History: Joint Replacement, Orthopedic Surgery, Tonsillectomy Additional Past Surgical History / Comment(s): Previous cardiac valve surgery done percutaneously to "clean up my valve"/done at [facility], left knee replacement, removal of partial fingers 3rd and 5th digits on left hand, colonoscopy, cyst removed behind L ear Past Anesthesia/Blood Transfusion Reactions: No Reported Reaction Past Psychological History: No Psychological Hx Reported Smoking Status: Current every day smoker Past Alcohol Use History: None Reported Past Drug Use History: None Reported - Past Family History Mother Family Medical History: Hyperlipidemia, Hypertension Father Family Medical History: Cancer, Hypertension Medications and Allergies Home Medications Medication Instructions Recorded Confirmed Type Aspirin EC [Ecotrin Low Dose] 81 mg PO DAILY 11/07/21 07/23/22 History metFORMIN HCL [Glucophage] 1,000 mg PO BID 11/07/21 07/23/22 History Empagliflozin [Jardiance] 10 mg PO DAILY #30 tablet 11/10/21 07/23/22 Rx Nitroglycerin Sl Tabs [Nitrostat] 0.4 mg SUBLINGUAL Q5M PRN #100 tab 11/12/21 07/23/22 Rx Omeprazole 40 mg PO DAILY #30 cap 11/12/21 07/23/22 Rx Metoprolol Tartrate [Lopressor] 12.5 mg PO BID 12/23/21 07/23/22 History Atorvastatin [Lipitor] 40 mg PO DAILY 05/21/22 07/23/22 History Cephalexin [Keflex] 500 mg PO QID 5 Days #20 cap 07/26/22 Rx Allergies Allergy/AdvReac Type Severity Reaction Status Date / Time No Known Allergies Allergy Verified 07/23/22 16:39 Physical Exam Vitals: Vital Signs Temp Pulse Resp BP BP Pulse Ox Pulse Ox 07/26/22 08:35 100 07/26/22 08:00 20 07/26/22 07:00 97.0 F L 87 20 95/68 92 L 07/26/22 02:00 97.8 F 83 17 98/57 99 07/25/22 19:54 18 07/25/22 19:00 97.4 F L 68 17 118/82 98 Pulse Ox Pulse Ox Pulse Ox 07/26/22 08:35 97 92 L 79 L 07/26/22 08:00 07/26/22 07:00 07/26/22 02:00 07/25/22 19:54 07/25/22 19:00 Intake and Output 07/25/22 07/26/22 07/26/22 22:59 06:59 14:59 Intake Total 118 Balance 118 Intake: Oral 118 Other: Voiding Method Toilet Toilet # Voids 1 2 GENERAL: Well-developed in no acute distress. Currently on 4 L O2 nasal cannula HEENT: Head is normocephalic. Pupils are equal, round. Sclerae anicteric. Mucous membranes of the mouth are moist. LUNGS: Respirations even and unlabored. Lungs diminished with a few bibasilar crackles. HEART: Regular rate and rhythm. S1 and S2 heard. ABDOMEN: The abdomen was soft, non-tender. EXTREMITIES: Normal range of motion. No clubbing or cyanosis. Peripheral pulses intact. NEUROLOGIC:Neurologically, the patient is awake and alert, no focal neurological deficits. Cranial nerves are grossly intact. Examination of the skin revealed no evidence of significant rashes, suspicious appearing nevi or other concerning lesions. Results CBC & Chem 7: 07/26/22 06:28 07/26/22 06:28 Labs: Abnormal Lab Results - Last 24 Hours (Table) 07/25/22 07/25/22 07/26/22 Range/Units 16:41 20:42 06:28 RDW 17.7 H (11.5-14.5) % MPV 12.6 H (9.5-12.2) fL Monocytes # 1.35 H (0.20-1.00) X 10*3/uL Eosinophils # 0.01 L (0.04-0.35) X 10*3/uL Sodium (135-145) mmol/L Chloride (96-109) mmol/L Carbon Dioxide (20.0-27.5) mmol/L Anion Gap (10.00-18.00) mmol/L BUN (9.0-27.0) mg/dL Est GFR (CKD-EPI)NonAf (60.0-200.0) BUN/Creatinine Ratio (12.00-20.00) Ratio POC Glucose (mg/dL) 133 H 171 H (70-110) mg/dL Phosphorus (2.4-5.1) mg/dL 07/26/22 07/26/22 07/26/22 Range/Units 06:28 07:12 12:16 RDW (11.5-14.5) % MPV (9.5-12.2) fL Monocytes # (0.20-1.00) X 10*3/uL Eosinophils # (0.04-0.35) X 10*3/uL Sodium 133 L (135-145) mmol/L Chloride 95 L (96-109) mmol/L Carbon Dioxide 18.8 L (20.0-27.5) mmol/L Anion Gap 19.20 H (10.00-18.00) mmol/L BUN 47.7 H (9.0-27.0) mg/dL Est GFR (CKD-EPI)NonAf 52.4 L (60.0-200.0) BUN/Creatinine Ratio 34.07 H (12.00-20.00) Ratio POC Glucose (mg/dL) 231 H 121 H (70-110) mg/dL Phosphorus 5.4 H (2.4-5.1) mg/dL Chest x-ray: report reviewed Assessment and Plan Assessment: Social * Occupation - unemployed * Marital status - * Current smoker Spiritual/Cultural * A spiritual person - No * Taoism - N/A Functional Assessment * Able to walk independently - Ys * 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 * Able to use the bathroom independently - Yes * Continent - Yes * Require assistance bathing- No * Able to feed self - Yes * Who manages medications - Patient * Who manages finances -Patient Psychological/Emotional * Dementia present - NO * Insight and judgment - Intact * Depression - No * Suicidal thoughts - No * Good support system - Yes * Patients goals - optimize functionality * Frequent hospitalizations - yes * Desire to keep coming back to the hospital for treatment - yes Symptoms * Pain - 0/10 * Fatigue - yes * SOB - Yes, with activity * Insomnia - No * N/V - No * Anxiety - No * Depression - No * Confusion - No * Agitation - No * Hallucinations - No * Appetite/weight loss - Appetite fair, no recent weight loss * 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 Palliative care philosophies and services explained to patient. Education regarding co- morbidities, especially severe aortic stenosis, and cardiomyopathy, provided. He understands the trajectory of his disease and his poor prognosis. He is hopeful to get to a looper operator at of for help and posssible TAVR. Patient worried about his future. Emotional support provided. Patient states he is being discharged today. He is interested in outpatient palliative care services to assist with symptom control. Recommendations - Discharge home with outpatient palliative care and [facility] Advanced Directives - Not on file Code Status - Full Code Thank you for this consultation Sena Roberts [facility] Palliative Care Spectralink [phone] Email: [email or web address] Time with Patient: Greater than 30
== END 2022-07-26 14:30 | disposition home health service (06) ==
LOC: EC 15:38 → 6NMEDSUR 21:13
PROVIDERS: ADMIT Internal Medicine; ATTEND Internal Medicine
DX: R07.9 Chest pain, unspecified (principal); M79.601 Pain in right arm; I42.8 Other cardiomyopathies; I80.8 Phlebitis and thrombophlebitis of other sites; R74.01 Elevation of levels of liver transaminase levels; I27.20 Pulmonary hypertension, unspecified; I08.3 Combined rheumatic disorders of mitral, aortic and tricuspid valves; E78.5 Hyperlipidemia, unspecified; E11.9 Type 2 diabetes mellitus without complications; J44.9 Chronic obstructive pulmonary disease, unspecified; I25.10 Atherosclerotic heart disease of native coronary artery without angina pectoris; J96.21 Acute and chronic respiratory failure with hypoxia; I11.0 Hypertensive heart disease with heart failure; I50.9 Heart failure, unspecified; K21.9 Gastro-esophageal reflux disease without esophagitis; F17.200 Nicotine dependence, unspecified, uncomplicated; Z96.652 Presence of left artificial knee joint; Z56.0 Unemployment, unspecified; Z79.82 Long term (current) use of aspirin; Z79.84 Long term (current) use of oral hypoglycemic drugs; Z79.899 Other long term (current) drug therapy; Z82.49 Family history of ischemic heart disease and other diseases of the circulatory system
CPT/HCPCS: 96372 ×3; 96374; 99285; 36415; 93005; 80061; 80053 ×2; 80048 ×2; 83735 ×3; 84100 ×2; 84484; 85025 ×3; 85027; 85610; 85730; 71046; G0378 ×4; J2270; J1644 ×3

== ENCOUNTER 2022-07-28 15:44 | Inpatient (IN) | payer MEDICARE ==
--- NOTE | 2022-07-28 16:34 | ED ---
SOB HPI - General Chief Complaint: Shortness of Breath Stated Complaint: SOB, vomitting Time Seen by Provider: 07/28/22 16:12 Source: patient, family Mode of arrival: wheelchair Limitations: no limitations - History of Present Illness Initial Comments: This patient is 67-year-old man who presents to have evaluation for shortness of breath. There is history of severe aortic stenosis and also of underlying cardiomyopathy. Patient had been admitted in the hospital being discharged on the , after stay for congestive heart failure. Patient also had some right arm thrombophlebitis. Patient states that over the course of last night into today his breathing has worsened and the home oxygen which was to be prescribed was not working. MD Complaint: shortness of breath Onset/Timin -: days(s) Severity: mild Consistency: constant Improves With: nothing Worsens With: lying flat, exertion Known History Of: congestive heart failure Associated Symptoms: denies other symptoms Treatments Prior to Arrival: none - Related Data Previous Rx's Medication Instructions Recorded Nitroglycerin Sl Tabs [Nitrostat] 0.4 mg SUBLINGUAL Q5M PRN #100 tab 11/12/21 Acetaminophen Tab [Tylenol] 650 mg PO Q4HR PRN #0 tab 08/04/22 Aspirin 81 mg PO DAILY tab 08/04/22 Cephalexin [Keflex] 500 mg PO TID cap 08/04/22 Furosemide [Lasix] 40 mg PO DAILY tab 08/04/22 INSULIN ASPART (NovoLOG) [NovoLOG 0 unit SQ ACHS each 08/04/22 (formulary)] Lidocaine 5% Patch [Lidoderm 5% 1 patch TOPICAL DAILY patch 08/04/22 Patch] Metoprolol Tartrate [Lopressor] 12.5 mg PO BID tab 08/04/22 Pantoprazole [Protonix] 40 mg PO AC-BRKFST tab 08/04/22 Sodium Chloride 0.65% Nasal [Deep 2 spray NASAL QID PRN ml 08/04/22 Sea (Saline)] traMADol HCl [Ultram] 50 mg PO QID PRN tab 08/04/22 Allergies Allergy/AdvReac Type Severity Reaction Status Date / Time No Known Allergies Allergy Verified 07/23/22 16:39 Review of Systems ROS Statement: Those systems with pertinent positive or pertinent negative responses have been documented in the HPI. ROS Other: All systems not noted in ROS Statement are negative. Constitutional: Denies: fever, chills Respiratory: Reports: cough, dyspnea. Denies: hemoptysis Cardiovascular: Reports: dyspnea on exertion, orthopnea, edema. Denies: chest pain, palpitations, syncope Gastrointestinal: Denies: abdominal pain, vomiting, diarrhea Genitourinary: Denies: dysuria, hematuria Musculoskeletal: Denies: back pain Skin: Denies: rash Neurological: Denies: headache, weakness, numbness Past Medical History Past Medical History: Coronary Artery Disease (CAD), Heart Failure, Diabetes Mellitus, GERD/Reflux, Hyperlipidemia, Hypertension, Syncope Additional Past Medical History / Comment(s): Pt denies [place] documented in his 11/07/21 medical record, severe aortic stenosis, NIDDM type II, pulmonary HTN; patient states he was told he is had A. fib in the past, no documentation in the chart and patient is not currently on anticoagulation History of Any Multi-Drug Resistant Organisms: None Reported Past Surgical History: Joint Replacement, Orthopedic Surgery, Tonsillectomy Additional Past Surgical History / Comment(s): Previous cardiac valve surgery done percutaneously to "clean up my valve"/done at [facility], left knee replacement, removal of partial fingers 3rd and 5th digits on left hand, colonoscopy, cyst removed behind L ear Past Anesthesia/Blood Transfusion Reactions: No Reported Reaction Past Psychological History: No Psychological Hx Reported Smoking Status: Current every day smoker Past Alcohol Use History: None Reported Past Drug Use History: None Reported - Past Family History Mother Family Medical History: Hyperlipidemia, Hypertension Father Family Medical History: Cancer, Hypertension General Exam Limitations: no limitations General appearance: alert, in no apparent distress Head exam: Present: atraumatic, normocephalic Eye exam: Present: normal appearance. Absent: scleral icterus, conjunctival injection ENT exam: Present: normal oropharynx Neck exam: Present: normal inspection Respiratory exam: Present: respiratory distress (Mild tachypnea), rales. Absent: wheezes, rhonchi, stridor Cardiovascular Exam: Present: regular rate, normal rhythm, systolic murmur, gallop. Absent: diastolic murmur, rubs GI/Abdominal exam: Present: soft. Absent: distended, tenderness, guarding, rebound, rigid, mass Extremities exam: Present: normal inspection, normal capillary refill, pedal edema. Absent: calf tenderness Back exam: Present: normal inspection. Absent: CVA tenderness (R), CVA tenderness (L) Neurological exam: Present: alert Skin exam: Present: warm, dry, intact, normal color. Absent: rash Course Vital Signs 07/28/22 07/28/22 07/28/22 15:50 16:35 16:53 Temperature 98 F Pulse Rate 85 78 Respiratory 22 22 Rate Blood Pressure 105/72 112/84 O2 Sat by Pulse 67 L 96 79 L Oximetry Fraction of Inspired Oxygen (FIO2) 07/28/22 07/28/22 07/28/22 16:59 17:00 17:38 Temperature Pulse Rate 85 Respiratory 20 Rate Blood Pressure O2 Sat by Pulse 100 Oximetry Fraction of 100 100 Inspired Oxygen (FIO2) 07/28/22 07/28/22 07/28/22 20:05 20:11 22:05 Temperature Pulse Rate Respiratory Rate Blood Pressure O2 Sat by Pulse 97 Oximetry Fraction of 100 50 Inspired Oxygen (FIO2) 07/28/22 22:23 Temperature Pulse Rate 90 Respiratory 20 Rate Blood Pressure 107/85 O2 Sat by Pulse 96 Oximetry Fraction of Inspired Oxygen (FIO2) Medical Decision Making - Lab Data Result diagrams: 08/04/22 07:31 08/04/22 12:00 Lab Results 07/28/22 07/28/22 07/28/22 Range/Units 16:40 16:40 16:40 WBC 10.2 (3.8-10.6) k/uL RBC 4.72 (4.30-5.90) m/uL Hgb 14.4 (13.0-17.5) gm/dL Hct 43.9 (39.0-53.0) % MCV 92.9 (80.0-100.0) fL MCH 30.4 (25.0-35.0) pg MCHC 32.7 (31.0-37.0) g/dL RDW 16.0 H (11.5-15.5) % Plt Count 178 (150-450) k/uL MPV 10.0 Neutrophils % 65 % Lymphocytes % 20 % Monocytes % 11 % Eosinophils % 1 % Basophils % 0 % Neutrophils # 6.6 (1.3-7.7) k/uL Lymphocytes # 2.0 (1.0-4.8) k/uL Monocytes # 1.1 H (0-1.0) k/uL Eosinophils # 0.1 (0-0.7) k/uL Basophils # 0.0 (0-0.2) k/uL Hypochromasia Slight Anisocytosis Slight PT 18.9 H (9.0-12.0) sec INR 1.9 H (<1.2) APTT 27.4 (22.0-30.0) sec D-Dimer 5.61 H (<0.60) mg/L FEU Sodium (137-145) mmol/L Potassium (3.5-5.1) mmol/L Chloride (98-107) mmol/L Carbon Dioxide (22-30) mmol/L Anion Gap mmol/L BUN (9-20) mg/dL Creatinine (0.66-1.25) mg/dL Est GFR (CKD-EPI)AfAm (>60 ml/min/1.73 sqM) Est GFR (CKD-EPI)NonAf (>60 ml/min/1.73 sqM) Glucose (74-99) mg/dL Calcium (8.4-10.2) mg/dL Magnesium (1.6-2.3) mg/dL Total Bilirubin (0.2-1.3) mg/dL AST (17-59) U/L ALT (4-49) U/L Alkaline Phosphatase (38-126) U/L Troponin I 0.028 (0.000-0.034) ng/mL NT-Pro-B Natriuret Pep pg/mL Total Protein (6.3-8.2) g/dL Albumin (3.5-5.0) g/dL 07/28/22 07/28/22 Range/Units 16:40 16:55 WBC (3.8-10.6) k/uL RBC (4.30-5.90) m/uL Hgb (13.0-17.5) gm/dL Hct (39.0-53.0) % MCV (80.0-100.0) fL MCH (25.0-35.0) pg MCHC (31.0-37.0) g/dL RDW (11.5-15.5) % Plt Count (150-450) k/uL MPV Neutrophils % % Lymphocytes % % Monocytes % % Eosinophils % % Basophils % % Neutrophils # (1.3-7.7) k/uL Lymphocytes # (1.0-4.8) k/uL Monocytes # (0-1.0) k/uL Eosinophils # (0-0.7) k/uL Basophils # (0-0.2) k/uL Hypochromasia Anisocytosis PT (9.0-12.0) sec INR (<1.2) APTT (22.0-30.0) sec D-Dimer (<0.60) mg/L FEU Sodium 131 L (137-145) mmol/L Potassium 5.6 H (3.5-5.1) mmol/L Chloride 95 L (98-107) mmol/L Carbon Dioxide 15 L (22-30) mmol/L Anion Gap 21 mmol/L BUN 77 H (9-20) mg/dL Creatinine 1.99 H (0.66-1.25) mg/dL Est GFR (CKD-EPI)AfAm 40 (>60 ml/min/1.73 sqM) Est GFR (CKD-EPI)NonAf 34 (>60 ml/min/1.73 sqM) Glucose 125 H (74-99) mg/dL Calcium 8.8 (8.4-10.2) mg/dL Magnesium 2.6 H (1.6-2.3) mg/dL Total Bilirubin 3.7 H (0.2-1.3) mg/dL AST 387 H (17-59) U/L ALT 437 H (4-49) U/L Alkaline Phosphatase 136 H (38-126) U/L Troponin I (0.000-0.034) ng/mL NT-Pro-B Natriuret Pep 17459 pg/mL Total Protein 7.3 (6.3-8.2) g/dL Albumin 4.4 (3.5-5.0) g/dL - EKG Data -: EKG Interpreted by Me EKG shows normal: sinus rhythm, axis (Normal), QRS complexes (Intraventricular conduction delay) Rate: normal (Rate 89 bpm) Interpretation: nonspecific ST-T wave changes Critical Care Time Critical Care Time: Yes (30 minutes) Disposition Clinical Impression: Congestive heart failure, Liver enzyme elevation, Acute renal failure, Hyperkalemia Disposition: ADMITTED IP TO THIS HOSP Condition: Stable Is patient prescribed a controlled substance at d/c from ED?: No
[2022-07-28 16:40] LABS: Anisocytosis Slight; Basophils % (A) 0 %; Eosinophils # (A) 0.1 k/uL (0-0.7); Eosinophils % (A) 1 %; HCT 43.9 % (39.0-53.0); HGB 14.4 gm/dL (13.0-17.5); Hypochromasia Slight; Lymphocytes % (A) 20 %; MCH 30.4 pg (25.0-35.0); MCHC 32.7 g/dL (31.0-37.0); MCV 92.9 fL (80.0-100.0); Monocytes # (A) 1.1 k/uL (0-1.0); Monocytes % (A) 11 %; Neutrophils # (A) 6.6 k/uL (1.3-7.7); Neutrophils % (A) 65 %; Platelet Count 178 k/uL (150-450); RBC 4.72 m/uL (4.30-5.90); WBC 10.2 k/uL (3.8-10.6)
[2022-07-28 16:54] LABS: Albumin 4.4 g/dL (3.5-5.0); Calcium 8.8 mg/dL (8.4-10.2); Total Bilirubin 3.7 mg/dL (0.2-1.3); Total Protein 7.3 g/dL (6.3-8.2)
[2022-07-28 16:56] LABS: Magnesium 2.6 mg/dL (1.6-2.3); Potassium 5.6 mmol/L (3.5-5.1)
[2022-07-28 16:58] LABS: INR 1.9 (<1.2); Partial Thromboplastin Time 27.4 sec (22.0-30.0); Prothrombin Time 18.9 sec (9.0-12.0)
[2022-07-28] MEDS ORDERED: ENOXAPARIN 80 MG/0.8 ML SYRINGE SQ STA (17:42)
--- NOTE | 2022-07-28 17:55 | XR ---
EXAMINATION TYPE: XR chest 1V DATE OF EXAM: 07/28/2022 5:21 PM COMPARISON: Chest radiographs from 07/23/2022 TECHNIQUE: XR chest 1V Frontal view of the chest. CLINICAL INDICATION:Male, 67 years old with history of difficulty breathing; FINDINGS: Lungs/Pleura: There is no evidence of pleural effusion, focal consolidation, or pneumothorax. Pulmonary vascularity: Unremarkable. Heart/mediastinum: Cardiomediastinal silhouette is enlarged and stable. Musculoskeletal: No acute osseous pathology. IMPRESSION: Similar cardiomegaly without acute cardiopulmonary disease/process.
--- NOTE | 2022-07-28 18:13 | US ---
EXAMINATION TYPE: US venous doppler duplex UE RT DATE OF EXAM: 07/28/2022 COMPARISON: NONE CLINICAL HISTORY: pain, possible DVT. Patient states having a blood draw on right arm x 1 week ago. EC patient. SIDE PERFORMED: Right Limited due to patient small body habitus and breathing machine Right Arm: Negative for DVT. Positive for SVT in mid forearm to upper arm. Grayscale, color doppler, spectral doppler imaging performed of the deep veins of the upper extremiti es. There is normal flow, compressibility and vascular waveforms. IMPRESSION: Negative for deep vein thrombosis. Positive for superficial thrombophlebitis in mid forearm to upper arm. Involving the basilic vein.
[2022-07-28] MEDS ORDERED: HEPARIN SODIUM 1,000 UN/ML (10ML VL) IV ONE (19:29)
[2022-07-28] MEDS ORDERED: HEPARIN SODIUM 1,000 UN/ML (10ML VL) IV PRN (19:29)
[2022-07-28] MEDS ORDERED: HEPARIN SOD,PORK IN 0.45% NACL 25,000 UNIT in 0.45% NACL 1 250ML.BAG IV SCH (19:30)
[2022-07-28 20:02] LABS: ABG Base Excess -7.9 mmol/L; ABG HCO3 16 mmol/L (21-25); ABG PCO2 22 mmHg (35-45); ABG PH 7.47 (7.35-7.45); ABG PO2 393 mmHg (83-108); ABG TCO2 17 mmol/L (19-24); Allen Test Performed? Yes
--- NOTE | 2022-07-28 21:07 | CT ---
EXAMINATION TYPE: CT chest angio for PE CT DLP: 417.7 mGycm, Automated exposure control for dose reduction was used. DATE OF EXAM: 07/28/2022 8:47 PM COMPARISON: Chest radiograph from same day. CLINICAL INDICATION:Male, 67 years old with history of dyspnea, possible PE TECHNIQUE/CONTRAST: CTA scan of the thorax is performed with IV Contrast, patient injected with 80cc mL of Isovue 370, pu lmonary embolism protocol. MIP images are created and reviewed. FINDINGS: Pulmonary Artery: There is no evidence for a filling defect within the pulmonary vasculature to sugge st acute pulmonary embolism. The pulmonary artery is of normal size. Lungs/Pleura: Trace bilateral pleural effusions. No evidence focal consolidation or pneumothorax. Airway: Large airways are patent. Heart: Heart is mildly enlarged for size. There is aortic valve calcifications as well as coronary ar vilma atherosclerosis Vasculature: No evidence of aortic aneurysm. Mediastinum: No gross evidence of adenopathy. Musculoskeletal: No acute osseous abnormalities Soft Tissues: Unremarkable. Lower neck: No significant findings. Upper Abdomen: Small free fluid in the abdomen IMPRESSION: 1. No evidence of pulmonary embolism. 2. Cardiomegaly bilateral pleural effusions and ascites, correlate for congestive heart failure.
[2022-07-28 22:50] LABS: INR 1.9 (<1.2); Prothrombin Time 19.4 sec (9.0-12.0)
[2022-07-29] MEDS: METOPROLOL TARTRATE 12.5 MG TAB PO SCH ×3 (00:27→22:28)
[2022-07-29] MEDS: FUROSEMIDE 10 MG/ML 4 ML VIAL IV SCH ×3 (00:27→22:28)
--- NOTE | 2022-07-29 01:55 | P.HPIM ---
History of Present Illness H&P Date: 07/28/22 Chief Complaint: shortness of breath 67 year old male with NICMP LVEF 20%, severe Aortic valve stenosis patient recently discharged from the hospital when he was seen for CHF and chest pain , ACS was ruled out. during that hospital stay , his diuretics and aldactone were discontinued due to hypotension . patient was also found to have elevated liver enzymes and found to have contracted GB. he comes back today due to worsenin g SOB since discharge, home oxygen not hel ping, he is not on any diuretics, denies any chest pain . during my interview patient was on bipap, and was a little upset of the whole process and not providing detailed history . while in the ED, he was hypoxic with oxygen sat in the 70%s , also found to have elevated d dimer, and NARA. CTA of the chest was done , showing no acute PE, also showed bilateral pleural effusion liver enzymes still elevated , elevated pro BNP Review of Systems Pertinent positives as noted in HPI. All other systems were reviewed and are negative Past Medical History Past Medical History: Coronary Artery Disease (CAD), Heart Failure, Diabetes Mellitus, GERD/Reflux, Hyperlipidemia, Hypertension, Syncope Additional Past Medical History / Comment(s): Pt denies SC documented in his 11/07/21 medical record, severe aortic stenosis, NIDDM type II, pulmonary HTN; patient states he was told he is had A. fib in the past, no documentation in the chart and patient is not currently on anticoagulation History of Any Multi-Drug Resistant Organisms: None Reported Past Surgical History: Joint Replacement, Orthopedic Surgery, Tonsillectomy Additional Past Surgical History / Comment(s): Previous cardiac valve surgery done percutaneously to "clean up my valve"/done at [facility], left knee replacement, removal of partial fingers 3rd and 5th digits on left hand, colonoscopy, cyst removed behind L ear Past Anesthesia/Blood Transfusion Reactions: No Reported Reaction Past Psychological History: No Psychological Hx Reported Smoking Status: Current every day smoker Past Alcohol Use History: None Reported Past Drug Use History: None Reported - Past Family History Mother Family Medical History: Hyperlipidemia, Hypertension Father Family Medical History: Cancer, Hypertension Medications and Allergies Home Medications Medication Instructions Recorded Confirmed Type Aspirin EC [Ecotrin Low Dose] 81 mg PO DAILY 11/07/21 07/28/22 History metFORMIN HCL [Glucophage] 1,000 mg PO BID 11/07/21 07/28/22 History Empagliflozin [Jardiance] 10 mg PO DAILY #30 tablet 11/10/21 07/28/22 Rx Nitroglycerin Sl Tabs [Nitrostat] 0.4 mg SUBLINGUAL Q5M PRN #100 tab 11/12/21 07/28/22 Rx Omeprazole 40 mg PO DAILY #30 cap 11/12/21 07/28/22 Rx Metoprolol Tartrate [Lopressor] 12.5 mg PO BID 12/23/21 07/28/22 History Atorvastatin [Lipitor] 40 mg PO DAILY 05/21/22 07/28/22 History Cephalexin [Keflex] 500 mg PO QID 5 Days #20 cap 07/26/22 07/28/22 Rx Allergies Allergy/AdvReac Type Severity Reaction Status Date / Time No Known Allergies Allergy Verified 07/23/22 16:39 Physical Exam Vitals: Vital Signs Temp Pulse Resp BP Pulse Ox FiO2 07/28/22 20:11 50 07/28/22 20:05 100 07/28/22 17:38 85 20 100 07/28/22 17:00 100 07/28/22 16:59 100 07/28/22 16:53 78 22 112/84 79 L 07/28/22 16:35 96 07/28/22 15:50 98 F 85 22 105/72 67 L Intake and Output 07/28/22 07/28/22 07/28/22 06:59 14:59 22:59 Other: Weight 63.503 kg Constitutional: No acute distress, on bipap , providing limited history Eyes: Anicteric sclerae, moist conjunctiva, Pupils equal round reactive to light ENMT: NC/AT Neck: Supple, no masses, or JVD No carotid bruits No thyromegaly Lungs: Clear to auscultation, no wheezing , no rhonchi Clear to percussion Normal respiratory effort, no accessory muscle use Cardiovascular: Heart regular in rate and rhythm, No murmurs, gallops, or rubs No peripheral edema Abdominal: Soft Nontender, no guarding, rebound or rigidity Abdomen moving with respiration Normoactive bowel sounds shifting dullness positive Skin: Normal temperature, tone, texture, turgor No induration No subcutaneous nodules No rash, lesions No ulcers Extremities: No digital cyanosis No clubbing Pedal pulses intact and symmetrical Radial pulses intact and symmetrical No calf tenderness Psychiatric: Alert and oriented to person, place and time Appropriate affect fair judgement Neuro Muscles Strength 5/5 in all 4 extremities Sensation to light touch grossly present throughout Cranial nerves II-XII grossly intact Lymphatics: no palpable cervical or supraclavicular lymph nodes Results CBC & Chem 7: 07/28/22 16:40 07/28/22 16:55 Labs: Abnormal Lab Results - Last 24 Hours (Table) 07/28/22 07/28/22 07/28/22 Range/Units 16:40 16:40 16:55 RDW 16.0 H (11.5-15.5) % Monocytes # 1.1 H (0-1.0) k/uL PT 18.9 H (9.0-12.0) sec INR 1.9 H (<1.2) D-Dimer 5.61 H (<0.60) mg/L FEU ABG pH (7.35-7.45) ABG pCO2 (35-45) mmHg ABG pO2 (83-108) mmHg ABG HCO3 (21-25) mmol/L ABG Total CO2 (19-24) mmol/L ABG O2 Saturation (94-97) % Sodium 131 L (137-145) mmol/L Potassium 5.6 H (3.5-5.1) mmol/L Chloride 95 L (98-107) mmol/L Carbon Dioxide 15 L (22-30) mmol/L BUN 77 H (9-20) mg/dL Creatinine 1.99 H (0.66-1.25) mg/dL Glucose 125 H (74-99) mg/dL Magnesium 2.6 H (1.6-2.3) mg/dL Total Bilirubin 3.7 H (0.2-1.3) mg/dL AST 387 H (17-59) U/L ALT 437 H (4-49) U/L Alkaline Phosphatase 136 H (38-126) U/L 07/28/22 Range/Units 19:58 RDW (11.5-15.5) % Monocytes # (0-1.0) k/uL PT (9.0-12.0) sec INR (<1.2) D-Dimer (<0.60) mg/L FEU ABG pH 7.47 H (7.35-7.45) ABG pCO2 22 L (35-45) mmHg ABG pO2 393 H (83-108) mmHg ABG HCO3 16 L (21-25) mmol/L ABG Total CO2 17 L (19-24) mmol/L ABG O2 Saturation 100.0 H (94-97) % Sodium (137-145) mmol/L Potassium (3.5-5.1) mmol/L Chloride (98-107) mmol/L Carbon Dioxide (22-30) mmol/L BUN (9-20) mg/dL Creatinine (0.66-1.25) mg/dL Glucose (74-99) mg/dL Magnesium (1.6-2.3) mg/dL Total Bilirubin (0.2-1.3) mg/dL AST (17-59) U/L ALT (4-49) U/L Alkaline Phosphatase (38-126) U/L Assessment and Plan Assessment: acute hypoxic repsiratory failure acute CHF exacerbation NARA acute transaminitis lactic acidosis valvular heart disease (aortic valve stenosis ) plan monitor vital signs initiate diuretics IV lasix, monitor blood pressure closely , avoid hypotension resume metoprolol CTA of the chest negative for acute PE follow up liver enzymes follow up renal function and urine output resume ASA hold statin cardiology consult resume keflex for right forearm phlebitis warm compress DM , insulin sliding scale , hold metformin (risk of lactic acidosis ) GI PPX PPI continue with bipap discontinue heparin drip (started inthe ED for suspected PE) DVT PPX heparin sc tid
[2022-07-29] MEDS ORDERED: HYDROcodone/APAP 5-325MG 1 EACH TAB PO STA (02:20)
[2022-07-29 04:57] LABS: INR 1.9 (<1.2); Prothrombin Time 18.9 sec (9.0-12.0)
[2022-07-29 05:11] LABS: Albumin 3.5 g/dL (3.5-5.0); Calcium 8.4 mg/dL (8.4-10.2); Potassium 4.8 mmol/L (3.5-5.1); Total Bilirubin 3.5 mg/dL (0.2-1.3); Total Protein 6.1 g/dL (6.3-8.2)
[2022-07-29 06:08] LABS: Glucose,Whole Blood 108 mg/dL (70-110)
[2022-07-29] MEDS: INSULIN ASPART (NovoLOG) 100 UNIT/ML VIAL SQ SCH ×4 (06:16→22:29)
[2022-07-29] MEDS: PANTOPRAZOLE 40 MG TABLET PO SCH (06:28)
[2022-07-29] MEDS ORDERED: ATORVASTATIN 40 MG TAB PO SCH (09:00)
[2022-07-29] MEDS ORDERED: CEPHALEXIN 500 MG CAP PO SCH (09:00)
[2022-07-29] MEDS: ASPIRIN 81 MG PO SCH (09:49)
[2022-07-29] MEDS: HEPARIN SODIUM,PORCINE/PF 5,000 UNIT/0.5 ML SYRINGE SQ SCH ×3 (09:49→23:49)
[2022-07-29] MEDS: LIDOCAINE 5% PATCH TOPICAL SCH (09:51)
--- NOTE | 2022-07-29 10:24 | P.CRDCN ---
History of Present Illness Consult date: 07/29/22 History of present illness: patient has bicuspid aortic valve nonischemic cardiomyopathy with severe LV dysfunction and recurrent episodes of congestive heart failure. He comes in with an acute exacerbation of chronic systolic heart failure. He was supposed to go see cardiology at [facility] however this has not happened patient doesn't really have transportation. At that happened. He was also homeless at times. Currently the home situation has been resolved. We are going to consult TAVR team to evaluate the patient and consider valve replacement here in town patient is agreeable HISTORY OF PRESENT ILLNESS: This is a 67 year old male with a past medical history significant for severe nonischemic cardiomyopathy, valvular heart disease with known bicuspid aortic valve and aortic stenosis, hypertension, hyperlipidemia, diabetes, congestive heart failure, and nicotine dependence. Patient follows in the office with Dr. Ayala. We have been asked to see the patient in consultation for CHF. Patient examined at the bedside. Patient presented to the hospital with a chief complaint of shortness of breath. He was found to be in acute CHF and was started on IV lasix. He is currently on a Bipap. It is noted this is the [facility] 4th admission since May for the same symptoms. In May, the patient stated he was going to be seen at [facility] for evaluation of aortic valve replacement but he was homeless at that time and needed to acquire stable housing to he would have a place to recover. Patient has since obtained a place to a live. He has not contacted [facility] for evaluation. He reports he was going to call yesterday but was too short of breath and came to the ER instead. It is noted that he was also evaluated by cardiothoracic surgery in May 2022 and felt to be high risk for traditional valve replacement surgery but TAVR could be considered, although still high risk. * EKG reveals sinus mechanism with no signs of acute ischemia * Chest xray similar cardiomegaly without acute cardiopulmonary process * Chest CTA: No evidence of pulmonary embolus. Cardiomegaly with bilateral pleural effusions and ascites. * Laboratory data: WBC 10.2. Hemoglobin 14.4. Platelet count 178. D-dimer 5.61. Sodium 129. Potassium 4.9. BUN 81. Creatinine 1.86. AST 354. ALT 419. Troponin negative 3. ProBNP 17,300 * Current home cardiac medications include Jardiance 10mg daily, aspirin 81 mg daily, Lipitor 40 mg daily, metoprolol tartrate 12.5 mg twice a day * Most recent echocardiogram obtained in May 2022 revealed ejection fraction less than 15% * Patient underwent CRISTIAN in November 2021 revealing dilated left ventricle with severely impaired function and EF of 20% with global hypokinesis. Bicuspid aortic valve with fusion of the right and left coronary cusps. Moderate MR, mitral valve appears to be thickened. Moderate TR. No evidence of pericardial effusion. * Cardiac catheterization history: November 2021 revealing severe aortic stenosis, pulmonary hypertension, elevated biventricular filling pressures, and intermediate nonobstructive coronary artery disease REVIEW OF SYSTEMS: At the time of my exam: CONSTITUTIONAL: Denies fever or chills. HEENT: Denies blurred vision, vision changes, or eye pain. Denies hemoptysis CARDIOVASCULAR: Denies chest pain. Denies orthopnea. Denies PND. Denies palpitations RESPIRATORY: Denies shortness of breath. GASTROINTESTINAL: Denies abdominal pain. Denies nausea or vomiting. HEMATOLOGIC: Denies bleeding disorders. GENITOURINARY: Denies any blood in urine. SKIN: Denies pruitis. Denies rash. PHYSICAL EXAM: VITAL SIGNS: Reviewed. GENERAL: Well-developed in no acute distress. HEENT: Head is normocephalic. Pupils are equal, round. Sclerae anicteric. Mucous membranes of the mouth are moist. Neck supple. No JVD or thyromegaly LUNGS: Respirations even and unlabored. Lungs diminished with a few right sided crackles HEART: Regular rate and rhythm. S1 and S2 heard. + systolic murmur ABDOMEN: Soft. Nondistended. Nontender. EXTREMITIES: Normal range of motion. No clubbing or cyanosis. Peripheral p ulses intact. No lower extremity edema NEUROLOGIC: Awake and alert. Oriented x 3. ASSESSMENT: Shortness of breath Acute on chronic congestive heart failure with reduced ejection fraction Hyponatremia Hyperkalemia Acute kidney injury Transaminitis Intermediate nonobstructive coronary artery disease Severe aortic stenosis Bicuspid aortic valve Valvular heart disease Nonischemic cardiomyopathy, EF 15% Hypertension Hyperlipidemia Diabetes Nicotine dependence PLAN: No need to repeat echo at this time Continue IV lasix Daily weights, accurate I&O, monitoring of kidney function Patient unable to tolerate VICKIE/ARB in the past due to soft blood pressures Continue additional cardiac medications Case discussed with Lori Alfredo NP from [facility]. Will consult for evaluation as patient has had multiple re-admissions and has still not been able to schedule evaluation of [facility] Further recommendations pending patient course Nurse practitioner note has been reviewed by physician. Signing provider agrees with the documented findings, assessment, and plan of care. Past Medical History Past Medical History: Coronary Artery Disease (CAD), Heart Failure, Diabetes Mellitus, GERD/Reflux, Hyperlipidemia, Hypertension, Syncope Additional Past Medical History / Comment(s): Pt denies IN documented in his 11/07/21 medical record, severe aortic stenosis, NIDDM type II, pulmonary HTN; patient states he was told he is had A. fib in the past, no documentation in the chart and patient is not currently on anticoagulation History of Any Multi-Drug Resistant Organisms: None Reported Past Surgical History: Joint Replacement, Orthopedic Surgery, Tonsillectomy Additional Past Surgical History / Comment(s): Previous cardiac valve surgery done percutaneously to "clean up my valve"/done at [facility], left knee replacement, removal of partial fingers 3rd and 5th digits on left hand, colonoscopy, cyst removed behind L ear Past Anesthesia/Blood Transfusion Reactions: No Reported Reaction Past Psychological History: No Psychological Hx Reported Smoking Status: Current every day smoker Past Alcohol Use History: None Reported Past Drug Use History: None Reported - Past Family History Mother Family Medical History: Hyperlipidemia, Hypertension Father Family Medical History: Cancer, Hypertension Medications and Allergies Home Medications Medication Instructions Recorded Confirmed Type Aspirin EC [Ecotrin Low Dose] 81 mg PO DAILY 11/07/21 07/28/22 History metFORMIN HCL [Glucophage] 1,000 mg PO BID 11/07/21 07/28/22 History Empagliflozin [Jardiance] 10 mg PO DAILY #30 tablet 11/10/21 07/28/22 Rx Nitroglycerin Sl Tabs [Nitrostat] 0.4 mg SUBLINGUAL Q5M PRN #100 tab 11/12/21 07/28/22 Rx Omeprazole 40 mg PO DAILY #30 cap 11/12/21 07/28/22 Rx Metoprolol Tartrate [Lopressor] 12.5 mg PO BID 12/23/21 07/28/22 History Atorvastatin [Lipitor] 40 mg PO DAILY 05/21/22 07/28/22 History Cephalexin [Keflex] 500 mg PO QID 5 Days #20 cap 07/26/22 07/28/22 Rx Allergies Allergy/AdvReac Type Severity Reaction Status Date / Time No Known Allergies Allergy Verified 07/23/22 16:39 Physical Exam Vitals: Vital Signs Temp Pulse Pulse Resp BP BP Pulse Ox 07/29/22 08:46 07/29/22 03:40 96.8 F L 73 12 94/67 96 07/29/22 03:29 07/28/22 23:44 96.7 F L 07/28/22 23:32 97 19 121/86 99 07/28/22 23:31 07/28/22 22:23 90 20 107/85 96 07/28/22 22:05 97 07/28/22 20:11 07/28/22 20:05 07/28/22 17:38 85 20 100 07/28/22 17:00 07/28/22 16:59 07/28/22 16:53 78 22 112/84 79 L 07/28/22 16:35 96 07/28/22 15:50 98 F 85 22 105/72 67 L FiO2 07/29/22 08:46 50 07/29/22 03:40 50 07/29/22 03:29 50 07/28/22 23:44 07/28/22 23:32 50 07/28/22 23:31 50 07/28/22 22:23 07/28/22 22:05 07/28/22 20:11 50 07/28/22 20:05 100 07/28/22 17:38 07/28/22 17:00 100 07/28/22 16:59 100 07/28/22 16:53 07/28/22 16:35 07/28/22 15:50 Intake and Output 07/28/22 07/29/22 07/29/22 22:59 06:59 14:59 Intake Total 118 Balance 118 Intake: Oral 118 Other: Voiding Method Urinal # Voids 1 1 # Bowel Movements 1 Weight 63.503 kg 66.5 kg Results 07/28/22 16:40 07/30/22 05:07 Cardiac Enzymes 07/28/22 07/28/22 07/29/22 Range/Units 16:40 16:55 01:45 AST 387 H (17-59) U/L Troponin I 0.028 0.031 (0.000-0.034) ng/mL 07/29/22 07/29/22 Range/Units 04:38 04:38 AST 354 H (17-59) U/L Troponin I 0.029 (0.000-0.034) ng/mL Coagulation 07/28/22 07/28/22 07/29/22 Range/Units 16:40 22:04 01:45 PT 18.9 H 19.4 H (9.0-12.0) sec APTT 27.4 102.1 H* (22.0-30.0) sec 07/29/22 Range/Units 04:38 PT 18.9 H (9.0-12.0) sec APTT (22.0-30.0) sec CBC 07/28/22 Range/Units 16:40 WBC 10.2 (3.8-10.6) k/uL RBC 4.72 (4.30-5.90) m/uL Hgb 14.4 (13.0-17.5) gm/dL Hct 43.9 (39.0-53.0) % Plt Count 178 (150-450) k/uL Comprehensive Metabolic Panel 07/28/22 07/29/22 Range/Units 16:55 04:38 Sodium 131 L 129 L (137-145) mmol/L Potassium 5.6 H 4.8 (3.5-5.1) mmol/L Chloride 95 L 96 L (98-107) mmol/L Carbon Dioxide 15 L 17 L (22-30) mmol/L BUN 77 H 81 H (9-20) mg/dL Creatinine 1.99 H 1.86 H (0.66-1.25) mg/dL Glucose 125 H 103 H (74-99) mg/dL Calcium 8.8 8.4 (8.4-10.2) mg/dL AST 387 H 354 H (17-59) U/L ALT 437 H 419 H (4-49) U/L Alkaline Phosphatase 136 H 110 (38-126) U/L Total Protein 7.3 6.1 L (6.3-8.2) g/dL Albumin 4.4 3.5 (3.5-5.0) g/dL Current Medications Generic Name Dose Route Start Last Admin Trade Name Freq PRN Reason Stop Dose Admin Aspirin 81 mg 07/29/22 09:00 07/29/22 09:49 Aspirin 81 Mg PO 81 mg DAILY TIFFANY Administration Cephalexin 500 mg 07/29/22 09:30 Cephalexin 500 Mg Cap PO TID TIFFANY Protocol Furosemide 40 mg 07/28/22 23:45 07/29/22 09:49 Furosemide 10 Mg/Ml 4 Ml Vial IV 40 mg Q12HR TIFFANY Administration Heparin Sodium (Porcine) 5,000 unit 07/29/22 08:00 07/29/22 09:49 Heparin Sodium,Porcine/Pf 5,000 Unit/0.5 Ml Syringe SQ 5,000 unit Q8HR TIFFANY Administration Insulin Aspart 0 unit 07/29/22 07:30 07/29/22 06:16 Insulin Aspart (Novolog) 100 Unit/Ml Vial SQ Not Given ACHS [facility] Protocol Lidocaine 1 patch 07/29/22 09:00 07/29/22 09:51 Lidocaine 5% Patch TOPICAL 1 patch DAILY TIFFANY Administration Protocol Metoprolol Tartrate 12.5 mg 07/28/22 23:45 07/29/22 09:49 Metoprolol Tartrate 12.5 Mg Tab PO 12.5 mg BID TIFFANY Administration Pantoprazole Sodium 40 mg 07/29/22 07:30 07/29/22 06:28 Pantoprazole 40 Mg Tablet PO 40 mg [id number] TIFFANY Administration Intake and Output 07/28/22 07/29/22 07/29/22 22:59 06:59 14:59 Intake Total 118 Balance 118 Intake: Oral 118 Other: Voiding Method Urinal # Voids 1 1 # Bowel Movements 1 Weight 63.503 kg 66.5 kg 07/28/22 16:40 07/29/22 04:38
[2022-07-29 11:41] VITALS: BMI 22.3
--- NOTE | 2022-07-29 11:54 | P.GSCN ---
History of Present Illness Consult date: 07/29/22 Reason for Consult: Severe bicuspid aortic stenosis with multiple readmissions for heart failure Requesting physician: Yumiko Muniz History of present illness: This is a 67-year-old gentleman who follows in an outpatient basis with Dr. Kirkland for primary care as well as Dr. Ayala for cardiology. He has a previous medical history of known bicuspid severe aortic valve stenosis, chronic end- stage systolic heart failure with severe nonischemic cardiomyopathy with multiple hospitalizations for the same, EF 15-20%, hypertension, hyperlipidemia, uni-kjecryf-qzjnotoma type 2 diabetes, current tobacco dependence, moderate COPD, and previous syncopal episode. We initially were consulted for this gentleman in May of this year for severe symptomatic aortic stenosis when he was admitted for shortness of breath. At that time we initiated preoperative testing for aortic valve replacement including obtaining dental clearance. Carotid ultrasound revealed no significant stenosis. Pulmonary function test revealed moderate COPD with FEV1 54% of predicted. Transthoracic echo demonstrated significantly reduced left ventricular systolic function with ejection fraction 15%, severe global hypokinesis, grade 3 diastolic dysfunction, moderate pulmonary hypertension, severe low flow-low gradient bicuspid aortic stenosis with peak/mean gradient 27/17 mmHg, aortic valve area 0.3 cm, moderate mitral regurgitation, and moderate to severe tricuspid regurgitation. Previous transesophageal echocardiogram completed in November had demonstrated severely impaired systolic function with EF 20% and global hypokinesia, bicuspid aortic valve with fusion of the right and left coronary cusps and aortic valve area 0.7 cm with mean gradient 18 mmHg, moderate mitral regurgitation as well as moderate tricuspid regurgitation. Heart catheterization completed at that same time demonstrated intermediate nonobstructive coronary artery disease, aortic valve area 0.15 cm with mean gradient 18.2 mmHg, pulmonary hypertension with RVSP 47 mmHg. His case was discussed at that time with Dr. Ayala by Dr. Rushing and he was felt to be in end-stage heart failure and would be too high risk for mortality with traditional surgical aortic valve replacement and this likely would not provide much benefit. At that time we felt TAVR could be considered but it would also be extremely high risk and we deferred to cardiology judgment. It was also felt he would need a plan for residency in place prior to any intervention. The patient was treated and stabilized, and discharged to home with plans for consultation at [facility]. The patient did obtain a stable residence, however he did not follow up with anybody at [facility] nor did he follow up at [facility]. He returned to the emergency room 2 more times for shortness of breath and was admitted for heart failure exacerbation. He was admitted again on July 28 with complaints of significant shortness of breath. Chest x-ray demonstrated cardiomegaly without acute cardiopulmonary process. Lower extremity Dopplers demonstrated no deep vein thrombosis, there was a superficial thrombophlebitis in the mid forearm of the right upper arm. Chest CTA demonstrated no evidence of acute pulmonary embolism, there was evidence of cardiomegaly with bilateral pleural effusions and ascites. Lab work demonstrated WBC 10.2 hemoglobin 14.4 platelet count 1 78,000, INR 1.9, d-dimer 5.61, BUN 77, creatinine 1.99, lactic acid 6.9, AST 387 , ALT 437, troponin 0.028, proBNP 17,300. He was admitted for evaluation and treatment with consultation placed to cardiology and pulmonology. He was placed on IV Lasix for diuresis and eventually placed on BiPAP. Consultation was placed to cardiothoracic surgery for treatment recommendations regarding severe aortic stenosis with multiple admissions for heart failure. Review of Systems Review of systems was completed and was negative except as noted - Cardiovascular Reports as per HPI, Reports decreased exercise tolerance, Reports dyspnea on exertion, Reports shortness of breath - Respiratory Reports dyspnea Past Medical History Past Medical History: Coronary Artery Disease (CAD), Heart Failure, Diabetes Mellitus, GERD/Reflux, Hyperlipidemia, Hypertension, Syncope Additional Past Medical History / Comment(s): Pt denies DC documented in his 11/07/21 medical record, severe aortic stenosis, NIDDM type II, pulmonary HTN; patient states he was told he is had A. fib in the past, no documentation in the chart and patient is not currently on anticoagulation History of Any Multi-Drug Resistant Organisms: None Reported Past Surgical History: Joint Replacement, Orthopedic Surgery, Tonsillectomy Additional Past Surgical History / Comment(s): Previous cardiac valve surgery done percutaneously to "clean up my valve"/done at [facility], left knee replacement, removal of partial fingers 3rd and 5th digits on left hand, colonoscopy, cyst removed behind L ear Past Anesthesia/Blood Transfusion Reactions: No Reported Reaction Past Psychological History: No Psychological Hx Reported Smoking Status: Current every day smoker Past Alcohol Use History: None Reported Past Drug Use History: None Reported - Past Family History Mother Family Medical History: Hyperlipidemia, Hypertension Father Family Medical History: Cancer, Hypertension Medications and Allergies Home Medications Medication Instructions Recorded Confirmed Type Aspirin EC [Ecotrin Low Dose] 81 mg PO DAILY 11/07/21 07/28/22 History metFORMIN HCL [Glucophage] 1,000 mg PO BID 11/07/21 07/28/22 History Empagliflozin [Jardiance] 10 mg PO DAILY #30 tablet 11/10/21 07/28/22 Rx Nitroglycerin Sl Tabs [Nitrostat] 0.4 mg SUBLINGUAL Q5M PRN #100 tab 11/12/21 07/28/22 Rx Omeprazole 40 mg PO DAILY #30 cap 11/12/21 07/28/22 Rx Metoprolol Tartrate [Lopressor] 12.5 mg PO BID 12/23/21 07/28/22 History Atorvastatin [Lipitor] 40 mg PO DAILY 05/21/22 07/28/22 History Cephalexin [Keflex] 500 mg PO QID 5 Days #20 cap 07/26/22 07/28/22 Rx Allergies Allergy/AdvReac Type Severity Reaction Status Date / Time No Known Allergies Allergy Verified 07/23/22 16:39 Surgical - Exam Vital Signs Temp Pulse Resp BP Pulse Ox 98 F 85 22 105/72 67 L 07/28/22 15:50 07/28/22 15:50 07/28/22 15:50 07/28/22 15:50 07/28/22 15:50 CONSTITUTIONAL: Awake and alert on BiPAP, no pain, no acute distress EYES: Pupils equal, round, reactive to light, normal ocular movement ENT: Moist mucous membranes without oral lesions present NECK: No masses, no bruits, trachea midline RESPIRATORY: Lungs sounds diminished bilaterally with faint crackles in the bases. Respirations even, nonlabored. Currently on BiPAP with FiO2 50%, IPAP 10, EPAP 5. CARDIOVASCULAR: S1, S2 present, positive systolic murmur present. Regular rate and rhythm, sinus rhythm on telemetry. Palpable peripheral pulses bilaterally. No edema present. GASTROINTESTINAL: Abdomen soft, nontender, nondistended without masses or organomegaly noted. There is no rebound or guarding present. Active bowel sounds present 4 quadrants. GENITOURINARY: Deferred INTEGUMENTARY: Skin is warm and dry NEUROLOGIC: Cranial nerves II through XII intact, normal coordination, no obvious motor or sensory deficits, speech is normal MUSKULOSKELETAL: Able to move all extremities, strength equal bilaterally, normal posture PSYCHIATRIC: Alert and oriented to person place and time, appropriate affect, intact judgment and insight Results - Labs 07/28/22 16:40 07/30/22 05:07 Abnormal Lab Results - Last 24 Hours (Table) 07/28/22 07/28/22 07/28/22 Range/Units 16:40 16:40 16:55 RDW 16.0 H (11.5-15.5) % Monocytes # 1.1 H (0-1.0) k/uL PT 18.9 H (9.0-12.0) sec INR 1.9 H (<1.2) APTT (22.0-30.0) sec D-Dimer 5.61 H (<0.60) mg/L FEU ABG pH (7.35-7.45) ABG pCO2 (35-45) mmHg ABG pO2 (83-108) mmHg ABG HCO3 (21-25) mmol/L ABG Total CO2 (19-24) mmol/L ABG O2 Saturation (94-97) % Sodium 131 L (137-145) mmol/L Potassium 5.6 H (3.5-5.1) mmol/L Chloride 95 L (98-107) mmol/L Carbon Dioxide 15 L (22-30) mmol/L BUN 77 H (9-20) mg/dL Creatinine 1.99 H (0.66-1.25) mg/dL Glucose 125 H (74-99) mg/dL Plasma Lactic Acid Segundo (0.7-2.0) mmol/L Magnesium 2.6 H (1.6-2.3) mg/dL Total Bilirubin 3.7 H (0.2-1.3) mg/dL AST 387 H (17-59) U/L ALT 437 H (4-49) U/L Alkaline Phosphatase 136 H (38-126) U/L Total Protein (6.3-8.2) g/dL 07/28/22 07/28/22 07/28/22 Range/Units 19:58 22:04 22:04 RDW (11.5-15.5) % Monocytes # (0-1.0) k/uL PT 19.4 H (9.0-12.0) sec INR 1.9 H (<1.2) APTT (22.0-30.0) sec D-Dimer (<0.60) mg/L FEU ABG pH 7.47 H (7.35-7.45) ABG pCO2 22 L (35-45) mmHg ABG pO2 393 H (83-108) mmHg ABG HCO3 16 L (21-25) mmol/L ABG Total CO2 17 L (19-24) mmol/L ABG O2 Saturation 100.0 H (94-97) % Sodium (137-145) mmol/L Potassium (3.5-5.1) mmol/L Chloride (98-107) mmol/L Carbon Dioxide (22-30) mmol/L BUN (9-20) mg/dL Creatinine (0.66-1.25) mg/dL Glucose (74-99) mg/dL Plasma Lactic Acid Segundo 6.9 H* (0.7-2.0) mmol/L Magnesium (1.6-2.3) mg/dL Total Bilirubin (0.2-1.3) mg/dL AST (17-59) U/L ALT (4-49) U/L Alkaline Phosphatase (38-126) U/L Total Protein (6.3-8.2) g/dL 07/29/22 07/29/22 07/29/22 Range/Units 01:45 01:45 04:38 RDW (11.5-15.5) % Monocytes # (0-1.0) k/uL PT 18.9 H (9.0-12.0) sec INR 1.9 H (<1.2) APTT 102.1 H* (22.0-30.0) sec D-Dimer (<0.60) mg/L FEU ABG pH (7.35-7.45) ABG pCO2 (35-45) mmHg ABG pO2 (83-108) mmHg ABG HCO3 (21-25) mmol/L ABG Total CO2 (19-24) mmol/L ABG O2 Saturation (94-97) % Sodium (137-145) mmol/L Potassium (3.5-5.1) mmol/L Chloride (98-107) mmol/L Carbon Dioxide (22-30) mmol/L BUN (9-20) mg/dL Creatinine (0.66-1.25) mg/dL Glucose (74-99) mg/dL Plasma Lactic Acid Segundo 5.0 H* (0.7-2.0) mmol/L Magnesium (1.6-2.3) mg/dL Total Bilirubin (0.2-1.3) mg/dL AST (17-59) U/L ALT (4-49) U/L Alkaline Phosphatase (38-126) U/L Total Protein (6.3-8.2) g/dL 07/29/22 07/29/22 07/29/22 Range/Units 04:38 04:38 07:38 RDW (11.5-15.5) % Monocytes # (0-1.0) k/uL PT (9.0-12.0) sec INR (<1.2) APTT (22.0-30.0) sec D-Dimer (<0.60) mg/L FEU ABG pH (7.35-7.45) ABG pCO2 (35-45) mmHg ABG pO2 (83-108) mmHg ABG HCO3 (21-25) mmol/L ABG Total CO2 (19-24) mmol/L ABG O2 Saturation (94-97) % Sodium 129 L (137-145) mmol/L Potassium (3.5-5.1) mmol/L Chloride 96 L (98-107) mmol/L Carbon Dioxide 17 L (22-30) mmol/L BUN 81 H (9-20) mg/dL Creatinine 1.86 H (0.66-1.25) mg/dL Glucose 103 H (74-99) mg/dL Plasma Lactic Acid Segundo 3.3 H* 2.2 H* (0.7-2.0) mmol/L Magnesium (1.6-2.3) mg/dL Total Bilirubin 3.5 H (0.2-1.3) mg/dL AST 354 H (17-59) U/L ALT 419 H (4-49) U/L Alkaline Phosphatase (38-126) U/L Total Protein 6.1 L (6.3-8.2) g/dL Diabetes panel 07/28/22 07/29/22 Range/Units 16:55 04:38 Sodium 131 L 129 L (137-145) mmol/L Potassium 5.6 H 4.8 (3.5-5.1) mmol/L Chloride 95 L 96 L (98-107) mmol/L Carbon Dioxide 15 L 17 L (22-30) mmol/L BUN 77 H 81 H (9-20) mg/dL Creatinine 1.99 H 1.86 H (0.66-1.25) mg/dL Glucose 125 H 103 H (74-99) mg/dL Calcium 8.8 8.4 (8.4-10.2) mg/dL AST 387 H 354 H (17-59) U/L ALT 437 H 419 H (4-49) U/L Alkaline Phosphatase 136 H 110 (38-126) U/L Total Protein 7.3 6.1 L (6.3-8.2) g/dL Albumin 4.4 3.5 (3.5-5.0) g/dL Calcium panel 07/28/22 07/29/22 Range/Units 16:55 04:38 Calcium 8.8 8.4 (8.4-10.2) mg/dL Albumin 4.4 3.5 (3.5-5.0) g/dL Pituitary panel 07/28/22 07/29/22 Range/Units 16:55 04:38 Sodium 131 L 129 L (137-145) mmol/L Potassium 5.6 H 4.8 (3.5-5.1) mmol/L Chloride 95 L 96 L (98-107) mmol/L Carbon Dioxide 15 L 17 L (22-30) mmol/L BUN 77 H 81 H (9-20) mg/dL Creatinine 1.99 H 1.86 H (0.66-1.25) mg/dL Glucose 125 H 103 H (74-99) mg/dL Calcium 8.8 8.4 (8.4-10.2) mg/dL Adrenal panel 07/28/22 07/29/22 Range/Units 16:55 04:38 Sodium 131 L 129 L (137-145) mmol/L Potassium 5.6 H 4.8 (3.5-5.1) mmol/L Chloride 95 L 96 L (98-107) mmol/L Carbon Dioxide 15 L 17 L (22-30) mmol/L BUN 77 H 81 H (9-20) mg/dL Creatinine 1.99 H 1.86 H (0.66-1.25) mg/dL Glucose 125 H 103 H (74-99) mg/dL Calcium 8.8 8.4 (8.4-10.2) mg/dL Total Bilirubin 3.7 H 3.5 H (0.2-1.3) mg/dL AST 387 H 354 H (17-59) U/L ALT 437 H 419 H (4-49) U/L Alkaline Phosphatase 136 H 110 (38-126) U/L Total Protein 7.3 6.1 L (6.3-8.2) g/dL Albumin 4.4 3.5 (3.5-5.0) g/dL - Imaging Chest x-ray: report reviewed, image reviewed CT scan - chest: report reviewed, image reviewed EKG: image reviewed Assessment and Plan Assessment: 1. Known bicuspid severe aortic valve stenosis, aortic valve area 0.3 cm, peak/mean gradient 27/17 mmHg 2. Acute on chronic end-stage systolic heart failure with severe nonischemic cardiomyopathy, EF 15-20%, BNP 17,300 on admission 3. Acute hypoxic respiratory failure, placed on BiPAP 4. Shortness of breath secondary to above 5. Acute kidney injury, present on admission 6. Acute elevation of liver enzymes, present on admission 7. Lactic acidosis present on admission 8. History of multiple hospitalizations for heart failure exacerbation 9. Most recent echo demonstrating grade 3 diastolic dysfunction, moderate pulmonary hypertension, moderate mitral regurgitation, moderate to severe tricuspid regurgitation 10. Intermediate nonobstructive coronary artery disease in the mid LAD 11. History of hypertension 12. History of hyperlipidemia, treated, cholesterol 100, LDL 39 13. Slt-sdrejee-hfswhoatu type 2 diabetes, hemoglobin A1c 6.6% 14. Current tobacco dependence 15. Moderate COPD, FEV1 54% of predicted 16. Previous syncopal episode Plan: The patient was seen and examined at the bedside with Dr. Mcghee. Chart/diagno stics were reviewed. We will continue our workup for possible TAVR including frailty testing this admission and gated CT scan, however due to patient's acute kidney injury and respiratory status will wait until Tuesday for gated CT. Once the patient has been treated and stabilized he may be discharged from our standpoint to return to the structural heart clinic as scheduled for shared decision-making regarding transcatheter aortic valve replacement with the complete structural heart team. This was discussed with the patient. We recommend continuing to maximize medical therapy. Smoking cessation counseling and education provided, patient is encouraged to quit smoking completely. Medical management of other comorbidities per primary care, cardiology, pulmonology. More recommendations to follow pending patient's progress. Thank you for this consult. We will continue to follow along with you and make further recommendations as appropriate. I have personally seen and examined the patient, performed the documentation and the assessment and plan as written. Number of minutes spent on the visit: 30. JESUS Erickson Pt seen and evaluted with HAULAGE BOSS above. Agree with her assessment and plan. I spent 30 minutes evaluating the findings and discussing the plan with the patient.
[2022-07-29 11:56] LABS: Glucose,Whole Blood 109 mg/dL (70-110)
--- NOTE | 2022-07-29 12:33 | P.PN ---
Subjective Progress Note Date: 07/29/22 Patient still requires BiPAP. He says his respiratory effort has improved with diuretics. Cardiology consult appreciated, CT surgery recommendations are appreciated. Patient will continue to have workup for transaortic valve repair. Gen: awake, alert HEENT: normocephalic, atraumatic, good hearing acuity, moist mucous membranes Resp: good air exchange, breathing comfortably with no accessory muscle use, bilateral crackles CVS: good distal perfusion x 4, regular rate and rhythm, systolic murmur, cre scendo decrescendo with a peak GI: soft, NTTP, ND : no SPT, no CVAT, calloway catheter not present MSK: One plus pitting edema, no clubbing Neuro: non-focal, moving all extremities Psych: cooperative, euthymic mood Assessment/plan: Acute hypoxic repsiratory failure Acute CHF exacerbation NARA Acute transaminitis lactic acidosis Valvular heart disease (aortic valve stenosis ) plan monitor vital signs initiate diuretics IV lasix, monitor blood pressure closely , avoid hypotension resume metoprolol , this can be held to improve diuresis while supporting blood pressure if required CTA of the chest negative for acute PE follow up liver enzymes follow up renal function and urine output resume ASA hold statin cardiology consult Cardiothoracic surgery consult resume keflex for right forearm phlebitis warm compress DM , insulin sliding scale , hold metformin (risk of lactic acidosis ) GI PPX PPI continue with bipap discontinue heparin drip (started inthe ED for suspected PE) DVT PPX heparin sc tid Objective - Vital Signs Vital signs: Vital Signs Temp 97 F L 07/29/22 09:45 Pulse 79 07/29/22 09:45 Resp 14 07/29/22 09:45 BP 103/72 07/29/22 09:45 Pulse Ox 99 07/29/22 09:45 FiO2 50 07/29/22 09:45 Intake & Output 07/28/22 07/29/22 07/29/22 18:59 06:59 18:59 Intake Total 118 Balance 118 Weight 63.503 kg 66.5 kg 66.5 kg Intake: Oral 118 Other: Voiding Method Urinal Urinal # Voids 1 1 # Bowel Movements 1 - Labs CBC & Chem 7: 07/28/22 16:40 07/29/22 04:38 Labs: Abnormal Lab Results - Last 24 Hours (Table) 1007/28/22 07/28/22 Range/Units 16:40 16:40 16:55 RDW 16.0 H (11.5-15.5) % Monocytes # 1.1 H (0-1.0) k/uL PT 18.9 H (9.0-12.0) sec INR 1.9 H (<1.2) APTT (22.0-30.0) sec D-Dimer 5.61 H (<0.60) mg/L FEU ABG pH (7.35-7.45) ABG pCO2 (35-45) mmHg ABG pO2 (83-108) mmHg ABG HCO3 (21-25) mmol/L ABG Total CO2 (19-24) mmol/L ABG O2 Saturation (94-97) % Sodium 131 L (137-145) mmol/L Potassium 5.6 H (3.5-5.1) mmol/L Chloride 95 L (98-107) mmol/L Carbon Dioxide 15 L (22-30) mmol/L BUN 77 H (9-20) mg/dL Creatinine 1.99 H (0.66-1.25) mg/dL Glucose 125 H (74-99) mg/dL Plasma Lactic Acid Segundo (0.7-2.0) mmol/L Magnesium 2.6 H (1.6-2.3) mg/dL Total Bilirubin 3.7 H (0.2-1.3) mg/dL AST 387 H (17-59) U/L ALT 437 H (4-49) U/L Alkaline Phosphatase 136 H (38-126) U/L Total Protein (6.3-8.2) g/dL 07/28/22 07/28/22 07/28/22 Range/Units 19:58 22:04 22:04 RDW (11.5-15.5) % Monocytes # (0-1.0) k/uL PT 19.4 H (9.0-12.0) sec INR 1.9 H (<1.2) APTT (22.0-30.0) sec D-Dimer (<0.60) mg/L FEU ABG pH 7.47 H (7.35-7.45) ABG pCO2 22 L (35-45) mmHg ABG pO2 393 H (83-108) mmHg ABG HCO3 16 L (21-25) mmol/L ABG Total CO2 17 L (19-24) mmol/L ABG O2 Saturation 100.0 H (94-97) % Sodium (137-145) mmol/L Potassium (3.5-5.1) mmol/L Chloride (98-107) mmol/L Carbon Dioxide (22-30) mmol/L BUN (9-20) mg/dL Creatinine (0.66-1.25) mg/dL Glucose (74-99) mg/dL Plasma Lactic Acid Segundo 6.9 H* (0.7-2.0) mmol/L Magnesium (1.6-2.3) mg/dL Total Bilirubin (0.2-1.3) mg/dL AST (17-59) U/L ALT (4-49) U/L Alkaline Phosphatase (38-126) U/L Total Protein (6.3-8.2) g/dL 07/29/22 07/29/22 07/29/22 Range/Units 01:45 01:45 04:38 RDW (11.5-15.5) % Monocytes # (0-1.0) k/uL PT 18.9 H (9.0-12.0) sec INR 1.9 H (<1.2) APTT 102.1 H* (22.0-30.0) sec D-Dimer (<0.60) mg/L FEU ABG pH (7.35-7.45) ABG pCO2 (35-45) mmHg ABG pO2 (83-108) mmHg ABG HCO3 (21-25) mmol/L ABG Total CO2 (19-24) mmol/L ABG O2 Saturation (94-97) % Sodium (137-145) mmol/L Potassium (3.5-5.1) mmol/L Chloride (98-107) mmol/L Carbon Dioxide (22-30) mmol/L BUN (9-20) mg/dL Creatinine (0.66-1.25) mg/dL Glucose (74-99) mg/dL Plasma Lactic Acid Segundo 5.0 H* (0.7-2.0) mmol/L Magnesium (1.6-2.3) mg/dL Total Bilirubin (0.2-1.3) mg/dL AST (17-59) U/L ALT (4-49) U/L Alkaline Phosphatase (38-126) U/L Total Protein (6.3-8.2) g/dL 07/29/22 07/29/22 07/29/22 Range/Units 04:38 04:38 07:38 RDW (11.5-15.5) % Monocytes # (0-1.0) k/uL PT (9.0-12.0) sec INR (<1.2) APTT (22.0-30.0) sec D-Dimer (<0.60) mg/L FEU ABG pH (7.35-7.45) ABG pCO2 (35-45) mmHg ABG pO2 (83-108) mmHg ABG HCO3 (21-25) mmol/L ABG Total CO2 (19-24) mmol/L ABG O2 Saturation (94-97) % Sodium 129 L (137-145) mmol/L Potassium (3.5-5.1) mmol/L Chloride 96 L (98-107) mmol/L Carbon Dioxide 17 L (22-30) mmol/L BUN 81 H (9-20) mg/dL Creatinine 1.86 H (0.66-1.25) mg/dL Glucose 103 H (74-99) mg/dL Plasma Lactic Acid Segundo 3.3 H* 2.2 H* (0.7-2.0) mmol/L Magnesium (1.6-2.3) mg/dL Total Bilirubin 3.5 H (0.2-1.3) mg/dL AST 354 H (17-59) U/L ALT 419 H (4-49) U/L Alkaline Phosphatase (38-126) U/L Total Protein 6.1 L (6.3-8.2) g/dL 07/29/22 Range/Units 11:12 RDW (11.5-15.5) % Monocytes # (0-1.0) k/uL PT (9.0-12.0) sec INR (<1.2) APTT (22.0-30.0) sec D-Dimer (<0.60) mg/L FEU ABG pH (7.35-7.45) ABG pCO2 (35-45) mmHg ABG pO2 (83-108) mmHg ABG HCO3 (21-25) mmol/L ABG Total CO2 (19-24) mmol/L ABG O2 Saturation (94-97) % Sodium (137-145) mmol/L Potassium (3.5-5.1) mmol/L Chloride (98-107) mmol/L Carbon Dioxide (22-30) mmol/L BUN (9-20) mg/dL Creatinine (0.66-1.25) mg/dL Glucose (74-99) mg/dL Plasma Lactic Acid Segundo 2.4 H* (0.7-2.0) mmol/L Magnesium (1.6-2.3) mg/dL Total Bilirubin (0.2-1.3) mg/dL AST (17-59) U/L ALT (4-49) U/L Alkaline Phosphatase (38-126) U/L Total Protein (6.3-8.2) g/dL
--- NOTE | 2022-07-29 13:02 | P.CNPUL ---
History of Present Illness Consult date: 07/29/22 Requesting physician: Silva oMrgan Reason for consult: dyspnea, hypoxemia Chief complaint: Shortness of breath History of present illness: This is a 67-year-old male patient with a known history of previous valve surgery performed at the [facility], congestive heart failure, diabetes mellitus, hypertension, hyperlipidemia, chronic tobacco dependence with chronic obstructive pulmonary disease and FEV1 value of 54% of predicted. He follows with Dr. Ayala and does have a known history of bicuspid severe aortic valve stenosis, nonischemic cardiomyopathy with ejection fraction of 15-20%. He had been seen and evaluated by cardiothoracic at his recent admission and just discharged home on 07/26/2022 with plans for follow-up at the [facility]. He presented to the emergency room yesterday 07/28/2022 with worsening shortness of breath. He was quite hypoxemic with an O2 saturation of 67%. He was placed on BiPAP currently 10/5 and 50% FiO2. Arterial blood gases on 100% FiO2 revealed a PaO2 of 393, pCO2 22, pH 7.47. Chest x-ray revealed cardiomegaly without acute cardiopulmonary process. CT angiogram ruled out pulmonary embolism. There is noted cardiomegaly with bilateral pleural effusions and ascites suggestive of congestive heart failure. White count 10.2. Hemoglobin 14.4. D-dimer 5.6. INR 1.9. Sodium 129. Potassium 4.8. BUN 81. Creatinine 1.86. Initial lactic 6.9. Currently 2.4. AST 354. ALT 419. Troponins negative 3. ProBNP 17,300. He was initiated on Lasix 40 mg IV every 12 hours. He is seen today in consultation on the selective care unit. He is currently awake and alert. He remains on BiPAP 10/5 at 50% FiO2. He is br eathing a bit easier today compared to yesterday. No accurate I&O recorded. Review of Systems REVIEW OF SYSTEMS: CONSTITUTIONAL: Denies any recent significant weight loss or weight gain. EYES: Denies change in vision. EARS, NOSE, MOUTH, THROAT: Denies headaches, denies sore throat. CARDIOVASCULAR: Denies chest pain, palpitations or syncopal episodes. RESPIRATORY: Positive for shortness of breath, no cough, congestion or hemoptysis. GASTROINTESTINAL: Denies change in appetite, denies abdominal pain GENITOURINARY: Denies hematuria, denies infections. MUSKULOSKELETAL: Denies pain, denies swelling. INTEGUMENTARY: Denies rash, denies eczema. NEUROLOGICAL: Denies recent memory loss, no recent seizure activity. PSYCHIATRIC: Denies anxiety, denies depression. HEMATOLOGIC/LYMPHATIC: Denies anemia, denies enlarged lymph nodes. Past Medical History Past Medical History: Coronary Artery Disease (CAD), Heart Failure, Diabetes M ellitus, GERD/Reflux, Hyperlipidemia, Hypertension, Syncope Additional Past Medical History / Comment(s): Pt denies [place] documented in his 11/07/21 medical record, severe aortic stenosis, NIDDM type II, pulmonary HTN; patient states he was told he is had A. fib in the past, no documentation in the chart and patient is not currently on anticoagulation History of Any Multi-Drug Resistant Organisms: None Reported Past Surgical History: Joint Replacement, Orthopedic Surgery, Tonsillectomy Additional Past Surgical History / Comment(s): Previous cardiac valve surgery done percutaneously to "clean up my valve"/done at [facility], left knee replacement, removal of partial fingers 3rd and 5th digits on left hand, colonoscopy, cyst removed behind L ear Past Anesthesia/Blood Transfusion Reactions: No Reported Reaction Past Psychological History: No Psychological Hx Reported Smoking Status: Current every day smoker Past Alcohol Use History: None Reported Past Drug Use History: None Reported - Past Family History Mother Family Medical History: Hyperlipidemia, Hypertension Father Family Medical History: Cancer, Hypertension Medications and Allergies Home Medications Medication Instructions Recorded Confirmed Type Aspirin EC [Ecotrin Low Dose] 81 mg PO DAILY 11/07/21 07/28/22 History metFORMIN HCL [Glucophage] 1,000 mg PO BID 11/07/21 07/28/22 History Empagliflozin [Jardiance] 10 mg PO DAILY #30 tablet 11/10/21 07/28/22 Rx Nitroglycerin Sl Tabs [Nitrostat] 0.4 mg SUBLINGUAL Q5M PRN #100 tab 11/12/21 07/28/22 Rx Omeprazole 40 mg PO DAILY #30 cap 11/12/21 07/28/22 Rx Metoprolol Tartrate [Lopressor] 12.5 mg PO BID 12/23/21 07/28/22 History Atorvastatin [Lipitor] 40 mg PO DAILY 05/21/22 07/28/22 History Cephalexin [Keflex] 500 mg PO QID 5 Days #20 cap 07/26/22 07/28/22 Rx Allergies Allergy/AdvReac Type Severity Reaction Status Date / Time No Known Allergies Allergy Verified 07/23/22 16:39 Physical Exam Vitals: Vital Signs Temp Pulse Pulse Pulse Resp BP BP 07/29/22 09:45 97 F L 79 14 103/72 07/29/22 08:46 07/29/22 03:40 96.8 F L 73 12 94/67 07/29/22 03:29 07/28/22 23:44 96.7 F L 07/28/22 23:32 97 19 121/86 07/28/22 23:31 07/28/22 22:23 90 20 107/85 07/28/22 22:05 07/28/22 20:11 07/28/22 20:05 07/28/22 17:38 85 20 07/28/22 17:00 07/28/22 16:59 07/28/22 16:53 78 22 112/84 07/28/22 16:35 07/28/22 15:50 98 F 85 22 105/72 Pulse Ox FiO2 07/29/22 09:45 99 50 07/29/22 08:46 50 07/29/22 03:40 96 50 07/29/22 03:29 50 07/28/22 23:44 07/28/22 23:32 99 50 07/28/22 23:31 50 07/28/22 22:23 96 07/28/22 22:05 97 07/28/22 20:11 50 07/28/22 20:05 100 07/28/22 17:38 100 07/28/22 17:00 100 07/28/22 16:59 100 07/28/22 16:53 79 L 07/28/22 16:35 96 07/28/22 15:50 67 L Intake and Output 07/28/22 07/29/22 07/29/22 22:59 06:59 14:59 Intake Total 118 Balance 118 Intake: Oral 118 Other: Voiding Method Urinal Urinal # Voids 1 1 # Bowel Movements 1 Weight 63.503 kg 66.5 kg 66.5 kg GENERAL EXAM: Alert, pleasant 67-year-old male patient, on BiPAP 10/5 and 50% FiO2, fairly comfortable in no apparent distress. HEAD: Normocephalic. EYES: Normal reaction of pupils, equal size. NOSE: Clear with pink turbinates. THROAT: No erythema or exudates. NECK: No masses, no JVD. CHEST: No chest wall deformity. LUNGS: Equal air entry with bibasilar crackles. CVS: S1 and S2 normal with no audible murmur, regular rhythm. ABDOMEN: No hepatosplenomegaly, normal bowel sounds, no guarding or rigidity. SPINE: No scoliosis or deformity SKIN: No rashes CENTRAL NERVOUS SYSTEM: No focal deficits, tone is normal in all 4 extremities. EXTREMITIES: There is no peripheral edema. No clubbing, no cyanosis. Peripheral pulses are intact. Results - Laboratory Findings CBC and BMP: 07/28/22 16:40 07/29/22 04:38 ABG ABG pH 7.47 (7.35-7.45) H 07/28/22 19:58 ABG pCO2 22 mmHg (35-45) L 07/28/22 19:58 ABG pO2 393 mmHg (83-108) H 07/28/22 19:58 ABG O2 Saturation 100.0 % (94-97) H 07/28/22 19:58 PT/INR, D-dimer PT 18.9 sec (9.0-12.0) H 07/29/22 04:38 INR 1.9 (<1.2) H 07/29/22 04:38 D-Dimer 5.61 mg/L FEU (<0.60) H 07/28/22 16:40 Abnormal lab findings: Abnormal Labs 07/28/22 07/28/22 07/28/22 16:40 16:40 16:55 RDW 16.0 H Monocytes # 1.1 H PT 18.9 H INR 1.9 H APTT D-Dimer 5.61 H ABG pH ABG pCO2 ABG pO2 ABG HCO3 ABG Total CO2 ABG O2 Saturation Sodium 131 L Potassium 5.6 H Chloride 95 L Carbon Dioxide 15 L BUN 77 H Creatinine 1.99 H Glucose 125 H Plasma Lactic Acid Segundo Magnesium 2.6 H Total Bilirubin 3.7 H AST 387 H ALT 437 H Alkaline Phosphatase 136 H Total Protein 07/28/22 07/28/22 07/28/22 19:58 22:04 22:04 RDW Monocytes # PT 19.4 H INR 1.9 H APTT D-Dimer ABG pH 7.47 H ABG pCO2 22 L ABG pO2 393 H ABG HCO3 16 L ABG Total CO2 17 L ABG O2 Saturation 100.0 H Sodium Potassium Chloride Carbon Dioxide BUN Creatinine Glucose Plasma Lactic Acid Segundo 6.9 H* Magnesium Total Bilirubin AST ALT Alkaline Phosphatase Total Protein 07/29/22 07/29/22 07/29/22 01:45 01:45 04:38 RDW Monocytes # PT 18.9 H INR 1.9 H APTT 102.1 H* D-Dimer ABG pH ABG pCO2 ABG pO2 ABG HCO3 ABG Total CO2 ABG O2 Saturation Sodium Potassium Chloride Carbon Dioxide BUN Creatinine Glucose Plasma Lactic Acid Segundo 5.0 H* Magnesium Total Bilirubin AST ALT Alkaline Phosphatase Total Protein 07/29/22 07/29/22 07/29/22 04:38 04:38 07:38 RDW Monocytes # PT INR APTT D-Dimer ABG pH ABG pCO2 ABG pO2 ABG HCO3 ABG Total CO2 ABG O2 Saturation Sodium 129 L Potassium Chloride 96 L Carbon Dioxide 17 L BUN 81 H Creatinine 1.86 H Glucose 103 H Plasma Lactic Acid Segundo 3.3 H* 2.2 H* Magnesium Total Bilirubin 3.5 H AST 354 H ALT 419 H Alkaline Phosphatase Total Protein 6.1 L 07/29/22 11:12 RDW Monocytes # PT INR APTT D-Dimer ABG pH ABG pCO2 ABG pO2 ABG HCO3 ABG Total CO2 ABG O2 Saturation Sodium Potassium Chloride Carbon Dioxide BUN Creatinine Glucose Plasma Lactic Acid Segundo 2.4 H* Magnesium Total Bilirubin AST ALT Alkaline Phosphatase Total Protein - Diagnostic Findings Chest x-ray: image reviewed CT scan - chest: image reviewed Assessment and Plan Assessment: Acute hypoxemic respiratory failure secondary to an acute exacerbation of chronic systolic congestive heart failure. Ejection fraction 15-20% Nonischemic cardiomyopathy, nonobstructive coronary artery disease Severe bicuspid aortic stenosis, considered high risk for intervention, to be ev aluated at the [facility] Recent admission for CHF exacerbation Chronic obstructive pulmonary disease with an FEV1 value of 54% of predicted Chronic and ongoing tobacco dependence Diabetes mellitus Hypertension Hyperlipidemia Gastroesophageal reflux disease Acute kidney injury, current creatinine 1.86, GFR 37 Transaminitis, consider cardiohepatic Lactic acidosis, improving Plan: The patient was seen and evaluated Chest x-ray, CAT scan, medications and labs reviewed Change BiPAP settings to 12/6 and 35% FiO2 Titrate the FiO2 as tolerated Continue IV diuretics Educated regarding the importance of complete smoking cessation The patient does have home oxygen from previous admission Further recommendations per cardiology/cardiothoracic We will continue to follow and make further recommendations based on his clinical status I have personally seen and examined the patient, performed the documentation and the assessment and plan as written. Number of minutes spent on the visit: 20.
[2022-07-29] MEDS: CEPHALEXIN 500 MG CAP PO SCH ×3 (13:41→22:28)
[2022-07-29 17:13] LABS: Glucose,Whole Blood 146 mg/dL (70-110)
[2022-07-29] MEDS: ACETAMINOPHEN TAB 325 MG TAB PO PRN ×2 (18:21→23:50)
[2022-07-29 20:08] LABS: Glucose,Whole Blood 152 mg/dL (70-110)
[2022-07-30] MEDS: ACETAMINOPHEN TAB 325 MG TAB PO PRN ×2 (03:42→21:47)
[2022-07-30 05:42] LABS: Calcium 8.2 mg/dL (8.4-10.2); Potassium 5.2 mmol/L (3.5-5.1)
[2022-07-30 05:57] LABS: Glucose,Whole Blood 125 mg/dL (70-110)
[2022-07-30] MEDS: INSULIN ASPART (NovoLOG) 100 UNIT/ML VIAL SQ SCH ×4 (06:09→20:46)
[2022-07-30] MEDS: PANTOPRAZOLE 40 MG TABLET PO SCH (06:43)
[2022-07-30] MEDS: FUROSEMIDE 10 MG/ML 4 ML VIAL IV SCH ×2 (09:00→21:48)
[2022-07-30] MEDS: ASPIRIN 81 MG PO SCH (09:02)
[2022-07-30] MEDS: LIDOCAINE 5% PATCH TOPICAL SCH (09:02)
[2022-07-30] MEDS: CEPHALEXIN 500 MG CAP PO SCH ×3 (09:02→21:48)
[2022-07-30] MEDS: METOPROLOL TARTRATE 12.5 MG TAB PO SCH ×2 (09:02→21:47)
--- NOTE | 2022-07-30 11:24 | P.PN ---
Subjective Progress Note Date: 07/30/22 HISTORY OF PRESENT ILLNESS: This is a 67 year old male with a past medical history significant for severe nonischemic cardiomyopathy, valvular heart disease with known bicuspid aortic valve and aortic stenosis, hypertension, hyperlipidemia, diabetes, congestive heart failure, and nicotine dependence. Patient follows in the office with Dr. Ayala. We have been asked to see the patient in consultation for CHF. Patient examined at the bedside. Patient presented to the hospital with a chief complaint of shortness of breath. He was found to be in acute CHF and was started on IV lasix. He is currently on a Bipap. It is noted this is the patients 4th admission since May for the same symptoms. In May, the patient stated he was going to be seen at [facility] for evaluation of aortic valve replacement but he was homeless at that time and needed to acquire stable housing to he would have a place to recover. Patient has since obtained a place to a live. He has not contacted [facility] for evaluation. He reports he was going to call yesterday but was too short of breath and came to the ER instead. It is noted that he was also evaluated by cardiothoracic surgery in May 2022 and felt to be high risk for traditional valve replacement surgery but TAVR could be considered, although still high risk. * EKG reveals sinus mechanism with no signs of acute ischemia * Chest xray similar cardiomegaly without acute cardiopulmonary process * Chest CTA: No evidence of pulmonary embolus. Cardiomegaly with bilateral pleural effusions and ascites. * Laboratory data: WBC 10.2. Hemoglobin 14.4. Platelet count 178. D-dimer 5.61. Sodium 129. Potassium 4.9. BUN 81. Creatinine 1.86. AST 354. ALT 419. Troponin negative 3. ProBNP 17,300 * Current home cardiac medications include Jardiance 10mg daily, aspirin 81 mg daily, Lipitor 40 mg daily, metoprolol tartrate 12.5 mg twice a day * Most recent echocardiogram obtained in May 2022 revealed ejection fraction less than 15% * Patient underwent CRISTIAN in November 2021 revealing dilated left ventricle with severely impaired function and EF of 20% with global hypokinesis. Bicuspid aortic valve with fusion of the right and left coronary cusps. Moderate MR, mitral valve appears to be thickened. Moderate TR. No evidence of pericar dial effusion. * Cardiac catheterization history: November 2021 revealing severe aortic stenosis, pulmonary hypertension, elevated biventricular filling pressures, and intermediate nonobstructive coronary artery disease 07/30/2022 Patient examined this morning at the bedside. He has been transitioned to nasal cannula. He denies chest pain or pressure. He reports SOB. He remains on IV lasix. Vital signs are stable. PHYSICAL EXAM: VITAL SIGNS: Reviewed. GENERAL: Well-developed in no acute distress. HEENT: Head is normocephalic. Pupils are equal, round. Sclerae anicteric. Mucous membranes of the mouth are moist. Neck supple. No JVD or thyromegaly LUNGS: Respirations even and unlabored. Lungs diminished with a few right sided crackles HEART: Regular rate and rhythm. S1 and S2 heard. + systolic murmur ABDOMEN: Soft. Nondistended. Nontender. EXTREMITIES: Normal range of motion. No clubbing or cyanosis. Peripheral pulses intact. No lower extremity edema NEUROLOGIC: Awake and alert. Oriented x 3. ASSESSMENT: Shortness of breath Acute on chronic congestive heart failure with reduced ejection fraction Hyponatremia Hyperkalemia Acute kidney injury Transaminitis Intermediate nonobstructive coronary artery disease Severe aortic stenosis Bicuspid aortic valve Valvular heart disease Nonischemic cardiomyopathy, EF 15% Hypertension Hyperlipidemia Diabetes Nicotine dependence PLAN: Continue current cardiac medications Continue IV lasix Daily weights, accurate I&O, monitoring of kidney function Patient unable to tolerate VICKIE/ARB in the past due to soft blood pressures Continue additional cardiac medications CTS following for TAVR evaluation Further recommendations pending patient course Nurse practitioner note has been reviewed by physician. Signing provider agrees with the documented findings, assessment, and plan of care. Objective - Vital Signs Vital signs: Vital Signs Temp 98.3 F 07/30/22 08:00 Pulse 65 07/30/22 08:00 Resp 18 07/30/22 08:00 BP 101/70 07/30/22 08:00 Pulse Ox 99 07/30/22 08:37 FiO2 50 07/29/22 15:47 Intake & Output 07/29/22 07/30/22 07/30/22 18:59 06:59 18:59 Intake Total 354 118 Balance 354 118 Weight 66.5 kg 68.7 kg Intake: Oral 354 118 Other: Voiding Method Urinal Bedside Commode # Voids 1 # Bowel Movements 1 - Labs CBC & Chem 7: 07/28/22 16:40 07/30/22 05:07 Labs: Abnormal Lab Results - Last 24 Hours (Table) 07/29/22 07/29/22 07/29/22 Range/Units 11:12 15:07 17:11 Sodium (137-145) mmol/L Potassium (3.5-5.1) mmol/L Chloride (98-107) mmol/L Carbon Dioxide (22-30) mmol/L BUN (9-20) mg/dL Creatinine (0.66-1.25) mg/dL Glucose (74-99) mg/dL POC Glucose (mg/dL) 146 H (70-110) mg/dL Plasma Lactic Acid Segundo 2.4 H* 4.3 H* (0.7-2.0) mmol/L Calcium (8.4-10.2) mg/dL 07/29/22 07/29/22 07/29/22 Range/Units 18:05 20:06 22:14 Sodium (137-145) mmol/L Potassium (3.5-5.1) mmol/L Chloride (98-107) mmol/L Carbon Dioxide (22-30) mmol/L BUN (9-20) mg/dL Creatinine (0.66-1.25) mg/dL Glucose (74-99) mg/dL POC Glucose (mg/dL) 152 H (70-110) mg/dL Plasma Lactic Acid Segundo 5.7 H* 5.8 H* (0.7-2.0) mmol/L Calcium (8.4-10.2) mg/dL 07/30/22 07/30/22 07/30/22 Range/Units 01:40 05:07 05:07 Sodium 128 L (137-145) mmol/L Potassium 5.2 H (3.5-5.1) mmol/L Chloride 95 L (98-107) mmol/L Carbon Dioxide 19 L (22-30) mmol/L BUN 83 H (9-20) mg/dL Creatinine 1.79 H (0.66-1.25) mg/dL Glucose 101 H (74-99) mg/dL POC Glucose (mg/dL) (70-110) mg/dL Plasma Lactic Acid Segundo 4.8 H* 4.3 H* (0.7-2.0) mmol/L Calcium 8.2 L (8.4-10.2) mg/dL 07/30/22 Range/Units 05:56 Sodium (137-145) mmol/L Potassium (3.5-5.1) mmol/L Chloride (98-107) mmol/L Carbon Dioxide (22-30) mmol/L BUN (9-20) mg/dL Creatinine (0.66-1.25) mg/dL Glucose (74-99) mg/dL POC Glucose (mg/dL) 125 H (70-110) mg/dL Plasma Lactic Acid Segundo (0.7-2.0) mmol/L Calcium (8.4-10.2) mg/dL
[2022-07-30 11:36] LABS: Glucose,Whole Blood 231 mg/dL (70-110)
[2022-07-30] MEDS: traMADol 50 MG TAB PO PRN (11:38)
--- NOTE | 2022-07-30 12:51 | P.PN ---
Subjective Progress Note Date: 07/30/22 Patient now on HFNC He says his respiratory effort has improved with diuretics. Cardiology consult appreciated, CT surgery recommendations are appreciated. Patient will continue to have workup for transaortic valve repair while getting IV diuresis. Gen: awake, alert HEENT: normocephalic, atraumatic, good hearing acuity, moist mucous membranes Resp: good air exchange, breathing comfortably with no accessory muscle use, bilateral crackles CVS: good distal perfusion x 4, regular rate and rhythm, systolic murmur, crescendo decrescendo with a peak GI: soft, NTTP, ND : no SPT, no CVAT, calloway catheter not present MSK: One plus pitting edema, no clubbing Neuro: non-focal, moving all extremities Psych: cooperative, euthymic mood Assessment/plan: Acute hypoxic repsiratory failure Acute CHF exacerbation NARA Acute transaminitis lactic acidosis Valvular heart disease (aortic valve stenosis ) plan monitor vital signs initiate diuretics IV lasix, monitor blood pressure closely , avoid hypotension resume metoprolol , this can be held to improve diuresis while supporting blood pressure if required CTA of the chest negative for acute PE follow up liver enzymes follow up renal function and urine output resume ASA hold statin cardiology consult Cardiothoracic surgery consult resume keflex for right forearm phlebitis warm compress DM , insulin sliding scale , hold metformin (risk of lactic acidosis ) GI PPX PPI continue with bipap discontinue heparin drip (started inthe ED for suspected PE) DVT PPX heparin sc tid Objective - Vital Signs Vital signs: Vital Signs Temp 98.3 F 07/30/22 08:00 Pulse 65 07/30/22 08:00 Resp 18 07/30/22 12:00 BP 92/64 07/30/22 12:00 Pulse Ox 100 07/30/22 12:00 FiO2 50 07/29/22 15:47 Intake & Output 07/29/22 07/30/22 07/30/22 18:59 06:59 18:59 Intake Total 354 118 Output Total 350 Balance 354 -232 Weight 66.5 kg 68.7 kg Intake: Oral 354 118 Output: Urine 350 Other: Voiding Method Urinal Bedside Commode # Voids 1 # Bowel Movements 1 1 - Labs CBC & Chem 7: 07/28/22 16:40 07/30/22 05:07 Labs: Abnormal Lab Results - Last 24 Hours (Table) 07/29/22 07/29/22 07/29/22 Range/Units 15:07 17:11 18:05 Sodium (137-145) mmol/L Potassium (3.5-5.1) mmol/L Chloride (98-107) mmol/L Carbon Dioxide (22-30) mmol/L BUN (9-20) mg/dL Creatinine (0.66-1.25) mg/dL Glucose (74-99) mg/dL POC Glucose (mg/dL) 146 H (70-110) mg/dL Plasma Lactic Acid Segundo 4.3 H* 5.7 H* (0.7-2.0) mmol/L Calcium (8.4-10.2) mg/dL 07/29/22 07/29/22 07/30/22 Range/Units 20:06 22:14 01:40 Sodium (137-145) mmol/L Potassium (3.5-5.1) mmol/L Chloride (98-107) mmol/L Carbon Dioxide (22-30) mmol/L BUN (9-20) mg/dL Creatinine (0.66-1.25) mg/dL Glucose (74-99) mg/dL POC Glucose (mg/dL) 152 H (70-110) mg/dL Plasma Lactic Acid Segundo 5.8 H* 4.8 H* (0.7-2.0) mmol/L Calcium (8.4-10.2) mg/dL 07/30/22 07/30/22 07/30/22 Range/Units 05:07 05:07 05:56 Sodium 128 L (137-145) mmol/L Potassium 5.2 H (3.5-5.1) mmol/L Chloride 95 L (98-107) mmol/L Carbon Dioxide 19 L (22-30) mmol/L BUN 83 H (9-20) mg/dL Creatinine 1.79 H (0.66-1.25) mg/dL Glucose 101 H (74-99) mg/dL POC Glucose (mg/dL) 125 H (70-110) mg/dL Plasma Lactic Acid Segundo 4.3 H* (0.7-2.0) mmol/L Calcium 8.2 L (8.4-10.2) mg/dL 07/30/22 Range/Units 11:34 Sodium (137-145) mmol/L Potassium (3.5-5.1) mmol/L Chloride (98-107) mmol/L Carbon Dioxide (22-30) mmol/L BUN (9-20) mg/dL Creatinine (0.66-1.25) mg/dL Glucose (74-99) mg/dL POC Glucose (mg/dL) 231 H (70-110) mg/dL Plasma Lactic Acid Segundo (0.7-2.0) mmol/L Calcium (8.4-10.2) mg/dL
--- NOTE | 2022-07-30 13:34 | P.PN ---
Subjective Progress Note Date: 07/30/22 Principal diagnosis: Acute hypoxic respiratory failure secondary to acute exacerbation of chronic systolic congestive heart failure ejection fraction of 15% This is a 67-year-old male patient with a known history of previous valve surgery performed at the [facility], congestive heart failure, diabetes mellitus, hypertension, hyperlipidemia, chronic tobacco dependence with chronic obstructive pulmonary disease and FEV1 value of 54% of predicted. He follows with Dr. Ayala and does have a known history of bicuspid severe aortic valve stenosis, nonischemic cardiomyopathy with ejection fraction of 15-20%. He had been seen and evaluated by cardiothoracic at his recent admission and just discharged home on 07/26/2022 with plans for follow-up at the [facility]. He presented to the emergency room yesterday 07/28/2022 with worsening shortness of breath. He was quite hypoxemic with an O2 saturation of 67%. He was placed on BiPAP currently 10/5 and 50% FiO2. Arterial blood gases on 100% FiO2 revealed a PaO2 of 393, pCO2 22, pH 7.47. Chest x-ray revealed cardiomegaly without acute cardiopulmonary process. CT angiogram ruled out pulmonary embolism. There is noted cardiomegaly with bilateral pleural effusions and ascites suggestive of congestive heart failure. White count 10.2. Hemoglobin 14.4. D-dimer 5.6. INR 1.9. Sodium 129. Potassium 4.8. BUN 81. Creatinine 1.86. Initial lactic 6.9. Currently 2.4. AST 354. ALT 419. Trop onins negative 3. ProBNP 17,300. He was initiated on Lasix 40 mg IV every 12 hours. He is seen today in consultation on the selective care unit. He is currently awake and alert. He remains on BiPAP 10/5 at 50% FiO2. He is breathing a bit easier today compared to yesterday. No accurate I&O recorded. Reevaluated today on 07/30/22, patient seems to be more comfortable today compared to yesterday. He is off BiPAP patient is on 8 L high flow nasal cannula, O2 saturations on the percent. His blood pressure is 92/64 with a mean of 73. Patient seems to be very comfortable, not in any distress. His electrolytes showed low sodium of 128 potassium 5.2 he has a BUN of 83 creatinine 1.79 which I assume is cardiorenal picture. Patient remains on multiple cardiac meds and on diuretics, improved, he was seen by cardiothoracic surgery, and they are considering taVR in the near future however this will not be done on this admission according to the note Objective - Vital Signs Vital signs: Vital Signs Temp 98.3 F 07/30/22 08:00 Pulse 65 07/30/22 08:00 Resp 18 07/30/22 12:00 BP 92/64 07/30/22 12:00 Pulse Ox 100 07/30/22 12:00 FiO2 50 07/29/22 15:47 Intake & Output 07/29/22 07/30/22 07/30/22 18:59 06:59 18:59 Intake Total 354 118 Output Total 350 Balance 354 -232 Weight 66.5 kg 68.7 kg Intake: Oral 354 118 Output: Urine 350 Other: Voiding Method Urinal Bedside Commode # Voids 1 # Bowel Movements 1 1 - Exam Physical Exam: Revealed 67-year-old white male in no distress, on nasal cannula presently on 8 L nasal cannula Head: Atraumatic, normocephalic. HEENT:[Neck is supple.] [No neck masses.] [No thyromegaly.] [No JVD.] Chest: [Symmetrical chest expansion, crackles at the bases. No rhonchi no wheezes Cardiac Exam: [Normal S1 and S2, no S3 gallop, 2/6 systolic murmur thought the precordium. Abdomen: [Soft, nontender, no megaly, no rebound, no guarding, normal bowel sounds.] Extremities: [No clubbing, no edema, no cyanosis.] Neurological Exam: [No focal neurologic deficit. Alert and oriented 3. Psychiatric: Normal mood, affect and normal mental status examination. Skin: No rashes.] - Labs CBC & Chem 7: 07/28/22 16:40 07/30/22 05:07 Labs: Abnormal Lab Results - Last 24 Hours (Table) 07/29/22 07/29/22 07/29/22 Range/Units 15:07 17:11 18:05 Sodium (137-145) mmol/L Potassium (3.5-5.1) mmol/L Chloride (98-107) mmol/L Carbon Dioxide (22-30) mmol/L BUN (9-20) mg/dL Creatinine (0.66-1.25) mg/dL Glucose (74-99) mg/dL POC Glucose (mg/dL) 146 H (70-110) mg/dL Plasma Lactic Acid Segundo 4.3 H* 5.7 H* (0.7-2.0) mmol/L Calcium (8.4-10.2) mg/dL 07/29/22 07/29/22 07/30/22 Range/Units 20:06 22:14 01:40 Sodium (137-145) mmol/L Potassium (3.5-5.1) mmol/L Chloride (98-107) mmol/L Carbon Dioxide (22-30) mmol/L BUN (9-20) mg/dL Creatinine (0.66-1.25) mg/dL Glucose (74-99) mg/dL POC Glucose (mg/dL) 152 H (70-110) mg/dL Plasma Lactic Acid Segundo 5.8 H* 4.8 H* (0.7-2.0) mmol/L Calcium (8.4-10.2) mg/dL 07/30/22 07/30/22 07/30/22 Range/Units 05:07 05:07 05:56 Sodium 128 L (137-145) mmol/L Potassium 5.2 H (3.5-5.1) mmol/L Chloride 95 L (98-107) mmol/L Carbon Dioxide 19 L (22-30) mmol/L BUN 83 H (9-20) mg/dL Creatinine 1.79 H (0.66-1.25) mg/dL Glucose 101 H (74-99) mg/dL POC Glucose (mg/dL) 125 H (70-110) mg/dL Plasma Lactic Acid Segundo 4.3 H* (0.7-2.0) mmol/L Calcium 8.2 L (8.4-10.2) mg/dL 07/30/22 Range/Units 11:34 Sodium (137-145) mmol/L Potassium (3.5-5.1) mmol/L Chloride (98-107) mmol/L Carbon Dioxide (22-30) mmol/L BUN (9-20) mg/dL Creatinine (0.66-1.25) mg/dL Glucose (74-99) mg/dL POC Glucose (mg/dL) 231 H (70-110) mg/dL Plasma Lactic Acid Segundo (0.7-2.0) mmol/L Calcium (8.4-10.2) mg/dL Assessment and Plan Assessment: Impression: Acute hypoxic respiratory failure secondary to acute on chronic systolic congestive heart failure Electrolytes imbalance secondary to diuretics Acute kidney injury suspect cardiorenal picture. Severe aortic stenosis/bicuspid aortic valve Nonischemic cardiomyopathy and LV dysfunction Benign essential hypertension Dyslipidemia Nicotine dependence Type 2 diabetes Recommendation: Continue diuretics Continue cardiac meds Patient is being evaluated by cardiac surgery for possibility aVR in the near future Titrate oxygen down accordingly We'll continue to follow Time with Patient: Less than 30
[2022-07-30] MEDS: HEPARIN SODIUM,PORCINE/PF 5,000 UNIT/0.5 ML SYRINGE SQ SCH ×3 (14:56→23:20)
[2022-07-30 16:31] LABS: Glucose,Whole Blood 101 mg/dL (70-110)
[2022-07-30 20:04] LABS: Glucose,Whole Blood 121 mg/dL (70-110)
[2022-07-31 06:04] LABS: Glucose,Whole Blood 143 mg/dL (70-110)
[2022-07-31] MEDS: INSULIN ASPART (NovoLOG) 100 UNIT/ML VIAL SQ SCH ×4 (06:24→20:23)
[2022-07-31] MEDS: PANTOPRAZOLE 40 MG TABLET PO SCH (06:27)
[2022-07-31] MEDS: HEPARIN SODIUM,PORCINE/PF 5,000 UNIT/0.5 ML SYRINGE SQ SCH ×2 (08:22→15:06)
[2022-07-31] MEDS: CEPHALEXIN 500 MG CAP PO SCH ×3 (08:22→20:23)
[2022-07-31] MEDS: FUROSEMIDE 10 MG/ML 4 ML VIAL IV SCH (08:23)
[2022-07-31] MEDS: ASPIRIN 81 MG PO SCH (08:23)
[2022-07-31] MEDS: LIDOCAINE 5% PATCH TOPICAL SCH (08:23)
[2022-07-31] MEDS: METOPROLOL TARTRATE 12.5 MG TAB PO SCH ×2 (08:23→20:23)
[2022-07-31 08:32] LABS: Calcium 8.3 mg/dL (8.4-10.2)
[2022-07-31 11:33] LABS: Glucose,Whole Blood 125 mg/dL (70-110)
[2022-07-31] MEDS: SODIUM CHLORIDE 0.65% NASAL SPRAY 44 ML BTL NASAL PRN ×2 (11:43→15:06)
--- NOTE | 2022-07-31 12:26 | P.PN ---
Subjective Progress Note Date: 07/31/22 Principal diagnosis: Acute hypoxic respiratory failure secondary to acute exacerbation of chronic systolic congestive heart failure ejection fraction of 15% This is a 67-year-old male patient with a known history of previous valve surgery performed at the [facility], congestive heart failure, diabetes mellitus, hypertension, hyperlipidemia, chronic tobacco dependence with chronic obstructive pulmonary disease and FEV1 value of 54% of predicted. He follows with Dr. Ayala and does have a known history of bicuspid severe aortic valve stenosis, nonischemic cardiomyopathy with ejection fraction of 15-20%. He had been seen and evaluated by cardiothoracic at his recent admission and just discharged home on 07/26/2022 with plans for follow-up at the [facility]. He presented to the emergency room yesterday 07/28/2022 with worsening shortness of breath. He was quite hypoxemic with an O2 saturation of 67%. He was placed on BiPAP currently 10/5 and 50% FiO2. Arterial blood gases on 100% FiO2 revealed a PaO2 of 393, pCO2 22, pH 7.47. Chest x-ray revealed cardiomegaly without acute cardiopulmonary process. CT angiogram ruled out pulmonary embolism. There is noted cardiomegaly with bilateral pleural effusions and ascites suggestive of congestive heart failure. White count 10.2. Hemoglobin 14.4. D-dimer 5.6. INR 1.9. Sodium 129. Potassium 4.8. BUN 81. Creatinine 1.86. Initial lactic 6.9. Currently 2.4. AST 354. ALT 419. Trop onins negative 3. ProBNP 17,300. He was initiated on Lasix 40 mg IV every 12 hours. He is seen today in consultation on the selective care unit. He is currently awake and alert. He remains on BiPAP 10/5 at 50% FiO2. He is breathing a bit easier today compared to yesterday. No accurate I&O recorded. Reevaluated today on 07/30/22, patient seems to be more comfortable today compared to yesterday. He is off BiPAP patient is on 8 L high flow nasal cannula, O2 saturations on the percent. His blood pressure is 92/64 with a mean of 73. Patient seems to be very comfortable, not in any distress. His electrolytes showed low sodium of 128 potassium 5.2 he has a BUN of 83 creatinine 1.79 which I assume is cardiorenal picture. Patient remains on multiple cardiac meds and on diuretics, improved, he was seen by cardiothoracic surgery, and they are considering taVR in the near future however this will not be done on this admission according to the note Patient was reevaluated today on 07/31/22, complaining of shortness of breath, nasal congestion, remains on 6 L nasal cannula with O2 sats is 97%. Patient is hemodynamically stable, does not seem to be in any distress, but he is compl aining of shortness of breath with any activity. Remind you the patient's ejection fraction is in the range of 15% to begin with. Patient presented with acute on chronic systolic congestive heart failure. And I believe his symptoms are mostly cardiac in nature without any doubt. Remains on diuretics. His BUN is 80 creatinine 1.6, slightly better comparing to 1.99 on admission Objective - Vital Signs Vital signs: Vital Signs Temp 96.5 F L 07/31/22 11:32 Pulse 63 07/31/22 11:32 Resp 16 07/31/22 11:32 BP 95/67 07/31/22 11:32 Pulse Ox 97 07/31/22 12:16 FiO2 50 07/29/22 15:47 Intake & Output 07/30/22 07/31/22 07/31/22 18:59 06:59 18:59 Intake Total 358 10 Output Total 750 Balance -392 10 Intake: IV 10 Invasive Line 1 10 Oral 358 Output: Urine 750 Other: Voiding Method Bedside Commode # Bowel Movements 1 - Exam Physical Exam: Revealed 67-year-old white male in no distress, on nasal cannula presently on 8 L nasal cannula Head: Atraumatic, normocephalic. HEENT:[Neck is supple.] [No neck masses.] [No thyromegaly.] [No JVD.] Chest: [Symmetrical chest expansion, crackles at the bases. No rhonchi no wheezes Cardiac Exam: [Normal S1 and S2, no S3 gallop, 2/6 systolic murmur thought the precordium. Abdomen: [Soft, nontender, no megaly, no rebound, no guarding, normal bowel sounds.] Extremities: [No clubbing, no edema, no cyanosis.] Neurological Exam: [No focal neurologic deficit. Alert and oriented 3. Psychiatric: Normal mood, affect and normal mental status examination. Skin: No rashes.] - Labs CBC & Chem 7: 07/28/22 16:40 07/31/22 07:46 Labs: Abnormal Lab Results - Last 24 Hours (Table) 07/30/22 07/31/22 07/31/22 Range/Units 20:03 06:03 07:46 Sodium 131 L (137-145) mmol/L Chloride 95 L (98-107) mmol/L Carbon Dioxide 21 L (22-30) mmol/L BUN 80 H (9-20) mg/dL Creatinine 1.62 H (0.66-1.25) mg/dL POC Glucose (mg/dL) 121 H 143 H (70-110) mg/dL Calcium 8.3 L (8.4-10.2) mg/dL 07/31/22 Range/Units 11:31 Sodium (137-145) mmol/L Chloride (98-107) mmol/L Carbon Dioxide (22-30) mmol/L BUN (9-20) mg/dL Creatinine (0.66-1.25) mg/dL POC Glucose (mg/dL) 125 H (70-110) mg/dL Calcium (8.4-10.2) mg/dL Assessment and Plan Assessment: Impression: Acute hypoxic respiratory failure secondary to acute on chronic systolic congestive heart failure Electrolytes imbalance secondary to diuretics Acute kidney injury suspect cardiorenal picture. Severe aortic stenosis/bicuspid aortic valve Nonischemic cardiomyopathy and LV dysfunction Benign essential hypertension Dyslipidemia Nicotine dependence Type 2 diabetes Recommendation: Continue diuretics Continue cardiac meds Patient is being evaluated by cardiac surgery for possibility aVR in the near future Titrate oxygen down accordingly not much to be added otherwise from our perspective We'll continue to follow Time with Patient: Less than 30
--- NOTE | 2022-07-31 13:06 | P.PN ---
Subjective Progress Note Date: 07/31/22 This is a 67 year old male with a past medical history significant for severe nonischemic cardiomyopathy, valvular heart disease with known bicuspid aortic valve and aortic stenosis, hypertension, hyperlipidemia, diabetes, congestive heart failure, and nicotine dependence. Patient follows in the office with Dr. Ayala. We have been asked to see the patient in consultation for CHF. Patient presented to the hospital with a chief complaint of shortness of breath. He was found to be in acute CHF and was started on IV lasix. It is noted this is the patients 4th admission since May for the same symptoms. In May, the patient stated he was going to be seen at [facility] for evaluation of aortic valve replacement but he was homeless at that time and needed to acquire stable housing to he would have a place to recover. Patient has since obtained a place to a live. He has not contacted [facility] for evaluation. He reports he was going to call yesterday but was too short of breath and came to the ER instead. It is noted that he was also evaluated by cardiothoracic surgery in May 2022 and f elt to be high risk for traditional valve replacement surgery but TAVR could be considered, although still high risk. Patient is seen today resting comfortably in the bedside chair with no signs of acute distress. He is doing much better today. His breathing has greatly improved. He denies chest pain. His echocardiogram showed a severely decreased LV function with an ejection fraction of 20%, mild mitral regurgitation and mild tricuspid regurgitation, and a small pleural effusion. Will decrease patient's Lasix to 40 mg IV daily. He remains hyponatremic with sodium of 131 If he continues to improve will transition to by mouth Lasix tomorrow. Objective - Vital Signs Vital signs: Vital Signs Temp 96.5 F L 07/31/22 11:32 Pulse 63 07/31/22 11:32 Resp 16 07/31/22 11:32 BP 95/67 07/31/22 11:32 Pulse Ox 97 07/31/22 12:16 FiO2 50 07/29/22 15:47 Intake & Output 07/30/22 07/31/22 07/31/22 18:59 06:59 18:59 Intake Total 358 10 Output Total 750 Balance -392 10 Intake: IV 10 Invasive Line 1 10 Oral 358 Output: Urine 750 Other: Voiding Method Bedside Commode # Bowel Movements 1 - Exam PHYSICAL EXAM: VITAL SIGNS: Reviewed. GENERAL: Well-developed in no acute distress. HEENT: Head is normocephalic. Pupils are equal, round. Sclerae anicteric. Mucous membranes of the mouth are moist. NECK: Supple. No JVD or thyromegaly RESPIRATORY: Respirations even and unlabored. Lungs diminished to auscultation bilaterally. CARDIO: Regular rate and rhythm. S1 and S2 heard. No murmur or gallops. EXTREMITIES: Normal range of motion. No clubbing or cyanosis. Peripheral pulses intact. Negative for bilateral lower extremity edema NEURO: Orientated to person, time, mood is appropriate - Labs CBC & Chem 7: 07/28/22 16:40 07/31/22 07:46 Labs: Abnormal Lab Results - Last 24 Hours (Table) 07/30/22 07/31/22 07/31/22 Range/Units 20:03 06:03 07:46 Sodium 131 L (137-145) mmol/L Chloride 95 L (98-107) mmol/L Carbon Dioxide 21 L (22-30) mmol/L BUN 80 H (9-20) mg/dL Creatinine 1.62 H (0.66-1.25) mg/dL POC Glucose (mg/dL) 121 H 143 H (70-110) mg/dL Calcium 8.3 L (8.4-10.2) mg/dL 07/31/22 Range/Units 11:31 Sodium (137-145) mmol/L Chloride (98-107) mmol/L Carbon Dioxide (22-30) mmol/L BUN (9-20) mg/dL Creatinine (0.66-1.25) mg/dL POC Glucose (mg/dL) 125 H (70-110) mg/dL Calcium (8.4-10.2) mg/dL Assessment and Plan Assessment: Shortness of breath Acute on chronic congestive heart failure with reduced ejection fraction Hyponatremia Hyperkalemia Acute kidney injury Transaminitis Intermediate nonobstructive coronary artery disease Severe aortic stenosis Bicuspid aortic valve Valvular heart disease Nonischemic cardiomyopathy, EF 15% Hypertension Hyperlipidemia Plan: Decrease IV Lasix to 40 mg IV daily Daily weights, accurate I&O, monitoring of kidney function Patient unable to tolerate VICKIE/ARB in the past due to soft blood pressures Continue additional cardiac medications Case discussed with Lori Alfredo NP from [facility]. Will consult for evaluation as patient has had multiple re-admissions and has still not been able to schedule evaluation of [facility]
--- NOTE | 2022-07-31 13:18 | P.PN ---
Subjective Progress Note Date: 07/31/22 Patient is doing well today. Sitting in a chair, resting comfortably. Not having any dyspnea at rest. Continues high flow nasal cannula at 6 L, saturating 97%. Gen: awake, alert HEENT: normocephalic, atraumatic, good hearing acuity, moist mucous membranes Resp: good air exchange, breathing comfortably with no accessory muscle use, bilateral crackles CVS: good distal perfusion x 4, regular rate and rhythm, systolic murmur, crescendo decrescendo with a peak GI: soft, NTTP, ND : no SPT, no CVAT, calloway catheter not present MSK: One plus pitting edema, no clubbing Neuro: non-focal, moving all extremities Psych: cooperative, euthymic mood Assessment/plan: Acute hypoxic repsiratory failure Acute CHF exacerbation NARA Acute transaminitis lactic acidosis Valvular heart disease (aortic valve stenosis ) plan monitor vital signs initiate diuretics IV lasix, monitor blood pressure closely , avoid hypotension resume metoprolol , this can be held to improve diuresis while supporting blood pressure if required CTA of the chest negative for acute PE follow up liver enzymes follow up renal function and urine output resume ASA hold statin cardiology consult Cardiothoracic surgery consult resume keflex for right forearm phlebitis warm compress DM , insulin sliding scale , hold metformin (risk of lactic acidosis ) GI PPX PPI continue with bipap discontinue heparin drip (started inthe ED for suspected PE) DVT PPX heparin sc tid Objective - Vital Signs Vital signs: Vital Signs Temp 96.5 F L 07/31/22 11:32 Pulse 63 07/31/22 11:32 Resp 16 07/31/22 11:32 BP 95/67 07/31/22 11:32 Pulse Ox 97 07/31/22 12:16 FiO2 50 07/29/22 15:47 Intake & Output 07/30/22 07/31/22 07/31/22 18:59 06:59 18:59 Intake Total 358 10 Output Total 750 Balance -392 10 Intake: IV 10 Invasive Line 1 10 Oral 358 Output: Urine 750 Other: Voiding Method Bedside Commode # Bowel Movements 1 - Labs CBC & Chem 7: 07/28/22 16:40 07/31/22 07:46 Labs: Abnormal Lab Results - Last 24 Hours (Table) 07/30/22 07/31/22 07/31/22 Range/Units 20:03 06:03 07:46 Sodium 131 L (137-145) mmol/L Chloride 95 L (98-107) mmol/L Carbon Dioxide 21 L (22-30) mmol/L BUN 80 H (9-20) mg/dL Creatinine 1.62 H (0.66-1.25) mg/dL POC Glucose (mg/dL) 121 H 143 H (70-110) mg/dL Calcium 8.3 L (8.4-10.2) mg/dL 07/31/22 Range/Units 11:31 Sodium (137-145) mmol/L Chloride (98-107) mmol/L Carbon Dioxide (22-30) mmol/L BUN (9-20) mg/dL Creatinine (0.66-1.25) mg/dL POC Glucose (mg/dL) 125 H (70-110) mg/dL Calcium (8.4-10.2) mg/dL
[2022-07-31 16:47] LABS: Glucose,Whole Blood 159 mg/dL (70-110)
[2022-07-31 20:10] LABS: Glucose,Whole Blood 160 mg/dL (70-110)
[2022-07-31] MEDS: ACETAMINOPHEN TAB 325 MG TAB PO PRN (20:24)
[2022-08-01] MEDS: HEPARIN SODIUM,PORCINE/PF 5,000 UNIT/0.5 ML SYRINGE SQ SCH ×3 (01:07→16:52)
[2022-08-01 06:31] LABS: Glucose,Whole Blood 92 mg/dL (70-110)
[2022-08-01] MEDS: INSULIN ASPART (NovoLOG) 100 UNIT/ML VIAL SQ SCH ×4 (06:38→20:57)
[2022-08-01] MEDS: PANTOPRAZOLE 40 MG TABLET PO SCH (06:47)
[2022-08-01] MEDS ORDERED: FUROSEMIDE 10 MG/ML 4 ML VIAL IV SCH (09:00)
[2022-08-01] MEDS: LIDOCAINE 5% PATCH TOPICAL SCH (09:28)
[2022-08-01] MEDS: CEPHALEXIN 500 MG CAP PO SCH ×3 (09:37→21:03)
[2022-08-01] MEDS: METOPROLOL TARTRATE 12.5 MG TAB PO SCH ×2 (09:38→21:02)
[2022-08-01] MEDS: ACETAMINOPHEN TAB 325 MG TAB PO PRN (09:49)
[2022-08-01 09:57] LABS: Anisocytosis Slight; Basophils % (A) 0 %; Eosinophils # (A) 0.1 k/uL (0-0.7); Eosinophils % (A) 1 %; HCT 46.6 % (39.0-53.0); HGB 15.1 gm/dL (13.0-17.5); Hypochromasia Slight; Lymphocytes # (A) 1.8 k/uL (1.0-4.8); Lymphocytes % (A) 18 %; MCHC 32.4 g/dL (31.0-37.0); MCV 92.4 fL (80.0-100.0); Mean Platelet Volume 13.2; Monocytes # (A) 1.4 k/uL (0-1.0); Monocytes % (A) 14 %; Neutrophils # (A) 6.3 k/uL (1.3-7.7); Neutrophils % (A) 65 %; Platelet Count 146 k/uL (150-450); RBC 5.04 m/uL (4.30-5.90); RDW 16.1 % (11.5-15.5); WBC 9.8 k/uL (3.8-10.6)
[2022-08-01 10:04] LABS: Calcium 8.3 mg/dL (8.4-10.2); Magnesium 2.7 mg/dL (1.6-2.3); Potassium 4.9 mmol/L (3.5-5.1)
[2022-08-01 11:50] LABS: Glucose,Whole Blood 126 mg/dL (70-110)
[2022-08-01] MEDS: SODIUM CHLORIDE 0.65% NASAL SPRAY 44 ML BTL NASAL PRN (12:00)
--- NOTE | 2022-08-01 12:10 | P.PN ---
Subjective Progress Note Date: 08/01/22 Principal diagnosis: Acute hypoxic respiratory failure secondary to acute exacerbation of chronic systolic congestive heart failure ejection fraction of 15% This is a 67-year-old male patient with a known history of previous valve surgery performed at the [facility], congestive heart failure, diabetes mellitus, hypertension, hyperlipidemia, chronic tobacco dependence with chronic obstructive pulmonary disease and FEV1 value of 54% of predicted. He follows with Dr. Ayala and does have a known history of bicuspid severe aortic valve stenosis, nonischemic cardiomyopathy with ejection fraction of 15-20%. He had been seen and evaluated by cardiothoracic at his recent admission and just discharged home on 07/26/2022 with plans for follow-up at the [facility]. He presented to the emergency room yesterday 07/28/2022 with worsening shortness of breath. He was quite hypoxemic with an O2 saturation of 67%. He was placed on BiPAP currently 10/5 and 50% FiO2. Arterial blood gases on 100% FiO2 revealed a PaO2 of 393, pCO2 22, pH 7.47. Chest x-ray revealed cardiomegaly without acute cardiopulmonary process. CT angiogram ruled out pulmonary embolism. There is noted cardiomegaly with bilateral pleural effusions and ascites suggestive of congestive heart failure. White count 10.2. Hemoglobin 14.4. D-dimer 5.6. INR 1.9. Sodium 129. Potassium 4.8. BUN 81. Creatinine 1.86. Initial lactic 6.9. Currently 2.4. AST 354. ALT 419. Trop onins negative 3. ProBNP 17,300. He was initiated on Lasix 40 mg IV every 12 hours. He is seen today in consultation on the selective care unit. He is currently awake and alert. He remains on BiPAP 10/5 at 50% FiO2. He is breathing a bit easier today compared to yesterday. No accurate I&O recorded. Reevaluated today on 07/30/22, patient seems to be more comfortable today compared to yesterday. He is off BiPAP patient is on 8 L high flow nasal cannula, O2 saturations on the percent. His blood pressure is 92/64 with a mean of 73. Patient seems to be very comfortable, not in any distress. His electrolytes showed low sodium of 128 potassium 5.2 he has a BUN of 83 creatinine 1.79 which I assume is cardiorenal picture. Patient remains on multiple cardiac meds and on diuretics, improved, he was seen by cardiothoracic surgery, and they are considering taVR in the near future however this will not be done on this admission according to the note Patient was reevaluated today on 07/31/22, complaining of shortness of breath, nasal congestion, remains on 6 L nasal cannula with O2 sats is 97%. Patient is hemodynamically stable, does not seem to be in any distress, but he is compl aining of shortness of breath with any activity. Remind you the patient's ejection fraction is in the range of 15% to begin with. Patient presented with acute on chronic systolic congestive heart failure. And I believe his symptoms are mostly cardiac in nature without any doubt. Remains on diuretics. His BUN is 80 creatinine 1.6, slightly better comparing to 1.99 on admission Reevaluated today on 08/01/22, continues to have shortness of breath with any activity, and it is not surprising considering the patient's ejection fraction is only 15% and he has bicuspid aortic valve that may need to be replaced, patient is on 4 L nasal cannula, O2 sats is 99%. Cardiology is cutting down and his diuretics, patient will continue to have recurrent admissions, and being evaluated at the [facility] for possible aortic valve surgery, as a matter of fact he may require surgery done in this institution in the near future. Seen by cardiothoracic surgery already Objective - Vital Signs Vital signs: Vital Signs Temp 96.7 F L 08/01/22 11:57 Pulse 68 08/01/22 11:57 Resp 14 08/01/22 11:57 BP 95/67 08/01/22 11:57 Pulse Ox 100 08/01/22 09:33 FiO2 50 07/29/22 15:47 Intake & Output 07/31/22 08/01/22 08/01/22 18:59 06:59 18:59 Intake Total 370 190 Output Total 500 300 Balance -130 -300 190 Weight 68.2 kg Intake: IV 20 10 Invasive Line 1 20 10 Oral 350 180 Output: Urine 500 300 Other: Voiding Method Bedside Commode Bedside Commode Bedside Commode Urinal Urinal # Voids 1 # Bowel Movements 1 2 - Exam Physical Exam: Revealed 67-year-old white male in no distress, on nasal cannula presently on 4 L nasal cannula, O2 saturations 99% Head: Atraumatic, normocephalic. HEENT:[Neck is supple.] [No neck masses.] [No thyromegaly.] [No JVD.] Chest: [Symmetrical chest expansion, crackles at the bases. No rhonchi no wheezes Cardiac Exam: [Normal S1 and S2, no S3 gallop, 2/6 systolic murmur thought the precordium. Abdomen: [Soft, nontender, no megaly, no rebound, no guarding, normal bowel sounds.] Extremities: [No clubbing, no edema, no cyanosis.] Neurological Exam: [No focal neurologic deficit. Alert and oriented 3. Psychiatric: Normal mood, affect and normal mental status examination. Skin: No rashes.] - Labs CBC & Chem 7: 08/01/22 09:04 08/01/22 09:04 Labs: Abnormal Lab Results - Last 24 Hours (Table) 07/31/22 07/31/22 08/01/22 Range/Units 16:39 20:06 09:04 RDW 16.1 H (11.5-15.5) % Plt Count 146 L (150-450) k/uL Monocytes # 1.4 H (0-1.0) k/uL Sodium (137-145) mmol/L Chloride (98-107) mmol/L Carbon Dioxide (22-30) mmol/L BUN (9-20) mg/dL Creatinine (0.66-1.25) mg/dL POC Glucose (mg/dL) 159 H 160 H (70-110) mg/dL Calcium (8.4-10.2) mg/dL Magnesium (1.6-2.3) mg/dL 08/01/22 08/01/22 Range/Units 09:04 11:49 RDW (11.5-15.5) % Plt Count (150-450) k/uL Monocytes # (0-1.0) k/uL Sodium 134 L (137-145) mmol/L Chloride 94 L (98-107) mmol/L Carbon Dioxide 20 L (22-30) mmol/L BUN 77 H (9-20) mg/dL Creatinine 1.58 H (0.66-1.25) mg/dL POC Glucose (mg/dL) 126 H (70-110) mg/dL Calcium 8.3 L (8.4-10.2) mg/dL Magnesium 2.7 H (1.6-2.3) mg/dL Assessment and Plan Assessment: Impression: Acute hypoxic respiratory failure secondary to acute on chronic systolic congestive heart failure Electrolytes imbalance secondary to diuretics Acute kidney injury suspect cardiorenal picture. Severe aortic stenosis/bicuspid aortic valve Nonischemic cardiomyopathy and LV dysfunction Benign essential hypertension Dyslipidemia Nicotine dependence Type 2 diabetes Recommendation: Continue diuretics Continue cardiac meds Patient is being evaluated by cardiac surgery for possibility aVR in the near future Titrate oxygen down accordingly We'll continue to follow Time with Patient: Less than 30
--- NOTE | 2022-08-01 13:37 | P.PN ---
Subjective Progress Note Date: 08/01/22 Patient is doing well today. Sitting in a chair, resting comfortably. Saturating well on 4L NC. Gen: awake, alert HEENT: normocephalic, atraumatic, good hearing acuity, moist mucous membranes Resp: good air exchange, breathing comfortably with no accessory muscle use, bilateral crackles CVS: good distal perfusion x 4, regular rate and rhythm, systolic murmur, crescendo decrescendo with a peak GI: soft, NTTP, ND : no SPT, no CVAT, calloway catheter not present MSK: One plus pitting edema, no clubbing Neuro: non-focal, moving all extremities Psych: cooperative, euthymic mood Assessment/plan: Acute hypoxic repsiratory failure Acute CHF exacerbation NARA Acute transaminitis lactic acidosis Valvular heart disease (aortic valve stenosis ) plan monitor vital signs initiate diuretics IV lasix, monitor blood pressure closely , avoid hypotension resume metoprolol , this can be held to improve diuresis while supporting blood pressure if required CTA of the chest negative for acute PE follow up liver enzymes follow up renal function and urine output resume ASA hold statin cardiology consult Cardiothoracic surgery consult resume keflex for right forearm phlebitis warm compress DM , insulin sliding scale , hold metformin (risk of lactic acidosis ) GI PPX PPI continue with bipap discontinue heparin drip (started inthe ED for suspected PE) DVT PPX heparin sc tid Objective - Vital Signs Vital signs: Vital Signs Temp 96.7 F L 08/01/22 11:57 Pulse 68 08/01/22 11:57 Resp 14 08/01/22 11:57 BP 95/67 08/01/22 11:57 Pulse Ox 100 08/01/22 09:33 FiO2 50 07/29/22 15:47 Intake & Output 07/31/22 08/01/22 08/01/22 18:59 06:59 18:59 Intake Total 370 190 Output Total 500 300 Balance -130 -300 190 Weight 68.2 kg Intake: IV 20 10 Invasive Line 1 20 10 Oral 350 180 Output: Urine 500 300 Other: Voiding Method Bedside Commode Bedside Commode Bedside Commode Urinal Urinal # Voids 1 # Bowel Movements 1 2 - Labs CBC & Chem 7: 08/01/22 09:04 08/01/22 09:04 Labs: Abnormal Lab Results - Last 24 Hours (Table) 07/31/22 07/31/22 08/01/22 Range/Units 16:39 20:06 09:04 RDW 16.1 H (11.5-15.5) % Plt Count 146 L (150-450) k/uL Monocytes # 1.4 H (0-1.0) k/uL Sodium (137-145) mmol/L Chloride (98-107) mmol/L Carbon Dioxide (22-30) mmol/L BUN (9-20) mg/dL Creatinine (0.66-1.25) mg/dL POC Glucose (mg/dL) 159 H 160 H (70-110) mg/dL Calcium (8.4-10.2) mg/dL Magnesium (1.6-2.3) mg/dL 08/01/22 08/01/22 Range/Units 09:04 11:49 RDW (11.5-15.5) % Plt Count (150-450) k/uL Monocytes # (0-1.0) k/uL Sodium 134 L (137-145) mmol/L Chloride 94 L (98-107) mmol/L Carbon Dioxide 20 L (22-30) mmol/L BUN 77 H (9-20) mg/dL Creatinine 1.58 H (0.66-1.25) mg/dL POC Glucose (mg/dL) 126 H (70-110) mg/dL Calcium 8.3 L (8.4-10.2) mg/dL Magnesium 2.7 H (1.6-2.3) mg/dL
[2022-08-01] MEDS: traMADol 50 MG TAB PO PRN ×2 (14:11→21:02)
--- NOTE | 2022-08-01 14:16 | P.PN ---
Subjective Progress Note Date: 08/01/22 This is a 67 year old male with a past medical history significant for severe nonischemic cardiomyopathy, valvular heart disease with known bicuspid aortic valve and aortic stenosis, hypertension, hyperlipidemia, diabetes, congestive heart failure, and nicotine dependence. Patient follows in the office with Dr. Ayala. We have been asked to see the patient in consultation for CHF. Patient presented to the hospital with a chief complaint of shortness of breath. He was found to be in acute CHF and was started on IV lasix. It is noted this is the patients 4th admission since May for the same symptoms. In May, the patient stated he was going to be seen at [facility] for evaluation of aortic valve replacement but he was homeless at that time and needed to acquire stable housing to he would have a place to recover. Patient has since obtained a place to a live. He has not contacted [facility] for evaluation. He reports he was going to call yesterday but was too short of breath and came to the ER instead. It is noted that he was also evaluated by cardiothoracic surgery in May 2022 and f elt to be high risk for traditional valve replacement surgery but TAVR could be considered, although still high risk. Patient is doing well today examined in no acute distress. Will transition patient to oral Lasix. His hyponatremic has improved with sodium of 136 Objective - Vital Signs Vital signs: Vital Signs Temp 96.7 F L 08/01/22 11:57 Pulse 68 08/01/22 14:03 Resp 14 08/01/22 14:03 BP 95/67 08/01/22 11:57 Pulse Ox 100 08/01/22 09:33 FiO2 50 07/29/22 15:47 Intake & Output 07/31/22 08/01/22 08/01/22 18:59 06:59 18:59 Intake Total 370 200 Output Total 500 300 Balance -130 -300 200 Weight 68.2 kg Intake: IV 20 20 Invasive Line 1 20 20 Oral 350 180 Output: Urine 500 300 Other: Voiding Method Bedside Commode Bedside Commode Bedside Commode Urinal Urinal # Voids 1 # Bowel Movements 1 2 - Exam PHYSICAL EXAM: VITAL SIGNS: Reviewed. GENERAL: Well-developed in no acute distress. HEENT: Head is normocephalic. Pupils are equal, round. Sclerae anicteric. Mucous membranes of the mouth are moist. NECK: Supple. No JVD or thyromegaly RESPIRATORY: Respirations even and unlabored. Lungs diminished to auscultation bilaterally. CARDIO: Regular rate and rhythm. S1 and S2 heard. No murmur or gallops. EXTREMITIES: Normal range of motion. No clubbing or cyanosis. Peripheral pulses intact. Negative for bilateral lower extremity edema NEURO: Orientated to person, time, mood is appropriate - Labs CBC & Chem 7: 08/01/22 09:04 08/01/22 09:04 Labs: Abnormal Lab Results - Last 24 Hours (Table) 07/31/22 07/31/22 08/01/22 Range/Units 16:39 20:06 09:04 RDW 16.1 H (11.5-15.5) % Plt Count 146 L (150-450) k/uL Monocytes # 1.4 H (0-1.0) k/uL Sodium (137-145) mmol/L Chloride (98-107) mmol/L Carbon Dioxide (22-30) mmol/L BUN (9-20) mg/dL Creatinine (0.66-1.25) mg/dL POC Glucose (mg/dL) 159 H 160 H (70-110) mg/dL Calcium (8.4-10.2) mg/dL Magnesium (1.6-2.3) mg/dL 08/01/22 08/01/22 Range/Units 09:04 11:49 RDW (11.5-15.5) % Plt Count (150-450) k/uL Monocytes # (0-1.0) k/uL Sodium 134 L (137-145) mmol/L Chloride 94 L (98-107) mmol/L Carbon Dioxide 20 L (22-30) mmol/L BUN 77 H (9-20) mg/dL Creatinine 1.58 H (0.66-1.25) mg/dL POC Glucose (mg/dL) 126 H (70-110) mg/dL Calcium 8.3 L (8.4-10.2) mg/dL Magnesium 2.7 H (1.6-2.3) mg/dL Assessment and Plan Assessment: Shortness of breath Acute on chronic congestive heart failure with reduced ejection fraction Hyponatremia Hyperkalemia Acute kidney injury Transaminitis Intermediate nonobstructive coronary artery disease Severe aortic stenosis Bicuspid aortic valve Valvular heart disease Nonischemic cardiomyopathy, EF 15% Hypertension Hyperlipidemia Plan: Discontinue IV Lasix and start Lasix 40 mg daily by mouth Daily weights, accurate I&O, monitoring of kidney function Patient unable to tolerate VICKIE/ARB in the past due to soft blood pressures Continue additional cardiac medications Case discussed with Lori Alfredo NP from [facility] Will consult for evaluation as patient has had multiple re-admissions and has still not been able to schedule evaluation of [facility]
[2022-08-01 16:57] LABS: Glucose,Whole Blood 168 mg/dL (70-110)
[2022-08-01 20:57] LABS: Glucose,Whole Blood 111 mg/dL (70-110)
[2022-08-02] MEDS: HEPARIN SODIUM,PORCINE/PF 5,000 UNIT/0.5 ML SYRINGE SQ SCH ×4 (00:21→23:36)
[2022-08-02 05:56] LABS: Glucose,Whole Blood 201 mg/dL (70-110)
[2022-08-02] MEDS: INSULIN ASPART (NovoLOG) 100 UNIT/ML VIAL SQ SCH ×4 (06:29→20:40)
[2022-08-02] MEDS: PANTOPRAZOLE 40 MG TABLET PO SCH (06:29)
[2022-08-02] MEDS: traMADol 50 MG TAB PO PRN ×2 (06:32→12:23)
--- NOTE | 2022-08-02 07:20 | XR ---
EXAMINATION TYPE: XR chest 1V portable DATE OF EXAM: 08/02/2022 6:49 AM COMPARISON: Chest radiographs from 07/28/2022 TECHNIQUE: XR chest 1V portable Frontal view of the chest. CLINICAL INDICATION:Male, 67 years old with history of chf; FINDINGS: Lungs/Pleura: There is no evidence of pleural effusion, focal consolidation, or pneumothorax. Pulmonary vascularity: Unremarkable. Heart/mediastinum: Cardiomediastinal silhouette is enlarged and stable. Musculoskeletal: No acute osseous pathology. IMPRESSION: No acute cardiopulmonary disease/process. No evidence of acute heart failure.
[2022-08-02 08:27] LABS: Calcium 8.2 mg/dL (8.4-10.2); Magnesium 2.6 mg/dL (1.6-2.3)
[2022-08-02] MEDS: LIDOCAINE 5% PATCH TOPICAL SCH (08:27)
[2022-08-02 08:30] LABS: Basophils % (A) 0 %; Eosinophils # (A) 0.1 k/uL (0-0.7); Eosinophils % (A) 1 %; HCT 42.9 % (39.0-53.0); HGB 13.6 gm/dL (13.0-17.5); Hypochromasia Moderate; Lymphocytes # (A) 1.2 k/uL (1.0-4.8); Lymphocytes % (A) 13 %; MCH 29.8 pg (25.0-35.0); MCHC 31.8 g/dL (31.0-37.0); MCV 93.7 fL (80.0-100.0); Mean Platelet Volume 10.5; Monocytes # (A) 1.2 k/uL (0-1.0); Monocytes % (A) 13 %; Neutrophils # (A) 6.9 k/uL (1.3-7.7); Neutrophils % (A) 72 %; Platelet Count 136 k/uL (150-450); RBC 4.58 m/uL (4.30-5.90); RDW 15.8 % (11.5-15.5); WBC 9.6 k/uL (3.8-10.6)
[2022-08-02] MEDS: CEPHALEXIN 500 MG CAP PO SCH ×3 (08:37→20:40)
[2022-08-02] MEDS: FUROSEMIDE 40 MG TAB PO SCH (08:37)
[2022-08-02] MEDS: METOPROLOL TARTRATE 12.5 MG TAB PO SCH ×2 (08:37→20:40)
[2022-08-02] MEDS: ASPIRIN 81 MG PO SCH (08:37)
--- NOTE | 2022-08-02 11:26 | P.PN ---
Subjective Progress Note Date: 08/02/22 Hospital Course: 67-year-old man with medical history of hypertension, severe aortic stenosis, diabetes, hyperlipidemia, systolic heart failure with an ejection fraction of 15% presented for dyspnea. In the emergency room, patient was afebrile, 105/72, heart rate 85, 67% on room air. CBC was unremarkable. Chemistries show hyponatremia to 131, hyperkalemia to 5.6, anion gap of 21, CO2 of 15, UN of 77, creatinine 1.99. Liver function tests remarkable for total bilirubin of 3.7, AST of 387, ALT of 437, alkaline phosphatase of 136. Initial troponins 0.0-8. Initial BNP was 17,300. Initial lactic acid was 6.9. Coags showed a PT of 18.9, INR 1.9, d-dimer 5.61. Venous Doppler of the right upper extremity was negative for DVT. Chest CTA showed cardiomegaly with bilateral pleural effusions and ascites without evidence of pulmonary embolism consistent with heart failure exacerbation. Cardiology and pulmonology were consulted and patient was admitted to medicine. Patient rapidly declined requiring 15 L nonrebreather, then BiPAP. He was started on diuretics with close monitoring of his blood pressure and was subsequently weaned back to nasal cannula. In the interim, cardiothoracic surgery was consulted for TAVR evaluation considering multiple readmissions. They recommended that they complete the workup for preoperative evaluation of TAVR replacement prior to discharge, however, patient would have to follow up in the outpatient setting for surgical planning. Patient's respiratory status improved quickly with diuretics. His kidney dysfunction improved with diuretics. 08/02: Pending CT gated evaluation for TAVR replacement, to be completed tomorrow. Patient could subsequently be discharged with home oxygen which is already set up. Patient has no new complaints today. Edema is improving. Gen: awake, alert HEENT: normocephalic, atraumatic, good hearing acuity, moist mucous membranes Resp: good air exchange, breathing comfortably with no accessory muscle use, bilateral crackles CVS: good distal perfusion x 4, regular rate and rhythm, systolic murmur, crescendo decrescendo with a peak GI: soft, NTTP, ND : no SPT, no CVAT, calloway catheter not present MSK: One plus pitting edema, no clubbing Neuro: non-focal, moving all extremities Psych: cooperative, euthymic mood Assessment/plan: Acute hypoxic repsiratory failure Acute CHF exacerbation NARA Acute transaminitis lactic acidosis Valvular heart disease (aortic valve stenosis ) plan monitor vital signs initiate diuretics IV lasix, monitor blood pressure closely , avoid hypotension resume metoprolol , this can be held to improve diuresis while supporting blood pressure if required CTA of the chest negative for acute PE follow up liver enzymes follow up renal function and urine output resume ASA hold statin cardiology consult Cardiothoracic surgery consult resume keflex for right forearm phlebitis warm compress DM , insulin sliding scale , hold metformin (risk of lactic acidosis ) GI PPX PPI continue with bipap discontinue heparin drip (started inthe ED for suspected PE) DVT PPX heparin sc tid Objective - Vital Signs Vital signs: Vital Signs Temp 96.8 F L 08/02/22 08:31 Pulse 72 08/02/22 08:32 Resp 16 08/02/22 08:32 BP 102/71 08/02/22 08:31 Pulse Ox 100 08/02/22 08:31 FiO2 50 07/29/22 15:47 Intake & Output 08/01/22 08/02/22 08/02/22 18:59 06:59 18:59 Intake Total 200 Balance 200 Weight 68.4 kg Intake: IV 20 Invasive Line 1 20 Oral 180 Other: Voiding Method Bedside Commode Bedside Commode Bedside Commode Urinal Urinal Urinal # Voids 1 1 # Bowel Movements 1 - Labs CBC & Chem 7: 08/02/22 07:43 08/02/22 07:32 Labs: Abnormal Lab Results - Last 24 Hours (Table) 08/01/22 08/01/22 08/01/22 Range/Units 11:49 16:55 20:54 RDW (11.5-15.5) % Plt Count (150-450) k/uL Monocytes # (0-1.0) k/uL Sodium (137-145) mmol/L Chloride (98-107) mmol/L Carbon Dioxide (22-30) mmol/L BUN (9-20) mg/dL Creatinine (0.66-1.25) mg/dL Glucose (74-99) mg/dL POC Glucose (mg/dL) 126 H 168 H 111 H (70-110) mg/dL Calcium (8.4-10.2) mg/dL Magnesium (1.6-2.3) mg/dL 08/02/22 08/02/22 08/02/22 Range/Units 05:55 07:32 07:43 RDW 15.8 H (11.5-15.5) % Plt Count 136 L (150-450) k/uL Monocytes # 1.2 H (0-1.0) k/uL Sodium 131 L (137-145) mmol/L Chloride 96 L (98-107) mmol/L Carbon Dioxide 18 L (22-30) mmol/L BUN 75 H (9-20) mg/dL Creatinine 1.37 H (0.66-1.25) mg/dL Glucose 104 H (74-99) mg/dL POC Glucose (mg/dL) 201 H (70-110) mg/dL Calcium 8.2 L (8.4-10.2) mg/dL Magnesium 2.6 H (1.6-2.3) mg/dL
--- NOTE | 2022-08-02 11:30 | P.PN ---
Subjective This is a 67 year old male with a past medical history significant for severe nonischemic cardiomyopathy, valvular heart disease with known bicuspid aortic valve and aortic stenosis, hypertension, hyperlipidemia, diabetes, congestive heart failure, and nicotine dependence. Patient follows in the office with Dr. Ayala. We have been asked to see the patient in consultation for CHF.Patient presented to the hospital with a chief complaint of shortness of breath. He was found to be in acute CHF and was started on IV lasix. In May, the patient st ated he was going to be seen at [facility] for evaluation of aortic valve replacement but he was homeless at that time and needed to acquire stable housing to he would have a place to recover. Now he has has been unable to be evaluated by CT surgery at [facility] secondary to transportation issues. DIAGNOSTICS: * Most recent echocardiogram obtained in May 2022 revealed ejection fraction less than 15% * Patient underwent CRISTIAN in November 2021 revealing dilated left ventricle with severely impaired function and EF of 20% with global hypokinesis. Bicuspid aortic valve with fusion of the right and left coronary cusps. Moderate MR, mitral valve appears to be thickened. Moderate TR. No evidence of pe ricardial effusion. * Cardiac catheterization history: November 2021 revealing severe aortic stenosis, pulmonary hypertension, elevated biventricular filling pressures, and intermediate nonobstructive coronary artery disease 08/02/2022 Patient seen and examined at bedside, has improved since admission. Continues to have some lower extremity edema. Overall is not back to his baseline. He was transitioned to PO Lasix yesterday. CT surgery has been consulted for recommendations. Labs sodium 131, potassium 5.0, BUN 75, serum creatinine 1.37, WBC 9.6, hemoglobin 13, platelets 136 PHYSICAL EXAM: VITAL SIGNS: Reviewed. GENERAL: Well-developed in no acute distress. HEENT: Head is normocephalic. Neck supple. No JVD LUNGS: Respirations even and unlabored. Lungs clear bilaterally HEART: Regular rate and rhythm. S1 and S2 heard. + systolic murmur ABDOMEN: Soft. Nondistended. Nontender. EXTREMITIES: Normal range of motion. No clubbing or cyanosis. Peripheral pulses intact. 1-2+ bilateral lower extremity edema NEUROLOGIC: Awake and alert. Oriented x 3. ASSESSMENT: Shortness of breath Acute on chronic congestive heart failure with reduced ejection fraction Hyponatremia Hyperkalemia Acute kidney injury Transaminitis Intermediate nonobstructive coronary artery disease Severe aortic stenosis Bicuspid aortic valve Valvular heart disease Nonischemic cardiomyopathy, EF 15% Hypertension Hyperlipidemia Diabetes Nicotine dependence PLAN: Followed up with CT surgery team today about patient's plan and recommendations, plan for CT pending renal function and discussion/recommendations with CT surgeon Continue PO Lasix Daily weights, accurate I&O, monitoring of kidney function Patient unable to tolerate VICKIE/ARB in the past due to soft blood pressures Continue additional cardiac medications with beta kelly Further recommendations pending patient course Nurse practitioner note has been reviewed by physician. Signing provider agrees with the documented findings, assessment, and plan of care. Objective - Vital Signs Vital signs: Vital Signs Temp 96.8 F L 08/02/22 08:31 Pulse 72 08/02/22 08:32 Resp 16 08/02/22 08:32 BP 102/71 08/02/22 08:31 Pulse Ox 100 08/02/22 08:31 FiO2 50 07/29/22 15:47 Intake & Output 08/01/22 08/02/22 08/02/22 18:59 06:59 18:59 Intake Total 200 Balance 200 Weight 68.4 kg Intake: IV 20 Invasive Line 1 20 Oral 180 Other: Voiding Method Bedside Commode Bedside Commode Bedside Commode Urinal Urinal Urinal # Voids 1 1 # Bowel Movements 1 - Labs CBC & Chem 7: 08/02/22 07:43 08/02/22 07:32 Labs: Abnormal Lab Results - Last 24 Hours (Table) 08/01/22 08/01/22 08/01/22 Range/Units 11:49 16:55 20:54 RDW (11.5-15.5) % Plt Count (150-450) k/uL Monocytes # (0-1.0) k/uL Sodium (137-145) mmol/L Chloride (98-107) mmol/L Carbon Dioxide (22-30) mmol/L BUN (9-20) mg/dL Creatinine (0.66-1.25) mg/dL Glucose (74-99) mg/dL POC Glucose (mg/dL) 126 H 168 H 111 H (70-110) mg/dL Calcium (8.4-10.2) mg/dL Magnesium (1.6-2.3) mg/dL 10/24/22 10/24/22 10/24/22 Range/Units 05:55 07:32 07:43 RDW 15.8 H (11.5-15.5) % Plt Count 136 L (150-450) k/uL Monocytes # 1.2 H (0-1.0) k/uL Sodium 131 L (137-145) mmol/L Chloride 96 L (98-107) mmol/L Carbon Dioxide 18 L (22-30) mmol/L BUN 75 H (9-20) mg/dL Creatinine 1.37 H (0.66-1.25) mg/dL Glucose 104 H (74-99) mg/dL POC Glucose (mg/dL) 201 H (70-110) mg/dL Calcium 8.2 L (8.4-10.2) mg/dL Magnesium 2.6 H (1.6-2.3) mg/dL
[2022-08-02 11:39] LABS: Glucose,Whole Blood 144 mg/dL (70-110)
--- NOTE | 2022-08-02 13:53 | P.PN ---
Subjective Progress Note Date: 08/02/22 Principal diagnosis: CHF. Acute hypoxic respiratory failure secondary to acute exacerbation of chronic systolic congestive heart failure ejection fraction of 15% This is a 67-year-old male patient with a known history of previous valve surgery performed at the [facility], congestive heart failure, diabetes mellitus, hypertension, hyperlipidemia, chronic tobacco dependence with chronic obstructive pulmonary disease and FEV1 value of 54% of predicted. He follows with Dr. Ayala and does have a known history of bicuspid severe aortic valve stenosis, nonischemic cardiomyopathy with ejection fraction of 15-20%. He had been seen and evaluated by cardiothoracic at his recent admission and just discharged home on 07/26/2022 with plans for follow-up at the [facility]. He presented to the emergency room yesterday 07/28/2022 with worsening shortness of breath. He was quite hypoxemic with an O2 saturation of 67%. He was placed on BiPAP currently 10/5 and 50% FiO2. Arterial blood gases on 100% FiO2 revealed a PaO2 of 393, pCO2 22, pH 7.47. Chest x-ray revealed cardiomegaly without acute cardiopulmonary process. CT angiogram ruled out pulmonary embolism. There is noted cardiomegaly with bilateral pleural effusions and ascites suggestive of congestive heart failure. White count 10.2. Hemoglobin 14.4. D-dimer 5.6. INR 1.9. Sodium 129. Potassium 4.8. BUN 81. Creatinine 1.86. Initial lactic 6.9. Currently 2.4. AST 354. ALT 419. Troponins negative 3. ProBNP 17,300. He was initiated on Lasix 40 mg IV every 12 hours. He is seen today in consultation on the selective care unit. He is currently awake and alert. He remains on BiPAP 10/5 at 50% FiO2. He is breathing a bit easier today compared to yesterday. No accurate I&O recorded. Reevaluated today on 07/30/22, patient seems to be more comfortable today compared to yesterday. He is off BiPAP patient is on 8 L high flow nasal cannula, O2 saturations on the percent. His blood pressure is 92/64 with a mean of 73. Patient seems to be very comfortable, not in any distress. His electrolytes showed low sodium of 128 potassium 5.2 he has a BUN of 83 creatinine 1.79 which I assume is cardiorenal picture. Patient remains on multiple cardiac meds and on diuretics, improved, he was seen by cardiothoracic surgery, and they are considering taVR in the near future however this will not be done on this admission according to the note Patient was reevaluated today on 07/31/22, complaining of shortness of breath, nasal congestion, remains on 6 L nasal cannula with O2 sats is 97%. Patient is hemodynamically stable, does not seem to be in any distress, but he is complaining of shortness of breath with any activity. Remind you the patient's ejection fraction is in the range of 15% to begin with. Patient presented with acute on chronic systolic congestive heart failure. And I believe his symptoms are mostly cardiac in nature without any doubt. Remains on diuretics. His BUN is 80 creatinine 1.6, slightly better comparing to 1.99 on admission Reevaluated today on 08/01/22, continues to have shortness of breath with any activity, and it is not surprising considering the patient's ejection fraction is only 15% and he has bicuspid aortic valve that may need to be replaced, patient is on 4 L nasal cannula, O2 sats is 99%. Cardiology is cutting down and his diuretics, patient will continue to have recurrent admissions, and being evaluated at the [facility] for possible aortic valve surgery, as a matter of fact he may require surgery done in this institution in the near future. Seen by cardiothoracic surgery already Progress note dated 08/02/2022. 67-year-old male with history of bicuspid aortic valve, and CHF. The patient is apparently being evaluated for possible aortic valve replacement. He was supposed to be evaluated at [facility]. Apparently he has never made it there. She is currently on 4 L, with saturations of 100%. The patient's overall health is not particularly good. White count 9.6, hemoglobin 13.6, hematocrit 42.9, and platelet count 136,000. Sodium 131, potassium 5, chlorides 96, CO2 18, anion gap 17, BUN 75, and creatinine 1.37. Chest x-ray shows no evidence of heart failure. Objective - Vital Signs Vital signs: Vital Signs Temp 96.9 F L 08/02/22 12:11 Pulse 65 08/02/22 12:11 Resp 16 08/02/22 12:11 BP 95/68 08/02/22 12:11 Pulse Ox 100 08/02/22 12:11 FiO2 50 07/29/22 15:47 Intake & Output 08/01/22 08/02/22 08/02/22 18:59 06:59 18:59 Intake Total 200 118 Balance 200 118 Weight 68.4 kg Intake: IV 20 Invasive Line 1 20 Oral 180 118 Other: Voiding Method Bedside Commode Bedside Commode Bedside Commode Urinal Urinal Urinal # Voids 1 1 # Bowel Movements 1 - Exam No acute distress, oriented 3. Currently on 4 L of oxygen. No acute distress. HEENT examination is grossly unremarkable. Neck supple. Full range of motion. No adenopathy thyromegaly or neck vein distention. Cardiovascular examination reveals regular rhythm rate. S1-S2 normal. No S3 or S4. A 2/6 systolic murmur is noted. Heart rate is 65 bpm. Lungs mostly clear breath sounds. No rhonchi. No wheezes. Minimal basilar crackles appreciated. Abdomen soft bowel sounds are heard. No masses or tenderness. Extremities are intact. No cyanosis clubbing or edema. Skin is without rash or lesion. Neurologic examination is brief but nonfocal. - Labs CBC & Chem 7: 08/02/22 07:43 08/02/22 07:32 Labs: Abnormal Lab Results - Last 24 Hours (Table) 08/01/22 08/01/22 08/02/22 Range/Units 16:55 20:54 05:55 RDW (11.5-15.5) % Plt Count (150-450) k/uL Monocytes # (0-1.0) k/uL Sodium (137-145) mmol/L Chloride (98-107) mmol/L Carbon Dioxide (22-30) mmol/L BUN (9-20) mg/dL Creatinine (0.66-1.25) mg/dL Glucose (74-99) mg/dL POC Glucose (mg/dL) 168 H 111 H 201 H (70-110) mg/dL Calcium (8.4-10.2) mg/dL Magnesium (1.6-2.3) mg/dL 08/02/22 08/02/22 08/02/22 Range/Units 07:32 07:43 11:34 RDW 15.8 H (11.5-15.5) % Plt Count 136 L (150-450) k/uL Monocytes # 1.2 H (0-1.0) k/uL Sodium 131 L (137-145) mmol/L Chloride 96 L (98-107) mmol/L Carbon Dioxide 18 L (22-30) mmol/L BUN 75 H (9-20) mg/dL Creatinine 1.37 H (0.66-1.25) mg/dL Glucose 104 H (74-99) mg/dL POC Glucose (mg/dL) 144 H (70-110) mg/dL Calcium 8.2 L (8.4-10.2) mg/dL Magnesium 2.6 H (1.6-2.3) mg/dL Assessment and Plan Assessment: Acute hypoxemic respiratory failure secondary to acute on chronic systolic congestive heart failure. Acute kidney injury, suspect cardiorenal disease. Severe aortic stenosis/bicuspid aortic valve. Nonischemic cardiomyopathy and LV dysfunction. Benign essential hypertension. Hyperlipidemia. Nicotine dependence. Type 2 diabetes mellitus. Plan: Plan dated 08/02/2022. The patient's most recent chest x-ray looks good. No evidence of CHF. We will continue to follow. The patient's currently on 4 L. Labs, x-rays, and medications are all reviewed. Overall prognosis remains very guarded. Time with Patient: Less than 30
[2022-08-02 16:53] LABS: Glucose,Whole Blood 116 mg/dL (70-110)
[2022-08-02 20:01] LABS: Glucose,Whole Blood 278 mg/dL (70-110)
[2022-08-03] MEDS: traMADol 50 MG TAB PO PRN ×2 (02:24→20:26)
[2022-08-03 03:41] LABS: Glucose,Whole Blood 37 mg/dL (70-110)
[2022-08-03 03:56] LABS: Glucose,Whole Blood 161 mg/dL (70-110)
[2022-08-03 06:09] LABS: Glucose,Whole Blood 57 mg/dL (70-110)
[2022-08-03 06:33] LABS: Glucose,Whole Blood 52 mg/dL (70-110)
[2022-08-03] MEDS ORDERED: DEXTROSE 50% SYRINGE 50 ML IVP ONE (06:34)
[2022-08-03] MEDS: PANTOPRAZOLE 40 MG TABLET PO SCH (06:36)
[2022-08-03] MEDS: INSULIN ASPART (NovoLOG) 100 UNIT/ML VIAL SQ SCH ×4 (06:37→21:06)
[2022-08-03 06:49] LABS: Glucose,Whole Blood 120 mg/dL (70-110)
[2022-08-03 07:09] LABS: Anisocytosis Slight; Basophils # (A) 0.1 k/uL (0-0.2); Basophils % (A) 0 %; Eosinophils % (A) 0 %; HCT 45.7 % (39.0-53.0); HGB 14.5 gm/dL (13.0-17.5); Hypochromasia Moderate; Lymphocytes # (A) 1.6 k/uL (1.0-4.8); Lymphocytes % (A) 12 %; MCH 29.8 pg (25.0-35.0); MCHC 31.9 g/dL (31.0-37.0); MCV 93.6 fL (80.0-100.0); Monocytes # (A) 1.8 k/uL (0-1.0); Monocytes % (A) 14 %; Neutrophils # (A) 8.7 k/uL (1.3-7.7); Neutrophils % (A) 69 %; Platelet Count 153 k/uL (150-450); RBC 4.88 m/uL (4.30-5.90); WBC 12.7 k/uL (3.8-10.6)
[2022-08-03 07:11] LABS: Calcium 8.1 mg/dL (8.4-10.2)
[2022-08-03 07:24] LABS: Magnesium 2.8 mg/dL (1.6-2.3); Potassium 5.2 mmol/L (3.5-5.1)
[2022-08-03 07:29] LABS: Glucose,Whole Blood 126 mg/dL (70-110)
[2022-08-03] MEDS: LIDOCAINE 5% PATCH TOPICAL SCH (08:40)
[2022-08-03] MEDS: METOPROLOL TARTRATE 12.5 MG TAB PO SCH ×2 (08:41→20:26)
[2022-08-03] MEDS: ACETAMINOPHEN TAB 325 MG TAB PO PRN ×2 (08:41→16:41)
[2022-08-03] MEDS: FUROSEMIDE 40 MG TAB PO SCH (08:41)
[2022-08-03] MEDS: HEPARIN SODIUM,PORCINE/PF 5,000 UNIT/0.5 ML SYRINGE SQ SCH ×2 (08:42→16:32)
[2022-08-03] MEDS: ASPIRIN 81 MG PO SCH (08:42)
[2022-08-03] MEDS: CEPHALEXIN 500 MG CAP PO SCH ×3 (08:42→20:26)
[2022-08-03 08:55] LABS: Glucose,Whole Blood 126 mg/dL (70-110)
--- NOTE | 2022-08-03 11:24 | P.PN ---
Subjective This is a 67 year old male with a past medical history significant for severe nonischemic cardiomyopathy, valvular heart disease with known bicuspid aortic valve and aortic stenosis, hypertension, hyperlipidemia, diabetes, congestive heart failure, and nicotine dependence. Patient follows in the office with Dr. Ayala. We have been asked to see the patient in consultation for CHF.Patient presented to the hospital with a chief complaint of shortness of breath. He was found to be in acute CHF and was started on IV lasix. In May, the patient st ated he was going to be seen at [facility] for evaluation of aortic valve replacement but he was homeless at that time and needed to acquire stable housing to he would have a place to recover. Now he has has been unable to be evaluated by CT surgery at [facility] secondary to transportation issues. DIAGNOSTICS: * Most recent echocardiogram obtained in May 2022 revealed ejection fraction less than 15% * Patient underwent CRISTIAN in November 2021 revealing dilated left ventricle with severely impaired function and EF of 20% with global hypokinesis. Bicuspid aortic valve with fusion of the right and left coronary cusps. Moderate MR, mitral valve appears to be thickened. Moderate TR. No evidence of pe ricardial effusion. * Cardiac catheterization history: November 2021 revealing severe aortic stenosis, pulmonary hypertension, elevated biventricular filling pressures, and intermediate nonobstructive coronary artery disease 08/03/2022 Patient seen and examined at bedside, has improved since admission, but continues to be short of breath, fatigued, lethargic. Continues to have some lower extremity edema. Overall is not back to his baseline. He was transitioned to PO Lasix. CT surgery has been consulted for recommendations and currently recommending CT chest tomorrow secondary to renal function Labs sodium 131, potassium 5.0, BUN 75, serum creatinine 1.37, WBC 9.6, hemoglobin 13, platelets 136 PHYSICAL EXAM: VITAL SIGNS: Reviewed. GENERAL: Well-developed in no acute distress. HEENT: Head is normocephalic. Neck supple. No JVD LUNGS: Respirations even and unlabored. Lungs clear bilaterally HEART: Regular rate and rhythm. S1 and S2 heard. + systolic murmur ABDOMEN: Soft. Nondistended. Nontender. EXTREMITIES: Normal range of motion. No clubbing or cyanosis. Peripheral pulses intact. 1-2+ bilateral lower extremity edema NEUROLOGIC: Awake and alert. Oriented x 3. ASSESSMENT: Shortness of breath Acute on chronic congestive heart failure with reduced ejection fraction EF less than 15% Hyponatremia Hyperkalemia Acute kidney injury Transaminitis Intermediate nonobstructive coronary artery disease Severe aortic stenosis Bicuspid aortic valve Valvular heart disease Nonischemic cardiomyopathy, EF 15% Hypertension Hyperlipidemia Diabetes Nicotine dependence PLAN: Followed up with CT surgery team today about patient's plan and recommendations, plan for CT tomorrow pending renal function and discussion/recommendations with CT surgeon From a cardiology perspective, secondary to bicuspid aortic valve, critical aortic stenosis, and dilated aortic root TAVR is not recommended. Given patient's repeat admissions with CHF and no improvement patient should be considered for transfer to a [facility] for higher level of care. This was discussed with primary team and the patient, patient is agreeable to transfer Continue PO Lasix Daily weights, accurate I&O, monitoring of kidney function Patient unable to tolerate VICKIE/ARB in the past due to soft blood pressures Continue additional cardiac medications with beta kelly Further recommendations pending patient course Nurse practitioner note has been reviewed by physician. Signing provider agrees with the documented findings, assessment, and plan of care. Objective - Vital Signs Vital signs: Vital Signs Temp 98.0 F 08/03/22 08:25 Pulse 69 08/03/22 08:25 Resp 17 08/03/22 08:25 BP 91/69 08/03/22 08:25 Pulse Ox 99 08/03/22 08:25 FiO2 50 07/29/22 15:47 Intake & Output 08/02/22 08/03/22 08/03/22 18:59 06:59 18:59 Intake Total 236 10 163 Output Total 400 Balance 236 -390 163 Intake: IV 10 0.9 10 Oral 236 163 Output: Urine 400 Other: Voiding Method Bedside Commode Bedside Commode Urinal Urinal Urinal # Voids 1 - Labs CBC & Chem 7: 08/03/22 06:25 08/03/22 06:25 Labs: Abnormal Lab Results - Last 24 Hours (Table) 08/02/22 08/02/22 08/02/22 Range/Units 11:34 16:45 19:59 WBC (3.8-10.6) k/uL RDW (11.5-15.5) % Neutrophils # (1.3-7.7) k/uL Monocytes # (0-1.0) k/uL Sodium (137-145) mmol/L Potassium (3.5-5.1) mmol/L Chloride (98-107) mmol/L Carbon Dioxide (22-30) mmol/L BUN (9-20) mg/dL Creatinine (0.66-1.25) mg/dL Glucose (74-99) mg/dL POC Glucose (mg/dL) 144 H 116 H 278 H (70-110) mg/dL Calcium (8.4-10.2) mg/dL Magnesium (1.6-2.3) mg/dL 08/03/22 08/03/22 08/03/22 Range/Units 03:39 03:54 06:08 WBC (3.8-10.6) k/uL RDW (11.5-15.5) % Neutrophils # (1.3-7.7) k/uL Monocytes # (0-1.0) k/uL Sodium (137-145) mmol/L Potassium (3.5-5.1) mmol/L Chloride (98-107) mmol/L Carbon Dioxide (22-30) mmol/L BUN (9-20) mg/dL Creatinine (0.66-1.25) mg/dL Glucose (74-99) mg/dL POC Glucose (mg/dL) 37 L 161 H 57 L (70-110) mg/dL Calcium (8.4-10.2) mg/dL Magnesium (1.6-2.3) mg/dL 08/03/22 08/03/22 08/03/22 Range/Units 06:25 06:25 06:32 WBC 12.7 H (3.8-10.6) k/uL RDW 16.0 H (11.5-15.5) % Neutrophils # 8.7 H (1.3-7.7) k/uL Monocytes # 1.8 H (0-1.0) k/uL Sodium 130 L (137-145) mmol/L Potassium 5.2 H (3.5-5.1) mmol/L Chloride 94 L (98-107) mmol/L Carbon Dioxide 20 L (22-30) mmol/L BUN 80 H (9-20) mg/dL Creatinine 1.64 H (0.66-1.25) mg/dL Glucose 34 L* (74-99) mg/dL POC Glucose (mg/dL) 52 L (70-110) mg/dL Calcium 8.1 L (8.4-10.2) mg/dL Magnesium 2.8 H (1.6-2.3) mg/dL 08/03/22 08/03/22 08/03/22 Range/Units 06:47 07:26 08:54 WBC (3.8-10.6) k/uL RDW (11.5-15.5) % Neutrophils # (1.3-7.7) k/uL Monocytes # (0-1.0) k/uL Sodium (137-145) mmol/L Potassium (3.5-5.1) mmol/L Chloride (98-107) mmol/L Carbon Dioxide (22-30) mmol/L BUN (9-20) mg/dL Creatinine (0.66-1.25) mg/dL Glucose (74-99) mg/dL POC Glucose (mg/dL) 120 H 126 H 126 H (70-110) mg/dL Calcium (8.4-10.2) mg/dL Magnesium (1.6-2.3) mg/dL
[2022-08-03 12:10] LABS: Glucose,Whole Blood 120 mg/dL (70-110)
--- NOTE | 2022-08-03 13:19 | P.PN ---
Subjective Progress Note Date: 08/03/22 Principal diagnosis: SOB Hospital Course: 67-year-old man with medical history of hypertension, severe aortic stenosis, diabetes, hyperlipidemia, systolic heart failure with an ejection fraction of 15% presented for dyspnea. In the emergency room, patient was afebrile, 105/72, heart rate 85, 67% on room air. CBC was unremarkable. Chemistries show hyponatremia to 131, hyperkalemia to 5.6, anion gap of 21, CO2 of 15, UN of 77, creatinine 1.99. Liver function tests remarkable for total bilirubin of 3.7, AST of 387, ALT of 437, alkaline phosphatase of 136. Initial troponins 0.0-8. Initial BNP was 17,300. Initial lactic acid was 6.9. Coags showed a PT of 18.9, INR 1.9, d-dimer 5.61. Venous Doppler of the right upper extremity was negative for DVT. Chest CTA showed cardiomegaly with bilateral pleural effusions and ascites without evidence of pulmonary embolism consistent with heart failure exacerbation. Cardiology and pulmonology were consulted and patient was admitted to medicine. Patient rapidly declined requiring 15 L nonrebreather, then BiPAP. He was started on diuretics with close monitoring of his blood pressure and was subsequently weaned back to nasal cannula. Renal function and respiratory status improving with diuretics. Patient pending CT for further evaluation of aortic valve replacement. Per cardiology, patient would likely benefit from surgical AVR at a tertiary care hospital. Subjective: Patient seen and examined at bedside. No acute events overnight. He denies any further worsening of shortness of breath. He denies any chest pain, abdominal pain. Pertinent positives and negatives as discussed above, a complete review of systems was performed and all other systems are negative. Vitals Signs Reviewed. General: nontoxic, no distress, appears at stated age Derm: warm, dry Head: atraumatic, normocephalic, symmetric Eyes: EOMI, no lid lag, anicteric sclera Mouth: no lip lesion, mucus membranes moist Cardiovascular: S1S2 reg, no murmur Lungs: CTA bilateral, no rhonchi, no rales , no accessory muscle use, 4 L nasal cannula Abdominal: soft, distended, nontender to palpation, no guarding, no appreciable organomegaly Ext: no gross muscle atrophy, trace peripheral edema, no contractures Neuro: CN II-XI grossly intact, no focal neuro deficits Psych: Alert, oriented, appropriate affect Assessment and Plan: Acute hypoxic repsiratory failure - O2 requirements coming down Acute CHF exacerbation NARA - likely cardiorenal Acute transaminitis - likely hepatic congestion in the setting of CHF exacerbation lactic acidosis Valvular heart disease (aortic valve stenosis ) Leukocytosis, likely reactive plan -monitor vital signs -Now on oral diuretics -unable to tolerate VICKIE/ARB due to poor renal function, low blood pressure -Metoprolol -Aspirin -CTA of the chest negative for acute PE -follow up renal function and urine output -hold statin -cardiology consult -Cardiothoracic surgery consult -CT chest pending -Patient will likely benefit [email or web address] - pending acceptance resume keflex for right forearm phlebitis warm compress DM , insulin sliding scale , hold metformin (risk of lactic acidosis ) GI PPX PPI DVT prophylaxis -subcu heparin Full code Objective - Vital Signs Vital signs: Vital Signs Temp 98.1 F 08/03/22 11:57 Pulse 63 08/03/22 11:57 Resp 17 08/03/22 11:57 BP 92/57 08/03/22 11:57 Pulse Ox 97 08/03/22 11:57 FiO2 50 07/29/22 15:47 Intake & Output 08/02/22 08/03/22 08/03/22 18:59 06:59 18:59 Intake Total 236 10 163 Output Total 400 Balance 236 -390 163 Intake: IV 10 0.9 10 Oral 236 163 Output: Urine 400 Other: Voiding Method Bedside Commode Bedside Commode Urinal Urinal Urinal # Voids 1 - Labs CBC & Chem 7: 08/03/22 06:25 08/03/22 06:25 Labs: Abnormal Lab Results - Last 24 Hours (Table) 08/02/22 08/02/22 08/03/22 Range/Units 16:45 19:59 03:39 WBC (3.8-10.6) k/uL RDW (11.5-15.5) % Neutrophils # (1.3-7.7) k/uL Monocytes # (0-1.0) k/uL Sodium (137-145) mmol/L Potassium (3.5-5.1) mmol/L Chloride (98-107) mmol/L Carbon Dioxide (22-30) mmol/L BUN (9-20) mg/dL Creatinine (0.66-1.25) mg/dL Glucose (74-99) mg/dL POC Glucose (mg/dL) 116 H 278 H 37 L (70-110) mg/dL Calcium (8.4-10.2) mg/dL Magnesium (1.6-2.3) mg/dL 08/03/22 08/03/22 08/03/22 Range/Units 03:54 06:08 06:25 WBC (3.8-10.6) k/uL RDW (11.5-15.5) % Neutrophils # (1.3-7.7) k/uL Monocytes # (0-1.0) k/uL Sodium 130 L (137-145) mmol/L Potassium 5.2 H (3.5-5.1) mmol/L Chloride 94 L (98-107) mmol/L Carbon Dioxide 20 L (22-30) mmol/L BUN 80 H (9-20) mg/dL Creatinine 1.64 H (0.66-1.25) mg/dL Glucose 34 L* (74-99) mg/dL POC Glucose (mg/dL) 161 H 57 L (70-110) mg/dL Calcium 8.1 L (8.4-10.2) mg/dL Magnesium 2.8 H (1.6-2.3) mg/dL 08/03/22 08/03/22 08/03/22 Range/Units 06:25 06:32 06:47 WBC 12.7 H (3.8-10.6) k/uL RDW 16.0 H (11.5-15.5) % Neutrophils # 8.7 H (1.3-7.7) k/uL Monocytes # 1.8 H (0-1.0) k/uL Sodium (137-145) mmol/L Potassium (3.5-5.1) mmol/L Chloride (98-107) mmol/L Carbon Dioxide (22-30) mmol/L BUN (9-20) mg/dL Creatinine (0.66-1.25) mg/dL Glucose (74-99) mg/dL POC Glucose (mg/dL) 52 L 120 H (70-110) mg/dL Calcium (8.4-10.2) mg/dL Magnesium (1.6-2.3) mg/dL 08/03/22 08/03/22 08/03/22 Range/Units 07:26 08:54 12:02 WBC (3.8-10.6) k/uL RDW (11.5-15.5) % Neutrophils # (1.3-7.7) k/uL Monocytes # (0-1.0) k/uL Sodium (137-145) mmol/L Potassium (3.5-5.1) mmol/L Chloride (98-107) mmol/L Carbon Dioxide (22-30) mmol/L BUN (9-20) mg/dL Creatinine (0.66-1.25) mg/dL Glucose (74-99) mg/dL POC Glucose (mg/dL) 126 H 126 H 120 H (70-110) mg/dL Calcium (8.4-10.2) mg/dL Magnesium (1.6-2.3) mg/dL
--- NOTE | 2022-08-03 14:24 | P.PN ---
Subjective Progress Note Date: 08/03/22 Principal diagnosis: CHF. Acute hypoxic respiratory failure secondary to acute exacerbation of chronic systolic congestive heart failure ejection fraction of 15% This is a 67-year-old male patient with a known history of previous valve surgery performed at the [facility], congestive heart failure, diabetes mellitus, hypertension, hyperlipidemia, chronic tobacco dependence with chronic obstructive pulmonary disease and FEV1 value of 54% of predicted. He follows with Dr. Ayala and does have a known history of bicuspid severe aortic valve stenosis, nonischemic cardiomyopathy with ejection fraction of 15-20%. He had been seen and evaluated by cardiothoracic at his recent admission and just discharged home on 07/26/2022 with plans for follow-up at the [facility]. He presented to the emergency room yesterday 07/28/2022 with worsening shortness of breath. He was quite hypoxemic with an O2 saturation of 67%. He was placed on BiPAP currently 10/5 and 50% FiO2. Arterial blood gases on 100% FiO2 revealed a PaO2 of 393, pCO2 22, pH 7.47. Chest x-ray revealed cardiomegaly without acute cardiopulmonary process. CT angiogram ruled out pulmonary embolism. There is noted cardiomegaly with bilateral pleural effusions and ascites suggestive of congestive heart failure. White count 10.2. Hemoglobin 14.4. D-dimer 5.6. INR 1.9. Sodium 129. Potassium 4.8. BUN 81. Creatinine 1.86. Initial lactic 6.9. Currently 2.4. AST 354. ALT 419. Troponins negative 3. ProBNP 17,300. He was initiated on Lasix 40 mg IV every 12 hours. He is seen today in consultation on the selective care unit. He is currently awake and alert. He remains on BiPAP 10/5 at 50% FiO2. He is breathing a bit easier today compared to yesterday. No accurate I&O recorded. Reevaluated today on 07/30/22, patient seems to be more comfortable today compared to yesterday. He is off BiPAP patient is on 8 L high flow nasal cannula, O2 saturations on the percent. His blood pressure is 92/64 with a mean of 73. Patient seems to be very comfortable, not in any distress. His electrolytes showed low sodium of 128 potassium 5.2 he has a BUN of 83 creatinine 1.79 which I assume is cardiorenal picture. Patient remains on multiple cardiac meds and on diuretics, improved, he was seen by cardiothoracic surgery, and they are considering taVR in the near future however this will not be done on this admission according to the note Patient was reevaluated today on 07/31/22, complaining of shortness of breath, nasal congestion, remains on 6 L nasal cannula with O2 sats is 97%. Patient is hemodynamically stable, does not seem to be in any distress, but he is complaining of shortness of breath with any activity. Remind you the patient's ejection fraction is in the range of 15% to begin with. Patient presented with acute on chronic systolic congestive heart failure. And I believe his symptoms are mostly cardiac in nature without any doubt. Remains on diuretics. His BUN is 80 creatinine 1.6, slightly better comparing to 1.99 on admission Reevaluated today on 08/01/22, continues to have shortness of breath with any activity, and it is not surprising considering the patient's ejection fraction is only 15% and he has bicuspid aortic valve that may need to be replaced, patient is on 4 L nasal cannula, O2 sats is 99%. Cardiology is cutting down and his diuretics, patient will continue to have recurrent admissions, and being evaluated at the [facility] for possible aortic valve surgery, as a matter of fact he may require surgery done in this institution in the near future. Seen by cardiothoracic surgery already Progress note dated 08/02/2022. 67-year-old male with history of bicuspid aortic valve, and CHF. The patient is apparently being evaluated for possible aortic valve replacement. He was supposed to be evaluated at [facility]. Apparently he has never made it there. She is currently on 4 L, with saturations of 100%. The patient's overall health is not particularly good. White count 9.6, hemoglobin 13.6, hematocrit 42.9, and platelet count 136,000. Sodium 131, potassium 5, chlorides 96, CO2 18, anion gap 17, BUN 75, and creatinine 1.37. Chest x-ray shows no evidence of heart failure. Progress note dated 08/03/2022. 67-year-old male seen in room 372. He has a history of bicuspid aortic valve, aortic stenosis, and CHF. According to the nurse, the patient will be transferred to the [facility] or [facility] for possible aortic valve replacement. Currently, the patient's resting comfortably. The patient is on 4 L of oxygen, with saturations of 97%. Heart rate 63, and blood pressure 92/57. Glucose today was 120. No additional laboratory data is available. Objective - Vital Signs Vital signs: Vital Signs Temp 98.1 F 08/03/22 11:57 Pulse 63 08/03/22 11:57 Resp 17 08/03/22 11:57 BP 92/57 08/03/22 11:57 Pulse Ox 97 08/03/22 11:57 FiO2 50 07/29/22 15:47 Intake & Output 08/02/22 08/03/22 08/03/22 18:59 06:59 18:59 Intake Total 236 10 163 Output Total 400 Balance 236 -390 163 Intake: IV 10 0.9 10 Oral 236 163 Output: Urine 400 Other: Voiding Method Bedside Commode Bedside Commode Urinal Urinal Urinal # Voids 1 - Exam No acute distress, oriented 3. Currently on 4 L of oxygen. No acute distress. HEENT examination is grossly unremarkable. Neck supple. Full range of motion. No adenopathy thyromegaly or neck vein distention. Cardiovascular examination reveals regular rhythm rate. S1-S2 normal. No S3 or S4. A 2/6 systolic murmur is noted. Heart rate is 63 bpm. Lungs mostly clear breath sounds. No rhonchi. No wheezes. Minimal basilar crackles appreciated. Saturations are 97% on 4 L of nasal O2. Abdomen soft bowel sounds are heard. No masses or tenderness. Extremities are intact. No cyanosis clubbing or edema. Skin is without rash or lesion. Neurologic examination is brief but nonfocal. - Labs CBC & Chem 7: 08/03/22 06:25 08/03/22 06:25 Labs: Abnormal Lab Results - Last 24 Hours (Table) 08/02/22 08/02/22 08/03/22 Range/Units 16:45 19:59 03:39 WBC (3.8-10.6) k/uL RDW (11.5-15.5) % Neutrophils # (1.3-7.7) k/uL Monocytes # (0-1.0) k/uL Sodium (137-145) mmol/L Potassium (3.5-5.1) mmol/L Chloride (98-107) mmol/L Carbon Dioxide (22-30) mmol/L BUN (9-20) mg/dL Creatinine (0.66-1.25) mg/dL Glucose (74-99) mg/dL POC Glucose (mg/dL) 116 H 278 H 37 L (70-110) mg/dL Calcium (8.4-10.2) mg/dL Magnesium (1.6-2.3) mg/dL 08/03/22 08/03/22 08/03/22 Range/Units 03:54 06:08 06:25 WBC (3.8-10.6) k/uL RDW (11.5-15.5) % Neutrophils # (1.3-7.7) k/uL Monocytes # (0-1.0) k/uL Sodium 130 L (137-145) mmol/L Potassium 5.2 H (3.5-5.1) mmol/L Chloride 94 L (98-107) mmol/L Carbon Dioxide 20 L (22-30) mmol/L BUN 80 H (9-20) mg/dL Creatinine 1.64 H (0.66-1.25) mg/dL Glucose 34 L* (74-99) mg/dL POC Glucose (mg/dL) 161 H 57 L (70-110) mg/dL Calcium 8.1 L (8.4-10.2) mg/dL Magnesium 2.8 H (1.6-2.3) mg/dL 08/03/22 08/03/22 08/03/22 Range/Units 06:25 06:32 06:47 WBC 12.7 H (3.8-10.6) k/uL RDW 16.0 H (11.5-15.5) % Neutrophils # 8.7 H (1.3-7.7) k/uL Monocytes # 1.8 H (0-1.0) k/uL Sodium (137-145) mmol/L Potassium (3.5-5.1) mmol/L Chloride (98-107) mmol/L Carbon Dioxide (22-30) mmol/L BUN (9-20) mg/dL Creatinine (0.66-1.25) mg/dL Glucose (74-99) mg/dL POC Glucose (mg/dL) 52 L 120 H (70-110) mg/dL Calcium (8.4-10.2) mg/dL Magnesium (1.6-2.3) mg/dL 08/03/22 08/03/22 08/03/22 Range/Units 07:26 08:54 12:02 WBC (3.8-10.6) k/uL RDW (11.5-15.5) % Neutrophils # (1.3-7.7) k/uL Monocytes # (0-1.0) k/uL Sodium (137-145) mmol/L Potassium (3.5-5.1) mmol/L Chloride (98-107) mmol/L Carbon Dioxide (22-30) mmol/L BUN (9-20) mg/dL Creatinine (0.66-1.25) mg/dL Glucose (74-99) mg/dL POC Glucose (mg/dL) 126 H 126 H 120 H (70-110) mg/dL Calcium (8.4-10.2) mg/dL Magnesium (1.6-2.3) mg/dL Assessment and Plan Assessment: Acute hypoxemic respiratory failure secondary to acute on chronic systolic congestive heart failure. Acute kidney injury, suspect cardiorenal disease. Severe aortic stenosis/bicuspid aortic valve. Nonischemic cardiomyopathy and LV dysfunction. Benign essential hypertension. Hyperlipidemia. Nicotine dependence. Type 2 diabetes mellitus. Plan: Plan dated 08/02/2022. The patient's most recent chest x-ray looks good. No evidence of CHF. We will continue to follow. The patient's currently on 4 L. Labs, x-rays, and medicati ons are all reviewed. Overall prognosis remains very guarded. Plan dated 08/03/2022. The patient remains stable. He's currently on 4 L of oxygen. He is not manifesting any signs or symptoms of respiratory distress. There is no conversational dyspnea or use of accessory muscles. Labs, x-rays, and medications are reviewed. According to the nurse, the patient will be transferred to either [facility], or, the [facility]. We will continue to follow the patient, while he was in the hospital. No additional recommendations are made. Prognosis is guarded. Time with Patient: Less than 30
[2022-08-03 16:50] LABS: Glucose,Whole Blood 94 mg/dL (70-110)
[2022-08-03 19:58] LABS: Glucose,Whole Blood 144 mg/dL (70-110)
[2022-08-04] MEDS: HEPARIN SODIUM,PORCINE/PF 5,000 UNIT/0.5 ML SYRINGE SQ SCH ×2 (00:55→08:30)
[2022-08-04] MEDS: traMADol 50 MG TAB PO PRN (03:26)
[2022-08-04 06:08] LABS: Glucose,Whole Blood 132 mg/dL (70-110)
[2022-08-04] MEDS: INSULIN ASPART (NovoLOG) 100 UNIT/ML VIAL SQ SCH ×2 (06:15→12:22)
[2022-08-04] MEDS: PANTOPRAZOLE 40 MG TABLET PO SCH (06:45)
[2022-08-04 07:55] LABS: Basophils # (A) 0.1 k/uL (0-0.2); Basophils % (A) 1 %; Eosinophils % (A) 0 %; HCT 45.8 % (39.0-53.0); HGB 14.3 gm/dL (13.0-17.5); Hypochromasia Marked; Lymphocytes # (A) 1.4 k/uL (1.0-4.8); Lymphocytes % (A) 11 %; MCH 29.6 pg (25.0-35.0); MCHC 31.3 g/dL (31.0-37.0); MCV 94.6 fL (80.0-100.0); Mean Platelet Volume 11.1; Monocytes % (A) 8 %; Neutrophils % (A) 76 %; Platelet Count 127 k/uL (150-450); RBC 4.84 m/uL (4.30-5.90); RDW 15.8 % (11.5-15.5); WBC 11.8 k/uL (3.8-10.6)
[2022-08-04 08:14] LABS: Albumin 3.6 g/dL (3.5-5.0); Calcium 7.9 mg/dL (8.4-10.2); Magnesium 2.8 mg/dL (1.6-2.3); Potassium 5.9 mmol/L (3.5-5.1); Total Bilirubin 3.4 mg/dL (0.2-1.3); Total Protein 6.5 g/dL (6.3-8.2)
[2022-08-04] MEDS: LIDOCAINE 5% PATCH TOPICAL SCH (08:30)
[2022-08-04] MEDS: ASPIRIN 81 MG PO SCH (08:30)
[2022-08-04] MEDS: CEPHALEXIN 500 MG CAP PO SCH (08:30)
[2022-08-04] MEDS: FUROSEMIDE 40 MG TAB PO SCH (08:30)
[2022-08-04] MEDS: METOPROLOL TARTRATE 12.5 MG TAB PO SCH (08:30)
[2022-08-04] MEDS: ACETAMINOPHEN TAB 325 MG TAB PO PRN (08:30)
--- NOTE | 2022-08-04 09:59 | P.PN ---
Subjective This is a 67 year old male with a past medical history significant for severe nonischemic cardiomyopathy, valvular heart disease with known bicuspid aortic valve and aortic stenosis, hypertension, hyperlipidemia, diabetes, congestive heart failure, and nicotine dependence. Patient follows in the office with Dr. Ayala. We have been asked to see the patient in consultation for CHF.Patient presented to the hospital with a chief complaint of shortness of breath. He was found to be in acute CHF and was started on IV lasix. In May, the patient st ated he was going to be seen at [facility] for evaluation of aortic valve replacement but he was homeless at that time and needed to acquire stable housing to he would have a place to recover. Now he has has been unable to be evaluated by CT surgery at [facility] secondary to transportation issues. DIAGNOSTICS: * Most recent echocardiogram obtained in May 2022 revealed ejection fraction less than 15% * Patient underwent CRISTIAN in November 2021 revealing dilated left ventricle with severely impaired function and EF of 20% with global hypokinesis. Bicuspid aortic valve with fusion of the right and left coronary cusps. Moderate MR, mitral valve appears to be thickened. Moderate TR. No evidence of pe ricardial effusion. * Cardiac catheterization history: November 2021 revealing severe aortic stenosis, pulmonary hypertension, elevated biventricular filling pressures, and intermediate nonobstructive coronary artery disease 08/04/2022 Patient seen and examined at bedside, he states he is overall not feeling well, continues to be short of breath, fatigued, lethargic. No chest pain. Overall is not back to his baseline. He was transitioned to PO Lasix. Labs pending. Patient plan to hopefully retransmitted at [facility] for a higher level of care. PHYSICAL EXAM: VITAL SIGNS: Reviewed. GENERAL: Well-developed in no acute distress. HEENT: Head is normocephalic. Neck supple. No JVD LUNGS: Respirations even and unlabored. Lungs clear bilaterally HEART: Regular rate and rhythm. S1 and S2 heard. + systolic murmur ABDOMEN: Soft. Nondistended. Nontender. EXTREMITIES: Normal range of motion. No clubbing or cyanosis. Peripheral pulses intact. 1-2+ bilateral lower extremity edema NEUROLOGIC: Awake and alert. Oriented x 3. ASSESSMENT: Shortness of breath Acute on chronic congestive heart failure with reduced ejection fraction EF less than 15% Hyponatremia Hyperkalemia Acute kidney injury Transaminitis Intermediate nonobstructive coronary artery disease Severe aortic stenosis Bicuspid aortic valve Valvular heart disease Nonischemic cardiomyopathy, EF 15% Hypertension Hyperlipidemia Diabetes Nicotine dependence PLAN: From a cardiology perspective, secondary to bicuspid aortic valve, critical aortic stenosis, and dilated aortic root TAVR is not recommended. Given patient's repeat admissions with CHF and no improvement patient should be considered for transfer to a [facility] for higher level of care. This was discussed with primary team and the patient, patient is agreeable to transfer Continue PO Lasix Daily weights, accurate I&O, monitoring of kidney function Patient unable to tolerate VICKIE/ARB in the past due to soft blood pressures Continue additional cardiac medications with beta kelly Further recommendations pending patient course Nurse practitioner note has been reviewed by physician. Signing provider agrees with the documented findings, assessment, and plan of care. Objective - Vital Signs Vital signs: Vital Signs Temp 97.6 F 08/04/22 08:39 Pulse 72 08/04/22 08:39 Resp 19 08/04/22 08:39 BP 94/65 08/04/22 08:39 Pulse Ox 96 08/04/22 08:39 FiO2 50 07/29/22 15:47 Intake & Output 08/03/22 08/04/22 08/04/22 18:59 06:59 18:59 Intake Total 463 180 Output Total 300 Balance 163 180 Intake: Oral 463 180 Output: Urine 300 Other: Voiding Method Urinal Bedside Commode Bedside Commode Urinal Urinal # Bowel Movements 1 - Labs CBC & Chem 7: 08/04/22 07:31 08/04/22 07:31 Labs: Abnormal Lab Results - Last 24 Hours (Table) 08/03/22 08/03/22 08/04/22 Range/Units 12:02 19:51 06:03 WBC (3.8-10.6) k/uL RDW (11.5-15.5) % Plt Count (150-450) k/uL Neutrophils # (1.3-7.7) k/uL Sodium (137-145) mmol/L Potassium (3.5-5.1) mmol/L Chloride (98-107) mmol/L Carbon Dioxide (22-30) mmol/L BUN (9-20) mg/dL Creatinine (0.66-1.25) mg/dL Glucose (74-99) mg/dL POC Glucose (mg/dL) 120 H 144 H 132 H (70-110) mg/dL Calcium (8.4-10.2) mg/dL Magnesium (1.6-2.3) mg/dL Total Bilirubin (0.2-1.3) mg/dL AST (17-59) U/L ALT (4-49) U/L Alkaline Phosphatase (38-126) U/L 08/04/22 08/04/22 Range/Units 07:31 07:31 WBC 11.8 H (3.8-10.6) k/uL RDW 15.8 H (11.5-15.5) % Plt Count 127 L (150-450) k/uL Neutrophils # 9.0 H (1.3-7.7) k/uL Sodium 127 L (137-145) mmol/L Potassium 5.9 H (3.5-5.1) mmol/L Chloride 92 L (98-107) mmol/L Carbon Dioxide 18 L (22-30) mmol/L BUN 83 H (9-20) mg/dL Creatinine 1.90 H (0.66-1.25) mg/dL Glucose 106 H (74-99) mg/dL POC Glucose (mg/dL) (70-110) mg/dL Calcium 7.9 L (8.4-10.2) mg/dL Magnesium 2.8 H (1.6-2.3) mg/dL Total Bilirubin 3.4 H (0.2-1.3) mg/dL AST 154 H (17-59) U/L ALT 261 H (4-49) U/L Alkaline Phosphatase 177 H (38-126) U/L
--- NOTE | 2022-08-04 10:53 | P.PN ---
Subjective Progress Note Date: 08/04/22 Principal diagnosis: SOB Hospital Course: 67-year-old man with medical history of hypertension, severe aortic stenosis, diabetes, hyperlipidemia, systolic heart failure with an ejection fraction of 15% presented for dyspnea. In the emergency room, patient was afebrile, 105/72, heart rate 85, 67% on room air. CBC was unremarkable. Chemistries show hyponatremia to 131, hyperkalemia to 5.6, anion gap of 21, CO2 of 15, UN of 77, creatinine 1.99. Liver function tests remarkable for total bilirubin of 3.7, AST of 387, ALT of 437, alkaline phosphatase of 136. Initial troponins 0.0-8. Initial BNP was 17,300. Initial lactic acid was 6.9. Coags showed a PT of 18.9, INR 1.9, d-dimer 5.61. Venous Doppler of the right upper extremity was negative for DVT. Chest CTA showed cardiomegaly with bilateral pleural effusions and ascites without evidence of pulmonary embolism consistent with heart failure exacerbation. Cardiology and pulmonology were consulted and patient was admitted to medicine. Patient rapidly declined requiring 15 L nonrebreather, then BiPAP. He was started on diuretics with close monitoring of his blood pressure and was subsequently weaned back to nasal cannula. Renal function and respiratory status improving with diuretics. Patient pending CT for further evaluation of aortic valve replacement. Per cardiology, patient would likely benefit from surgical AVR at a tertiary care hospital. Subjective: Patient seen and examined at bedside. No acute events overnight. He denies any further worsening of shortness of breath. He denies any chest pain, abdominal pain. Pertinent positives and negatives as discussed above, a complete review of systems was performed and all other systems are negative. Vitals Signs Reviewed. General: nontoxic, no distress, appears at stated age Derm: warm, dry Head: atraumatic, normocephalic, symmetric Eyes: EOMI, no lid lag, anicteric sclera Mouth: no lip lesion, mucus membranes moist Cardiovascular: S1S2 reg, systolic murmur Lungs: CTA bilateral, no rhonchi, no rales , no accessory muscle use, 4 L nasal cannula Abdominal: soft, distended, nontender to palpation, no guarding, no appreciable organomegaly Ext: no gross muscle atrophy, trace peripheral edema, no contractures Neuro: CN II-XI grossly intact, no focal neuro deficits Psych: Alert, oriented, appropriate affect Assessment and Plan: Acute hypoxic repsiratory failure - O2 requirements coming down Acute CHF exacerbation NARA - likely cardiorenal Acute transaminitis - likely hepatic congestion in the setting of CHF exacerbation lactic acidosis Valvular heart disease (aortic valve stenosis ) Leukocytosis, likely reactive Hyperkalemia plan -monitor vital signs -Now on oral diuretics -unable to tolerate VICKIE/ARB due to poor renal function, low blood pressure -Metoprolol -Aspirin -CTA of the chest negative for acute PE -renal function worsening, - repeat K pending, EKG pending, given calcium gluconate -hold statin -cardiology consult -Cardiothoracic surgery consult -CT chest pending -Patient will likely benefit from surgical aortic valve replacement at a tertiary care hospital - will reach out again today to see if patient can be accepted at [facility] resume keflex for right forearm phlebitis warm compress DM , insulin sliding scale , hold metformin (risk of lactic acidosis ) GI PPX PPI DVT prophylaxis -subcu heparin Full code Objective - Vital Signs Vital signs: Vital Signs Temp 97.6 F 08/04/22 08:39 Pulse 72 08/04/22 08:39 Resp 19 08/04/22 08:39 BP 94/65 08/04/22 08:39 Pulse Ox 96 08/04/22 08:39 FiO2 50 07/29/22 15:47 Intake & Output 08/03/22 08/04/22 08/04/22 18:59 06:59 18:59 Intake Total 463 180 Output Total 300 Balance 163 180 Intake: Oral 463 180 Output: Urine 300 Other: Voiding Method Urinal Bedside Commode Bedside Commode Urinal Urinal # Bowel Movements 1 - Labs CBC & Chem 7: 08/04/22 07:31 08/04/22 07:31 Labs: Abnormal Lab Results - Last 24 Hours (Table) 08/03/22 08/03/22 08/04/22 Range/Units 12:02 19:51 06:03 WBC (3.8-10.6) k/uL RDW (11.5-15.5) % Plt Count (150-450) k/uL Neutrophils # (1.3-7.7) k/uL Sodium (137-145) mmol/L Potassium (3.5-5.1) mmol/L Chloride (98-107) mmol/L Carbon Dioxide (22-30) mmol/L BUN (9-20) mg/dL Creatinine (0.66-1.25) mg/dL Glucose (74-99) mg/dL POC Glucose (mg/dL) 120 H 144 H 132 H (70-110) mg/dL Calcium (8.4-10.2) mg/dL Magnesium (1.6-2.3) mg/dL Total Bilirubin (0.2-1.3) mg/dL AST (17-59) U/L ALT (4-49) U/L Alkaline Phosphatase (38-126) U/L 08/04/22 08/04/22 Range/Units 07:31 07:31 WBC 11.8 H (3.8-10.6) k/uL RDW 15.8 H (11.5-15.5) % Plt Count 127 L (150-450) k/uL Neutrophils # 9.0 H (1.3-7.7) k/uL Sodium 127 L (137-145) mmol/L Potassium 5.9 H (3.5-5.1) mmol/L Chloride 92 L (98-107) mmol/L Carbon Dioxide 18 L (22-30) mmol/L BUN 83 H (9-20) mg/dL Creatinine 1.90 H (0.66-1.25) mg/dL Glucose 106 H (74-99) mg/dL POC Glucose (mg/dL) (70-110) mg/dL Calcium 7.9 L (8.4-10.2) mg/dL Magnesium 2.8 H (1.6-2.3) mg/dL Total Bilirubin 3.4 H (0.2-1.3) mg/dL AST 154 H (17-59) U/L ALT 261 H (4-49) U/L Alkaline Phosphatase 177 H (38-126) U/L
[2022-08-04] MEDS ORDERED: CALCIUM GLUCONATE IN NACL 2 GM in SALINE 1 100ML.BAG IVPB ONE (11:00)
[2022-08-04 11:57] LABS: Glucose,Whole Blood 176 mg/dL (70-110)
--- NOTE | 2022-08-04 15:49 | P.PN ---
Subjective Progress Note Date: 08/04/22 This is a 67-year-old male patient with a known history of previous valve surgery performed at the [facility], congestive heart failure, diabetes mellitus, hypertension, hyperlipidemia, chronic tobacco dependence with chronic obstructive pulmonary disease and FEV1 value of 54% of predicted. He follows with Dr. Ayala and does have a known history of bicuspid severe aortic valve stenosis, nonischemic cardiomyopathy with ejection fraction of 15-20%. He had been seen and evaluated by cardiothoracic at his recent admission and just discharged home on 07/26/2022 with plans for follow-up at the [facility]. He presented to the emergency room yesterday 07/28/2022 with worsenin g shortness of breath. He was quite hypoxemic with an O2 saturation of 67%. He was placed on BiPAP currently 10/5 and 50% FiO2. Arterial blood gases on 100% FiO2 revealed a PaO2 of 393, pCO2 22, pH 7.47. Chest x-ray revealed cardiomegaly without acute cardiopulmonary process. CT angiogram ruled out pulmonary embolism. There is noted cardiomegaly with bilateral pleural effusions and ascites suggestive of congestive heart failure. White count 10.2. Hemoglobin 14.4. D-dimer 5.6. INR 1.9. Sodium 129. Potassium 4.8. BUN 81. Creatinine 1.86. Initial lactic 6.9. Currently 2.4. AST 354. ALT 419. Troponins negative 3. ProBNP 17,300. He was initiated on Lasix 40 mg IV every 12 hours. He is seen today in consultation on the selective care unit. He is currently awake and alert. He remains on BiPAP 10/5 at 50% FiO2. He is breathing a bit easier today compared to yesterday. No accurate I&O recorded. Reevaluated today on 07/30/22, patient seems to be more comfortable today c ompared to yesterday. He is off BiPAP patient is on 8 L high flow nasal cannula, O2 saturations on the percent. His blood pressure is 92/64 with a mean of 73. Patient seems to be very comfortable, not in any distress. His electrolytes showed low sodium of 128 potassium 5.2 he has a BUN of 83 cre atinine 1.79 which I assume is cardiorenal picture. Patient remains on multiple cardiac meds and on diuretics, improved, he was seen by cardiothoracic surgery, and they are considering taVR in the near future however this will not be done on this admission according to the note Patient was reevaluated today on 07/31/22, complaining of shortness of breath, nasal congestion, remains on 6 L nasal cannula with O2 sats is 97%. Patient is hemodynamically stable, does not seem to be in any distress, but he is complaining of shortness of breath with any activity. Remind you the patient's ejection fraction is in the range of 15% to begin with. Patient presented with acute on chronic systolic congestive heart failure. And I believe his symptoms are mostly cardiac in nature without any doubt. Remains on diuretics. His BUN is 80 creatinine 1.6, slightly better comparing to 1.99 on admission Reevaluated today on 08/01/22, continues to have shortness of breath with any activity, and it is not surprising considering the patient's ejection fraction is only 15% and he has bicuspid aortic valve that may need to be replaced, patient is on 4 L nasal cannula, O2 sats is 99%. Cardiology is cutting down and his diuretics, patient will continue to have recurrent admissions, and being evaluated at the [facility] for possible aortic valve surgery, as a matter of fact he may require surgery done in this institution in the near future. Seen by cardiothoracic surgery already Progress note dated 08/02/2022. 67-year-old male with history of bicuspid aortic valve, and CHF. The patient is apparently being evaluated for possible aortic valve replacement. He was supposed to be evaluated at [facility]. Apparently he has never made it there. She is currently on 4 L, with saturations of 100%. The patient's overall health is not particularly good. White count 9.6, hemoglobin 13.6, hematocrit 42.9, and platelet count 136,000. Sodium 131, potassium 5, chlorides 96, CO2 18, anion gap 17, BUN 75, and creatinine 1.37. Chest x-ray shows no evidence of heart failure. Progress note dated 08/03/2022. 67-year-old male seen in room 372. He has a history of bicuspid aortic valve, aortic stenosis, and CHF. According to the nurse, the patient will be transferred to the [facility] or [facility] for possible aortic valve replacement. Currently, the patient's resting comfortably. The patient is on 4 L of oxygen, with saturations of 97%. Heart rate 63, and blood pressure 92/57. Glucose today was 120. No additional laboratory data is available. The patient is seen today 08/04/2022 in follow-up on the selective care unit. He is currently sitting up in a chair at the bedside. Awake and alert in no acute distress. He is maintaining O2 saturations in the 90s on 4 L nasal cannula. He's been afebrile. White count 11.8. Hemoglobin 14.6. Platelet count 127,000. Sodium 127. Potassium 5.9. Bicarb 18. BUN 83. Creatinine 1.90. Glucose 106. AST 154. ALT 261. He is continued on oral diuretics. The plan is for possible transfer to [facility] for high risk TAVR procedure. Objective - Vital Signs Vital signs: Vital Signs Temp 97.9 F 08/04/22 12:00 Pulse 72 08/04/22 12:00 Resp 18 08/04/22 12:00 BP 94/69 08/04/22 12:00 Pulse Ox 95 08/04/22 12:00 FiO2 50 07/29/22 15:47 Intake & Output 08/03/22 08/04/22 08/04/22 18:59 06:59 18:59 Intake Total 463 180 Output Total 300 Balance 163 180 Intake: Oral 463 180 Output: Urine 300 Other: Voiding Method Urinal Bedside Commode Bedside Commode Urinal Urinal # Bowel Movements 1 - Exam GENERAL EXAM: Alert, pleasant 67-year-old male, on 4 L nasal cannula, comfortable in no apparent distress. HEAD: Normocephalic. EYES: Normal reaction of pupils, equal size. NOSE: Clear with pink turbinates. THROAT: No erythema or exudates. NECK: No masses, no JVD. CHEST: No chest wall deformity. LUNGS: Equal air entry with crackles in the posterior bases. CVS: S1 and S2 normal with an audible systolic murmur, regular rhythm. ABDOMEN: No hepatosplenomegaly, normal bowel sounds, no guarding or rigidity. SPINE: No scoliosis or deformity SKIN: No rashes CENTRAL NERVOUS SYSTEM: No focal deficits, tone is normal in all 4 extremities. EXTREMITIES: There is no peripheral edema. No clubbing, no cyanosis. P eripheral pulses are intact. - Labs CBC & Chem 7: 08/04/22 07:31 08/04/22 12:00 Labs: Abnormal Lab Results - Last 24 Hours (Table) 08/03/22 08/04/22 08/04/22 Range/Units 19:51 06:03 07:31 WBC 11.8 H (3.8-10.6) k/uL RDW 15.8 H (11.5-15.5) % Plt Count 127 L (150-450) k/uL Neutrophils # 9.0 H (1.3-7.7) k/uL Sodium (137-145) mmol/L Potassium (3.5-5.1) mmol/L Chloride (98-107) mmol/L Carbon Dioxide (22-30) mmol/L BUN (9-20) mg/dL Creatinine (0.66-1.25) mg/dL Glucose (74-99) mg/dL POC Glucose (mg/dL) 144 H 132 H (70-110) mg/dL Calcium (8.4-10.2) mg/dL Magnesium (1.6-2.3) mg/dL Total Bilirubin (0.2-1.3) mg/dL AST (17-59) U/L ALT (4-49) U/L Alkaline Phosphatase (38-126) U/L 08/04/22 08/04/22 08/04/22 Range/Units 07:31 11:55 12:00 WBC (3.8-10.6) k/uL RDW (11.5-15.5) % Plt Count (150-450) k/uL Neutrophils # (1.3-7.7) k/uL Sodium 127 L (137-145) mmol/L Potassium 5.9 H 5.9 H (3.5-5.1) mmol/L Chloride 92 L (98-107) mmol/L Carbon Dioxide 18 L (22-30) mmol/L BUN 83 H (9-20) mg/dL Creatinine 1.90 H (0.66-1.25) mg/dL Glucose 106 H (74-99) mg/dL POC Glucose (mg/dL) 176 H (70-110) mg/dL Calcium 7.9 L (8.4-10.2) mg/dL Magnesium 2.8 H (1.6-2.3) mg/dL Total Bilirubin 3.4 H (0.2-1.3) mg/dL AST 154 H (17-59) U/L ALT 261 H (4-49) U/L Alkaline Phosphatase 177 H (38-126) U/L Assessment and Plan Assessment: Acute hypoxemic respiratory failure secondary to an acute exacerbation of chronic systolic congestive heart failure. Ejection fraction 15-20% Nonischemic cardiomyopathy, nonobstructive coronary artery disease Severe bicuspid aortic stenosis, considered high risk for intervention Recent admission for CHF exacerbation Chronic obstructive pulmonary disease with an FEV1 value of 54% of predicted Chronic and ongoing tobacco dependence Diabetes mellitus Hypertension Hyperlipidemia Gastroesophageal reflux disease Acute kidney injury, current creatinine 1.86, GFR 37 Transaminitis, consider cardiohepatic Lactic acidosis, improving Plan: The patient was seen and evaluated Medications and labs reviewed Currently on 4 L nasal cannula Titrate the FiO2 as tolerated Continue diuretics The plan is for possible transfer to [facility] for high risk valve procedure We will continue to follow I have personally seen and examined the patient, performed the documentation and the assessment and plan as written. Number of minutes spent on the visit: 10.
--- NOTE | 2022-08-04 15:50 | P.DS ---
Providers Date of admission: 07/28/22 19:53 Expected date of discharge: 08/04/22 Attending physician: Cameron Keith MD Consults: 07/28/22 19:52 Consult Physician Routine Consulting Provider: Alicia Valdez Consult Reason/Comments: CHF exacerbation Do you want consulting provider notified?: Yes 07/28/22 21:17 Consult Physician Routine Consulting Provider: Elissa Irvin Consult Reason/Comments: Dyspnea Do you want consulting provider notified?: Already Contacted 07/29/22 09:39 Consult Physician Routine Consulting Provider: Skyler Mcghee Consult Reason/Comments: aortic stenosis Do you want consulting provider notified?: Already Contacted Primary care physician: Heath Kirkland MD Hospital Course: Discharge Diagnosis: Acute hypoxic respiratory failure Acute systolic CHF exacerbation Severe aortic stenosis Acute kidney injury, cardiorenal Acute transaminitis Lactic acidosis Leukocytosis Hyperkalemia Right forearm phlebitis Hospital Course: 67-year-old man with medical history of hypertension, severe aortic stenosis, diabetes, hyperlipidemia, systolic heart failure with an ejection fraction of 15% presented for dyspnea. In the emergency room, patient was afebrile, 105/72, heart rate 85, 67% on room air. CBC was unremarkable. Chemistries show hyponatremia to 131, hyperkalemia to 5.6, anion gap of 21, CO2 of 15, UN of 77, creatinine 1.99. Liver function tests remarkable for total bilirubin of 3.7, AST of 387, ALT of 437, alkaline phosphatase of 136. Initial troponins 0.0-8. Initial BNP was 17,300. Initial lactic acid was 6.9. Coags showed a PT of 18.9, INR 1.9, d-dimer 5.61. Venous Doppler of the right upper extremity was negative for DVT. Chest CTA showed cardiomegaly with bilateral pleural effusions and ascites without evidence of pulmonary embolism consistent with heart failure exacerbation. Cardiology and pulmonology were consulted and patient was admitted to medicine. Patient rapidly declined requiring 15 L nonrebreather, then BiPAP. He was started on diuretics with close monitoring of his blood pressure and was subsequently weaned back to nasal cannula 4 L. Renal function and respiratory status improving with diuretics. Patient underwent CRISTIAN in 12/01 showed dilated left ventricle with severely impaired function and EF of 20% with global hypokinesis, bicuspid aortic valve with fusion of right and left coronary cusps, moderate MR, mitral valve appears to be thickened, moderate TR. Cardiac catheterization in 12/01 revealed severe aortic stenosis, pulmonary hypertension, elevated biventricular filling pressures, and intermediate nonobstructive CAD Recent echocardiogram in 05/31 showed LVEF of 15%. Per cardiology, due to bicuspid aortic valve, critical aortic stenosis and dilated aortic root, TAVR is not recommended, with benefit from surgical aortic valve replacement. Patient seen and examined at bedside.[] Vital signs reviewed and stable. General: nontoxic, no distress, appears at stated age Derm: warm, dry Head: atraumatic, normocephalic, symmetric Eyes: EOMI, no lid lag, anicteric sclera Mouth: no lip lesion, mucus membranes moist Cardiovascular: S1S2 reg, systolic murmur Lungs: CTA bilateral, no rhonchi, no rales , no accessory muscle use, 4 L nasal cannula Abdominal: soft, distended, nontender to palpation, no guarding, no appreciable organomegaly Ext: no gross muscle atrophy, trace peripheral edema, no contractures Neuro: CN II-XI grossly intact, no focal neuro deficits Psych: Alert, oriented, appropriate affect A total of 45 minutes of time were spent preparing this complex discharge summary. Patient was discharged on 08/04/22 at 15:49. Patient Condition at Discharge: Stable Plan - Discharge Summary New Discharge Prescriptions: New Furosemide [Lasix] 40 mg PO DAILY tab Lidocaine 5% Patch [Lidoderm 5% Patch] 1 patch TOPICAL DAILY patch Metoprolol Tartrate [Lopressor] 12.5 mg PO BID tab Pantoprazole [Protonix] 40 mg PO AC-BRKFST tab Aspirin 81 mg PO DAILY tab Sodium Chloride 0.65% Nasal [Deep Sea (Saline)] 2 spray NASAL QID PRN ml PRN Reason: Congestion Cephalexin [Keflex] 500 mg PO TID cap INSULIN ASPART (NovoLOG) [NovoLOG (formulary)] 0 unit SQ ACHS each Acetaminophen Tab [Tylenol] 650 mg PO Q4HR PRN #0 tab PRN Reason: Fever And/ Or Pain traMADol HCl [Ultram] 50 mg PO QID PRN tab PRN Reason: Breakthrough Pain Continue Nitroglycerin Sl Tabs [Nitrostat] 0.4 mg SUBLINGUAL Q5M PRN #100 tab PRN Reason: Chest Pain Discontinued metFORMIN HCL [Glucophage] 1,000 mg PO BID Metoprolol Tartrate [Lopressor] 12.5 mg PO BID Cephalexin [Keflex] 500 mg PO QID 5 Days #20 cap Aspirin EC [Ecotrin Low Dose] 81 mg PO DAILY Empagliflozin [Jardiance] 10 mg PO DAILY #30 tablet Omeprazole 40 mg PO DAILY #30 cap Atorvastatin [Lipitor] 40 mg PO DAILY Discharge Medication List Nitroglycerin Sl Tabs [Nitrostat] 0.4 mg SUBLINGUAL Q5M PRN #100 tab 11/12/21 [Rx] Acetaminophen Tab [Tylenol] 650 mg PO Q4HR PRN #0 tab 08/04/22 [Rx] Aspirin 81 mg PO DAILY tab 08/04/22 [Rx] Cephalexin [Keflex] 500 mg PO TID cap 08/04/22 [Rx] Furosemide [Lasix] 40 mg PO DAILY tab 08/04/22 [Rx] INSULIN ASPART (NovoLOG) [NovoLOG (formulary)] 0 unit SQ ACHS each 08/04/22 [Rx] Lidocaine 5% Patch [Lidoderm 5% Patch] 1 patch TOPICAL DAILY patch 08/04/22 [Rx] Metoprolol Tartrate [Lopressor] 12.5 mg PO BID tab 08/04/22 [Rx] Pantoprazole [Protonix] 40 mg PO AC-BRKFST tab 08/04/22 [Rx] Sodium Chloride 0.65% Nasal [Deep Sea (Saline)] 2 spray NASAL QID PRN ml 08/04/22 [Rx] traMADol HCl [Ultram] 50 mg PO QID PRN tab 08/04/22 [Rx] Follow up Appointment(s)/Referral(s): Heath Kirkland MD [Primary Care Provider] - 1-[address] [facility], [NON-STAFF] - Care,[facility]iative [NON-STAFF] - Clinic,Structural Heart [NON-STAFF] - 08/16/22 3:30 pm Discharge/Stand Alone Forms: Who Do I Call?, Community Resources, Personal [employer] Discharge Disposition: OTHER INSTITUTION NOT DEFINED
[2022-08-04 16:24] LABS: Glucose,Whole Blood 94 mg/dL (70-110)
[2022-08-04 16:47] VITALS: BP 95/54; PULSE 84; RESP 17; TEMP 97.6
== END 2022-08-04 16:45 | disposition short-term general hospital (02) | DRG 291 ==
LOC: EC 15:44 → 3SCARD 19:53
PROVIDERS: ADMIT Internal Medicine; ATTEND Internal Medicine
DX: I11.0 Hypertensive heart disease with heart failure (principal); I50.23 Acute on chronic systolic (congestive) heart failure; J96.01 Acute respiratory failure with hypoxia; N17.9 Acute kidney failure, unspecified; R18.8 Other ascites; E87.20 Acidosis, unspecified; E87.1 Hypo-osmolality and hyponatremia; F17.210 Nicotine dependence, cigarettes, uncomplicated; E87.5 Hyperkalemia; I25.10 Atherosclerotic heart disease of native coronary artery without angina pectoris; I27.20 Pulmonary hypertension, unspecified; E11.9 Type 2 diabetes mellitus without complications; I42.8 Other cardiomyopathies; K76.1 Chronic passive congestion of liver; E78.5 Hyperlipidemia, unspecified; D72.829 Elevated white blood cell count, unspecified; R74.01 Elevation of levels of liver transaminase levels; I48.91 Unspecified atrial fibrillation; I50.84 End stage heart failure; I08.3 Combined rheumatic disorders of mitral, aortic and tricuspid valves; I77.810 Thoracic aortic ectasia; I80.8 Phlebitis and thrombophlebitis of other sites; J44.9 Chronic obstructive pulmonary disease, unspecified; K21.9 Gastro-esophageal reflux disease without esophagitis; T50.2X5A Adverse effect of carbonic-anhydrase inhibitors, benzothiadiazides and other diuretics, initial encounter; Z59.00 Homelessness unspecified; Z79.4 Long term (current) use of insulin; Z79.82 Long term (current) use of aspirin; Z79.84 Long term (current) use of oral hypoglycemic drugs; Z79.899 Other long term (current) drug therapy; Z82.49 Family history of ischemic heart disease and other diseases of the circulatory system
CPT/HCPCS: 36415; 36600; 71045; 71275; 80048; 80053; 82140; 82805; 83605; 83735; 83880; 84132; 84484; 85025; 85379; 85610; 85730; 87635; 93005; 94660; 94760